=== PATIENT | female | born 1955 | race Caucasian/White ===

== ENCOUNTER → 2020-01-29 17:29 | Outpatient (CLI) | payer MEDICARE, SELFPAY ==
[2020-01-29 17:42] LABS: Basophils # 0.1 K/mm3 (0-0.2); Basophils % 0.5 % (0.1-2.0); Eosinophils # 0.3 K/mm3 (0.0-0.4); Eosinophils % 2.6 % (0.1-12.0); Hematocrit 27.3 % (37.0-47.0); Hemoglobin 8.8 g/dL (12.2-16.2); Lymphocytes # 3.3 K/mm3 (0.7-4.5); Lymphocytes % 28.3 % (10-50); Mean Corpuscular HGB Conc 32.1 g/dL (31.8-35.4); Mean Corpuscular Volume 90.4 fl (81-99); Mean Platelet Volume 8.8 fl (7.4-10.4); Monocytes # 0.8 K/mm3 (0.1-1.0); Monocytes % 6.5 % (1.7-9.3); Neutrophils # 7.2 K/mm3 (1.8-7.8); Platelet Count 359 K/mm3 (142-424); Red Blood Count 3.02 M/mm3 (4.20-5.40); White Blood Count 11.7 K/mm3 (4.8-10.8)
[2020-01-29 18:43] LABS: Iron 18 ug/dL (37-170)
== END ==
PROVIDERS: Visit Provider Family Medicine
DX: N93.9 Abnormal uterine and vaginal bleeding, unspecified (principal); R53.83 Other fatigue
CPT/HCPCS: 83540; 85025

== ENCOUNTER → 2020-03-07 19:34 | Outpatient (CLI) | payer MEDICARE, SELFPAY ==
[2020-03-07 19:45] LABS: Basophils # 0.1 K/mm3 (0-0.2); Basophils % 0.5 % (0.1-2.0); Eosinophils # 0.2 K/mm3 (0.0-0.4); Eosinophils % 1.9 % (0.1-12.0); Hematocrit 37.1 % (37.0-47.0); Hemoglobin 11.1 g/dL (12.2-16.2); Lymphocytes # 3.6 K/mm3 (0.7-4.5); Lymphocytes % 32.5 % (10-50); Mean Corpuscular HGB Conc 29.8 g/dL (31.8-35.4); Mean Corpuscular Hemoglobin 28.1 pg (27.0-31.2); Mean Platelet Volume 9.5 fl (7.4-10.4); Monocytes # 0.8 K/mm3 (0.1-1.0); Monocytes % 6.8 % (1.7-9.3); Neutrophils # 6.5 K/mm3 (1.8-7.8); Neutrophils % 58.2 % (37.0-80.0); Platelet Count 290 K/mm3 (142-424); Red Blood Count 3.94 M/mm3 (4.20-5.40); Red Cell Distribution Width 15.2 % (11.5-17.5); White Blood Count 11.2 K/mm3 (4.8-10.8)
[2020-03-07 19:49] LABS: Alanine Aminotransferase 12 U/L (12-78); Albumin Level 3.7 g/dl (3.5-5.0); Albumin/Globulin Ratio 1.2 (1.1-1.8); Alkaline Phosphatase 125 U/L (38-126); Anion Gap 10.8 mEq/L (5-15); Aspartate Amino Transferase 21 U/L (14-36); Bilirubin,Total 0.4 mg/dl (0.2-1.3); Blood Urea Nitrogen 10 mg/dl (7-17); Calcium 9.1 mg/dl (8.4-10.2); Carbon Dioxide 28 mmol/L (22.0-30.0); Chloride 105 mmol/L (98-107); Estimated Glomerular Filt Rate 72 ml/min (>60); GFR (African American) 87 ML/MIN (>60); Globulin 3.2 g/dL (1.3-3.2); Glucose 97 mg/dl (74-100); Potassium 3.8 mmoL/L (3.5-5.1); Sodium 140 mmol/L (136-145); Total Protein,Serum 6.9 g/dl (6.3-8.2)
[2020-03-07 20:07] LABS: 25-OH Vitamin D, Total 30.1 ng/mL (30-100); T4 (Thyroxine) 9.9 ug/dl (5.53-11.0)
[2020-03-07 20:20] LABS: Thyroid Stimulating Hormone 2.41 uIU/mL (0.465-4.68)
[2020-03-07 20:38] LABS: Vitamin B12 230 pg/mL (239-931)
[2020-03-07 21:56] LABS: Iron 44 ug/dL (37-170)
== END ==
PROVIDERS: Visit Provider Family Medicine
DX: R79.9 Abnormal finding of blood chemistry, unspecified (principal); E55.9 Vitamin D deficiency, unspecified; D64.9 Anemia, unspecified
CPT/HCPCS: 80053; 82306; 82607; 83540; 84436; 84443; 85025

== ENCOUNTER → 2020-03-22 11:08 | Outpatient (CLI) | payer MEDICARE, SELFPAY ==
[2020-03-23 17:31] LABS: Basophils # 0.1 K/mm3 (0-0.2); Basophils % 0.8 % (0.1-2.0); Eosinophils # 0.3 K/mm3 (0.0-0.4); Hematocrit 41.4 % (37.0-47.0); Lymphocytes # 3.6 K/mm3 (0.7-4.5); Lymphocytes % 26.2 % (10-50); Mean Corpuscular Hemoglobin 28.2 pg (27.0-31.2); Mean Platelet Volume 10.6 fl (7.4-10.4); Monocytes % 7.1 % (1.7-9.3); Neutrophils # 8.8 K/mm3 (1.8-7.8); Neutrophils % 63.9 % (37.0-80.0); Platelet Count 447 K/mm3 (142-424); Red Blood Count 4.27 M/mm3 (4.20-5.40); Red Cell Distribution Width 15.2 % (11.5-17.5); White Blood Count 13.8 K/mm3 (4.8-10.8)
== END ==
PROVIDERS: Visit Provider Family Medicine
DX: A41.9 Sepsis, unspecified organism (principal)
CPT/HCPCS: 85025; 87086

== ENCOUNTER → 2020-04-26 11:56 | Outpatient (CLI) | payer MEDICARE, SELFPAY ==
[2020-04-27 12:09] LABS: Basophils # 0.1 K/mm3 (0-0.2); Basophils % 0.6 % (0.1-2.0); Eosinophils # 0.2 K/mm3 (0.0-0.4); Eosinophils % 1.6 % (0.1-12.0); Hematocrit 34.8 % (37.0-47.0); Lymphocytes % 27.3 % (10-50); Mean Corpuscular HGB Conc 28.9 g/dL (31.8-35.4); Mean Corpuscular Hemoglobin 27.7 pg (27.0-31.2); Mean Corpuscular Volume 95.8 fl (81-99); Monocytes # 0.6 K/mm3 (0.1-1.0); Monocytes % 5.6 % (1.7-9.3); Neutrophils # 7.1 K/mm3 (1.8-7.8); Neutrophils % 64.8 % (37.0-80.0); Platelet Count 406 K/mm3 (142-424); Red Blood Count 3.63 M/mm3 (4.20-5.40); Red Cell Distribution Width 16.4 % (11.5-17.5)
== END ==
PROVIDERS: Visit Provider Family Medicine
DX: C54.1 Malignant neoplasm of endometrium (principal)
CPT/HCPCS: 85025

== ENCOUNTER → 2020-08-25 17:21 | Outpatient (CLI) | payer MEDICARE, SELFPAY ==
[2020-08-25 17:53] LABS: Basophils % 0.3 % (0.1-2.0); Eosinophils # 0.1 K/mm3 (0.0-0.4); Hematocrit 32.2 % (37.0-47.0); Hemoglobin 9.3 g/dL (12.2-16.2); Lymphocytes # 2.9 K/mm3 (0.7-4.5); Lymphocytes % 22.9 % (10-50); Mean Corpuscular Volume 79.3 fl (81-99); Mean Platelet Volume 9.9 fl (7.4-10.4); Monocytes # 0.9 K/mm3 (0.1-1.0); Monocytes % 7.1 % (1.7-9.3); Neutrophils # 8.8 K/mm3 (1.8-7.8); Neutrophils % 68.6 % (37.0-80.0); Platelet Count 256 K/mm3 (142-424); Red Blood Count 4.06 M/mm3 (4.20-5.40); Red Cell Distribution Width 17.2 % (11.5-17.5); White Blood Count 12.8 K/mm3 (4.8-10.8)
[2020-08-25 19:35] LABS: Total Iron Binding Capacity 475 ug/dL (265-497)
[2020-08-25 19:40] LABS: Alanine Aminotransferase 18 U/L (12-78); Albumin Level 3.9 g/dl (3.5-5.0); Albumin/Globulin Ratio 1.2 (1.1-1.8); Alkaline Phosphatase 127 U/L (38-126); Anion Gap 14.5 mEq/L (5-15); Aspartate Amino Transferase 21 U/L (14-36); Bilirubin,Total 0.3 mg/dl (0.2-1.3); Blood Urea Nitrogen 12 mg/dl (7-17); Carbon Dioxide 27 mmol/L (22.0-30.0); Chloride 102 mmol/L (98-107); Chol/HDL Ratio 3.2 (1-3.5); Cholesterol 186 mg/dl (140-200); Estimated Glomerular Filt Rate 100 ml/min (>60); GFR (African American) 121 ML/MIN (>60); Globulin 3.2 g/dL (1.3-3.2); Glucose 71 mg/dl (74-100); HDL Cholesterol 59 mg/dl (40-60); Potassium 4.5 mmoL/L (3.5-5.1); Sodium 139 mmol/L (136-145); Total Protein,Serum 7.1 g/dl (6.3-8.2); Triglycerides 128 mg/dl (30-150); VLDL Cholesterol 26 mg/dL (0-40)
[2020-08-25 19:51] LABS: Direct LDL Cholesterol 96.72 mg/dL (100-129)
[2020-08-25 19:58] LABS: 25-OH Vitamin D, Total 32.3 ng/mL (30-100); T4 (Thyroxine) 9.6 ug/dl (5.53-11.0)
[2020-08-25 20:11] LABS: Thyroid Stimulating Hormone 1.95 uIU/mL (0.465-4.68)
[2020-08-25 20:29] LABS: Vitamin B12 226 pg/mL (239-931)
[2020-08-25 21:23] LABS: Iron 27 ug/dL (37-170)
== END ==
PROVIDERS: Visit Provider Family Medicine
DX: D64.9 Anemia, unspecified (principal); E03.9 Hypothyroidism, unspecified; I10 Essential (primary) hypertension; C54.1 Malignant neoplasm of endometrium; E55.9 Vitamin D deficiency, unspecified; N39.0 Urinary tract infection, site not specified
CPT/HCPCS: 80053; 80061; 82306; 82607; 83540; 83550; 84436; 84443; 85025; 87086; 87088; 87186

== ENCOUNTER → 2020-11-29 17:05 | Outpatient (CLI) | payer MEDICARE, SELFPAY ==
--- NOTE | 2020-11-29 17:30 | XR_ITS ---
PROCEDURE INFORMATION: Exam: XR Chest Exam date and time: 11/29/2020 5:30 PM Age: 65 years old Clinical indication: Shortness of breath; Additional info: Pneumonitis, recalled cpap, black flecks TECHNIQUE: Imaging protocol: XR of the chest. Views: 2 views. COMPARISON: No relevant prior studies available. FINDINGS: Lungs: Mild atelectatic changes within the right lung base without focal pneumonia. Pleural spaces: There is no evidence of pneumothorax. There are no pleural effusions present. Heart/Mediastinum: The heart is not enlarged. Diaphragm: There is nonspecific elevation of the right hemidiaphragm. Bones/joints: The thoracic spine demonstrates mild degenerative changes at multiple levels. Soft tissues: There are no soft tissue masses or fluid collections. Other findings: The patient's chin overlies the lung apices. IMPRESSION: Mild atelectatic changes within the right lung base without focal pneumonia.
[2020-11-29 18:12] LABS: Basophils # 0.1 K/mm3 (0-0.2); Basophils % 0.5 % (0.1-2.0); Eosinophils # 0.2 K/mm3 (0.0-0.4); Eosinophils % 1.6 % (0.1-12.0); Hematocrit 36.4 % (37.0-47.0); Hemoglobin 11.5 g/dL (12.2-16.2); Lymphocytes # 3.6 K/mm3 (0.7-4.5); Mean Corpuscular HGB Conc 31.7 g/dL (31.8-35.4); Mean Corpuscular Hemoglobin 25.8 pg (27.0-31.2); Mean Corpuscular Volume 81.4 fl (81-99); Mean Platelet Volume 8.9 fl (7.4-10.4); Monocytes # 0.8 K/mm3 (0.1-1.0); Monocytes % 6.5 % (1.7-9.3); Neutrophils # 8.2 K/mm3 (1.8-7.8); Neutrophils % 63.4 % (37.0-80.0); Platelet Count 299 K/mm3 (142-424); Red Blood Count 4.47 M/mm3 (4.20-5.40); Red Cell Distribution Width 17.3 % (11.5-17.5)
[2020-11-29 19:19] LABS: Alanine Aminotransferase 20 U/L (12-78); Albumin Level 3.7 g/dl (3.5-5.0); Albumin/Globulin Ratio 1.2 (1.1-1.8); Alkaline Phosphatase 135 U/L (38-126); Anion Gap 13.2 mEq/L (5-15); Aspartate Amino Transferase 23 U/L (14-36); Bilirubin,Total 0.4 mg/dl (0.2-1.3); Blood Urea Nitrogen 10 mg/dl (7-17); Calcium 8.8 mg/dl (8.4-10.2); Carbon Dioxide 26 mmol/L (22.0-30.0); Chloride 104 mmol/L (98-107); Estimated Glomerular Filt Rate 100 ml/min (>60); GFR (African American) 121 ML/MIN (>60); Glucose 92 mg/dl (74-100); Potassium 4.2 mmoL/L (3.5-5.1); Sodium 139 mmol/L (136-145); Total Protein,Serum 6.7 g/dl (6.3-8.2)
[2020-11-29 20:58] LABS: Iron 43 ug/dL (37-170)
[2020-11-29 21:08] LABS: Total Iron Binding Capacity 436 ug/dL (265-497)
[2020-11-29 21:32] LABS: Thyroid Stimulating Hormone 1.67 uIU/mL (0.465-4.68)
== END ==
PROVIDERS: PCP Family Medicine; Visit Provider Family Medicine
DX: Z09 Encounter for follow-up examination after completed treatment for conditions other than malignant neoplasm (principal); C54.1 Malignant neoplasm of endometrium
CPT/HCPCS: 36415; 71046; 80053; 83540; 83550; 84443; 85025

== ENCOUNTER → 2021-02-02 18:28 | Outpatient (CLI) | payer MEDICARE, SELFPAY | PROVIDERS: Visit Provider Family Medicine | DX: R39.9 Unspecified symptoms and signs involving the genitourinary system (principal) | CPT/HCPCS: 87086; 87088; 87186 ==

== ENCOUNTER → 2021-08-01 11:44 | Outpatient (CLI) | payer MEDICARE, SELFPAY | PROVIDERS: Visit Provider Family Medicine | DX: R35.0 Frequency of micturition (principal); B96.1 Klebsiella pneumoniae [K. pneumoniae] as the cause of diseases classified elsewhere | CPT/HCPCS: 87086; 87088; 87186 ==

== ENCOUNTER → 2021-10-27 14:39 | Outpatient (CLI) | payer MEDICARE, SELFPAY ==
[2021-10-27 14:46] LABS: Alanine Aminotransferase 28 U/L (12-78); Albumin Level 3.5 g/dl (3.5-5.0); Albumin/Globulin Ratio 1.1 (1.1-1.8); Alkaline Phosphatase 131 U/L (38-126); Aspartate Amino Transferase 32 U/L (14-36); Blood Urea Nitrogen 10 mg/dl (7-17); Calcium 8.7 mg/dl (8.4-10.2); Carbon Dioxide 29 mmol/L (22.0-30.0); Chloride 104 mmol/L (98-107); Estimated Glomerular Filt Rate 100 ml/min (>60); GFR (African American) 121 ML/MIN (>60); Globulin 3.1 g/dL (1.3-3.2); Glucose 111 mg/dl (74-100); Sodium 140 mmol/L (136-145); Total Protein,Serum 6.6 g/dl (6.3-8.2)
[2021-10-27 15:01] LABS: Bilirubin,Total 0.1 mg/dl (0.2-1.3)
[2021-10-27 15:35] LABS: Vitamin B12 290 pg/mL (239-931)
== END ==
PROVIDERS: PCP Family Medicine; Visit Provider Family Medicine
DX: R39.9 Unspecified symptoms and signs involving the genitourinary system (principal); E53.8 Deficiency of other specified B group vitamins
CPT/HCPCS: 80053; 82607; 87086

== ENCOUNTER → 2022-02-21 11:02 | Outpatient (CLI) | payer MEDICARE, SELFPAY | PROVIDERS: PCP Family Medicine; Visit Provider Family Medicine | DX: R30.9 Painful micturition, unspecified (principal); B96.1 Klebsiella pneumoniae [K. pneumoniae] as the cause of diseases classified elsewhere | CPT/HCPCS: 87086; 87088; 87186 ==

== ENCOUNTER → 2022-08-06 23:31 | Outpatient (CLI) | payer MEDICARE, SELFPAY ==
[2022-08-06 18:48] LABS: Basophils # 0.1 K/mm3 (0-0.2); Basophils % 0.6 % (0.1-2.0); Eosinophils # 0.2 K/mm3 (0.0-0.4); Eosinophils % 1.9 % (0.1-12.0); Hematocrit 42.2 % (37.0-47.0); Hemoglobin 13.5 g/dL (12.2-16.2); Lymphocytes # 3.3 K/mm3 (0.7-4.5); Lymphocytes % 30.8 % (10-50); Mean Corpuscular HGB Conc 32.1 g/dL (31.8-35.4); Mean Corpuscular Hemoglobin 29.8 pg (27.0-31.2); Mean Corpuscular Volume 92.8 fl (81-99); Mean Platelet Volume 10.1 fl (7.4-10.4); Monocytes # 0.7 K/mm3 (0.1-1.0); Monocytes % 6.6 % (1.7-9.3); Neutrophils # 6.4 K/mm3 (1.8-7.8); Neutrophils % 60.1 % (37.0-80.0); Platelet Count 303 K/mm3 (142-424); Red Blood Count 4.55 M/mm3 (4.20-5.40); Red Cell Distribution Width 14.2 % (11.5-17.5); White Blood Count 10.6 K/mm3 (4.8-10.8)
[2022-08-06 19:02] LABS: Alanine Aminotransferase 24 U/L (12-78); Albumin Level 3.9 g/dl (3.5-5.0); Albumin/Globulin Ratio 1.3 (1.1-1.8); Alkaline Phosphatase 132 U/L (38-126); Anion Gap 11.4 mEq/L (5-15); Aspartate Amino Transferase 30 U/L (14-36); Bilirubin,Total 0.6 mg/dl (0.2-1.3); Blood Urea Nitrogen 11 mg/dl (7-17); Calcium 8.6 mg/dl (8.4-10.2); Carbon Dioxide 28 mmol/L (22.0-30.0); Chloride 101 mmol/L (98-107); Chol/HDL Ratio 4.4 (1-3.5); Cholesterol 209 mg/dl (140-200); Estimated Glomerular Filt Rate 123 ml/min (>60); GFR (African American) 149 ML/MIN (>60); Glucose 97 mg/dl (74-100); HDL Cholesterol 48 mg/dl (40-60); Potassium 4.4 mmoL/L (3.5-5.1); Sodium 136 mmol/L (136-145); Total Protein,Serum 6.9 g/dl (6.3-8.2); Triglycerides 221 mg/dl (30-150); VLDL Cholesterol 44 mg/dL (0-40)
[2022-08-06 19:14] LABS: Direct LDL Cholesterol 120.81 mg/dL (100-129)
[2022-08-06 19:22] LABS: 25-OH Vitamin D, Total 25.2 ng/mL (30-100)
[2022-08-06 19:35] LABS: Thyroid Stimulating Hormone 1.86 uIU/mL (0.465-4.68)
[2022-08-06 20:12] LABS: Folate 8.46 ng/mL
== END ==
PROVIDERS: PCP Family Medicine; Visit Provider Family Medicine
DX: E66.01 Morbid (severe) obesity due to excess calories (principal); E55.9 Vitamin D deficiency, unspecified; D50.0 Iron deficiency anemia secondary to blood loss (chronic); I10 Essential (primary) hypertension; F39 Unspecified mood [affective] disorder; R53.83 Other fatigue; Z68.43 Body mass index [BMI] 50.0-59.9, adult
CPT/HCPCS: 80053; 80061; 82306; 82746; 84443; 85025

== ENCOUNTER → 2022-12-06 23:11 | Outpatient (CLI) | payer MEDICARE, SELFPAY ==
[2022-12-06 18:16] LABS: Alanine Aminotransferase 24 U/L (12-78); Albumin/Globulin Ratio 1.3 (1.1-1.8); Alkaline Phosphatase 130 U/L (38-126); Anion Gap 9.9 mEq/L (5-15); Aspartate Amino Transferase 37 U/L (14-36); Bilirubin,Total 0.6 mg/dl (0.2-1.3); Blood Urea Nitrogen 8 mg/dl (7-17); Calcium 8.8 mg/dl (8.4-10.2); Carbon Dioxide 28 mmol/L (22.0-30.0); Chloride 105 mmol/L (98-107); Estimated Glomerular Filt Rate 83 ml/min (>60); GFR (African American) 101 ML/MIN (>60); Globulin 3.1 g/dL (1.3-3.2); Glucose 95 mg/dl (74-100); Potassium 3.9 mmoL/L (3.5-5.1); Sodium 139 mmol/L (136-145); Total Protein,Serum 7.1 g/dl (6.3-8.2)
== END ==
PROVIDERS: PCP Family Medicine; Visit Provider Family Medicine
DX: I10 Essential (primary) hypertension (principal)
CPT/HCPCS: 80053

== ENCOUNTER 2023-07-15 19:47 | Outpatient (CLI) | payer MEDICARE, SELFPAY ==
[2023-07-15 18:55] LABS: Basophils % 0.4 % (0.1-2.0); Eosinophils # 0.1 K/mm3 (0.0-0.4); Eosinophils % 1.6 % (0.1-12.0); Hematocrit 41.6 % (37.0-47.0); Hemoglobin 14.2 g/dL (12.2-16.2); Lymphocytes % 35.1 % (10-50); Mean Corpuscular Hemoglobin 31.8 pg (27.0-31.2); Mean Corpuscular Volume 93.4 fl (81-99); Mean Platelet Volume 10.5 fl (7.4-10.4); Monocytes # 0.5 K/mm3 (0.1-1.0); Monocytes % 6.4 % (1.7-9.3); Neutrophils # 4.8 K/mm3 (1.8-7.8); Neutrophils % 56.4 % (37.0-80.0); Platelet Count 249 K/mm3 (142-424); Red Blood Count 4.46 M/mm3 (4.20-5.40); White Blood Count 8.5 K/mm3 (4.8-10.8)
[2023-07-15 18:56] LABS: Alanine Aminotransferase 21 U/L (12-78); Albumin Level 3.7 g/dl (3.5-5.0); Albumin/Globulin Ratio 1.2 (1.1-1.8); Alkaline Phosphatase 111 U/L (38-126); Anion Gap 7.8 mEq/L (5-15); Aspartate Amino Transferase 26 U/L (14-36); Bilirubin,Total 0.5 mg/dl (0.2-1.3); Blood Urea Nitrogen 11 mg/dl (7-17); Calcium 8.9 mg/dl (8.4-10.2); Carbon Dioxide 32 mmol/L (22.0-30.0); Chloride 103 mmol/L (98-107); Cholesterol 218 mg/dl (140-200); Estimated Glomerular Filt Rate 83 ml/min (>60); GFR (African American) 101 ML/MIN (>60); Globulin 3.2 g/dL (1.3-3.2); Glucose 100 mg/dl (74-100); HDL Cholesterol 44 mg/dl (40-60); Potassium 3.8 mmoL/L (3.5-5.1); Sodium 139 mmol/L (136-145); Total Protein,Serum 6.9 g/dl (6.3-8.2); Triglycerides 184 mg/dl (30-150); VLDL Cholesterol 37 mg/dL (0-40)
[2023-07-15 19:07] LABS: Direct LDL Cholesterol 123.51 mg/dL (100-129)
[2023-07-15 19:16] LABS: 25-OH Vitamin D, Total 33.6 ng/mL (30-100)
[2023-07-15 19:25] LABS: Thyroid Stimulating Hormone 1.33 uIU/mL (0.465-4.68)
[2023-07-15 19:44] LABS: Vitamin B12 331 pg/mL (239-931)
== END 2023-07-15 23:59 ==
LOC: LAB.DROPOF 19:47
PROVIDERS: PCP Family Medicine; Visit Provider Family Medicine
DX: K76.0 Fatty (change of) liver, not elsewhere classified (principal); I10 Essential (primary) hypertension; D64.9 Anemia, unspecified; E55.9 Vitamin D deficiency, unspecified; N39.0 Urinary tract infection, site not specified; E03.8 Other specified hypothyroidism; B96.1 Klebsiella pneumoniae [K. pneumoniae] as the cause of diseases classified elsewhere
CPT/HCPCS: 80053; 80061; 82306; 82607; 84443; 85025; 87086

== ENCOUNTER 2023-12-09 10:31 | Outpatient (CLI) | payer MEDICARE, SELFPAY | END 2023-12-09 23:59 | disposition home or self-care (01) | LOC: LAB.DROPOF 12-10 10:31 | PROVIDERS: PCP Family Medicine; Visit Provider Family Medicine | DX: R30.0 Dysuria (principal) | CPT/HCPCS: 87086; 87088; 87186 ==

== ENCOUNTER 2024-01-26 09:23 | Outpatient (CLI) | payer MEDICARE, SELFPAY | END 2024-01-26 23:59 | disposition home or self-care (01) | LOC: LAB.DROPOF 01-27 09:24 | PROVIDERS: PCP Family Medicine; Visit Provider Family Medicine | DX: N39.0 Urinary tract infection, site not specified (principal); R30.0 Dysuria | CPT/HCPCS: 87086; 87088; 87186 ==

== ENCOUNTER 2024-02-20 11:30 | Outpatient (CLI) | payer MEDICARE, SELFPAY | END 2024-02-20 23:59 | disposition home or self-care (01) | LOC: LAB.DROPOF 02-21 14:56 | PROVIDERS: PCP Family Medicine; Visit Provider Family Medicine | DX: N39.0 Urinary tract infection, site not specified (principal); R30.0 Dysuria | CPT/HCPCS: 87086; 87088; 87186 ==

== ENCOUNTER 2024-03-16 10:17 | Outpatient (CLI) | payer MEDICARE, SELFPAY ==
[2024-03-16 19:30] LABS: Basophils # 0.1 K/mm3 (0-0.2); Basophils % 0.5 % (0.1-2.0); Eosinophils # 0.2 K/mm3 (0.0-0.4); Eosinophils % 1.3 % (0.1-12.0); Hematocrit 46.1 % (37.0-47.0); Hemoglobin 14.9 g/dL (12.2-16.2); Lymphocytes # 3.5 K/mm3 (0.7-4.5); Lymphocytes % 26.1 % (10-50); Mean Corpuscular HGB Conc 32.3 g/dL (31.8-35.4); Mean Corpuscular Hemoglobin 30.8 pg (27.0-31.2); Mean Corpuscular Volume 95.4 fl (81-99); Mean Platelet Volume 9.7 fl (7.4-10.4); Monocytes # 0.9 K/mm3 (0.1-1.0); Monocytes % 6.7 % (1.7-9.3); Neutrophils # 8.6 K/mm3 (1.8-7.8); Neutrophils % 65.4 % (37.0-80.0); Platelet Count 257 K/mm3 (142-424); Red Blood Count 4.83 M/mm3 (4.20-5.40); Red Cell Distribution Width 13.3 % (11.5-17.5); White Blood Count 13.2 K/mm3 (4.8-10.8)
[2024-03-16 20:05] LABS: Alanine Aminotransferase 32 U/L (12-78); Albumin/Globulin Ratio 1.2 (1.1-1.8); Alkaline Phosphatase 113 U/L (38-126); Aspartate Amino Transferase 31 U/L (14-36); Bilirubin,Total 0.7 mg/dl (0.2-1.3); Blood Urea Nitrogen 12 mg/dl (7-17); Calcium 9.2 mg/dl (8.4-10.2); Carbon Dioxide 30 mmol/L (22.0-30.0); Chloride 104 mmol/L (98-107); Chol/HDL Ratio 3.7 (1-3.5); Cholesterol 220 mg/dl (140-200); Estimated Glomerular Filt Rate 83 ml/min (>60); GFR (African American) 100 ML/MIN (>60); Globulin 3.4 g/dL (1.3-3.2); Glucose 99 mg/dl (74-100); HDL Cholesterol 60 mg/dl (40-60); Sodium 140 mmol/L (136-145); Total Protein,Serum 7.4 g/dl (6.3-8.2); Triglycerides 144 mg/dl (30-150); Uric Acid 5.7 mg/dl (2.5-6.2); VLDL Cholesterol 29 mg/dL (0-40)
[2024-03-16 20:14] LABS: Erythrocyte Sedimentation Rate 16 mm/hr (0-30)
[2024-03-16 20:21] LABS: 25-OH Vitamin D, Total 42.4 ng/mL (30-100)
[2024-03-16 20:50] LABS: Anion Gap 9.7 mEq/L (5-15); Potassium 3.7 mmoL/L (3.5-5.1)
[2024-03-16 20:58] LABS: Direct LDL Cholesterol 127.52 mg/dL (100-129); Thyroid Stimulating Hormone 0.95 uIU/mL (0.465-4.68)
[2024-03-18 15:27] LABS: RA Latex Turbid. <10.0 IU/mL (<14.0)
[2024-03-19 17:13] LABS: Antinuclear Antibodies, IFA Negative (.)
== END 2024-03-16 23:59 | disposition home or self-care (01) ==
LOC: LAB.DROPOF 03-17 10:17
PROVIDERS: PCP Family Medicine; Visit Provider Family Medicine
DX: E55.9 Vitamin D deficiency, unspecified (principal); I10 Essential (primary) hypertension; E03.9 Hypothyroidism, unspecified; D50.0 Iron deficiency anemia secondary to blood loss (chronic)
CPT/HCPCS: 80053; 80061; 82306; 84443; 84550; 85025; 85651; 86038; 86431

== ENCOUNTER 2024-11-02 16:59 | Outpatient (CLI) | payer MEDICARE, SELFPAY ==
--- OUTSIDE RECORDS SUMMARY | 2024-10-27 12:30 | XMS_ITS | Encounter Summary ---
Author Organization [place] [address] Care Team Providers Care Bicycle Technician Name Role Phone Noah Gonzales MD Primary Care Provider [phone] Desean Vickers DPM Unavailable [phone] Roel Posadas MD Unavailable [phone] Noah Calero MD Unavailable Unavailable Reason for Visit * Reason Comments Follow-up Encounter Details Date Type Department Care Team (Late st Contact Info) Description 10/27/2024 12:30 PM EDT Office Visit [facility] [address] [address] Singh Varner MD [address] [address] KARO (obstructive sleep apnea) (Primary Dx); BMI 50.0-59.9, adult ([facility]); Class 3 severe obesity with serious comorbidity and body mass index (BMI) of 50.0 to 59.9 in adult; Mild persistent asthma without complication; Gastroesophageal reflux disease, unspecified whether esophagitis present; Fatty liver Social History Tobacco Use Types Packs/Day Years Used Date Smoking Tobacco: Never Smokeless Tobacco: Never Tobacco Cessation:Counseling Given: Not Answered Alcohol Use Standard Drinks/Week Comments No 0 (1 standard drink = 0.6 oz pur e alcohol) PHQ-2 Answer Date Recorded PHQ-2 Total Score 0 02/06/2023 Sexually Active Control Partners Comments Not Currently Comments No Sex and Gender Information Value Date Recorded Sex Assigned at Not on file Legal Sex Female 8:44 PM EDT Gender Identity Not on file Sexual Orientation Not on file documented as of this encounter Last Filed Vital Signs Vital Sign Reading Time Taken Comments Blood Pressure 100/60 10/27/2024 12:37 PM EDT Pulse 74 10/27/2024 12:37 PM EDT Temperature - - Respiratory Rate - - Oxygen Saturation 97% 10/27/2024 12:37 PM EDT [email or web address]@rest Inhaled Oxygen Concentration - - Weight 149.2 kg (329 lb) 10/27/2024 12:37 PM EDT Height 164.5 cm (5' 4.75 ) 10/27/2024 12:37 PM E DT Body Mass Index 55.17 10/27/2024 12:37 PM EDT documented in this encounter Functional Status * Is the person deaf or does he/she have serious difficulty hearing? Answer Date of Assessment Author No 05/04/2020 10:40 AM Donald Pagan RN * Is the person blind or does he/she have serious difficulty seeing even when wearing glasses? Answer Date of Assessment Author No 05/04/2020 10:40 AM Donald Pagan RN * Does this person have serious difficulty walking or climbing stairs? Answer Date of Assessment Author No 05/04/2020 10:40 AM Donald Pagan RN * Does this person have difficulty dressing or bathing? Answer Date of Assessment Author No 05/04/2020 10:40 AM Donald Pagan RN * Because of a physical, mental or emotional condition, does this person have difficulty doing errands alone such as visiting a doctor's office or shopping? Answer Date of Assessment Author No 05/04/2020 10:40 AM Donald Pagan RN documented as of this encounter Mental Status * Because of a physical, mental or emotional condition, does this person have serious difficulty concentrating, remembering or making decisions? Answer Entry Date Author No 05/04/2020 10:40 AM Donald Pagan RN documented in this encounter Ordered Prescriptions Prescription Sig Dispense Quantity Refills Last Filled Start Date End Date albuterol-budesonid e (AIRSUPRA) 90-80 mcg/actuation Inhl HFA Aerosol Inhaler Inhale 2 Puffs into the lungs 4 times daily as needed. 17 g 3 10/27/2024 documented in this encounter Progress Notes * Singh Varner MD - 10/27/2024 12:30 PM EDT Images from the original note were not included. [facility] Care Group Followup Visit PATIENT: PAVITHRA NEGRETE CSN: [id number] AGE TODAY: 68 y.o. DATE: [address]: Noah Gonzales MD SERVICE DATE: 10/27/2024 [facility] [place] PULM SERVICE BY: Singh Varner MD Subjective: Patient ID: Pavithra Power returns today for follow up of . 1. KARO (obstructive sleep apnea) 2. BMI 50.0-59.9, adult (HCC) 3. Class 3 severe obesity with serious comorbidity and body mass index (BMI) of 50.0 to 59.9 in adult 4. Mild persistent asthma without complication 5. Gastroesophageal reflux disease, unspecified whether esophagitis present 6. Fatty liver Referred from: No referring provider defined for this encounter. CHIEF COMPLAINT Chief Complaint Patient presents with Follow-up HPI Pavithra Power is a 68 y.o. female who presents July was rough Antbx sterioids x 3 Thinks it was c malfunction c cpap Current symptoms include: dhaliwal Recent oral steroid use 3 Recent Hospital admission 0 ED visit 0 Recent abx use 0 Constitutional: Denies fever or chills Eyes: Denies change in visual acuity HENT: Denies nasal congestion or sore throat Respiratory: dhaliwal Cardiovascular: Denies chest pain or edema GI: Denies abdominal pain, nausea, vomiting, bloody stools or diarrhea : Denies dysuria Musculoskeletal: Denies back pain or joint pain Integument: Denies rash Neurologic: Denies headache, focal weakness or sensory changes Endocrine: Denies polyuria or polydipsia Lymphatic: Denies swollen glands Psychiatric: Denies depression or anxiety Peripheral vascular: Denies claudication Past Medical History: Diagnosis Date Anemia related to HARBOR MASTER bleeding Arthritis all over Asthma Cancer (HCC) skin ( squamous cell ), endometrial cancer now Chronic back pain 01/28/2013 ripped s1 nerve during D&C Chronic kidney disease stones DHALIWAL (dyspnea on exertion) Fibromyalgia 01/28/2013 Heartburn Hiatal hernia Hypertension Irritable bowel syndrome Liver disease fatty Motion sickness Neuromuscular disorder (HCC) Fibromyalgia Postmenopausal 01/28/2013 states postmenopausal for at least 4 years. Postoperative nausea and vomiting Sleep apnea c pap Ulcer 2005 Urinary incontinence Urinary tract infection 10/2015 frequent. Cuirrently on Doxycycline, treated by Dr. Buitrago Social History Socioeconomic History Marital status: Spouse name: None Number of children: None Years of education: None Highest education level: None Tobacco Use Smoking status: Never Smokeless tobacco: Never Vaping Use Vaping status: Never Used Substance and Sexual Activity Alcohol use: No Drug use: No Sexual activity: Not Currently Current Outpatient Medications Medication Sig Dispense Refill acetaminophen (TYLENOL) 500 mg Oral Tablet Take 1,000 mg by mouth every 6 hours as needed (arthiritis pain). albuterol (PROVENTIL HFA;VENTOLIN HFA) 90 mcg/actuation Inhl HFA Aerosol Inhaler Inhale 2 Puffs into the lungs every 6 hours as needed for Wheezing. 1 Inhaler 0 albuterol (PROVENTIL) 2.5 mg /3 mL (0.083 %) Inhl Solution for Nebulization Take 3 mL by nebulization daily as needed for Wheezing or Shortness of Breath. 1 box 0 benazepriL (LOTENSIN) 5 mg Oral Tablet Take 5 mg by mouth daily. cetirizine (ZYRTEC) 5 mg Oral Tablet Take 5 mg by mouth daily. chlordiazePOXIDE (LIBRIUM) 10 mg Oral Capsule Take by mouth 2 times daily as needed. for anxiety chlordiazePOXIDE (LIBRIUM) 5 mg capsule Take 5 mg by mouth 3 times daily as needed (for anxiety attacks). Cholecalciferol, Vitamin D3, 125 mcg (5,000 unit) Oral Capsule 125 mcg. ergocalciferol (DRISDOL) 1,250 mcg (50,000 unit) Oral Capsule Take 50,000 Units by mouth once a week. Takes on Saturday fluconazole (DIFLUCAN) 100 mg Oral Tablet Take 100 mg by mouth daily. fUROsemide (LASIX) 40 mg tablet Take 40 mg by mouth daily. HYDROmorphone (DILAUDID) 2 mg Oral Tablet take 1 tablet by mouth once daily as needed for pain LEVOthyroxine (SYNTHROID) 75 mcg Oral Tablet Take 1 Tab by mouth daily. meclizine (ANTIVERT) 25 mg Oral Tablet, Chewable CHEW 1 TABLET BY MOUTH THREE (3) TIMES DAILY NEEDED FOR DIZZINESS MICONAZORB AF 2 % Top Powder APPLY ONE (1) APPLICATION TOPICALLY TWICE DAILY nitrofurantoin, macrocrystal-monohydrate, (MACROBID) 100 mg Oral Capsule TAKE 1 CAPSULE BY MOUTH TWICE DAILY FOR 12 DAYS omeprazole (PRILOSEC) 20 mg Take 20 mg by mouth every morning (before breakfast). Patient states the only omeprazole that works are white capsules. Patient has switched pharmacies to obtain this reduction furnace operator helper ([facility]) ondansetron (ZOFRAN) 4 mg/2 mL Inj Solution Inject 2 mL into the vein every 6 hours as needed for Nausea. 28 Each 0 No current facility-administered medications for this visit. Allergies Allergen Reactions Codeine Other (See Comments) Severe nausea,sweats and cause lethargy. Opioids - Morphine Analogues Anaphylaxis, Shortness Of Breath, Nausea And Vomiting, Swelling and Other (See Comments) Patient states the only pain medication she tolerates is: Tylenol and Demerol. Prior allergies and intolerances documented in 2013 listed below: Morphine- Severe Nausea and vomiting Post-OP in 2013 Codeine- Severe Nausea /Flu-like symptoms ( felt ill ) Percocet- SOB and tongue swelling Tylox- Hallucinations Tramadol-Lethargy and high blood pressure ( felt ill ) Nucynta-Chest tightness and pressure Quinolones Other (See Comments) Ciprofloxacin PO- Patient ambulated after first dose due to experiencing severe chest pain ( felt like I was having a heart attack ). Levofloxacin PO- Unsure of reaction Tramadol Other (See Comments) Caused hypertension and lethargy. Amlodipine Swelling Peripheral edema in legs. Patient was on Lotrel (amlodipine/ benazepril) when this occurred. Benadryl [Diphenhydramine Hcl] Palpitations Patient experiences this with Tylenol PM as well. (tolerates tylenol.) Erythromycin Hives and Rash Latex Other (See Comments) and Hives Latex tape only- causes blisters and rash. Morphine Other (See Comments) Post-op severe nausea and vomiting in 2013 Mylanta Ii Other (See Comments) Tongue and lip swelling from PO liquid formulation Nsaids (Non-Steroidal Anti-Inflammatory Drug) Other (See Comments) Patient has several listed allergies to oral NSAIDS. Patient stated all over the counters give her problems or make her feel sick. Ibuprofen-unsure of reaction Naproxen-unsure of reaction Ketorolac-eye pain with movement Polyethylene Glycol 3350 Hives and Itching Prozac [Fluoxetine] Other (See Comments) Redness of face and burning of face. Sulfa (Sulfonamide Antibiotics) Other (See Comments) Patient stated sulfa makes her ill and flu-like. Patient has tolerated Bactrim PO. Patient experienced nausea on Bactrim IV. Acetaminophen Other (See Comments) can take generic but not brand Adhesive Rash Chocolate Itching Grapefruit Other (See Comments) Hydrocodone Other (See Comments) Levaquin [Levofloxacin] Other (See Comments) Unsure of reaction. Macrobid [Nitrofurantoin Monohyd/M-Cryst] Nausea And Vomiting Very lethargic Macrolide Antibiotics Hives Meclizine Other (See Comments) Methylprednisolone Other (See Comments) Mold Other (See Comments) Mylanta-Ii Other (See Comments) Niacin Rash Oxycodone Hives and Swelling Pork/Porcine Containing Products Nausea And Vomiting Propoxyphene Other (See Comments) Enterprise Nausea And Vomiting Trimethoprim Other (See Comments) Amoxil [Amoxicillin] Other (See Comments) Unsure of reaction. Tolerates Augmentin Ampicillin Other (See Comments) Unsure of reaction. Tolerates Augmentin Bran Swelling Ciprofloxacin Other (See Comments) Dietary Supplement Swelling Elavil Other (See Comments) Mood swings. Keflex [Cephalexin] Other (See Comments) Unsure of reaction. Lyrica [Pregabalin] Other (See Comments) Unsure of reaction. Neurontin [Gabapentin] Other (See Comments) Unsure of reaction. Nexium [Esomeprazole Magnesium] Other (See Comments) Unsure of reaction. On omeprazole 20 mg Wheat Bran Hives Patient's medications, allergies, past medical, surgical, social and family histories were reviewedand updated as appropriate. Objective: PHYSICAL EXAM VITAL SIGNS: Vitals: 10/27/24 1237 BP: 100/60 BP Location: Right arm Patient Position: Sitting Pulse: 74 SpO2: 97% Weight: (!) 329 lb (149.2 kg) Height: 5' 4.75 (1.645 m) Wt Readings from Last 3 Encounters: 10/27/24 (!) 329 lb (149.2 kg) 05/26/24 (!) 329 lb (149.2 kg) 05/12/24 (!) 329 lb (149.2 kg) BP 100/60 (BP Location: Right arm, Patient Position: Sitting) Pulse 74 Ht 5' 4.75 (1.645 m) Wt (!) 329 lb (149.2 kg) LMP 03/15/2020 SpO2 97% Comment: [email or web address] No BMI 55.17kg/m?? General appearance: alert, appears stated age, and cooperative Head: Normocephalic, without obvious abnormality, atraumatic Nose: Nares normal. Septum midline. Mucosa normal. No drainage or sinus tenderness. Throat: lips, mucosa, and tongue normal; teeth and gums normal Lungs: clear to auscultation bilaterally Chest wall: no tenderness Heart: regular rate and rhythm, S1, S2 normal, no murmur, click, rub or gallop Abdomen: soft, non-tender; bowel sounds normal; no masses, no organomegaly Extremities: extremities normal, atraumatic, no cyanosis or edema Pulses: 2+ and symmetric Skin: Skin color, texture, turgor normal. No rashes or lesions Neurologic: Grossly normal Lab Results Component Value Date WBC 8.6 04/02/2021 HGB 11.9 04/02/2021 HCT 38.9 04/02/2021 PLT 276 04/02/2021 CHOLESTEROL 167 04/01/2021 TRIG 134 04/01/2021 HDL 51 04/01/2021 LDLCALC 92 04/01/2021 ALT 12 03/15/2020 AST 16 03/15/2020 NA 137 04/02/2021 K 3.8 04/02/2021 CL 102 04/02/2021 CREATININE 0.8 02/20/2023 BUN 7 (L) 04/02/2021 CO2 25 04/02/2021 INR 1.16 (H) 03/15/2020 GLU 124 (H) 04/02/2021 HGBA1C 6.0 (H) 04/01/2021 No results found. Pulmonary Functions Testing Results: No results found for: FEV1 , FVC , HDF1NYN , TLC , DLCO (FEV1 < 60% predicted = moderate or severe pulmonary disease) Results for orders placed or performed during the hospital encounter of 08/28/24 PULMONARY FUNCTION TEST Result Value FVC_PRE 2.17 FEV1_PRE 1.65 FEV1/FVC_PRE 76.21 Hb_PRE 13.60 ERV_PRE 0.33 RV_PRE 1.62 RV%TLC_PRE 42.71 TLC_PRE 3.80 (L) FVC_Pre%REF 76 FEV1_Pre%REF 74 RV_Pre%REF 81 TLC_Pre%REF 74 ERV_Pre%REF 43 Impression Mild restrictive lung defect due to Obesity No results found for: ALPHA1 ABG Lab Results Component Value Date/Time PCO2 57 (H) 07/03/2016 09:10 AM HCO3 28.7 (H) 07/03/2016 09:10 AM (pCO2 > 45 or HCO3 > 29 indicates hypoventilation) Echocardiogram Results for orders placed during the hospital encounter of 04/14/20 EC ECHOCARDIOGRAM COMPLETE W DOPPLER AND COLOR FLOW MAPPING Impression CONCLUSIONS Left Ventricular ejection fraction is estimated at 65-70%. No major valve abnormalities. Latest Reference Range & Units 07/03/16 09:10 pH 7.35 - 7.45 7.32 (L) pCO2 35 - 45 mmHg 57 (H) pO2 80 - 100 mmHg 65 (L) HCO3 22.0 - 26.0 mmol/L 28.7 (H) TCO2 23 - 27 mmol/L 26 Base Excess -2.0 - 3.0 2.0 O2 Sat 95.0 - 98.0 % 91.4 (L) Inspired O2 2L Specimen Type Arterial (L): Data is abnormally low (H): Data is abnormally high CT CHEST HIGH-RESOLUTION WITHOUT CONTRAST, 08/28/2024 10:51 AM CLINICAL HISTORY: J96.11-Chronic respiratory failure with hypoxia (HCC)-ICD-10-CM. COMPARISON: 04/19/2021 PROCEDURE COMMENTS: High-resolution CT chest per protocol. Multiplanar reconstructions. Dose 1 : CT DLP Total : 717.18 mGycm DLP Spiral Max : 663.28 mGycm Maximum CTDI Vol : 23.5 mGy FINDINGS: No mediastinal or hilar mass lesion. Lung volumes within normal limits. No significant reticulation. No traction bronchiectasis or honeycombing. Mild chronic mucus plugging lingula. No generalized nodularity or pulmonary cyst formation. No groundglass opacities away from areas of fibrosis. Mild air-trapping. Mediastinal and visceral pleura unremarkable. Tracheobronchial tree patent. Coronary artery calcification: Mild. Incidental: Visible abdominal viscera are unremarkable. IMPRESSION: No pattern of significant interstitial fibrosis or acute cardiopulmonary process. Mild air trapping. Assessment and Plan: Diagnostic tests were reviewed and questions answered. Diagnosis, care plan and treatment options were discussed. The patient understand instructions and will follow up as directed. 1. KARO (obstructive sleep apnea) 2. BMI 50.0-59.9, adult (HCC) 3. Class 3 severe obesity with serious comorbidity and body mass index (BMI) of 50.0 to 59.9 in adult 4. Mild persistent asthma without complication 5. Gastroesophageal reflux disease, unspecified whether esophagitis present 6. Fatty liver Consider glp1 rx zepbound Fu at the sleep center Has a mobility device Prior eval dr gloria is on albuterol only prn hhn Pft primarily restriction assoc c body habitus Airsupra Follow c pulse ox > 88% Probably pickwickian last echo 2019 was normal documented in this encounter Plan of Treatment Upcoming Encounters Date Type Department Care Team (Late st Contact Info) Description 02/03/2025 1:30 PM EDT Appointment [facility] [place] [address] Greg Swanson, FRED [address] [place], [place] [id number] 05/03/2026 2:10 PM EST Office Visit [facility] [address] Young [address] [place] [phone] Mina Mac MD [address] [facility] [address] [place] [address] documented as of this encounter Goals Goal Patient Goal Type Associated Problems Recent Progress Patient-Stated? Author Blood Pressure < 140/90 Blood Pressure 100/60(2024 12:37 PM EDT) Anabela Salazar, Clerical Staff Maintain a healthy diet, exercise regularly and maintain an ideal body weight General No Anabela Rodriguez, Clerical Staff documented as of this encounter Visit Diagnoses Diagnosis KARO (obstructive sleep apnea)- Primary Obstructive sleep apnea (adult) (pediatric) BMI 50.0-59.9, adult (HCC) Body Mass Index 50.0-59.9, adult Class 3 severe obesity with serious comorbidity and body mass index (BMI) of 50.0 to 59.9 in adult Mild persistent asthma without complication Unspecified asthma Gastroesophageal reflux disease, unspecified whether esophagitis present Fatty liver Other chronic nonalcoholic liver disease documented in this encounter Care Teams Bicycle Technician Relationship Specialty Start Date End Date Noah Gonzales MD PCP - General 10/27/09 Desean Vickers DPM [address] [place] [phone] Crew Supervisor-Surgery, Foot & Ankle 08/13/16 Roel Posadas MD [address] [place] [address] Consulting Physician Obstetrics & Gynecology-Gynecologic Oncology 03/29/20 Noah Calero MD [address] [place] [phone] Obstetrics & Gynecology 05/10/20 documented as of this encounter
[2024-11-02 17:59] LABS: Basophils % 0.3 % (0.1-2.0); Eosinophils # 0.2 Kmm3 (0.0-0.4); Eosinophils % 1.6 % (0.1-12.0); Hematocrit 42.4 % (37.0-47.0); Hemoglobin 13.4 g/dL (12.2-16.2); Immature Granulocytes # 0.05 10^3uL; Immature Granulocytes % 0.4 %; Lymphocytes # 3.5 K/mm3 (0.7-4.5); Lymphocytes % 29.5 % (10-50); Mean Corpuscular HGB Conc 31.6 g/dL (31.8-35.4); Mean Corpuscular Volume 94.9 fl (81-99); Mean Platelet Volume 11.5 fl (7.4-10.4); Monocytes # 0.9 K/mm3 (0.1-1.0); Monocytes % 7.9 % (1.7-9.3); Neutrophils # 7.1 K/mm3 (1.8-7.8); Neutrophils % 60.3 % (37.0-80.0); Nucleated Red Blood Cells # 0 10^3/uL; Nucleated Red Blood Cells % 0 %; Platelet Count 260 K/mm3 (142-424); Red Blood Count 4.47 M/mm3 (4.20-5.40); Red Cell Distribution Width 13.2 % (11.5-17.5); Red Cell Distribution Width-SD 45.9 fL; White Blood Count 11.8 K/mm3 (4.8-10.8)
[2024-11-02 20:15] LABS: Albumin Level 3.6 g/dl (3.5-5.0); Chloride 107 mmol/L (98-107); Sodium 140 mmol/L (136-145)
[2024-11-02 20:16] LABS: Potassium 3.9 mmoL/L (3.5-5.1)
[2024-11-02 20:18] LABS: Alanine Aminotransferase 20 U/L (12-78); Albumin/Globulin Ratio 1.1 (1.1-1.8); Anion Gap 5.9 mEq/L (5-15); Aspartate Amino Transferase 23 U/L (14-36); Blood Urea Nitrogen 8 mg/dl (7-17); Carbon Dioxide 31 mmol/L (22.0-30.0); Estimated Glomerular Filt Rate 99 ml/min (>60); GFR (African American) 120 ML/MIN (>60); Globulin 3.3 g/dL (1.3-3.2); Total Protein,Serum 6.9 g/dl (6.3-8.2)
[2024-11-02 20:19] LABS: Alkaline Phosphatase 114 U/L (38-126); Bilirubin,Total 0.5 mg/dl (0.2-1.3); Calcium 8.7 mg/dl (8.4-10.2); Chol/HDL Ratio 4.4 (1-3.5); Cholesterol 205 mg/dl (140-200); Glucose 98 mg/dl (74-100); HDL Cholesterol 47 mg/dl (40-60); Triglycerides 162 mg/dl (30-150); VLDL Cholesterol 32 mg/dL (0-40)
[2024-11-02 20:30] LABS: T4 (Thyroxine) 11.2 ug/dl (5.53-11.0)
[2024-11-02 22:42] LABS: Vitamin B12 297 pg/mL (239-931)
--- OUTSIDE RECORDS SUMMARY | 2024-11-04 10:46 | XMS_ITS | Encounter Summary ---
Author Organization [place] [address] Care Team Providers Care Club Licensee Name Role Phone Noah Gonzales MD Primary Care Provider [phone] Desean Vickers DPM Unavailable [phone] Roel Posadas MD Unavailable [phone] Noah Calero MD Unavailable Unavailable Encounter Details Date Type Department Care Team (Late Contact Info) Description 04/15/2020 Lab Requisition [facility] [place] [address] Crescencio Buitrago MD [address] [place] [address] [address] [place] [address] Calculus of ureter Social History Tobacco Use Types Packs/Day Years Used Date Smoking Tobacco: Never Cigarettes Smokeless Tobacco: Never Alcohol Use Standard Drinks/Week Comments No 0 (1 standard drink = 0.6 oz pur e alcohol) Comments No Sex and Gender Information Value Date Recorded Sex Assigned at Not on file Legal Sex Female 8:44 PM EDT Gender Identity Not on file Sexual Orientation Not on file COVID-19 Exposure Response Date Recorded In the last month, have you been in contact with someone who was confirmed or suspected to have Coronavirus / COVID-19? No / Unsure 04/13/2020 9:34 AM EST documented as of this encounter Plan of Treatment Upcoming Encounters Date Type Department Care Team (Late Contact Info) Description 02/03/2025 1:30 PM EDT Appointment [facility]ING MACHINE [facility]PER[place] [address] Greg Swanson, SELLING SPECIALIST [address] [place] [address] 05/03/2026 2:10 PM EST Office Visit [facility] [address] [place] [address] Mian Mac MD [address] [facility] [address] [place] [address] documented as of this encounter Procedures Procedure Name Priority Date/Time Associated Diagnosis Comments CALCULI (STONE) ANALYSIS - REF LAB Routine 04/15/2020 3:50 PM EST Calculus of ureter documented in this encounter Results * CALCULI (STONE) ANALYSIS - REF LAB (04/15/2020 3:50 PM EST) Calculi Comp See Note 04/18/2020 7:17 PM EST [employer] Comment: Calculi components identified: calcium oxalate monohydrate, and calcium oxalate dihydrate. The presence of protein and debris make quantitation unreliable. No quantitation of analytes provided. INTERPRETIVE INFORMATION: Calculi (Stone) analysis Calculi are the products of physiological processes that yield crystalline compounds in a matrix of biological compounds and blood. Matrix components are not reported. The clinically significant crystalline components identified in calculi specimens are reported. Gross description may not be consistent with composition determined by FTIR analysis. Performed By: [employer] [address] [place] [id number] Cath Lab Technologist: Chantale Vivar MD Calculi Mass 2 mg 04/18/2020 7:17 PM EST [employer] Calculi Number 1 04/18/2020 7:17 PM EST [employer] Calculi Size 1 to 4 mm 04/18/2020 7:17 PM EST [employer] Calculi Desc See Note 04/18/2020 7:17 PM EST [employer] Comment: Specimen consists of a single, small, douglas/white, irregular calculus. Calculus 04/15/2020 3:5 0 PM EST 04/15/2020 6:31 PM EST us Crescencio Buitrago MD MICROBIOLOGY - GENERAL ORDER LUCAS Final Result [employer] [address] [place] [address] documented in this encounter Visit Diagnoses Diagnosis Calculus of ureter documented in this encounter Care Teams Club Licensee Relationship Specialty Start Date End Date Noah Gonzales MD PCP - General 10/27/09 Desean Vickers DPM [address] [address] Sterilizer Operator-Surgery, Foot & Ankle 08/13/16 Roel Posadas MD 1 [place] [address] Consulting Physician Obstetrics & Gynecology-Gynecologic Oncology 03/29/20 Noah Calero MD [address] [place] [address] Obstetrics & Gynecology 05/10/20 documented as of this encounter
--- OUTSIDE RECORDS SUMMARY | 2024-11-04 10:46 | XMS_ITS | Encounter Summary ---
Author Organization [place] [address] Care Team Providers Care Agility Instructor Name Role Phone Noah Gonzales MD Primary Care Provider [phone] Desean Vickers DPM Unavailable [phone] Roel Posadas MD Unavailable [phone] Noah Calero MD Unavailable Unavailable Encounter Details Date Type Department Care Team (Late st Contact Info) Description 09/08/2024 Results Follow-Up SEP Pulmonology CV [address] [facility] Building [address] [place] [address] Yuko Toro, ROLLING DOWN MACHINE OPERATOR [address] [place], [place] [id number] CT CHEST HIGH RESOLUTION WO CONTRAST Social History Tobacco Use Types Packs/Day Years Used Date Smoking Tobacco: Never Smokeless Tobacco: Never Alcohol Use Standard Drinks/Week [...] on file documented as of this encounter Functional Status * Is the person deaf or does he/she have serious difficulty hearing? Answer Date of Assessment Author No 05/04/2020 10:40 AM Donald Pagan, RN * Is the person blind or [...] Donald Pagan RN documented in this encounter Plan of Treatment Upcoming Encounters Date Type Department Care Team (Late st Contact Info) Description 02/03/2025 1:30 PM EDT Appointment [facility] [address] Greg Swanson, ROLLING DOWN MACHINE OPERATOR [address] [place] [id number] 05/03/2026 2:10 PM EST Office Visit [facility] [address] [phone] Mina Mac MD [address] [facility] [address] [place] [address] documented as of this encounter Goals Goal Patient Goal Type Associated Problems Recent Progress Patient-Stated? Author Blood Pressure < 140/90 Blood Pressure 100/60(2024 12:37 PM EDT) Anabela Salazar, Clerical Staff Maintain a healthy diet, exercise regularly and maintain an ideal body weight General No Anabela Rodriguez, Clerical Staff documented as of this encounter Visit Diagnoses Not on filedocumented in this encounter Care Teams Agility Instructor Relationship Specialty Start Date End Date Noah Gonzales MD PCP - General 10/27/09 Desean Vickers DPM [address] [address] Bankruptcy Law Specialist-Surgery, Foot & Ankle 08/13/16 Roel Posadas MD 1 [place] [address] Consulting Physician Obstetrics & Gynecology-Gynecologic Oncology 03/29/20 Noah Calero MD 1 [place] [address] Obstetrics & Gynecology 05/10/20 documented as of this encounter
--- OUTSIDE RECORDS SUMMARY | 2024-11-04 10:46 | XMS_ITS | Encounter Summary ---
Author Organization [place] [address] Care Team Providers Care Ic Engineer Name Role Phone Noah Gonzales MD Primary Care Provider [phone] Desean Vickers DPM Unavailable [phone] Roel Posadas MD Unavailable [phone] Noah Calero MD Unavailable Unavailable Encounter Details Date Type Department Care Team (Late st Contact Info) Description 05/02/2020 Orders Only [facility] [address] [place] [id number] Marilyn Shoemaker MD [address] [place] [address] [address] [place] [address] Social History Tobacco Use Types Packs/Day Years [...] have Coronavirus / COVID-19? No / Unsure 05/02/2020 6:17 AM EST documented as of this encounter Functional Status * Cognitive and Functional Status Question Answer Date of Assessment Author Is the person deaf or does h e/she have serious difficulty hearing? No 05/04/2020 10:40 AM EST Stephanie Peña RN Is the person blind or does he/she have serious difficulty seeing even when wearing glasses? No 05/04/2020 10:40 AM Yohannes Pagan RN Does this person have seriou s difficulty walking or climbing stairs? No 05/04/2020 10:40 AM Stephanie Pagan RN Does this person have diffic ulty dressing or bathing? No 05/04/2020 10:40 AM Stephanie Pagan RN documented as of this encounter Mental Status * Cognitive and Functional Status Question Answer Entry Date Author Because of a physical, menta l or emotional condition, does this person have difficulty doing errands alone such as visiting a doctor's office or shopping? No 05/04/2020 10:40 AM Stephanie Pagan RN Because of a physical, menta l or emotional condition, does this person have serious difficulty concentrating, remembering or making decisions? No 05/04/2020 10:40 AM Stephanie Pagan RN documented in this encounter Plan of Treatment Upcoming Encounters Date Type Department Care Team (Late st Contact Info) Description 02/03/2025 1:30 PM EDT Appointment [facility] STEEL TESTER [facility]C [place], [place] [id number] Greg Swanson, TEAM FOREMAN 1 [place], [place] [id number] 05/03/2026 2:10 PM EST Office Visit [facility] [address] Young [address] [place] [phone] Mina Mac MD [address] [facility] [address] [place] [phone] documented as of this encounter Procedures Procedure Name Priority Date/Time Associated Diagnosis Comments NEOGENOMICS MISMATCH REPAIR (MMR) IHC PANEL Routine 05/02/2020 10:41 AM EST documented in this encounter Results * NEOGENOMICS MISMATCH REPAIR (MMR) IHC PANEL (05/02/2020 10:41 AM EST) [employer] Result H&E (Comments) = Endometrioid adenocarcinoma, FIGO grade 2 MLH1 (Result) = NO LOSS OF EXPRESSION MLH1 (Tumor Stained) = 100% MLH1 (Intensity) = 3+ MSH2 (Result) = NO LOSS OF EXPRESSION MSH2 (Tumor Stained) = 100% MSH2 (Intensity) = 3+ MSH6 (Result) = NO LOSS OF EXPRESSION MSH6 (Tumor Stained) = 100% MSH6 (Intensity) = 3+ PMS2 (Result) = NO LOSS OF EXPRESSION PMS2 (Tumor Stained) = 97% PMS2 (Intensity) = 2+ MLH1 (Reference Ranges) = Loss of Expression: </=5% Equivocal: =6-50% No Loss of Expression: >50% MSH2 (Reference Ranges) = Loss of Expression: </=5% Equivocal: =6-50% No Loss of Expression: >50% MSH6 (Reference Ranges) = Loss of Expression: </=5% Equivocal: =6-50% No Loss of Expression: >50% PMS2 (Reference Ranges) = Loss of Expression: </=5% Equivocal: =6-50% No Loss of Expression: >50% MLH1 (Intended Use) = Mismatch repair genes perform an essential cellular function by repairing DNA mismatches that may occur during cellular replication. A number of these genes have been identified in the human genome, including MLH1, MSH2, MSH3, MSH6, PMS1, PMS2 and EPCAM. MLH1, MSH2, MSH6 and PMS2 proteins are normally expressed in the nucleus of cells. The absence of nuclear expression of one or more of these proteins has been found to correlate with the presence of a mismatch repair gene defect in the respective gene. However, loss of MLH1 expression is also common in sporadic cancers due to MLH1 promoter methylation rather than germline mutation. Studies have found that 50%-70% of patients with Richter Syndrome [hereditary non-polyposis colorectal cancer (HNPCC)] have a mutation in one of the DNA mismatch repair genes. Patients with Richter Syndrome have an 80-90% lifetime risk of colorectal carcinoma and increased risk of endometrial cancer and other cancers, and typically have an earlier onset (mean age of onset 42, vs 65 years for sporadic colon cancer). MLH1 (Methodology) = Dako clone [id number] was used to detect MLH1 in formalin-fixed paraffin-embedded tissue sections. A polymerTweetworks based system was used for detection. MLH1 (Disclaimer) = MMR references ranges are based on [employer]` internal validation, and we recommend cases with equivocal staining be confirmed with microsatellite instability (MSI) testing. MLH1 (Control Statement) = The digitized slide(s) was/were adequate for quantitative image analysis. All controls were reviewed and showed appropriate positive and negative immunoreactivity. MLH1 (Image Analysis Statement) = Whole slide image capture was performed with the [employer] ScanScope and quantitative computer-assisted image analysis using Piehole software. MSH2 (Intended Use) = Mismatch repair genes perform an essential cellular function by repairing DNA mismatches that may occur during cellular replication. A number of these genes have been identified in the human genome, including MLH1, MSH2, MSH3, MSH6, PMS1, PMS2 and EPCAM. MLH1, MSH2, MSH6 and PMS2 proteins are normally expressed in the nucleus of cells. The absence of nuclear expression of one or more of these proteins has been found to correlate with the presence of a mismatch repair gene defect in the respective gene. However, loss of MLH1 expression is also common in sporadic cancers due to MLH1 promoter methylation rather than germline mutation. Studies have found that 50%-70% of patients with Richter Syndrome [hereditary non-polyposis colorectal cancer (HNPCC)] have a mutation in one of the DNA mismatch repair genes. Patients with Richter Syndrome have an 80-90% lifetime risk of colorectal carcinoma and increased risk of endometrial cancer and other cancers, and typically have an earlier onset (mean age of onset 42, vs 65 years for sporadic colon cancer). MSH2 (Methodology) = Dako clone [id number] was used to detect MSH2 in formalin-fixed paraffin-embedded tissue sections. A polymerTweetworks based system was used for detection. MSH6 (Intended Use) = Mismatch repair genes perform an essential cellular function by repairing DNA mismatches that may occur during cellular replication. A number of these genes have been identified in the human genome, including MLH1, MSH2, MSH3, MSH6, PMS1, PMS2 and EPCAM. MLH1, MSH2, MSH6 and PMS2 proteins are normally expressed in the nucleus of cells. The absence of nuclear expression of one or more of these proteins has been found to correlate with the presence of a mismatch repair gene defect in the respective gene. However, loss of MLH1 expression is also common in sporadic cancers due to MLH1 promoter methylation rather than germline mutation. Studies have found that 50%-70% of patients with Richter Syndrome [hereditary non-polyposis colorectal cancer (HNPCC)] have a mutation in one of the DNA mismatch repair genes. Patients with Richter Syndrome have an 80-90% lifetime risk of colorectal carcinoma and increased risk of endometrial cancer and other cancers, and typically have an earlier onset (mean age of onset 42, vs 65 years for sporadic colon cancer). MSH6 (Methodology) = Dako clone EP49 was used to detect MSH6 in formalin-fixed paraffin-embedded tissue sections. A polymerTweetworks based system was used for detection. PMS2 (Intended Use) = Mismatch repair genes perform an essential cellular function by repairing DNA mismatches that may occur during cellular replication. A number of these genes have been identified in the human genome, including MLH1, MSH2, MSH3, MSH6, PMS1, PMS2 and EPCAM. MLH1, MSH2, MSH6 and PMS2 proteins are normally expressed in the nucleus of cells. The absence of nuclear expression of one or more of these proteins has been found to correlate with the presence of a mismatch repair gene defect in the respective gene. However, loss of MLH1 expression is also common in sporadic cancers due to MLH1 promoter methylation rather than germline mutation. Studies have found that 50%-70% of patients with Richter Syndrome [hereditary non-polyposis colorectal cancer (HNPCC)] have a mutation in one of the DNA mismatch repair genes. Patients with Richter Syndrome have an 80-90% lifetime risk of colorectal carcinoma and increased risk of endometrial cancer and other cancers, and typically have an earlier onset (mean age of onset 42, vs 65 years for sporadic colon cancer). PMS2 (Methodology) = Dako clone [id number] was used to detect PMS2 in formalin-fixed paraffin-embedded tissue sections. A [employer] based system was used for detection. [facility] 05/02/2020 10:4 1 AM EST Narrative [facility] - 05/10/2020 10:23 AM EST Requesting Provider: Roel Grimes Specimen = [id number] us Marilyn Shoemaker MD PATHOLOGY ORDERABLES Final Res ult [facility] [address] [place] [phone] documented in this encounter Visit Diagnoses Not on filedocumented in this encounter Care Teams Ic Engineer Relationship Specialty Start Date End Date Noah Gonzales MD PCP - General 10/27/09 Desean Vickers DPM [address] [place] [phone] Utilities Ground Worker-Surgery, Foot & Ankle 08/13/16 Roel Posadas MD 1 [place] [address] Consulting Physician Obstetrics & Gynecology-Gynecologic Oncology 03/29/20 Noah Calero MD 1 [place] [address] Obstetrics & Gynecology 05/10/20 documented as of this encounter
--- OUTSIDE RECORDS SUMMARY | 2024-11-04 10:46 | XMS_ITS | Encounter Summary ---
Author Organization [place] [address] Care Team Providers Care Ad Clerk Name Role Phone Noah Gonzales MD Primary Care Provider [phone] Desean Vickers DPM Unavailable [phone] Roel Posadas MD Unavailable [phone] Noah Calero MD Unavailable Unavailable Encounter Details Date Type Department Care Team (Late st Contact Info) Description 10/07/2020 Lab Requisition [facility] [place] [address] Tessie Hinton, INTERIOR ASSEMBLIES DEVELOPER [place] [address] [address] Urinary tract infection, site not specified Social History Tobacco Use Types Packs/Day Years [...] 1:30 PM EDT Appointment [facility] [place] [address] Greg Swanson, INTERIOR ASSEMBLIES DEVELOPER [place] [address] [place], [place] [phone] 05/03/2026 2:10 PM EST Office Visit [facility] [address] [address] Mina Mac MD [address] [facility] [address] [place] [address] documented as of this encounter Procedures Procedure Name Priority Date/Time Associated Diagnosis Comments URINE CULTURE (NO STAIN) Routine 10/07/2020 4:18 PM EDT Urinary tract infection, site not specified documented in this encounter Results * (ABNORMAL) URINE CULTURE (NO STAIN) (10/07/2020 4:18 PM EDT) Culture Positive Growth(A) 10/10/2020 1:01 PM EDT [facility] Culture >[id number] CFU/mL Escherichia coli SUSCEPTIBI LITY RESULT 10/10/2020 1:01 PM EDT [facility] Undergarments, [facility] Urine 10/07/2020 4:18 PM EDT 10/07/2020 7:34 PM EDT Narrative Organism Antibiotic Method Susceptibility Escherichia coli Amikacin SUSCEPTIBILITY RESULT <=16 ug/mL: Susceptible Escherichia coli Amoxicillin/Clavulanate SUSCEPTIBILIT Y RESULT >16/8 ug/mL: Resistant Escherichia coli Ampicillin SUSCEPTIBILITY RESULT >16 ug/mL: Resistant Escherichia coli Ampicillin/Sulbactam SUSCEPTIBILITY R ESULT >16/8 ug/mL: Resistant Escherichia coli Aztreonam SUSCEPTIBILITY RESULT <=4 ug/mL: Susceptible Escherichia coli Cefazolin SUSCEPTIBILITY RESULT <=2 ug/mL: Susceptible Escherichia coli Cefepime SUSCEPTIBILITY RESULT Escherichia coli Cefotaxime SUSCEPTIBILITY RESULT Escherichia coli Cefoxitin SUSCEPTIBILITY RESULT <=8 ug/mL: Susceptible Escherichia coli Ceftazidime SUSCEPTIBILITY RESULT Escherichia coli Ceftazidime/Avibactam SUSCEPTIBILITY RESULT Escherichia coli Ceftolozane/Tazobactam SUSCEPTIBILITY RESULT Escherichia coli Ceftriaxone SUSCEPTIBILITY RESULT Escherichia coli Cefuroxime SUSCEPTIBILITY RESULT Escherichia coli Ciprofloxacin SUSCEPTIBILITY RESULT <=0.25 ug/mL: Susceptible Escherichia coli Ertapenem SUSCEPTIBILITY RESULT <=0.5 ug/mL: Susceptible Escherichia coli Gentamicin SUSCEPTIBILITY RESULT <=2 ug/mL: Susceptible Escherichia coli Imipenem SUSCEPTIBILITY RESULT <=1 ug/mL: Susceptible Escherichia coli Levofloxacin SUSCEPTIBILITY RESULT <=0.5 ug/mL: Susceptible Escherichia coli Meropenem SUSCEPTIBILITY RESULT <=1 ug/mL: Susceptible Escherichia coli Meropenem/Vaborbactam SUSCEPTIBILITY RESULT Escherichia coli Minocycline SUSCEPTIBILITY RESULT <=4 ug/mL: Susceptible Escherichia coli Moxifloxacin SUSCEPTIBILITY RESULT Escherichia coli Nitrofurantoin SUSCEPTIBILITY RESULT <=32 ug/mL: Susceptible Escherichia coli Piperacillin/Tazobactam SUSCEPTIBILIT Y RESULT <=8 ug/mL: Susceptible Escherichia coli Tetracycline SUSCEPTIBILITY RESULT <=4 ug/mL: Susceptible Escherichia coli Tigecycline SUSCEPTIBILITY RESULT Escherichia coli Tobramycin SUSCEPTIBILITY RESULT <=2 ug/mL: Susceptible Escherichia coli Trimethoprim/Sulfame tho xazole SUSCEPTIBILITY RESULT <=0.5/9.5 ug/mL: Susceptible us Tessie Hinton INTERIOR ASSEMBLIES DEVELOPER [place] MICROBIOLOGY - GENERAL ORDE RABLES Final Result [facility] [employer] [address] [facility] , [address] [place] [id number] documented in this encounter Visit Diagnoses Diagnosis Urinary tract infection, site not specified documented in this encounter Care Teams Ad Clerk Relationship Specialty Start Date End Date Noah Gonzales MD PCP - General 10/27/09 Desean Vickers DPM [address] [address] Professor Of Sociology-Surgery, Foot & Ankle 08/13/16 Roel Posadas MD 1 [facility] [place] [address] Consulting Physician Obstetrics & Gynecology-Gynecologic Oncology 03/29/20 Noah Calero MD 1 [facility] [place] [address] Obstetrics & Gynecology 05/10/20 documented as of this encounter
--- OUTSIDE RECORDS SUMMARY | 2024-11-04 10:46 | XMS_ITS | Clinical Summary ---
Author Organization [facility] Address [address] [place] [address] Care Team Providers Care Chief Meteorologist Name Role Phone Unavailable Primary Care Provider Unavailabl e Source Comments This information has been disclosed to you from confidential records protectedfrom disclosure by state law. You shall make no further disclosure of thisinformation without the specific, written, and informed release of theindividual to whom it pertains, or as otherwise permitted by law. A generalauthorization for the release of medical or other information is not sufficientfor the purposes of therelease of HIV test results or diagnoses. [id number] Social History Tobacco Use Types Packs/Day Years Used Date Smoking Tobacco: Never Assessed Comments Unknown Sex and Gender Information Value Date Recorded Sex Assigned at Not on file Legal Sex Female 9:29 PM EST Gender Identity Not on file Sexual Orientation Not on file Plan of Treatment Not on file
--- OUTSIDE RECORDS SUMMARY | 2024-11-04 10:46 | XMS_ITS | Continuity of Care Document ---
Author Organization [facility] Address [address] [place] [address] Phone Care Team Providers Care Certified Addiction Counselor Name Role Phone Noah Gonzales MD Primary Care Provider [phone] Desean Vickers DPDonald Unavailable [phone] Roel Posadas MD Unavailable [phone] Noah Calero MD Unavailable Unavailable Encounters Date Type Department Care Team Description 5 12:30 PM EDT Office Visit SEP Pulmonology [facility] [address] [phone] Singh Varner MD KARO (obstructive sleep apnea) (Primary Dx); BMI 50.0-59.9, adult (HCC); Class 3 severe obesity with serious comorbidity and body mass index (BMI) of 50.0 to 59.9 in adult; Mild persistent asthma without complication; Gastroesophageal reflux disease, unspecified whether esophagitis present; Fatty liver 5 Results Follow-Up SEP Pulmonology [address] [phone] CHEST HIGH RESOLUTION WO CONTRAST 5 10:54 AM EDT - 5 11:59 PM EDT Hospital Encounter EDG PFT LAB [facility] [place] [address] Yuko Toro APRN Chronic respiratory failure with hypoxia (HCC) Discharge Disposition: Home or Self Care 5 10:21 AM EDT - 5 10:53 AM EDT Hospital Encounter [facility] [place] [address] Yuko Toro APRN Chronic respiratory failure with hypoxia (HCC) Discharge Disposition: Home or Self Care 5 Telephone [facility]P Pulmonology [facility] [address] [phone] Yuko Toro APRN Other 4 11:00 AM EST Office Visit SEP Pulmonology [facility] [address] [phone] Yuko Toro APRN Chronic respiratory failure with hypoxia (HCC) (Primary Dx); Morbid obesity (HCC) 4 1:30 PM EST Office Visit [facility] [address] [place] [phone] Mina Mac MD Sensory hearing loss, bilateral (Primary Dx); Abnormal auditory perception of both ears 4 Telephone [facility] [address] [place] [address] Gia Baker Results ([facility] genetic test results) 4 2:30 PM EST - 4 11:59 PM EST Hospital Encounter [facility] [address] [place] [address] Courtney Hinds MA Genetic testing (Primary Dx) Discharge Disposition: Home or Self Care 4 1:34 PM EST - 4 2:29 PM EST Hospital Encounter [facility] [address] [place] [address] Gia Baker Encounter for nonprocreative genetic counseling and testing (Primary Dx) Discharge Disposition: Home or Self Care 4 Telephone [facility] [address] [place] [address] Renay Trimble, Clerical Staff Other (Familial Results) 4 1:54 PM EDT - 4 11:59 PM EDT Hospital Encounter [facility] [place] [phone] Greg Swanson APRN Endometrial cancer (HCC) (Primary Dx) Discharge Disposition: Home or Self Care 4 3:38 PM EDT - 4 11:59 PM EDT Hospital Encounter [facility] [address] [place] [phone] Noah Gonzales MD Annular tear Discharge Disposition: Home or Self Care 4 Telephone [facility] [place] [address] Greg Swanson APRN Information Only (02/05/24) 4 2:45 PM EDT Office Visit [facility] Pulmonology [address] [phone] Singh Varner MD Mild persistent asthma without complication (Primary Dx); Endometrial cancer (HCC); KARO (obstructive sleep apnea) 3 Telephone SEP [facility] [address] [place] [phone] Sara Schulte RN Appointment Needed 3 2:00 PM EDT - 3 11:59 PM EDT Hospital Encounter [facility] [place] [address] Greg Swanson APRN Endometrial cancer (HCC) (Primary Dx) Discharge Disposition: Home or Self Care 3 11:45 AM EDT - 3 11:59 PM EDT Hospital Encounter [address] [place] [address] Greg Swanson APRN Endometrial cancer (HCC) Discharge Disposition: Home or Self Care 3 Telephone SEP [facility] [address] [place] [phone] Sara Schulte RN Results 3 1:50 PM EDT - 3 11:59 PM EDT Hospital Encounter [facility] [place] [address] Greg Swanson APRN Endometrial cancer (HCC) (Primary Dx); Abnormal uterine bleeding (AUB) Discharge Disposition: Home or Self Care 3 1:46 PM EDT - 3 11:59 PM EDT Hospital Encounter [facility] Mammography [address] [place] [address] Noah Calero MD Encounter for screening mammogram for breast cancer Discharge Disposition: Home or Self Care 3 Telephone [facility] [place] [address] Fatou Trimble APRN Information Only ([facility]NONC Schedulers) 3 Telephone [facility] [place] [address] Elly Steve CPhT 3 Telephone [facility] [place] [address] Roel Posadas MD Reschedule (reschedule today's appt. to 01/09 if possible) 3 Telephone [place] 900698 [address] [place] [phone] Noah Calero MD No Show 3 Travel 3 1:52 PM EDT - 3 11:59 PM EDT [facility] [place] [address] Lalo Inman APRN Nocturia; Urinary tract infection without hematuria, site unspecified; Urge incontinence Discharge Disposition: Home or Self Care 3 Telephone [place] 900692 [address] [place] [phone] Diana Smith MA Other (RX not sent in ? ) 3 2:00 PM EDT Office Visit [facility] NPTFTT [address] [place] [phone] Noah Calero MD Skin tag of vulva (Primary Dx); Vulvar lesion; Benign neoplasm of vulva; Pain, unspecified 3 Travel 3 2:00 PM EDT - 3 11:59 PM EDT Hospital Encounter [facility] [address] [place] [address] Noah Gonzales MD Liver disease Discharge Disposition: Home or Self Care 3 1:00 PM EST Office Visit SEP Pulmonology [facility] [address] [place] [phone] Yuko Toro APRN Mild persistent asthma without complication (Primary Dx) 2 Travel 2 3:00 PM EDT - 2 11:59 PM EDT Hospital Encounter [facility] [place] [address] Roel Posadas MD Endometrial cancer (HCC) (Primary Dx); BMI 50.0-59.9, adult (HCC) Discharge Disposition: Home or Self Care 2 1:00 PM EDT Office Visit [facility] Pulmonology [address] [phone] Yuko Toro APRN Exacerbation of persistent asthma, unspecified asthma severity (Primary Dx) 2 Travel 2 1:45 PM EDT - 2 11:59 PM EDT Hospital Encounter [facility] [place] [address] Exacerbation of asthma, unspecified asthma severity, unspecified whether persistent Discharge Disposition: Home or Self Care 2 Telephone [facility] Pulmonology [facility] [address] [phone] Yuko Toro APRN Other 2 1:00 PM EDT Office Visit [facility] Pulmonology [address] [place] [address] Yuko Toro APRN Exacerbation of asthma, unspecified asthma severity, unspecified whether persistent (Primary Dx); Mild persistent asthma without complication 2 Travel 2 2:30 PM EST - 2 11:59 PM EST Hospital Encounter [facility] [place] [phone] Ariadna Piper, FRED Endometrial cancer (HCC) (Primary Dx); Class 3 severe obesity with serious comorbidity and body mass index (BMI) of 50.0 to 59.9 in adult, unspecified obesity type (HCC); Frequent UTI; Urinary incontinence, unspecified type Discharge Disposition: Home or Self Care 1 Travel 1 1:20 PM EST Office Visit [facility] Pulmonology [address] [phone] Yuko Toro APRN Mild persistent asthma without complication (Primary Dx) 1 [facility] [address] [place] [phone] Angle Mart MD Medication Refill 1 Plan of Care Documentation [facility] Physical Therapy [place] [address] 1 Travel 1 3:00 PM EST - 1 11:59 PM EST Hospital Encounter [facility] Physical Therapy [place] [address] Blaine Rivera, PT Vertigo Discharge Disposition: Home or Self Care 1 Travel 1 10:16 AM EST - 1 11:02 AM EST Hospital Encounter [facility]G LAB[facility] [place] [address] Mild persistent asthma witho ut complication; Chronic respiratory failure with hypoxia (HCC); Reactive airway disease without complication, unspecified asthma severity, unspecified whether persistent; SCOTT (dyspnea on exertion); SOB (shortness of breath) Discharge Disposition: Home or Self Care 1 11:03 AM EST - 1 11:59 PM EST Hospital Encounter EDG PFT LAB [facility] [place] [address] Singh Varner MD Mild persistent asthma without complication; Chronic respiratory failure with hypoxia (HCC); Reactive airway disease without complication, unspecified asthma severity, unspecified whether persistent; SCOTT (dyspnea on exertion); SOB (shortness of breath) Discharge Disposition: Home or Self Care 1 10:13 AM EST - 1 10:15 AM EST Hospital Encounter [facility] [place] [address] Singh Varner MD Mild persistent asthma without complication; Chronic respiratory failure with hypoxia (HCC); Reactive airway disease without complication, unspecified asthma severity, unspecified whether persistent; SCOTT (dyspnea on exertion); SOB (shortness of breath) Discharge Disposition: Home or Self Care 1 Travel 1 11:00 AM EST Office Visit [facility] Pulmonology [address] [phone] Singh Varner MD SCOTT (dyspnea on exertion) (Primary Dx); Mild persistent asthma without complication; Chronic respiratory failure with hypoxia (HCC); KARO (obstructive sleep apnea); Reactive airway disease without complication, unspecified asthma severity, unspecified whether persistent; SOB (shortness of breath) 1 [facility] [address] [place] [phone] Angle Mart MD Medication Problem 1 6:44 AM EDT - 1 6:21 PM EST Hospital Encounter EDG [address]C NE[address] [facility] [place] [address] Charo Vásquez MD Bentley, Shannon, MD Vertigo (Primary Dx) Discharge Disposition: Home or Self Care 1 Travel 1 3:09 PM EDT - 1 11:59 PM EDT Hospital [facility] [place] [address] Noah Gonzales MD Right upper quadrant abdominal swelling, mass and lump; Right upper quadrant pain; Personal history of malignant neoplasm of other parts of uterus Discharge Disposition: Home or Self Care 1 Travel 1 2:29 PM EDT - 1 11:59 PM EDT Hospital Encounter [facility] [place] [address] Fatou Trimble, RADIO EQUIPMENT INSTALLER Endometrial cancer (HCC) (Primary Dx) Discharge Disposition: Home or Self Care 1 Travel 1 2:30 PM EDT - 1 11:59 PM EDT Hospital Encounter EDG D-WING XRAY [facility] [place] [address] Calculus of kidney; Urinary tract infection without hematuria, site unspecified Discharge Disposition: Home or Self Care 1 Travel 1 2:00 PM EDT - 1 2:45 PM EDT Surgery EDG ENDOSCOPY [facility] [place] [address] Tin Pryor MD ESOPHAGOGASTRODUODENOSCOPY (ANESTHESIA) 1 2:15 PM EDT Anesthesia Event EDG ENDOSCOPY [facility] [place] [address] Lacy Jimenez MD Collins, Angela, APRN 1 12:43 PM EDT - 1 4:48 PM EDT Hospital Encounter EDG ENDOS[facility] [place] [address] Tin Pryor MD Personal history of colonic polyps; Gastroesophageal reflux disease, unspecified whether esophagitis present; Personal history of colonic polyps Discharge Disposition: Home or Self Care 1 Travel 1 1:44 PM EDT - 1 11:59 PM EDT Hospital Encounter EDG LAB [address] [place] [address] Covid19, Edg Lab [facility] Pre-op testing; Encounter for laboratory testing for COVID-19 virus Discharge Disposition: Home or Self Care 1 Travel 1 Orders Only MD Adult Med [address] [place] [address] [place] [address] Tin Pryor MD Gastroesophageal reflux disease, unspecified whether esophagitis present (Primary Dx); Personal history of colonic polyps 1 4:15 PM EDT - 1 11:59 PM EDT Hospital Encounter EDG LAB [facility] [address] [place] [phone] Click, Edg Lab [facility] Iron deficiency anemia, unspecified iron deficiency anemia type (Primary Dx) Discharge Disposition: Home or Self Care 1 Travel 1 Lab Requisition EDG LAB[facility] [place] [address] Tessie Hinton APRN Urinary tract infection, site not specified 1 Travel 1 2:22 PM EST - 1 11:59 PM EST Hospital Encounter [facility] [place] [address] Roel Posadas MD Chronic blood loss anemia (Primary Dx); Endometrial cancer (HCC) Discharge Disposition: Home or Self Care 0 Travel 0 2:23 PM EST - 0 11:59 PM EST Hospital Encounter [facility] [place] [address] Roel Posadas MD Endometrial cancer (HCC) (Primary Dx); BMI 50.0-59.9, adult (HCC); Chronic blood loss anemia; Thickened endometrium; Uterine enlargement; Postmenopausal bleeding Discharge Disposition: Home or Self Care 0 Telephone [facility] [place] [address] Roel Posadas MD Medication Management (Dilaudid, ordered by FRED [place] not available via [facility] will need to be ordered from another provider. ) 0 5:16 AM EST - 0 2:28 PM EST Hospital Encounter EDG 2AO ONCOLOGY [facility] [place] [address] Roel Posadas MD Endometrial cancer (HCC); Endometrial cancer (HCC) Discharge Disposition: Home or Self Care 0 Orders Only EDG LABORATORY [facility] [place] [address] Marilyn Shoemaker MD 0 Travel 0 7:30 AM EST - 0 12:00 PM EST Surgery EDG PERIOP [facility] [place] [address] Roel Posadas MD DAVINCI ROBOTIC TOTAL HYSTERECTOMY BILATERAL SALPINGO-OOPHORECTOMY 0 7:28 AM EST Anesthesia Event EDG [facility] [place] [address] Maynor Viramontes MD Zehnder, Wende, APRN 0 2:06 PM EST - 0 11:59 PM EST Hospital Encounter EDG D-WING XRAY [facility] [place] [address] Roel Posadas MD Discharge Disposition: Home or Self Care 0 Travel 0 1:50 PM EST - 0 2:05 PM EST Hospital Encounter EDG LAB [address] [place] [address] Roel Posadas MD Covid19, Edg Lab [facility] Pre-op testing; Encounter for laboratory testing for COVID-19 virus Discharge Disposition: Home or Self Care 0 12:05 PM EST - 0 12:17 PM EST Hospital Encounter EDG PRE-ADMIT TESTING [facility] [address] [place] [address] 1, Edg Pat Nurse Discharge Disposition: Home or Self Care 0 Travel 0 2:12 PM EST - 0 11:59 PM EST Hospital Encounter [facility] [place] [address] [place] [address] Crescencio Buitrago MD Essential hypertension, malignant Discharge Disposition: Home or Self Care 0 Travel 0 Lab Requisition [facility] [place] [address] Crescencio Buitrago MD Calculus of ureter 0 8:08 AM EST - 0 11:59 PM EST Hospital Encounter [facility] [address] [place] [address] Saumya Rodriguez, DO Morbid obesity due to excess calories (HCC); Preop cardiovascular exam Discharge Disposition: Home or Self Care 0 Travel 0 Travel 0 Travel 0 8:30 AM EST Office Visit [facility]P [facility] [place] [facility] [address] [place] [phone] Saumya Rodriguez, Morbid obesity due to excess calories (HCC) (Primary Dx); Preop cardiovascular exam; Preoperative clearance; SOB (shortness of breath) 0 Travel 0 Social Work [facility] [place] [address] Lulu Pablo LCSW 0 Orders Only [facility] [place] [address] Roel Posadas MD Endometrial cancer (HCC) (Primary Dx) 0 2:30 PM EST - 0 11:59 PM EST Hospital Encounter [facility] Mammography [address] [place] [address] Noah Calero MD Screening mammogram, encounter for Discharge Disposition: Home or Self Care 0 Travel 0 1:36 PM EST - 0 11:59 PM EST Hospital Encounter [facility] [place] [address] Roel Posadas MD Endometrial cancer (HCC) (Primary Dx); BMI 50.0-59.9, adult (HCC); Chronic respiratory failure with hypoxia (HCC); Essential hypertension; Uterine enlargement; Thickened endometrium; KARO (obstructive sleep apnea) Discharge Disposition: Home or Self Care 0 Telephone [facility]P [facility] [address] [place] [phone] Noah Calero MD Results; Appointment Needed (Needs appointment w/ GynOnc) 0 Telephone SEP [facility] [address] [place] [address] Noah Gonzales MD Appointment Needed 0 Travel 0 Travel 0 2:40 PM EDT Office Visit SEP [facility] [address] [place] [phone] Noah Calero MD Screening mammogram, encounter for (Primary Dx); Well woman exam; Abnormal uterine bleeding (AUB) 0 7:48 AM EDT - 0 11:44 AM EDT Hospital Encounter [place] [address] Cj Hernandez MD Buchanan, Jamie L, Roel Pennington MD Urinary tract infection symptoms (Primary Dx); Severe sepsis (HCC) Discharge Disposition: Home or Self Care 0 Travel 0 Travel 0 Travel 0 11:48 AM EDT - 0 3:25 PM EDT Emergency [facility] [place] [address] Rigo Maldonado MD Dysuria (Primary Dx); Renal colic on left side Discharge Disposition: Home or Self Care 9 4:08 PM EST - 9 11:59 PM EST Hospital Encounter [facility] [place] [address] Noah Gonzales MD Endometrial hyperplasia; Acute pancreatitis, unspecified complication status, unspecified pancreatitis type Discharge Disposition: Home or Self Care 9 Travel 9 5:25 AM EDT - 9 9:21 AM EDT Emergency [facility] [place] [phone] Mirela [place] MD Richardson, Eric T, MD Epigastric abdominal pain (Primary Dx) Discharge Disposition: Home or Self Care 9 Telephone [place] [phone] Noah Calero MD Procedure 9 12:19 PM EDT - 9 11:59 PM EDT Hospital Encounter [facility] [address] [place] [place] [address] Noah Calero MD Abnormal uterine bleeding (AUB) Discharge Disposition: Home or Self Care 9 12:45 PM EDT - 9 2:42 PM EDT Hospital Encounter [facility] DRAW SITE [address] [place] [phone] Well woman exam; Abnormal uterine bleeding (AUB) Discharge Disposition: Home or Self Care [address] [phone] Naoh Calero MD Vaginal Bleeding 9 2:43 PM EDT - 9 11:59 PM EDT Hospital Encounter [facility] [address] [place] [address] Noah Calero MD Encounter for screening mammogram for malignant neoplasm of breast Discharge Disposition: Home or Self Care 9 11:40 AM EDT Office Visit [facility] NPTFTT [address] [place] [address] Noah Calero MD Well woman exam (Primary Dx); Abnormal uterine bleeding (AUB) 8 1:00 PM EDT Office Visit [facility] Sleep Medicine [address] [phone] Omar Robert MD Excessive sleepiness; Primary snoring; Obstructive sleep apnea; Morbid obesity (HCC) 8 2:46 PM EDT - 8 11:59 PM EDT Hospital Encounter [facility] [place] [address] Noah Gonzales MD Liver disease Discharge Disposition: Home or Self Care 8 2:30 PM EDT - 8 2:45 PM EDT Hospital Encounter [facility] [place] [address] Noah Gonzales MD Cyst of kidney, acquired Discharge Disposition: Home or Self Care 7 1:50 PM EDT Office Visit [facility] Pulmonology [address] [address] Purvi Cordero MD Chronic respiratory failure with hypoxia and hypercapnia (HCC) (Primary Dx); KARO (obstructive sleep apnea); Morbid obesity due to excess calories (HCC); Essential hypertension 7 4:33 PM EDT - 7 11:59 PM EDT Hospital Encounter [facility] [place] [address] Noah Gonzales MD Abnormal findings on diagnostic imaging of liver Discharge Disposition: Home or Self Care 7 12:30 PM EDT Office Visit [facility] Pulmonology [address] [phone] Purvi Cordero MD Chronic respiratory failure with hypoxia and hypercapnia (HCC) (Primary Dx); Obesity hypoventilation syndrome (HCC); Mild intermittent asthma without complication; KARO on CPAP; Morbid obesity with body mass index (BMI) of 50.0 to 59.9 in adult (HCC); SCOTT (dyspnea on exertion); Chest pressure 7 Abstract EDG PFT LAB [facility] [place] [address] Caroline Hammond, AUDIO VISUAL DESIGN ENGINEER 7 11:30 AM EDT - 7 11:59 PM EDT Hospital Encounter EDG PFT LAB [facility] [place] [address] SOB (shortness of breath) Discharge Disposition: Home or Self Care 7 3:00 PM EDT Office Visit [facility] Dermatology [facility] [address] [place] [address] Diana Camp, FRED Lichenoid keratosis (Primary Dx); Venous stasis dermatitis of both lower extremities 7 12:30 PM EDT Office Visit SEP Podiatry [place] [address] [place] [address] Desean Vickers, BROOKE Ingrown nail (Primary Dx) 7 Orders Only [facility] Pulmonology [address] [place] [address] Purvi Cordero MD SOB (shortness of breath) (Primary Dx) 7 11:43 PM EST - 7 4:29 PM EST Hospital Encounter EDG 3C PULMONARY [facility] [place] [phone] Ritesh Josue MD Swikert, Donald J, MD Vomiting and diarrhea (Primary Dx); Hypoxia; Morbid obesity, unspecified obesity type (HCC); Mild persistent asthma without complication; KARO (obstructive sleep apnea); Morbid obesity due to excess calories (HCC); Chronic respiratory failure with hypoxia (HCC); Fatty liver Discharge Disposition: Home or Self Care 6 Telephone [facility] [address] [place] [address] Noah Calero MD Procedure 6 Telephone [facility] [address] [place] [address] Noah Calero MD Other (surgery) 6 Telephone [facility] [address] [place] [address] Noah Calero MD Procedure 6 5:00 PM EDT Office Visit [facility] W[facility]ens [facility] NPTFTT [address] [place] [address] Noah Calero MD Post-operative state (Primary Dx) 6 10:30 AM EDT - 6 11:45 AM EDT Surgery EDG PERIOP [facility] [place] [address] Noah Calero MD DILATION AND CURETTAGE HYSTEROSCOPY 6 10:48 AM EDT Anesthesia Event EDG PERIOP [facility] [place] [address] Fidencio Moreno MD Whisman, Kaylae B, APRN 6 9:07 AM EDT - 6 11:59 PM EDT Hospital Encounter EDG POST ANESTHESIA [facility] [place] [address] Noah Calero MD Discharge Disposition: Home or Self Care 6 12:04 PM EDT - 6 11:59 PM EDT Hospital Encounter EDG PRE-ADMIT TESTING [facility] [place] [address] 2, Edg Pat Nurse Discharge Disposition: Home or Self Care 6 Telephone SEP [facility] DILEEP [address] [place], [place] [phone] Noah Calero MD Procedure 6 Telephone SEP [facility] [address] [place] [phone] Noah Calero MD Procedure 6 Telephone SEP WOMENS TH DILEEP [address] [place] [phone] Noah Calero MD Other 6 12:25 PM EDT - 6 11:59 PM EDT Hospital Encounter [facility] EKG [address] [place] [place] [phone] Griselda Miguel, Noah Bhandari MD Discharge Disposition: Home or Self Care 6 10:48 AM EDT Anesthesia Event [facility] PERIOP [address] [place] [address] Griselda Miguel APRN 6 10:30 AM EDT - 6 12:24 PM EDT Hospital Encounter [facility] PRE-ADMIT TESTING [address] [place] [address] Noah Calero MD Pat, Ftt Preop testing (Primary Dx); Postmenopausal bleeding Discharge Disposition: Home or Self Care 6 Telephone SEP [address] [phone] Noah Calero MD Other 6 Telephone SEP [address] [phone] Noah Calero MD Results 6 1:28 PM EDT - 6 11:59 PM EDT Hospital Encounter [facility] [address] [place], [place] [id number] Noah Calero MD Abnormal uterine bleeding (AUB) Discharge Disposition: Home or Self Care 6 9:47 PM EDT - 6 11:59 PM EDT Hospital Encounter [facility] PROCESSING [facility] [place] [address] Well woman exam with routine gynecological exam Discharge Disposition: Home or Self Care 6 1:58 PM EDT - 6 9:46 PM EDT Hospital Encounter [facility]TT MOB DRAW SITE [address] [place] [address] Abnormal uterine bleeding (AUB) Discharge Disposition: Home or Self Care 6 1:00 PM EDT [facility] [address] [place] [address] Noah Calero MD Well woman exam with routine gynecological exam (Primary Dx); Abnormal uterine bleeding (AUB) 6 10:15 AM EST - 6 11:59 PM EST Hospital Encounter [facility] [place] [facility] [address] [place] [id number] Noah Gonzales MD Visit for screening mammogram Discharge Disposition: Home or Self Care 5 1:49 PM EDT - 5 4:27 PM EDT Emergency [facility] [place] [address] [place] [address] Forrest Sims MD Acute sphenoidal sinusitis, recurrence not specified (Primary Dx) Discharge Disposition: Home or Self Care 3 1:20 PM EDT Office Visit [facility] NPTFTT [address] [place] [address] Noah Calero MD Follow-up examination, following unspecified surgery (Primary Dx) 3 9:00 AM EDT - 3 9:59 AM EDT Surgery FTT PERIOP [address] [place] [address] Noah Calero MD DILATION AND CURETTAGE HYSTEROSCOPY 3 7:29 AM EDT - 3 1:30 PM EDT Hospital Encounter FTT SAME DAY SURGERY [address] [place] [address] Noah Calero MD Postmenopausal bleeding (Primary Dx) Discharge Disposition: Home or Self Care 3 9:58 AM EDT - 3 11:59 PM EDT Hospital Encounter FTT PRE-ADMIT TESTING [address] [place] [address] Pat, Ftt Discharge Disposition: Home or Self Care 3 Telephone [facility] [address] [place] [address] Noah Calero MD Procedure 3 Telephone [facility] [address] [place] [address] Lashell Pearl Results 3 Telephone [facility] [address] [place] [phone] Noah Calero MD Results (pelvic us results ) 3 4:28 AM EDT - 3 11:59 PM EDT Hospital Encounter [facility] ROBERT PROC[facility] [place] [place] [id number] Routine gynecological examination Discharge Disposition: Home or Self Care 3 10:20 AM EDT [facility] [address] [place] [phone] Noah Calero MD Routine gynecological examination (Primary Dx); Post-menopause bleeding; Postmenopausal bleeding 1 10:05 AM EDT - 1 11:59 PM EDT Hospital Encounter [facility] LAB[facility] [place] [id number] Encounter for long-term (current) use of other medications; Unspecified vitamin D deficiency Discharge Disposition: Home or Self Care 0 10:45 AM EST - 0 11:59 PM EST Hospital Encounter [facility] [place] [id number] Unspecified myalgia and myositis Discharge Disposition: Home or Self Care 0 4:58 PM EDT - 0 11:59 PM EDT Hospital Encounter [facility] EDG Kel Corona For 0 12:15 PM EDT - 0 11:59 PM EDT Hospital Encounter [facility] [address] [place] [address] Garett Mccoy MD Other screening mammogram Discharge Disposition: Home or Self Care 0 11:37 AM EST - 0 11:59 PM EST Hospital Encounter [facility] EPIC CON UNK EDG Noah Gonzales MD 8 Hospital Encounter [facility] GYNECOLOGY FTT Generic, Historical Provider 7 Hospital Encounter [facility] GYNECOLOGY [facility] Generic, Historical Provider 7 Hospital Encounter [facility] GYNECOLOGY [facility] Generic, Historical Provider 6 Hospital Encounter [facility] MEDICINE [facility]TT Generic, Historical Provider 5 Hospital Encounter [facility]ICINE [facility] Generic, Historical Provider 5 6:20 PM EDT - 5 10:20 PM EDT Emergency [facility] EMERGENCY [facility] Generic, Historical Provider 5 Hospital Encounter [facility]IC[facility] Generic, Historical Provider Allergies Active Allergy Reactions Criticality Noted Date Comments Sulfa (Sulfonamide Antibiotics) Other (See Comments) Medium 01/28/2013 Patient stated sulfa makes her ill and flu-like. Patient has tolerated Bactrim PO. Patient experienced nausea on Bactrim IV. Erythromycin Hives,Rash Medium 01/28/2013 Mylanta Ii Other (See Comments) Medium 01/28/2013 Tongue and lip swelling from PO liquid formulation Tramadol Other (See Comments) High 11/21/2010 Caused hypertension and lethargy. Levofloxacin Other (See Comments) 01/28/2013 Unsure of reaction. Elavil Other (See Comments) Low 01/28/2013 Mood swings. Diphenhydramine Hcl Palpitations Medium 01/28/2013 Patient experiences this with Tylenol PM as well. (tolerates tylenol.) Codeine Other (See Comments) High 11/21/2010 Severe nausea,sweats and cause lethargy. Ampicillin Other (See Comments) Low 01/28/2013 Unsure of reaction. Tolerates Augmentin Amoxicillin Other (See Comments) Low 01/28/2013 Unsure of reaction. Tolerates Augmentin Fluoxetine Other (See Comments) Medium 01/28/2013 Redness of face and burning of face. Cephalexin Other (See Comments) Low 01/28/2013 Unsure of reaction. Gabapentin Other (See Comments) Low 01/28/2013 Unsure of reaction. Esomeprazole Magnesium Other (See Comments) Low 01/28/2013 Unsure of reaction. On omeprazole 20 mg Pregabalin Other (See Comments) Low 01/28/2013 Unsure of reaction. Latex Other (See Comments),Hives Medium 01/28/2013 Latex tape only- causes blisters and rash. Morphine Other (See Comments) Medium 11/21/2010 Post-op severe nausea and vomiting in 2012 Polyethylene Glycol 3350 Hives,Itching Medium 01/29/20 13 Amlodipine Swelling Medium 08/22/2016 Peripheral edema in legs. Patient was on Lotrel (amlodipine/ benazepril) when this occurred. Nsaids (Non-Steroidal Anti-Inflammatory Drug) Other (See Comments) Medium 03/15/2020 Patient has several listed allergies to oral NSAIDS. Patient stated all over the counters give her problems or make her feel sick. Ibuprofen-unsure of reaction Naproxen-unsure of reaction Ketorolac-eye pain with movement Quinolones Other (See Comments) High 03/15/2020 Ciprofloxacin PO- Patient ambulated after first dose due to experiencing severe chest pain ( felt like I was having a heart attack ). Levofloxacin PO- Unsure of reaction Opioids - Morphine Analogues Anaphylaxis,Shortne ss Of Breath,Nausea And Vomiting,Swelling,O ther (See Comments) High 03/15/2020 Patient states the only pain medication she tolerates is: Tylenol and Demerol. Prior allergies and intolerances documented in 2012 listed below: Morphine- Severe Nausea and vomiting Post-OP in 2013 Codeine- Severe Nausea /Flu-like symptoms ( felt ill ) Percocet- SOB and tongue swelling Tylox- Hallucinations Tramadol-Lethargy and high blood pressure ( felt ill ) Nucynta-Chest tightness and pressure Nitrofurantoin Monohyd/M-Cryst Nausea And Vomiting 11/24/2020 Very lethargic Acetaminophen Other (See Comments) 01/24/2024 can take generic but not brand Adhesive Rash 05/11/2024 Chocolate Itching 11/21/2010 Grapefruit Other (See Comments) 11/21/2010 Hydrocodone Other (See Comments) 01/24/2024 Macrolide Antibiotics Hives 01/24/2024 Meclizine Other (See Comments) 01/24/2024 Methylprednisolone Other (See Comments) 01/24/2024 Mold Other (See Comments) 11/21/2010 Mylanta-Ii Other (See Comments) 05/11/2024 Niacin Rash 11/21/2010 Oxycodone Hives,Swelling 11/21/2010 Pork/Porcine Containing Products Nausea And Vomiting 11/21/2010 Propoxyphene Other (See Comments) 11/21/2010 [place] Nausea And Vomiting 11/21/2010 Trimethoprim Other (See Comments) 01/24/2024 Bran Swelling Low 11/21/2010 Ciprofloxacin Other (See Comments) Low 11/21/2010 Dietary Supplement Swelling Low 11/21/2010 Wheat Bran Hives Low 11/21/2010 Medications chlordiazePOXIDE (LIBRIUM) 5 mg capsule Take 5 mg by mouth 3 times daily as needed (for anxiety attacks). Active fUROsemide (LASIX) 40 mg tablet Take 40 mg by mouth daily. Active omeprazole (PRILOSEC) 20 mg Take 20 mg by mouth every morning (before breakfast). Patient states the only omeprazole that works are white capsules. 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 Takes on Saturday Active cetirizine (ZYRTEC) 5 mg Oral Tablet Take 5 mg by mouth daily. Active acetaminophen (TYLENOL) 500 mg Oral Tablet Take 1,000 mg by mouth every 6 hours as needed (arthiritis pain). Active benazepriL (LOTENSIN) 5 mg Oral Tablet Take 5 mg by mouth daily. Active LEVOthyroxine (SYNTHROID) 75 mcg Oral Tablet Take 1 Tab by mouth daily. 0 Active albuterol (PROVENTIL) 2.5 mg /3 mL (0.083 %) Inhl Solution for Nebulization Take 3 mL by nebulization daily as needed for Wheezing or Shortness of Breath. 1 box 0 Active albuterol (PROVENTIL HFA;VENTOLIN HFA) 90 mcg/actuation Inhl HFA Aerosol Inhaler Inhale 2 Puffs into the lungs every 6 hours as needed for Wheezing. 1 Inhaler 0 Active ondansetron (ZOFRAN) 4 mg/2 mL Inj Solution Inject 2 mL into the vein every 6 hours as needed for Nausea. 28 Each 1 Active nitrofurantoin, macrocrystal-mon ohydrate, (MACROBID) 100 mg Oral Capsule TAKE 1 CAPSULE BY MOUTH TWICE DAILY FOR 12 DAYS 4 Active HYDROmorphone (DILAUDID) 2 mg Oral Tablet take 1 tablet by mouth once daily as needed for pain 4 Active Cholecalciferol, Vitamin D3, 125 mcg (5,000 unit) Oral Capsule 125 mcg. 4 Active fluconazole (DIFLUCAN) 100 mg Oral Tablet Take 100 mg by mouth daily. 4 Active meclizine (ANTIVERT) 25 mg Oral Tablet, Chewable CHEW 1 TABLET BY MOUTH THREE (3) TIMES DAILY NEEDED FOR DIZZINESS 4 Active MICONAZORB AF 2 % Top Powder APPLY ONE (1) APPLICATION TOPICALLY TWICE DAILY 4 Active chlordiazePOXIDE (LIBRIUM) 10 mg Oral Capsule Take by mouth 2 times daily as needed. for anxiety 4 Active albuterol-budeso nide (AIRSUPRA) 90-80 mcg/actuation Inhl HFA Aerosol Inhaler Inhale 2 Puffs into the lungs 4 times daily as needed. 17 g 3 5 Active Active Problems Problem Noted Date Diagnosed Date Class 3 severe obesity with serious comorbidity and body mass index (BMI) of 50.0 to 59.9 in adult 06/20/2021 Urinary incontinence 06/20/2021 Vertigo 04/24/2021 Vertigo 04/01/2021 Hypothyroidism 04/01/2021 Gastroesophageal reflux disease 10/27/2020 Overview (10/27/2020): Added automatically from request for surgery [id number] Personal history of colonic polyps 10/27/2020 Overview (10/27/2020): Added automatically from request for surgery [id number] Endometrial cancer 03/31/2020 Overview (03/31/2020): Added automatically from request for surgery [id number] Frequent UTI 03/15/2020 Essential hypertension 07/03/2016 Mild persistent asthma without complication 11/2016 KARO (obstructive sleep apnea) 07/03/2016 BMI 50.0-59.9, adult 07/03/2016 Seasonal allergic rhinitis 07/03/2016 Reactive airway disease without complication 11/2016 Fatty liver 07/03/2016 Overview (07/03/2016): As seen on CTA incidentally 07/03/16 Resolved Problems Problem Noted Date Diagnosed Date Resolved Date Chronic blood loss anemia 05/02/2020 Uterine enlargement 03/29/2020 05/10/20 20 Thickened endometrium 03/29/20202019 Sepsis 03/15/2020 03/29/2020 Anemia 03/15/2020 04/01/2021 Postmenopausal vaginal bleeding 12/28/2015 03/29/2020 Postmenopausal bleeding 12/11/201204/26 Family History Medical History Relation Name Comments Substance Abuse Father Cancer Mother skin cancer Diabetes Mother Heart Disease Mother High Blood Pressure Mother Anesth Problems Neg Hx Relation Name Status Comments Father Mother Social History Smoking Status as of 11/04/2024 Tobacco Use Types Packs/Day Years Used Date Smoking Tobacco: Never Assessed PHQ-2 Answer Date Recorded PHQ-2 Total Score 0 02/06/2023 Sex and Gender Information Value Date Recorded Sex Assigned at Not on file Legal Sex Female 8:44 PM EDT Gender Identity Not on file Sexual Orientation Not on file Last Filed Vital Signs Vital Sign Reading Time Taken Comments Blood Pressure 100/60 10/27/2024 12:37 PM EDT Pulse 74 10/27/2024 12:37 PM EDT Temperature 36.6 C (97.8 F) 05/12/2024 1:42 PM EST Respiratory Rate 18 01/02/2022 3:11 PM EDT Oxygen Saturation 97% 10/27/2024 12:37 PM EDT ra@rest Inhaled Oxygen Concentration - - Weight 149.2 kg (329 lb) 10/27/2024 12:37 PM EDT Height 164.5 cm (5' 4.75 ) 10/27/2024 12:37 PM E DT Body Mass Index 55.17 10/27/2024 12:37 PM EDT Plan of Treatment Upcoming Encounters Date Type Department Care Team (Late st Contact Info) Description 02/03/2025 1:30 PM EDT Appointment [facility] [place] [address] Greg Swanson, RADIO EQUIPMENT INSTALLER [address] [place] [address] 05/03/2026 2:10 PM EST Office Visit [facility] [address] [place] [id number] Mina Mac MD [address] [facility] [address] [place] [address] Procedures Procedure Name Priority Date/Time Associated Diagnosis Comments CT CHEST HIGH RESOLUTION WO CONTRAST Routine 08/28/2024 10:51 AM EDT Chronic respiratory failure with hypoxia (HCC) PULMONARY FUNCTION TEST Routine 08/29/19 10:41 AM EDT Chronic respiratory failure with hypoxia (HCC) MRI LUMBAR SPINE WO CONTRAST Routine 4:47 [address]T [address]ular tear [address] ABDOMEN PELVIS W CONTRAST Routine 2:06 PM EDT Endometrial cancer (HCC) CREATININE ISTAT Routine 02/20/2023 1:46 PM EDT PATHOLOGY TISSUE REQUEST JOSE ALFREDO 023 2:54 PM EDT Abnormal uterine bleeding (AUB) MM MAMMO DIGITAL [place] SCREEN BILAT Routine 02/05/2023 2:15 PM EDT Encounter for screening mammogram for breast cancer US RENAL AND BLADDER Routine 11/20/2022 2:50 PM EDT Nocturia Urinary tract infection without hematuria, site unspecified Urge incontinence PATHOLOGY TISSUE REQUEST Routine 023 3:55 PM EDT Skin tag of vulva CT THREE PHASE LIVER PROTOCOL Routine 2:52 PM EDT Liver disease CREATININE ISTAT Routine 09/15/2022 2:46 PM EDT XR CHEST PA AND LATERAL Routine 08/10/19 2:02 PM EDT Exacerbation of asthma, unspecified asthma severity, unspecified whether persistent PULMONARY FUNCTION TEST Routine 04/19/20 11:24 AM EST Mild persistent asthma without complication Chronic respiratory failure with hypoxia (HCC) Reactive airway disease without complication, unspecified asthma severity, unspecified whether persistent SCOTT (dyspnea on exertion) SOB (shortness of breath) CT CHEST WO CONTRAST Routine 04/19/2021 10:56 AM EST Mild persistent asthma without complication Chronic respiratory failure with hypoxia (HCC) Reactive airway disease without complication, unspecified asthma severity, unspecified whether persistent SCOTT (dyspnea on exertion) SOB (shortness of breath) RAST - REF LAB Routine 04/19/2021 10:23 AM EST Mild persistent asthma without complication Chronic respiratory failure with hypoxia (HCC) Reactive airway disease without complication, unspecified asthma severity, unspecified whether persistent SCOTT (dyspnea on exertion) SOB (shortness of breath) ALLERGEN, REGION 5 RESPIRATO RY PANEL-REF LAB Routine 04/19/2021 10:23 AM EST Mild persistent asthma without complication Chronic respiratory failure with hypoxia (HCC) Reactive airway disease without complication, unspecified asthma severity, unspecified whether persistent SCOTT (dyspnea on exertion) SOB (shortness of breath) SCANNED EKG 04/03/2021 11:05 AM EST BASIC METABOLIC PANEL Early AM 04/02/2021 8:39 AM EST CBC WITH DIFF Early AM 04/02/2021 8:39 AM EST ECG AND WAVEFORMS - TELEMETRY Routine 7:00 AM EST ECG AND WAVEFORMS - TELEMETRY Routine 8:02 PM EDT LIPID SCREEN Routine 04/01/2021 5:47 PM EDT ECG AND WAVEFORMS - TELEMETRY Routine 5:33 PM EDT MRI BRAIN WO CONTRAST STAT 04/01/2021 1:31 PM EDT CORONAVIRUS 2019 Routine 04/01/2021 10:25 AM EDT ADMIT STAT 04/01/2021 10:13 AM EDT URINALYSIS STAT 04/01/2021 10:08 AM EDT URINE CULTURE (NO STAIN) STAT 021 10:08 AM EDT EXTRA QUINTANILLA URINE CX STAT 04/01/2021 10:08 AM EDT TROPONIN-T HIGH SENSITIVITY 2HR Timed 04/01/2021 9:15 AM EDT XR CHEST AP PORTABLE JOSE ALFREDO 04/01/2021 8:[address] ANGIOGRAM HEAD AND NECK W CONTRAST STAT 04/01/2021 7:[address] HEAD WO CONTRAST STAT 04/01/2021 7:39 AM EDT HEMOGLOBIN A1C Routine 04/01/2021 7:23 AM EDT TROPONIN-T HIGH SENSITIVITY BASELINE W/ REFLEX STAT 04/01/2021 7:23 AM EDT BASIC METABOLIC PANEL STAT 04/01/2021 7:23 AM EDT CBC STAT 04/01/2021 7:23 AM EDT TSH REFLEX TO FT4 STAT 04/01/2021 7:23 AM EDT EK EKG 12 LEAD STAT 04/01/2021 6:[address] ABDOMEN PELVIS WO ORAL OR IV CONTRAST Routine 02/24/2021 3:29 PM EDT Right upper quadrant abdominal swelling, mass and lump Right upper quadrant pain Personal history of malignant neoplasm of other parts of uterus XR ABDOMEN AP Routine 12/15/2020 3:02 PM EDT Calculus of kidney Urinary tract infection without hematuria, site unspecified PATHOLOGY TISSUE REQUEST Routine 021 2:27 PM EDT Gastroesophageal reflux disease, unspecified whether esophagitis present Personal history of colonic polyps INTRAOP AIRWAY PLACEMENT Routine 021 2:20 PM EDT COLONOSCOPY-ENDO DEPT ONLY (ANESTHESIA) 12/02/2020 2:15 PM EDT Gastroesophageal reflux disease, unspecified whether esophagitis present Personal history of colonic polyps ESOPHAGOGASTRODUODENOSCOPY (ANESTHESIA) 12/02/2020 2:15 PM EDT Gastroesophageal reflux disease, unspecified whether esophagitis present Personal history of colonic polyps GMED EGD-COLONOSCOPY Routine 12/02/2020 2:00 PM EDT CORONAVIRUS 2019 Routine 11/28/2020 1:42 PM EDT Pre-op testing Encounter for laboratory testing for COVID-19 virus CBC WITH DIFF Routine 10/26/2020 4:12 PM EDT Iron deficiency anemia, unspecified iron deficiency anemia type URINE CULTURE (NO STAIN) Routine 021 4:18 PM EDT Urinary tract infection, site not specified CBC WITH DIFF Routine 06/21/2020 3:39 PM EST Chronic blood loss anemia SCANNED RHYTHM STRIPS 05/05/2020 1:06 PM EST URINALYSIS STAT 05/04/2020 8:24 AM EST UA W/REFLEX TO CULTURE STAT 0 8:24 AM EST EXTRA QUINTANILLA URINE CX STAT 05/04/2020 8:24 AM EST BASIC METABOLIC PANEL STAT 05/04/2020 7:17 AM EST CBC STAT 05/04/2020 7:17 AM EST BASIC METABOLIC PANEL Routine 05/03/2020 8:03 AM EST CBC Routine 05/03/2020 8:03 AM EST ADMIT Routine 05/02/2020 12:20 PM EST NEOGENOMICS MISMATCH REPAIR (MMR) IHC PANEL Routine 05/02/2020 10:41 AM EST ADMIT Routine 05/02/2020 10:39 AM EST PATHOLOGY TISSUE REQUEST Routine 8:55 AM EST Endometrial cancer (HCC) INTRAOP AIRWAY PLACEMENT Routine 8:13 AM EST PERIPHERAL BLOCK Routine 05/02/2020 7:50 AM EST DAVINCI ROBOTIC TOTAL HYSTERECTOMY BILATERAL SALPINGO-OOPHORECTOMY 05/02/2020 7:26 AM EST Endometrial cancer (HCC) Special Needs POSS JUAN CARLOS; TR, LATEX ALLERGY BB HISTORY CHECK STAT 05/02/2020 6:13 AM EST ABORH STAT 05/02/2020 6:13 AM EST CORONAVIRUS 2019 Routine 04/28/2020 2:27 PM EST Pre-op testing Encounter for laboratory testing for COVID-19 virus XR CHEST PA AND LATERAL Routine 04/28/20 20 2:16 PM EST BB HISTORY CHECK Routine 04/28/2020 1:35 PM EST SURGERY DATE Routine 04/28/2020 1:35 PM EST ANTIBODY SCREEN IGG Routine 04/28/2020 1:35 PM EST ABORH Routine 04/28/2020 1:35 PM EST PREADMISSION TYPE AND SCREEN Routine 07/2019 1:35 PM EST CBC Routine 04/28/2020 1:35 PM EST CA 125 Routine 04/28/2020 1:35 PM EST BASIC METABOLIC PANEL Routine 04/28/2020 1:[address] ABDOMEN PELVIS WO ORAL OR IV CONTRAST Routine 04/25/2020 2:22 PM EST Essential hypertension, malignant CALCULI (STONE) ANALYSIS - R EF LAB Routine 04/15/2020 3:50 PM EST Calculus of ureter EC ECHOCARDIOGRAM COMPLETE W DOPPLER AND COLOR FLOW MAPPING Routine 04/14/2020 9:20 AM EST Morbid obesity due to excess calories (HCC) Preop cardiovascular exam POCT EKG Routine 04/06/2020 8:32 AM EST Morbid obesity due to excess calories (HCC) Preop cardiovascular exam MM MAMMO DIGITAL SCREENING W CAD BILAT Routine 03/31/2020 3:04 PM EST Screening mammogram, encounter for [facility] REQUEST (PAP ONLY) Routine 03/21/2020 3:47 PM EDT Abnormal uterine bleeding (AUB) PATHOLOGY TISSUE REQUEST Routine 020 3:47 PM EDT Abnormal uterine bleeding (AUB) [facility] ORDER Routine 0 3:47 PM EDT Abnormal uterine bleeding (AUB) BASIC METABOLIC PANEL Early AM 03/18/2020 6:17 AM EDT CBC WITH DIFF Early AM 03/18/2020 6:17 AM EDT US PELVIS AND TRANSVAGINAL N ON OB COMPLETE JOSE ALFREDO 03/17/2020 1:45 PM EDT BASIC METABOLIC PANEL Early AM 03/17/2020 7:28 AM EDT CBC WITH DIFF Early AM 03/17/2020 7:28 AM EDT BASIC METABOLIC PANEL Early AM 03/16/2020 12:00 PM EDT CBC WITH DIFF Early AM 03/16/2020 12:00 PM EDT ECG AND WAVEFORMS - TELEMETRY Routine 7:15 AM EDT ECG AND WAVEFORMS - TELEMETRY Routine 7:01 PM EDT ECG AND WAVEFORMS - TELEMETRY Routine 3:37 PM EDT LACTIC ACID Timed 03/15/2020 11:19 AM EDT PT / INR Routine 03/15/2020 11:19 AM EDT TROPONIN-T HIGH SENSITIVITY 2HR Timed 03/15/2020 11:19 AM EDT ADMIT STAT 03/15/2020 9:29 AM EDT TROPONIN-T HIGH SENSITIVITY BASELINE W/ REFLEX STAT 03/15/2020 9:25 AM EDT BLOOD GAS, VENOUS STAT 03/15/2020 9:25 AM EDT COMPREHENSIVE METABOLIC PANEL STAT 9:25 AM EDT CORONAVIRUS 2019 Routine 03/15/2020 9:03 AM EDT XR CHEST AP PORTABLE JOSE ALFREDO 03/15/2020 8:59 AM EDT URINALYSIS STAT 03/15/2020 8:41 AM EDT RSV-FLU A/B STAT 03/15/2020 8:41 AM EDT URINE CULTURE (NO STAIN) STAT 020 8:41 AM EDT BLOOD CULTURE (NO STAIN) STAT 020 8:40 AM EDT NT PROBNP STAT 03/15/2020 8:36 AM EDT PROCALCITONIN STAT 03/15/2020 8:36 AM EDT LACTIC ACID STAT 03/15/2020 8:36 AM EDT CBC WITH DIFF STAT 03/15/2020 8:36 AM EDT BLOOD CULTURE (NO STAIN) STAT 020 8:36 AM EDT EK EKG 12 LEAD STAT 03/15/2020 8:10 AM EDT SALINE LOCK IV STAT 03/15/2020 8:[address] ABD PEL ED FAST W CONTRAST STAT 2:17 PM EDT BASIC METABOLIC PANEL STAT 01/07/2020 1:17 PM EDT CBC WITH DIFF STAT 01/07/2020 1:17 PM EDT URINALYSIS STAT 01/07/2020 12:53 PM EDT URINE CULTURE (NO STAIN) STAT 020 12:[address] ABDOMEN PELVIS W CONTRAST Routine 01/2019 6:04 PM EST Endometrial hyperplasia Acute pancreatitis, unspecified complication status, unspecified pancreatitis type CREATININE ISTAT Routine 05/04/2019 5:53 PM EST TROPONIN-T HIGH SENSITIVITY BASELINE W/ REFLEX Timed 02/21/2019 7:[address] ABD PEL ED FAST W CONTRAST STAT 7:00 AM EDT XR CHEST AP PORTABLE JOSE ALFREDO 02/21/2019 5:48 AM EDT TROPONIN-T HIGH SENSITIVITY BASELINE W/ REFLEX STAT 02/21/2019 5:45 AM EDT LIPASE LEVEL STAT 02/21/2019 5:45 AM EDT HEPATIC FUNCTION PANEL STAT 9 5:45 AM EDT BASIC METABOLIC PANEL STAT 02/21/2019 5:45 AM EDT CBC STAT 02/21/2019 5:45 AM EDT EK EKG 12 LEAD STAT 02/21/2019 5:20 AM EDT US PELVIS AND TRANSVAGINAL N ON OB COMPLETE Routine 10/24/2018 12:48 PM EDT Abnormal uterine bleeding (AUB) MM MAMMO DIGITAL SCREENING W CAD BILAT Routine 10/16/2018 3:15 PM EDT Encounter for screening mammogram for malignant neoplasm of breast [facility] REQUEST (PAP ONLY) Routine 10/16/2018 1:22 PM EDT Well woman exam [facility] CYT[facility] ORDER Routine 9 1:22 PM EDT Well woman exam FOLLICLE STIMULATING HORMONE LEVEL Routine 10/16/2018 12:51 PM EDT Well woman exam Abnormal uterine bleeding (AUB) US RIGHT UPPER QUADRANT Routine 09/13/19 18 3:34 PM EDT Liver disease US RENAL AND BLADDER Routine 09/12/2017 3:34 PM EDT Cyst of kidney, acquired CT ABDOMEN PELVIS W CONTRAST Routine 09/2016 6:41 PM EDT Abnormal findings on diagnostic imaging of liver CREATININE ISTAT Routine 02/28/2017 6:20 PM EDT PULMONARY FUNCTION TEST Routine 08/16/19 17 11:37 AM EDT SOB (shortness of breath) CT ABDOMEN W WO CONTRAST Routine 017 11:17 AM EST Fatty liver Abnormal CT scan SCANNED RHYTHM STRIPS 07/08/2016 10:30 PM EST DME ORDERS Routine 07/04/2016 11:48 AM EST CBC Early AM 07/04/2016 6:45 AM EST BASIC METABOLIC PANEL Early AM 07/04/2016 6:45 AM EST IP CONSULT TO CARE COORDINATION Routine 07/04/2016 6:04 AM EST SCANNED RHYTHM STRIPS 07/04/2016 12:29 AM EST SCANNED RHYTHM STRIPS 07/03/2016 6:41 PM EST HOME HEALTH ORDERS (FACE TO FACE ENCOUNTER) Routine 07/03/2016 12:17 PM EST BLOOD GAS ARTERIAL Routine 07/03/2016 9:[address] ANGIOGRAM CHEST W CONTRAST STAT 4:32 AM EST D-DIMER STAT 07/03/2016 2:43 AM EST BLOOD GAS, VENOUS STAT 07/03/2016 2:43 AM EST XR CHEST PA AND LATERAL JOSE ALFREDO 07/03/19 17 12:51 AM EST DIFFERENTIAL STAT 07/02/2016 9:03 PM EST CBC WITH DIFF STAT 07/02/2016 9:03 PM EST COMPREHENSIVE METABOLIC PANEL STAT 9:03 PM EST LIPASE LEVEL STAT 07/02/2016 9:03 PM EST SCANNED RHYTHM STRIPS 12/30/2015 7:13 PM EDT PATHOLOGY TISSUE REPORT Routine 12/28/19 16 11:28 AM EDT DILATION AND CURETTAGE HYSTEROSCOPY 12/28/2015 10:48 AM EDT Abnormal uterine bleeding Special Needs [id number]; TIME CHANGE FROM 11 TO 10:30 PER [facility] 11/21HOME NOT AVAILABLE/NO VM 12/11 12/20 DTLM 12/18 12/20 DT NUMBER DIFFERENTIAL STAT 12/28/2015 9:40 AM EDT CBC WITH DIFF STAT 12/28/2015 9:40 AM EDT EK EKG 12 LEAD Routine 09/12/2015 12:27 PM EDT Preop testing Postmenopausal bleeding DIFFERENTIAL Routine 09/12/2015 11:30 AM EDT BASIC METABOLIC PANEL Routine 09/12/2015 11:30 AM EDT Preop testing Postmenopausal bleeding CBC WITH DIFF Routine 09/12/2015 11:30 AM EDT Preop testing Postmenopausal bleeding US PELVIS AND TRANSVAGINAL N ON OB COMPLETE Routine 08/30/2015 2:17 PM EDT Abnormal uterine bleeding (AUB) FOLLICLE STIMULATING HORMONE LEVEL Routine 08/23/2015 2:03 PM EDT Abnormal uterine bleeding (AUB) [facility] REPORT Routine 08/23/2015 1:00 PM EDT MM MAMMO DIGITAL SCREENING W CAD BILAT Routine 08/01/2015 10:57 AM EST Visit for screening mammogram CT HEAD WO CONTRAST STAT 11/18/2014 3:12 PM EDT SCANNED RADIOLOGY REPORT 013 11:08 AM EDT SCANNED RADIOLOGY REPORT 013 4:08 PM EDT SCANNED ANESTHESIA FORMS 013 12:53 PM EDT SCANNED PRE/POST PROCEDURES 10/2012 12:53 PM EDT PATHOLOGY TISSUE REPORT Routine 01/29/20 13 10:00 AM EDT TYPE AND SCREEN Routine 01/28/2013 9:28 AM EDT DILATION AND CURETTAGE HYSTEROSCOPY 01/28/2013 9:13 AM EDT Postmenopausal bleeding Special Needs KIRKSEY CPT;96612 ANTIBODY SCREEN IGG Routine 01/28/2013 7:51 AM EDT ABORH Routine 01/28/2013 7:51 AM EDT RAST - REF LAB Routine 01/27/2013 11:15 AM EDT DIFFERENTIAL Routine 01/27/2013 11:15 AM EDT ALLERGEN, LATEX - REF LAB Routine 2012 11:15 AM EDT BASIC METABOLIC PANEL Routine 01/27/2013 11:15 AM EDT CBC WITH DIFF Routine 01/27/2013 11:15 AM EDT EK EKG 12 LEAD Routine 01/27/2013 10:22 AM EDT SCANNED RADIOLOGY REPORT 013 9:35 AM EDT [facility] REPORT Routine 12/11/2012 12:00 AM EDT VITAMIN D, 68-LPUCRGL-RCDS Routine 08/28 10:15 AM EDT Encounter for long-term (current) use of other medications Unspecified vitamin D deficiency CREATINE KINASE Routine 04/28/2010 11:05 AM EST Unspecified myalgia and myositis SEDIMENTATION RATE AUTOMATED Routine 07/2009 11:05 AM EST Unspecified myalgia and myositis RHEUMATOID FACTOR QUALITATIVE Routine 11:05 AM EST Unspecified myalgia and myositis ANTINUCLEAR ANTIBODIES (JASON) SCREEN BY ANIKET W/ REFLEX TO IFA Routine 04/28/2010 11:05 AM EST Unspecified myalgia and myositis VITAMIN D, 64-LACYFUU-JATZ Routine 04/28 11:05 AM EST Unspecified myalgia and myositis VITAMIN B12/ FOLIC ACID Routine 04/28/20 10 11:05 AM EST Unspecified myalgia and myositis TSH REFLEX TO FT4 Routine 04/28/2010 11:05 AM EST Unspecified myalgia and myositis SCANNED LABS 03/01/2010 12:00 AM EDT SCANNED PATHOLOGY REPORT 010 12:00 AM EDT VAGINAL PANEL Routine 11/25/2009 5:03 PM EDT MM MAMMO DIGITAL SCREENING W CAD BILAT Routine 11/25/2009 1:12 PM EDT Other screening mammogram [facility] REPORT Routine 11/25/2009 4:34 AM EDT KE MRI LUMBAR SPINE W/O Routine 06/15/19 10 11:42 AM EST LLOYD SCREENING BILATERAL Routine 08/11/19 08 12:00 AM EDT US TRANSVAGINAL Routine 07/23/2006 12:00 AM EST US PELVIS NON-OB COMPLETE Routine 2006 12:00 AM EST LLOYD SCREENING BILATERAL Routine 06/17/19 07 12:00 AM EST LLOYD SCREENING Routine 06/11/2005 12:00 AM EST US PELVIS NON-OB COMPLETE Routine 2004 12:00 AM EST US PELVIS NON-OB COMPLETE Routine 2004 12:00 AM EDT Results * CT CHEST HIGH RESOLUTION WO CONTRAST (08/28/2024 10:51 AM EDT) Anatomical Region Laterality Modality Chest Computed Tomogra phy 08/28/2024 10:5 1 AM EDT Impressions 08/28/2024 12:56 PM EDT No pattern of significant interstitial fibrosis or acute cardiopulmonary process. Mild air trapping. - Note: Radiology results need to be interpreted within a comprehensive clinical context. If you have questions about the radiology report, please contact the office of the ordering clinician. Narrative 08/28/2024 12:[address] CHEST HIGH-RESOLUTION WITHOUT CONTRAST, 08/28/2024 10:51 [...] Mild. Incidental: Visible abdominal viscera are unremarkable. Procedure Note Shazia Sevilla MD - 08/28/2024 CT CHEST HIGH-RESOLUTION WITHOUT CONTRAST, 08/28/2024 10:51 AM CLINICAL HISTORY: J96.11-Chronic respiratory failure with hypoxia (HCC)-ICD-10-CM. COMPARISON: 04/19/2021 PROCEDURE COMMENTS: High-resolution CT chest per protocol. Multiplanar reconstructions. Dose 1 : CT DLP Total : 717.18 mGycm DLP Spiral Max : 663.28 mGycm Maximum CTDI Vol : 23.5 mGy FINDINGS: No mediastinal or hilar mass lesion. Lung volumes within normal limits. No significant reticulation. Notraction bronchiectasis or honeycombing. Mild chronic mucus plugging lingula. No generalized nodularity or pulmonary cyst formation. No groundglassopacities away from areas of fibrosis. Mild air-trapping. Mediastinal and visceral pleura unremarkable. Tracheobronchial treepatent. Coronary artery calcification: Mild. Incidental: Visible abdominal viscera are unremarkable. IMPRESSION: No pattern of significant interstitial fibrosis or acute cardiopulmonary process. Mild air trapping. - Note: Radiology results need to be interpreted within a comprehensiveclinical context. If you have questions about the radiology report, please contactthe office of the ordering clinician. Yuko Toro RADIO EQUIPMENT INSTALLER IMG CT ORDERABLES Final Re sult * (ABNORMAL) PULMONARY FUNCTION TEST (08/28/2024 10:41 AM EDT) [facility] FVC_PRE 2.17 2.03 - 3.73 L 08/29/2024 8:49 AM EDT [facility] FEV1_PRE 1.65 1.56 - 2.86 L 08/29/2024 8:49 AM EDT [facility] FEV1/FVC_PRE 76.21 65.78 - 88.97 % 08/29/2024 8:49 AM EDT [facility] Hb_PRE 13.60 g(Hb)/dL 08/29/2024 8:49 AM EDT [facility] ERV_PRE 0.33 0.21 - 1.62 L 08/29/2024 8:49 AM EDT [facility] RV_PRE 1.62 1.21 - 3.06 L 08/29/2024 8:49 AM EDT [facility] RV%TLC_PRE 42.71 26.61 - 51.84 % 08/29/2024 8:49 AM EDT [facility] TLC_PRE 3.80(L) 4.10 - 6.36 L 08/29/2024 8:49 AM EDT [facility] FVC_Pre%REF 76 % 08/29/2024 8:49 AM EDT [facility] FEV1_Pre%REF 74 % 08/29/2024 8:49 AM EDT [facility] RV_Pre%REF 81 % 08/29/2024 8:49 AM EDT [facility] TLC_Pre%REF 74 % 08/29/2024 8:49 AM EDT [facility] ERV_Pre%REF 43 % 08/29/2024 8:49 AM EDT [facility] 08/28/2024 10:4 1 AM EDT Impressions [facility] - 08/29/2024 8:49 AM EDT Mild restrictive lung defect due to Obesity us Yuko M Toro RADIO EQUIPMENT INSTALLER PFT ORDERABLES Final Resu lt [facility] [address] [place] [address] * MRI LUMBAR SPINE WO CONTRAST (01/22/2024 4:47 PM EDT) Anatomical Region Laterality Modality Spine, L-spine Magnetic Resonan ce 01/22/2024 4:47 PM EDT Impressions 01/22/2024 7:47 PM EDT Multilevel degenerative changes without evidence of neural impingement. Narrative 01/22/2024 7:47 PM EDT MRI LUMBAR SPINE WITHOUT CONTRAST, 01/22/2024 4:47 PM CLINICAL HISTORY: M51.9-Unspecified thoracic, thoracolumbar and lumbosacral intervertebral disc yxyldnzg-KUI-05-CM COMPARISON: None. PROCEDURE COMMENTS: Multiplanar, multisequence MR imaging of the lumbar spine without contrast. FINDINGS: No fracture or concerning marrow abnormality. Trace anterolisthesis at L4-5. Normal conus position terminating at L2. Bpvcz-zw-bjuad analysis: T12-L1: Mild facet arthropathy. L1-2: Mild facet arthropathy. L2-3: Shallow noncompressive disc bulge and mild facet arthropathy. L3-4: Shallow noncompressive disc bulge with moderate right and severe left facet arthropathy. L4-5: Disc bulge with a shallow central protrusion, endplate spurring, and mild facet arthropathy without spinal canal or foraminal stenosis. L5-S1: Endplate spurring and mild facet arthropathy without spinal canal or foraminal stenosis. Procedure Note Cj Floyd MD - 01/22/2024 MRI LUMBAR SPINE WITHOUT CONTRAST, 01/22/2024 4:47 PM CLINICAL HISTORY: M51.9-Unspecified thoracic, thoracolumbar andlumbosacral intervertebral disc roaettys-PLI-60-CM COMPARISON: None. PROCEDURE COMMENTS: Multiplanar, multisequence MR imaging of the lumbarspine without contrast. FINDINGS: No fracture or concerning marrow abnormality. Trace anterolisthesis atL4-5. Normal conus position terminating at L2. Ablej-pz-ohxuz analysis: T12-L1: Mild facet arthropathy. L1-2: Mild facet arthropathy. L2-3: Shallow noncompressive disc bulge and mild facet arthropathy. L3-4: Shallow noncompressive disc bulge with moderate right and severeleft facet arthropathy. L4-5: Disc bulge with a shallow central protrusion, endplate spurring, andmild facet arthropathy without spinal canal or foraminal stenosis. L5-S1: Endplate spurring and mild facet arthropathy without spinal canalor foraminal stenosis. IMPRESSION: Multilevel degenerative changes without evidence of neural impingement. us Noah Gonzales MD IMG MRI ORDERABLES Final Result * CT ABDOMEN PELVIS W CONTRAST (02/20/2023 2:06 PM EDT) Only the most recent of3 resultswithin the time period is included. Anatomical Region Laterality Modality Abdomen, Chest, Pelvis, Hip Comp uted Tomography 02/20/2023 2:06 PM EDT Impressions 02/20/2023 3:50 PM EDT 1. No evidence of recurrent disease. Incidental findings as above. Narrative 02/20/2023 3:[address] ABDOMEN PELVIS W CONTRAST 02/20/2023 2:06 PM HISTORY: C54.1-Malignant neoplasm of endometrium (HCC)-ICD-10-CM PROCEDURE: CT abdomen pelvis with contrast. Comparison 09/15/2022. FINDINGS: Lung bases are unremarkable. Liver spleen pancreas adrenals bowel and mesentery are unremarkable. No retroperitoneal or abdominal lymph node enlargement. 1 cm cyst LEFT kidney. 2 mm intraparenchymal calcification mid RIGHT kidney. 1 mm calculus upper pole LEFT kidney. No evidence of obstruction. No lytic or sclerotic bone lesion. Procedure Note Jorge Rondon MD - 02/20/2023 CT ABDOMEN PELVIS W CONTRAST 02/20/2023 2:06 PM HISTORY: C54.1-Malignant neoplasm of endometrium (HCC)-ICD-10-CM PROCEDURE: CT abdomen pelvis with contrast. Comparison 09/15/2022. FINDINGS: Lung bases are unremarkable. Liver spleen pancreas adrenals bowel and mesentery are unremarkable. No retroperitoneal or abdominal lymph node enlargement. 1 cm cyst LEFTkidney. 2 mm intraparenchymal calcification mid RIGHT kidney. 1 mm calculus upperpole LEFT kidney. No evidence of obstruction. No lytic or sclerotic bone lesion. IMPRESSION: 1. No evidence of recurrent disease. Incidental findings as above. Greg Swanson APRN IMG CT ORDERABLES Final Re sult * CREATININE ISTAT (02/20/2023 1:46 PM EDT) Only the most recent of4 resultswithin the time period is included. Creatinine-iST AT 0.8 0.6 - 1.3 mg/dL 02/20/2023 1:53 PM EDT [facility] Blood BLOOD SPECIMEN / Unknown 02/20/2023 1:46 PM EDT 02/20/2023 1:53 PM EDT Greg Swanson APRN POINT OF CARE TEST ORDERAB [place] [id number] * PATHOLOGY TISSUE REQUEST (02/06/2023 2:54 PM EDT) Only the most recent of5 resultswithin the time period is included. CASE REPORT Surgical Pathology Case: [id number] Authorizing Provider: Greg Sawnson APRN Collected: 02/06/2023 1454 Ordering Location: [facility] Received: 02/06/2023 1624 Pathologist: Rafiq Collazo MD Specimen: Vaginal Cuff 02/07/2023 2:54 PM EDT [facility] FINAL DIAGNOSIS Vagina, biopsy: - Vaginal squamous mucosa with mild chronic inflammation. - Negative for malignancy. 02/07/2023 2:54 PM EDT [facility] at 1454 EDT GROSS DESCRIPTION Received in formalin in a container labeled the patient's name, MRN, and Vaginal cuff, is a 0.5 x 0.2 x 0.2 cm pink-red tissue fragment. The specimen is inked blue, bisected, and entirely submitted in cassette A1. SONALI Weaver,JONI (ASCP) 02/06/2023 4:51 PM 02/07/2023 2:54 PM EDT [facility] MICROSCOPIC DESCRIPTION Microscopic examination is performed and the findings corroborate the diagnosis. 02/07/2023 2:54 PM EDT [facility] EMBEDDED IMAGES 02/07/2023 2:54 PM EDT [facility] Tissue VAGINAL CUFF / Unknown 02/06/2023 2:54 PM EDT 02/06/2023 4:24 PM EDT us Greg Swanson RADIO EQUIPMENT INSTALLER PATHOLOGY ORDERABLES Final Result [facility] [address] [place] [address] * MM MAMMO DIGITAL [place] SCREEN BILAT (02/05/2023 2:15 PM EDT) Anatomical Region Laterality Modality Breast Bilateral Mammography 02/05/2023 2:49 PM EDT Impressions 02/05/2023 2:49 PM EDT Negative ([id number]-8) ~ RECOMMENDATION: Routine screening mammogram in 1 year. ~ DISCLAIMER * Any patient with a palpable abnormality, unexplained by breast imaging, should be managed on clinical basis by the attending physician. * Breast imaging has a false negative rate of 15%. * The patient was notified by mail of the results of this examination. *The patient's information was entered into a reminder system with a target due date for the next mammogram, in accordance with the [employer] and the Society of Breast Imaging recommendations. Narrative 02/05/2023 2:49 PM EDT Procedure:MM MAMMO DIGITAL [place] SCREEN BILAT ~ Reason for exam: screening, asymptomatic. Z12.31-Encounter for screening mammogram for malignant neoplasm of rrzbcr-QFQ-89-CM ~ MM MAMMO DIGITAL [place] SCREEN BILAT Bilateral CC and MLO view(s) were taken. There are scattered fibroglandular densities. Prior study comparison: Compared with prior studies the most recent being 03/31/20, 10/16/18 No mammographic evidence of malignancy. ~ Procedure Note Radha Wright MD - 02/05/2023 Procedure:MM MAMMO DIGITAL [place] SCREEN BILAT ~ Reason for exam: screening, asymptomatic. Z12.31-Encounter for screening mammogram for malignant neoplasm of sysmtw-VFW-95-CM ~ MM MAMMO DIGITAL [place] SCREEN BILAT Bilateral CC and MLO view(s) were taken. There are scattered fibroglandular densities. Prior study comparison: Compared with prior studies the most recentbeing 03/31/20, 10/16/18 No mammographic evidence of malignancy. ~ IMPRESSION: Negative (JPV-Qlwunezp-4) ~ RECOMMENDATION: Routine screening mammogram in 1 year. ~ DISCLAIMER * Any patient with a palpable abnormality, unexplained by breast imaging, should be managed on clinical basis by the attending physician. * Breast imaging has a false negative rate of 15%. * The patient was notified by mail of the results of this examination. *The patient's information was entered into a reminder system with atarget due date for the next mammogram, in accordance with the [employer] and the Society of Breast Imaging recommendations. us Noah Calero MD IMG MAMMOGRAPHY ORDERABLES F inal Result * US RENAL AND BLADDER (11/20/2022 2:50 PM EDT) Only the most recent of2 resultswithin the time period is included. Anatomical Region Laterality Modality Abdomen, Pelvis Ultrasound 11/20/2022 2:50 PM EDT Impressions 11/20/2022 3:30 PM EDT Mild bladder debris. - Note: Radiology results need to be interpreted within a comprehensive clinical context. If you have questions about the radiology report, please contact the office of the ordering clinician. Narrative 11/20/2022 3:30 PM EDT US KIDNEYS AND BLADDER, 11/20/2022 2:50 PM CLINICAL HISTORY: R35.0-Obzhhzij-RQE-10-CM N39.0-Urinary tract infection, site not fgdbyptqj-XBA-37-CM N39.41-Urge wmyhswsqzxax-FVB-39-CM. COMPARISON: 09/15/2022 PROCEDURE COMMENTS: Routine sonographic evaluation of the kidneys and bladder with insurance sales representative images and environmental professional notes sent to PACS for radiologist review. FINDINGS: RIGHT: 11.0 x 6.0 x 4.9 cm. No hydronephrosis, solid-appearing mass, or shadowing stone. LEFT: 13.0 x 6.3 x 5.7 cm. No hydronephrosis, solid-appearing mass, or shadowing stone. PELVIS: Mild bladder debris. Procedure Note Sam Franklin MD - 11/20/2022 US KIDNEYS AND BLADDER, 11/20/2022 2:50 PM CLINICAL HISTORY: R35.7-Nblnwxqn-KDC-10-CM N39.0-Urinary tract infection, site not voljupcdc-XIF-92-CM N39.41-Urge thifkfxjlmsc-TPS-33-CM. COMPARISON: 09/15/2022 PROCEDURE COMMENTS: Routine sonographic evaluation of the kidneys andbladder with insurance sales representative images and environmental professional notes sent to PACS forradiologist review. FINDINGS: RIGHT: 11.0 x 6.0 x 4.9 cm. No hydronephrosis, solid-appearing mass,or shadowing stone. LEFT: 13.0 x 6.3 x 5.7 cm. No hydronephrosis, solid-appearing mass, or shadowing stone. PELVIS: Mild bladder debris. IMPRESSION: Mild bladder debris. - Note: Radiology results need to be interpreted within a comprehensiveclinical context. If you have questions about the radiology report, please contactthe office of the ordering clinician. us Lalo Inman RADIO EQUIPMENT INSTALLER IMG US ORDERABLES Final R esult * CT THREE PHASE LIVER PROTOCOL (09/15/2022 2:52 PM EDT) Anatomical Region Laterality Modality Abdomen Computed Tomogra phy 09/15/2022 2:52 PM EDT Impressions 09/15/2022 4:25 PM EDT 1. Hepatomegaly with hepatic steatosis. 2. 16 mm focal high attenuation lesion likely dystrophic calcification due to remote inflammatory process or possibly phlebolith calcification involving hemangioma. - Note: Radiology results need to be interpreted within a comprehensive clinical context. If you have questions about the radiology report, please contact the office of the ordering clinician. Narrative 09/15/2022 4:[address] THREE PHASE LIVER PROTOCOL, 09/15/2022 2:52 PM CLINICAL HISTORY: K76.9-Liver disease, wiunnuymnbv-ADS-83-CM. COMPARISON: Noncontrast CT abdomen pelvis 02/24/2021 and 04/25/2020. CT abdomen pelvis with contrast 05/04/2019 and 01/07/2020. PROCEDURE COMMENTS: Multidetector CT abdomen and pelvis, per 3 phase liver protocol. 100 mL he 370 intravenous contrast utilized. Dose 1 : CT DLP Total : 5513.93 mGycm DLP Spiral Max : 1770.07 mGycm Maximum CTDI Vol : 35.46 mGy FINDINGS: Diffuse low-attenuation fatty infiltration liver redemonstrated. Proximally 16 mm ovoid faint calcific focus anterior segment 4 of liver stable since noncontrast CT 02/24/2021, and without significant enhancement postcontrast. Lesion was predominantly low-attenuation with very minimal calcification on more remote studies. No additional focal liver lesion noted. Mild hepatomegaly redemonstrated with craniocaudal length liver 21 cm. No biliary ductal dilatation. 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 Solid viscera otherwise unremarkable. Prior cholecystectomy again noted. Visualized gastrointestinal tract unremarkable without oral contrast. Urinary bladder unremarkable. Prior hysterectomy noted. Procedure Note Lefty Thomas MD - 09/15/2022 CT THREE PHASE LIVER PROTOCOL, 09/15/2022 2:52 PM CLINICAL HISTORY: K76.9-Liver disease, tihtkusskit-RJQ-82-CM. COMPARISON: Noncontrast CT abdomen pelvis 02/24/2021 and 04/25/2020. CTabdomen pelvis with contrast 05/04/2019 and 01/07/2020. PROCEDURE COMMENTS: Multidetector CT abdomen and pelvis, per 3 phaseliver protocol. 100 mL he 370 intravenous contrast utilized. Dose 1 : CT DLP Total : 5513.93 mGycm DLP Spiral Max : 1770.07 mGycm Maximum CTDI Vol : 35.46 mGy FINDINGS: Diffuse low-attenuation fatty infiltration liver redemonstrated. Proximally 16 mm ovoid faint calcific focus anterior segment 4 of liverstable since noncontrast CT 02/24/2021, and without significant enhancement postcontrast. Lesion was predominantly low-attenuation with very minimal calcification on more remote studies. No additional focal liver lesion noted. Mild hepatomegaly redemonstratedwith craniocaudal length liver 21 cm. No biliary ductal dilatation. Variant malrotation right kidney towards axial plane and punctatedystrophic calcification lateral right kidney stable. Solid viscera otherwiseunremarkable. Prior cholecystectomy again noted. Visualized gastrointestinal tract unremarkable without oral contrast. Urinary bladder unremarkable. Prior hysterectomy noted. IMPRESSION: 1. Hepatomegaly with hepatic steatosis. 2. 16 mm focal high attenuation lesion likely dystrophic calcification dueto remote inflammatory process or possibly phlebolith calcificationinvolving hemangioma. - Note: Radiology results need to be interpreted within a comprehensiveclinical context. If you have questions about the radiology report, please contactthe office of the ordering clinician. us Noah Gonzales MD IMG CT ORDERABLES Final Result * XR CHEST PA AND LATERAL (08/09/2021 2:02 PM EDT) Only the most recent of3 resultswithin the time period is included. Anatomical Region Laterality Modality Chest Radiographic Michelle ging 08/09/2021 2:02 PM EDT Impressions 08/09/2021 2:13 PM EDT No acute finding. - Note: Radiology results need to be interpreted within a comprehensive clinical context. If you have questions about the radiology report, please contact the office of the ordering clinician. Narrative 08/09/2021 2:13 PM EDT PA AND LATERAL CHEST X-RAY, 08/09/2021 2:02 PM CLINICAL HISTORY: J45.901-Unspecified asthma with (acute) rjfenscyhduh-WCL-84-CM COMPARISON: 04/01/2021 PROCEDURE COMMENTS: Frontal and lateral views of the chest. FINDINGS: Cardiovascular structures within normal limits. No pneumonia or effusion. No pneumothorax. Procedure Note William Saavedra MD - 08/09/2021 PA AND LATERAL CHEST X-RAY, 08/09/2021 2:02 PM CLINICAL HISTORY: J45.901-Unspecified asthma with (acute) xsbthoquhele-FPO-91-CM COMPARISON: 04/01/2021 PROCEDURE COMMENTS: Frontal and lateral views of the chest. FINDINGS: Cardiovascular structures within normal limits. No pneumoniaor effusion. No pneumothorax. IMPRESSION: No acute finding. - Note: Radiology results need to be interpreted within a comprehensiveclinical context. If you have questions about the radiology report, please contactthe office of the ordering clinician. Yuko Toro APRN IM DIAGNOSTIC IMAGING ORD ERABLES Final Result * (ABNORMAL) PULMONARY FUNCTION TEST (04/19/2021 11:24 AM EST) FVC_PRE 2.28 2.23 - 3.84 L 04/22/2021 10:03 PM EST [facility] FVC_REF 3.02 04/22/2021 10:03 PM EST [facility] FVC_LLN 2.23 04/22/2021 10:03 PM EST [facility] FVC_Pre%REF 76 % 04/22/2021 10:03 PM EST [facility] FEV1_PRE 1.73(L) 1.74 - 2.94 L 04/22/2021 10:03 PM EST [facility] FEV1_REF 2.35 04/22/2021 10:03 PM EST [facility] FEV1_LLN 1.74 04/22/2021 10:03 PM EST [facility] FEV1_Pre%REF 74 % 04/22/2021 10:03 PM EST [facility] FEV1/FVC_PRE 75.85 65.72 - 89.47 % 04/22/2021 10:03 PM EST [facility] FEV1/FVC_REF 79 04/22/2021 10:03 PM EST [facility] FEV1/FVC_LLN 66 04/22/2021 10:03 PM EST [facility] FEV1/FVC_Pre%R EF 97 % 04/22/2021 10:03 PM EST [facility] FOT45-59%_PRE 1.33 0.97 - 3.49 L/s 04/22/2021 10:03 PM EST [facility] TFY16-54%_REF 2.03 04/22/2021 10:03 PM EST [facility] DIM77-86%_LLN 0.97 04/22/2021 10:03 PM EST [facility] AKP88-05%_Pre% REF 66 % 04/22/2021 10:03 PM EST [facility] PEF_PRE 6.79 4.27 - 7.75 L/s 04/22/2021 10:03 PM EST [facility] PEF_REF 6.01 04/22/2021 10:03 PM EST [facility] PEF_LLN 4.27 04/22/2021 10:03 PM EST [facility] PEF_Pre%REF 113 % 04/22/2021 10:03 PM EST [facility] DLCO_SB_PRE 21.04 15.17 - 27.16 ml/(min*mm Hg) 04/22/2021 10:03 PM EST [facility] DLCOSingleBrea th_REF 20.1 04/22/2021 10:03 PM EST [facility] DLCOSingleBrea th_LLN 15.2 04/22/2021 10:03 PM EST [facility] DLCOSingleBrea th_Pre%REF 105 % 04/22/2021 10:03 PM EST [facility] VA_SB_PRE 3.34(L) 3.87 - 6.01 L 04/22/2021 10:03 PM EST [facility] VASingleBreath _REF 4.84 04/22/2021 10:03 PM EST [facility] VASingleBreath _LLN 3.87 04/22/2021 10:03 PM EST [facility] VASingleBreath _Pre%REF 69 % 04/22/2021 10:03 PM EST [facility] DL/VA_PRE 6.31(H) 3.21 - 5.33 ml/(min*mm Hg*L) 04/22/2021 10:03 PM EST [facility] DLCO/VA_REF 4.19 04/22/2021 10:03 PM EST [facility] DLCO/VA_LLN 3.21 04/22/2021 10:03 PM EST [facility] DLCO/VA_Pre%RE F 150 % 04/22/2021 10:03 PM EST [facility] IVC_SB_PRE 2.31 2.23 - 3.84 L 04/22/2021 10:03 PM EST [facility] Hb_PRE 11.90 g(Hb)/dL 04/22/2021 10:03 PM EST [facility] IC_PRE 1.97(L) 2.06 - 2.06 L 04/22/2021 10:03 PM EST [facility] IC_REF 2.06 04/22/2021 10:03 PM EST [facility] IC_LLN 2.06 04/22/2021 10:03 PM EST [facility] IC_Pre%REF 96 % 04/22/2021 10:03 PM EST [facility] ERV_PRE 0.31(L) 0.71 - 0.71 L 04/22/2021 10:03 PM EST [facility] ERV_REF 0.71 04/22/2021 10:03 PM EST [facility] ERV_LLN 0.71 04/22/2021 10:03 PM EST [facility] ERV_Pre%REF 43 % 04/22/2021 10:03 PM EST [facility] RV_PRE 1.46 1.45 - 2.60 L 04/22/2021 10:03 PM EST [facility] RV_REF 2.02 04/22/2021 10:03 PM EST [facility] RV_LLN 1.45 04/22/2021 10:03 PM EST [facility] RV_Pre%REF 72 % 04/22/2021 10:03 PM EST [facility] RV%TLC_PRE 39.11 31.81 - 50.99 % 04/22/2021 10:03 PM EST [facility] RV%TLC_REF 41 04/22/2021 10:03 PM EST [facility] RV%TLC_LLN 32 04/22/2021 10:03 PM EST [facility] RV%TLC_Pre%REF 94 % 04/22/2021 10:03 PM EST [facility] FRCpl_PRE 1.77(L) 1.91 - 3.56 L 04/22/2021 10:03 PM EST [facility] FRCpleth_REF 2.74 04/22/2021 10:03 PM EST [facility] FRCpleth_LLN 1.91 04/22/2021 10:03 PM EST [facility] FRCpleth_Pre%R EF 65 % 04/22/2021 10:03 PM EST [facility] TLC_PRE 3.74(L) 4.04 - 6.01 L 04/22/2021 10:03 PM EST [facility] TLC_REF 5.02 04/22/2021 10:03 PM EST [facility] TLC_LLN 4.04 04/22/2021 10:03 PM EST [facility] TLC_Pre%REF 75 % 04/22/2021 10:03 PM EST [facility] 04/19/2021 11:2 4 AM EST Impressions [facility] - 04/22/2021 10:03 PM EST Mild restrictive ventilatory defect with normal diffusing capacity. This data was interpreted based upon the 2005 ATS/ERS Task Force Position Statement: Interpretative Strategies for Lung Function Tests. Cristi Ospina MD Pulmonary and Critical Care Medicine us Singh Varner MD PFT ORDERABLES Final Result Performing Organization Address City/State/[facility] Co de Phone Number [facility] [address] [place] [address] * CT CHEST WO CONTRAST (04/19/2021 10:56 AM EST) Anatomical Region Laterality Modality Chest Computed Tomogra phy 04/19/2021 10:5 6 AM EST Impressions 04/19/2021 1:38 PM EST 1. Scattered minimal air-trapping bilaterally. Otherwise, no acute cardiopulmonary process. 2. No suspicious pulmonary nodule. No lymphadenopathy within the chest. 3. Additional chronic and incidental findings as discussed within the body of this report. - Note: Radiology results need to be interpreted within a comprehensive clinical context. If you have questions about the radiology report, please contact the office of the ordering clinician. Narrative 04/19/2021 1:[address] CHEST WITHOUT CONTRAST, 04/19/2021 10:56 AM CLINICAL HISTORY: J45.30-Mild persistent asthma, qzrvmronhbizc-LIP-14-CM J96.11-Chronic respiratory failure with hypoxia (HCC)-ICD-10-CM J45.909-Unspecified asthma, wrrtebknjngzp-UGP-76-CM R06.00-Dyspnea, rfbobrcczac-ILV-20-CM R06.02-Shortness of jczjmn-LPV-06-CM. COMPARISON: Prior CT imaging of the chest, most recently with IV contrast 07/03/2016; portable chest x-ray 04/01/2021; CT abdomen and pelvis without IV contrast 04/25/2020 PROCEDURE COMMENTS: Multi-detector CT of the chest with multiplanar reconstructions per protocol. No contrast given. Dose 1 : CT DLP Total : 820.17 mGycm DLP Spiral Max : 817.51 mGycm Maximum CTDI Vol : 25.14 mGy FINDINGS: SUPPORT DEVICES: None. LOWER CERVICAL REGION: There is a stable subcentimeter peripherally calcified nodule within the left thyroid lobe (axial image 22). LYMPH NODES: There is no axillary, mediastinal, or hilar lymphadenopathy. Small calcified mediastinal and hilar lymph nodes remain compatible with the sequela of remote granulomatous disease. PLEURAL SPACES/DIAPHRAGM: No pleural effusion or pneumothorax. HEART AND GREAT VESSELS: Cardiac size is normal. No pericardial effusion. Thoracic aorta is normal in caliber. Unenhanced central pulmonary arteries are within normal limits. Mild coronary arterial calcifications. LUNGS: Trachea and proximal bronchi are patent. No acute pulmonary process. Minimal lingular scarring. No suspicious pulmonary nodule. There is some scattered minimal air-trapping compatible with provided clinical history of small airways disease. UPPER GI TRACT: The esophagus is grossly unremarkable. BODY WALL: No aggressive osseous lesion. UPPER ABDOMEN: Images through the included portions of the unenhanced upper abdomen demonstrate no acute findings. Patient status post cholecystectomy with tiny left renal calculi. Diffuse hepatic steatosis with peripherally calcified focus adjacent to or involving the liver. This is smaller in appearance since 07/03/2016, benign. Procedure Note Abhijeet Yepez MD - 04/19/2021 CT CHEST WITHOUT CONTRAST, 04/19/2021 10:56 AM CLINICAL HISTORY: J45.30-Mild persistent asthma,oddsgznlhnrwp-TXP-08-CM J96.11-Chronic respiratory failure with hypoxia (HCC)-ICD-10-CM J45.909-Unspecified asthma, yjwzxkcbkbrgv-BYE-20-CM R06.00-Dyspnea, jesxzigmujp-GGE-56-CM R06.02-Shortness of ylsceq-TTT-60-CM. COMPARISON: Prior CT imaging of the chest, most recently with IVcontrast 07/03/2016; portable chest x-ray 04/01/2021; CT abdomen and pelvis withoutIV contrast 04/25/2020 PROCEDURE COMMENTS: Multi-detector CT of the chest with multiplanar reconstructions per protocol. No contrast given. Dose 1 : CT DLP Total : 820.17 mGycm DLP Spiral Max : 817.51 mGycm Maximum CTDI Vol : 25.14 mGy FINDINGS: SUPPORT DEVICES: None. LOWER CERVICAL REGION: There is a stable subcentimeter peripherallycalcified nodule within the left thyroid lobe (axial image 22). LYMPH NODES: There is no axillary, mediastinal, or hilar lymphadenopathy.Small calcified mediastinal and hilar lymph nodes remain compatible with thesequela of remote granulomatous disease. PLEURAL SPACES/DIAPHRAGM: No pleural effusion or pneumothorax. HEART AND GREAT VESSELS: Cardiac size is normal. No pericardialeffusion. Thoracic aorta is normal in caliber. Unenhanced central pulmonary arteriesare within normal limits. Mild coronary arterial calcifications. LUNGS: Trachea and proximal bronchi are patent. No acute pulmonaryprocess. Minimal lingular scarring. No suspicious pulmonary nodule. There is some scattered minimal air-trapping compatible with provided clinical historyof small airways disease. UPPER GI TRACT: The esophagus is grossly unremarkable. BODY WALL: No aggressive osseous lesion. UPPER ABDOMEN: Images through the included portions of the unenhancedupper abdomen demonstrate no acute findings. Patient status post cholecystectomywith tiny left renal calculi. Diffuse hepatic steatosis with peripherallycalcified focus adjacent to or involving the liver. This is smaller in appearancesince 07/03/2016, benign. IMPRESSION: 1. Scattered minimal air-trapping bilaterally. Otherwise, no acute cardiopulmonary process. 2. No suspicious pulmonary nodule. No lymphadenopathy within the chest. 3. Additional chronic and incidental findings as discussed within thebody of this report. - Note: Radiology results need to be interpreted within a comprehensiveclinical context. If you have questions about the radiology report, please contactthe office of the ordering clinician. Singh Varner MD IM CT ORDERABLES Final Result * RAST - REF LAB (04/19/2021 10:23 AM EST) Only the most recent of2 resultswithin the time period is included. Immcap Score See Note 04/25/2021 9:15 AM EST [facility] Comment: REFERENCE INTERVAL: Allergen, Interpretation Less than 0.10 kU/L......Class 0.....No significant level detected 0.10-0.34 kU/L...........Class 0/1...Clinical relevance undetermined 0.35-0.70 kU/L...........Class 1.....Low 0.71-3.50 kU/L...........Class 2.....Moderate 3.51-17.50 kU/L..........Class 3.....High 17.51-50.00 kU/L.........Class 4.....Very High 50.01-100.00 kU/L........Class 5.....Very High Greater than 100.00kU/L..Class 6.....Very High Allergen results of 0.10-0.34 kU/L are intended for specialist use as the clinical relevance is undetermined. Even though increasing ranges are reflective of increasing concentrations of allergen-specific IgE, these concentrations may not correlate with the degree of clinical response or skin testing results when challenged with a specific allergen. The correlation of allergy laboratory results with clinical history and in vivo reactivity to specific allergens is essential. A negative test may not rule out clinical allergy or even anaphylaxis. Performed By: [facility] [address] [place] [address] Coat Joiner: Chantale Vivar MD Blood VENOUS BLOOD / Unknown Venipuncture / Unknown 04/19/2021 10:23 AM EST 04/19/2021 10:23 AM EST us Singh Varner MD IMMUNOLOGY ORDERABLES Final Resu lt [facility] [address], [place] [id number] * ALLERGEN, REGION 5 RESPIRATORY PANEL-REF LAB (04/19/2021 10:23 AM EST) [facility] Common Ragweed <0.10 <=0.34 kU/L 04/25/2021 7:47 AM EST [facility] CockroachGerman <0.10 <=0.34 kU/L 04/25/2021 7:47 AM EST [facility] Mathews Tree <0.10 <=0.34 kU/L 04/25/2021 7:47 AM EST [facility] Sanborn Tree <0.10 <=0.34 kU/L 04/25/2021 7:47 AM EST [facility] Pecan Tree <0.10 <=0.34 kU/L 04/25/2021 7:47 AM EST [facility] Mouse Epi <0.10 <=0.34 kU/L 04/25/2021 7:47 AM EST [facility] M. racemosus <0.10 <=0.34 kU/L 04/25/2021 7:47 AM EST [facility] White [place] Tree <0.10 <=0.34 kU/L 04/25/2021 7:47 AM EST [facility] Dog Dander <0.10 <=0.34 kU/L 04/25/2021 7:47 AM EST [facility] Sheep [place] <0.10 <=0.34 kU/L 04/25/2021 7:47 AM EST [facility] Comment: Performed By: [facility] [address] [place] [id number] Coat Joiner: Chantale Vivar MD IgE 22 <=214 kU/L 04/25/2021 7:47 AM EST [facility] Comment: REFERENCE INTERVAL: Immunoglobulin E, Serum Access complete set of age- and/or gender-specific reference intervals for this test in the [facility] Test Directory ([facility]). Alternaria alt <0.10 <=0.34 kU/L 04/25/2021 7:47 AM EST [facility] [place]/Maple <0.10 <=0.34 kU/L 04/25/2021 7:47 AM EST [facility] Cat Epi/Dander <0.10 <=0.34 kU/L 04/25/2021 7:47 AM EST [facility] Mountain [place] Tree <0.10 <=0.34 kU/L 04/25/2021 7:47 AM EST [facility] [place] Tree <0.10 <=0.34 kU/L 04/25/2021 7:47 AM EST [facility] Pigweed <0.10 <=0.34 kU/L 04/25/2021 7:47 AM EST [facility] Guatemalan Thistle <0.10 <=0.34 kU/L 04/25/2021 7:47 AM EST [facility] Forrest Grass <0.10 <=0.34 kU/L 04/25/2021 7:47 AM EST [facility] Allergen, Fungi/Mold, Hormodendrum IgE <0.10 <=0.34 kU/L 04/25/2021 7:47 AM EST [facility] Elm Tree <0.10 <=0.34 kU/L 04/25/2021 7:47 AM EST [facility] [place] Tree <0.10 <=0.34 kU/L 04/25/2021 7:47 AM EST [facility] Genoa <0.10 <=0.34 kU/L 04/25/2021 7:47 AM EST [facility] Allergen, Fungi/Mold, A. fumigatus IgE <0.10 <=0.34 kU/L 04/25/2021 7:47 AM EST [facility] D pteronyssinus <0.10 <=0.34 kU/L 04/25/2021 7:47 AM EST [facility] D farinae <0.10 <=0.34 kU/L 04/25/2021 7:47 AM EST [facility] Bermuda Grass <0.10 <=0.34 kU/L 04/25/2021 7:47 AM EST [facility] White [place] Tree <0.10 <=0.34 kU/L 04/25/2021 7:47 AM EST [facility] P.Notatum <0.10 <=0.34 kU/L 04/25/2021 7:47 AM EST [facility] Blood Venipuncture / Unknown 04/19/2021 10:23 AM EST 04/19/2021 10:23 AM EST us Singh Varner MD IMMUNOLOGY ORDERABLES Final Resu lt [facility] [address] [place] [address] * SCANNED EKG (04/03/2021 11:05 AM EST) Anatomical Region Laterality Modality Other 04/03/2021 11:0 5 AM EST us Unknown Provider IMG ECG ORDERABLES Final Result * (ABNORMAL) CBC WITH DIFF (04/02/2021 8:39 AM EST) Only the most recent of12 resultswithin the time period is included. WBC 8.6 3.7 - 10.3 x10(3)/mcL 04/02/2021 9:10 AM EST [facility] RBC 4.49 3.90 - 5.20 x10(6)/mcL 04/02/2021 9:10 AM EST [facility] Hgb 11.9 11.2 - 15.7 g/dL 04/02/2021 9:10 AM EST [facility] Hct 38.9 34.0 - 45.0 % 04/02/2021 9:10 AM EST [facility] MCV 86.6 80.0 - 100.0 fL 04/02/2021 9:10 AM EST [facility] MCH 26.5 26.0 - 34.0 pg 04/02/2021 9:10 AM EST [facility] MCHC 30.6(L) 30.7 - 35.5 g/dL 04/02/2021 9:10 AM EST [facility] RDW 16.3(H) <=14.9 % 04/02/2021 9:10 AM EST [facility] Platelet 276 155 - 369 x10(3)/mcL 04/02/2021 9:10 AM EST [facility] MPV 11.1 8.8 - 12.5 fL 04/02/2021 9:10 AM EST [facility] Neut Percent 55.9 % 04/02/2021 9:10 AM EST [facility] Comment:Neutrophils equals s egs plus bands Imm Gran% 0.4 % 04/02/2021 9:10 AM EST [facility] Comment:Automated count of m etamyelocytes, myelocytes and promyelocytes. Lymph Percent 33.7 % 04/02/2021 9:10 AM EST [facility] [place] Percent 7.4 % 04/02/2021 9:10 AM EST [facility] Eos Percent 2.1 % 04/02/2021 9:10 AM EST [facility] Baso Percent 0.5 % 04/02/2021 9:10 AM EST [facility] Neut # 4.8 1.6 - 6.1 x10(3)/[facility] 04/02/2021 9:10 AM EST [facility] Comment:Neutrophils equals s egs plus bands IMMGRAN# 0.0 0.0 - 0.1 x10(3)/mcL 04/02/2021 9:10 AM EST [facility] Comment:Automated count of m etamyelocytes, myelocytes and promyelocytes. An absolute IG <0.1 is reported as 0.0. Lymph # 2.9 1.2 - 3.9 x10(3)/mcL 04/02/2021 9:10 AM EST [facility] [place] # 0.6 0.3 - 0.9 x10(3)/mcL 04/02/2021 9:10 AM EST [facility] Eos# 0.2 0.0 - 0.5 x10(3)/mcL 04/02/2021 9:10 AM EST [facility] Baso # 0.0 0.0 - 0.1 x10(3)/mcL 04/02/2021 9:10 AM EST [facility] Blood VENOUS BLOOD / Unknown Venipuncture / Unknown 04/02/2021 8:39 AM EST 04/02/2021 8:56 AM EST us Isabella Perez DO HEMATOLOGY ORDERABLES Final Result [facility] [address] , [address] [place] [id number] * (ABNORMAL) BASIC METABOLIC PANEL (04/02/2021 8:39 AM EST) Only the most recent of13 resultswithin the time period is included. Sodium 137 136 - 145 mmol/L 04/02/2021 9:30 AM EST [facility] Potassium 3.8 3.5 - 5.0 mmol/L 04/02/2021 9:30 AM EST [facility] Chloride 102 98 - 107 mmol/L 04/02/2021 9:30 AM EST [facility] Total CO2 25 22 - 29 mmol/L 04/02/2021 9:30 AM EST [facility] Anion Gap 10 7 - 16 mmol/L 04/02/2021 9:30 AM EST [facility] Calcium 8.9 8.8 - 10.4 mg/dL 04/02/2021 9:30 AM EST [facility] Glucose Lvl 124(H) 82 - 100 mg/dL 04/02/2021 9:30 AM EST [facility] BUN 7(L) 8 - 23 mg/dL 04/02/2021 9:30 AM EST [facility] Creatinine 0.68 0.51 - 1.30 mg/dL 04/02/2021 9:30 AM EST [facility] GFR Afr Am 105 >=60 mL/min/1.7 3 m2 04/02/2021 9:30 AM EST [facility] GFR Non Afr Am 91 >=60 mL/min/1.7 3 m2 04/02/2021 9:30 AM EST [facility] Comment: This estimated GFR was calculated using CKD-EPI equation which is modified based on ethnicity for Non Americans and Americans. Both results are reported since it is not always possible to determine the patient's ethnicity. This equation should only be used for individuals 18 and older. It has not been validated for use with the elderly (>70 years), women, or in some racial or ethnic subgroups, such as Hispanics. The equation will be less accurate in people with differences in nutritional status or muscle mass. Blood VENOUS BLOOD / Unknown Venipuncture / Unknown 04/02/2021 8:39 AM EST 04/02/2021 8:57 AM EST us Isabella Perez DO CHEMISTRY ORDERABLES Final Result Performing Organization Address City/[facility] Co de Phone Number [facility] [address] [facility], [address] [place] [phone] [facility] [address] [place] [address] * ECG AND WAVEFORMS - TELEMETRY (04/02/2021 7:00 AM EST) Only the most recent of6 resultswithin the time period is included. Pathologist [facility] ECG INTERPRET Sinus Bradycardia [facility] 04/02/2021 7:00 AM EST Narrative [facility] - 04/02/2021 7:53 AM EST TP/HICUITY ROUTINE NE 0.18 QRS 0.07 RR 1.24 QT 0.45 QTc 0.40 See Clinical Report link for waveform capture us Unknown Provider POINT OF CARE CARDIOLOGY Final Result Performing Organization Address [facility] de Phone Number [facility] [address] [place] [address] * LIPID SCREEN (04/01/2021 5:47 PM EDT) Pathologist [facility] Cholesterol 167 <200 mg/dL 04/01/2021 6:18 PM EDT [facility] Comment: < 200 Desirable 200 - 239 Borderline High >= 240 High Triglyceride 134 <150 mg/dL 04/01/2021 6:18 PM EDT [facility] Comment: < 150 Normal 150 - 199 Borderline High 200 - 499 High >= 500 Very High HDL 51 >=40 mg/dL 04/01/2021 6:18 PM EDT [facility] Comment: > 60 Optimal 40 - 60 Acceptable < 40 Low LDL Calculated 92 <100 mg/dL 04/01/2021 6:18 PM EDT [facility] Comment: < 100 Optimal 100 - 129 Near or above optimal 130 - 159 Borderline High 160 - 189 High >= 190 Very High Non-HDL-C Calculated 116 <=129 mg/dL 04/01/2021 6:18 PM EDT [facility] Comment: <130 Desirable 130-159 Above Desirable 160-189 Borderline High 190-219 High >= 220 Very High Fasting Specimen? No None 021 6:18 PM EDT [facility] Blood VENOUS BLOOD / Unknown Butterfly / Unknown 04/01/2021 5:47 PM EDT 04/01/2021 5:57 PM EDT Isabella Perez DO CHEMISTRY ORDERABLES Final Result [facility] [address], [address] [place] [id number] [facility] [address] [facility] [address] [place] [address] * MRI BRAIN WO CONTRAST (04/01/2021 1:31 PM EDT) Anatomical Region Laterality Modality Head Magnetic Resonan ce 04/01/2021 1:31 PM EDT Impressions 04/01/2021 1:55 PM EDT No acute abnormality. - Note: Radiology results need to be interpreted within a comprehensive clinical context. If you have questions about the radiology report, please contact the office of the ordering clinician. Narrative 04/01/2021 1:55 PM EDT MRI BRAIN WITHOUT CONTRAST, 04/01/2021 1:31 PM CLINICAL HISTORY: -Dizziness, persistent/recurrent, cardiac or vascular cause suspected. COMPARISON: Head CT today PROCEDURE COMMENTS: Multiplanar multiecho MR imaging of the brain including standard spin echo and diffusion sequences. FINDINGS: Midline structures normally formed. Ventricles normal. No evidence of acute stroke, mass, or hemorrhage. Normal diffusion imaging. Major vascular flow voids preserved, suggesting patency. Included portions of the paranasal sinuses, mastoids, and orbits unremarkable. Procedure Note Mina Cheng MD - 04/01/2021 MRI BRAIN WITHOUT CONTRAST, 04/01/2021 1:31 PM CLINICAL HISTORY: -Dizziness, persistent/recurrent, cardiac or vascularcause suspected. COMPARISON: Head CT today PROCEDURE COMMENTS: Multiplanar multiecho MR imaging of the brainincluding standard spin echo and diffusion sequences. FINDINGS: Midline structures normally formed. Ventricles normal. No evidence ofacute stroke, mass, or hemorrhage. Normal diffusion imaging. Major vascular flowvoids preserved, suggesting patency. Included portions of the paranasal sinuses, mastoids, and orbitsunremarkable. IMPRESSION: No acute abnormality. - Note: Radiology results need to be interpreted within a comprehensiveclinical context. If you have questions about the radiology report, please contactthe office of the ordering clinician. Charo Vásquez MD IMG MRI ORDERABLES Final Resul t * CORONAVIRUS 2019 (04/01/2021 10:25 AM EDT) Only the most recent of4 resultswithin the time period is included. CORONAVIRUS [id number] Not Detected Not Detected 04/01/2021 3:33 PM EDT [facility] Comment: Caution should be exercised when interpreting a result of 'Not Detected'. A result of 'Not Detected' does not rule out COVID-19 and cannot be used as sole basis for treatment or patient management decisions. If COVID-19 is still suspected following a 'Not Detected' result, re-testing should be considered. This test is a nucleic acid amplification test intended for the qualitative detection of nucleic acid from the SARS-CoV-2 in upper respiratory samples collected from individuals suspected of COVID-19. Test is performed on the [employer] platform under the FDA's Emergency Use Authorization (EUA). [employer] Provider Fact Sheet: https://www.fda.gov/media/666182/download [employer] Patient Fact Sheet: https://www.fda.gov/media/931997/download Performed at [facility] [address] [place] [address] CLIA [id number] Swab BOTH ANTERIOR NARES / Unknown 04/01/2021 10:25 AM EDT 04/01/2021 10:32 AM EDT Result [facility] Charo Vásquez MD MICROBIOLOGY - GENERAL ORDERAB LES Final Result [facility] [address] [place] [address] * EXTRA [place]ILLA URINE CX (04/01/2021 10:08 AM EDT) Only the most recent of2 resultswithin the time period is included. Urine URINE SPECIMEN COLLECTION, CLEAN CATCH / Unknown 04/01/2021 10:08 AM EDT 04/01/2021 10:15 AM EDT us Charo Vásquez MD MICROBIOLOGY - GENERAL ORDERAB LES Final Result [place] [id number] * URINALYSIS (04/01/2021 10:08 AM EDT) Only the most recent of4 resultswithin the time period is included. UA Color Yellow 04/01/2021 10:33 AM EDT [facility] UA Appear Clear Clear 04/01/2021 10:33 AM EDT [facility] UA Glucose Negative Negative mg/dL 04/01/2021 10:33 AM EDT [facility] UA Ketones Negative Negative mg/dL 04/01/2021 10:33 AM EDT [facility] UA Blood Negative Negative 04/01/2021 10:33 AM EDT [facility] UA pH 6.5 5.0 - 8.0 pH 04/01/2021 10:33 AM EDT [facility] UA Protein Negative Negative mg/dL 04/01/2021 10:33 AM EDT [facility] UA Urobilinogen 0.2 <=1 mg/dL 10:33 AM EDT [facility] UA Bili Negative Negative 04/01/2021 10:33 AM EDT [facility] UA Nitrite Negative Negative 04/01/2021 10:33 AM EDT [facility] UA Leuk Est Negative Negative 04/01/2021 10:33 AM EDT [facility] UA Spec Grav 1.015 1.001 - 1.035 no units 04/01/2021 10:33 AM EDT [facility] Comment:Reference range veronica d for random specimens only. UA WBC <1 0 - 4 /HPF 04/01/2021 10:33 AM EDT [facility] UA RBC 1 0 - 3 /HPF 04/01/2021 10:33 AM EDT [facility] UA Squam Epi 4+ /LPF 04/01/2021 10:33 AM EDT [facility] UA Mucus Trace /LPF 04/01/2021 10:33 AM EDT [facility] UA Amorph Trace /LPF 04/01/2021 10:33 AM EDT [facility] Urine URINE SPECIMEN COLLECTION, CLEAN CATCH / Unknown 04/01/2021 10:08 AM EDT 04/01/2021 10:16 AM EDT Charo Vásquez MD URINE ORDERABLES Final Result [facility] [address], [place] [address] * (ABNORMAL) URINE CULTURE (NO STAIN) (04/01/2021 10:08 AM EDT) Only the most recent of4 resultswithin the time period is included. Culture Positive Growth(A) 04/03/2021 2:40 PM EST [facility] Culture >[id number] CFU/mL Pseudomonas aeruginosa SUSCEPTIB ILITY RESULT 04/03/2021 2:40 PM EST [facility] Culture [id number] CFU/mL Streptococcus agalactiae (Group B) SUSCEPTIB ILITY RESULT 04/03/2021 2:40 PM EST [facility] Comment: Penicillin and Ampicillin are antibiotics of choice for treatment of beta- hemolytic streptococcal infections. No further workup. Urine URINE SPECIMEN COLLECTION, CLEAN CATCH / Unknown 04/01/2021 10:08 AM EDT 04/01/2021 10:15 AM EDT Narrative Organism Antibiotic Method Susceptibility Pseudomonas aeruginosa Amikacin SUSCEPTIBILITY RESULT <=16 ug/mL: Susceptible Pseudomonas aeruginosa Amoxicillin/Clavulanat e SUSCEPTIBILITY RESULT Pseudomonas aeruginosa Ampicillin SUSCEPTIBILITY RESULT Pseudomonas aeruginosa Ampicillin/Sulbactam SUSCEPTIBILITY RESULT Pseudomonas aeruginosa Aztreonam SUSCEPTIBILITY RESULT <=4 ug/mL: Susceptible Pseudomonas aeruginosa Cefazolin SUSCEPTIBILITY RESULT Pseudomonas aeruginosa Cefepime SUSCEPTIBILITY RESULT Pseudomonas aeruginosa Cefotaxime SUSCEPTIBILITY RESULT Pseudomonas aeruginosa Cefoxitin SUSCEPTIBILITY RESULT Pseudomonas aeruginosa Ceftazidime SUSCEPTIBILITY RESULT <=1 ug/mL: Susceptible Pseudomonas aeruginosa Ceftazidime/Avibactam SUSCEPTIBILITY RESULT Pseudomonas aeruginosa Ceftolozane/Tazobactam SUSCEPTIBILITY RESULT Pseudomonas aeruginosa Ceftriaxone SUSCEPTIBILITY RESULT Pseudomonas aeruginosa Cefuroxime SUSCEPTIBILITY RESULT Pseudomonas aeruginosa Ciprofloxacin SUSCEPTIBILITY RESULT <=0.25 ug/mL: Susceptible Pseudomonas aeruginosa Ertapenem SUSCEPTIBILITY RESULT Pseudomonas aeruginosa Gentamicin SUSCEPTIBILITY RESULT <=2 ug/mL: Susceptible Pseudomonas aeruginosa Imipenem SUSCEPTIBILITY RESULT <=1 ug/mL: Susceptible Pseudomonas aeruginosa Levofloxacin SUSCEPTIBILITY RESULT <=0.5 ug/mL: Susceptible Pseudomonas aeruginosa Meropenem SUSCEPTIBILITY RESULT <=1 ug/mL: Susceptible Pseudomonas aeruginosa Meropenem/Vaborbactam SUSCEPTIBILITY RESULT Pseudomonas aeruginosa Minocycline SUSCEPTIBILITY RESULT Pseudomonas aeruginosa Moxifloxacin SUSCEPTIBILITY RESULT Pseudomonas aeruginosa Nitrofurantoin SUSCEPTIBILITY RESULT Pseudomonas aeruginosa Piperacillin/Tazobacta m SUSCEPTIBILITY RESULT <=8 ug/mL: Susceptible Pseudomonas aeruginosa Tetracycline SUSCEPTIBILITY RESULT Pseudomonas aeruginosa Tigecycline SUSCEPTIBILITY RESULT Pseudomonas aeruginosa Tobramycin SUSCEPTIBILITY RESULT <=2 ug/mL: Susceptible Pseudomonas aeruginosa Trimethoprim/Sulfameth oxazole SUSCEPTIBILITY RESULT us Charo Vásquez MD MICROBIOLOGY - GENERAL ORDERAB LES Final Result [facility] [address] , [place] [address] * TROPONIN-T HIGH SENSITIVITY 2HR (04/01/2021 9:15 AM EDT) Only the most recent of2 resultswithin the time period is included. zl-jSalutfaf-S 2HR 7 <14 ng/L 04/01/2021 9:43 AM EDT [facility] Comment:See the website belo w for rule out [place] care pathway, conditions other than AMI that can cause elevated hs cTnT, and comparison of values from the 4th and 5th generation Radha tests. https://[email or web address]/topic/clinical-answers/gnt-81938095/cpm-203 11122 hs-cTnT 2Hr Delta from Baseline 0 <4 ng/L 04/01/2021 9:43 AM EDT [facility] Blood VENOUS BLOOD / Unknown Venipuncture / Unknown 04/01/2021 9:15 AM EDT 04/01/2021 9:23 AM EDT Narrative [facility] - 04/01/2021 9:43 AM EDT Ingestion of shirley doses of biotin (>5 mg/day) taken within 8 hours of drawing blood sample can interfere with this immunoassay test. Charo Vásquez MD CHEMISTRY ORDERABLES Final Res ult [facility] [address] [place] [address] * XR CHEST AP PORTABLE (04/01/2021 8:14 AM EDT) Only the most recent of3 resultswithin the time period is included. Anatomical Region Laterality Modality Chest Radiographic Michelle ging 04/01/2021 8:14 AM EDT Impressions 04/01/2021 8:18 AM EDT No acute disease. Narrative 04/01/2021 8:18 AM EDT XR CHEST AP PORTABLE, 04/01/2021 8:14 AM CLINICAL HISTORY: -DIZZINESS COMPARISON: 04/28/2020. The lungs are clear. Heart size is normal. Procedure Note Rigo Silva MD - 04/01/2021 XR CHEST AP PORTABLE, 04/01/2021 8:14 AM CLINICAL HISTORY: -DIZZINESS COMPARISON: 04/28/2020. The lungs are clear. Heart size is normal. IMPRESSION: No acute disease. Charo Vásquez MD IMG DIAGNOSTIC IMAGING ORDERAB LES Final Result * CT ANGIOGRAM HEAD AND NECK W CONTRAST (04/01/2021 7:39 AM EDT) Anatomical Region Laterality Modality Head Computed Tomogra phy 04/01/2021 7:39 AM EDT Impressions 04/01/2021 7:59 AM EDT No large vessel occlusion, dissection, or aneurysm identified. - Note: Radiology results need to be interpreted within a comprehensive clinical context. If you have questions about the radiology report, please contact the office of the ordering clinician. NASCET criteria used for estimates of stenosis. Narrative 04/01/2021 7:59 AM EDT CTA HEAD AND NECK WITH CONTRAST, 04/01/2021 7:39 AM CLINICAL HISTORY: -Dizziness, persistent/recurrent, cardiac or vascular cause suspected. COMPARISON: None. PROCEDURE COMMENTS: Isovue 370 IV contrast given as recorded in EPIC. Subsequently, multi-detector helical scanning was performed and multiplanar reconstructions generated per protocol. Review included 3D MIP reconstructions. FINDINGS: CTA NECK: ARCH: Visible aortic arch patent shows no gross aneurysm or dissection. RIGHT CAROTID SYSTEM: Common carotid artery and cervical segments of the internal carotid artery are patent without evidence of flow-limiting stenosis or dissection. LEFT CAROTID SYSTEM: Common carotid artery and cervical segments of the internal carotid artery are patent without evidence of flow-limiting stenosis or dissection. VERTEBRAL ARTERIES: Vertebral arteries are grossly patent without flow-limiting stenosis or dissection. CTA HEAD: No occlusion or flow limiting stenosis of the central intracranial circulation. No aneurysm. OTHER: Visualized lung apices are clear. No neck mass or suspicious lymph nodes. Visible skeleton intact. Procedure Note Mina Cheng MD - 04/01/2021 CTA HEAD AND NECK WITH CONTRAST, 04/01/2021 7:39 AM CLINICAL HISTORY: -Dizziness, persistent/recurrent, cardiac or vascularcause suspected. COMPARISON: None. PROCEDURE COMMENTS: Isovue 370 IV contrast given as recorded in EPIC. Subsequently, multi-detector helical scanning was performed andmultiplanar reconstructions generated per protocol. Review included 3D MIPreconstructions. FINDINGS: CTA NECK: ARCH: Visible aortic arch patent shows no gross aneurysm or dissection. RIGHT CAROTID SYSTEM: Common carotid artery and cervical segments of the internal carotid artery are patent without evidence of flow-limitingstenosis or dissection. LEFT CAROTID SYSTEM: Common carotid artery and cervical segments of theinternal carotid artery are patent without evidence of flow-limiting stenosis or dissection. VERTEBRAL ARTERIES: Vertebral arteries are grossly patent withoutflow-limiting stenosis or dissection. CTA HEAD: No occlusion or flow limiting stenosis of the centralintracranial circulation. No aneurysm. OTHER: Visualized lung apices are clear. No neck mass or suspicious lymphnodes. Visible skeleton intact. IMPRESSION: No large vessel occlusion, dissection, or aneurysm identified. - Note: Radiology results need to be interpreted within a comprehensiveclinical context. If you have questions about the radiology report, please contactthe office of the ordering clinician. NASCET criteria used for estimates of stenosis. Charo Vásquez MD [facility] CT ORDERABLES Final Result * CT HEAD WO CONTRAST (04/01/2021 7:39 AM EDT) Only the most recent of2 resultswithin the time period is included. Anatomical Region Laterality Modality Head Computed Tomogra phy 04/01/2021 7:39 AM EDT Impressions 04/01/2021 7:52 AM EDT No acute intracranial abnormality. - Note: Radiology results need to be interpreted within a comprehensive clinical context. If you have questions about the radiology report, please contact the office of the ordering clinician. Narrative 04/01/2021 7:[address] HEAD WO CONTRAST 04/01/2021 7:39 AM CLINICAL HISTORY: -vertigo, stroke suspected. COMPARISON: 11/18/2014 PROCEDURE COMMENTS: Routine noncontrast head CT with multiplanar reconstructions. FINDINGS: No evidence of acute stroke, mass, or hemorrhage. No fracture or extra-axial collection. Mild white matter density alteration is nonspecific, but compatible with chronic small vessel ischemia. Included portions of the paranasal sinuses, mastoids, and orbits unremarkable. Procedure Note Mina Cheng MD - 04/01/2021 CT HEAD WO CONTRAST 04/01/2021 7:39 AM CLINICAL HISTORY: -vertigo, stroke suspected. COMPARISON: 11/18/2014 PROCEDURE COMMENTS: Routine noncontrast head CT with multiplanar reconstructions. FINDINGS: No evidence of acute stroke, mass, or hemorrhage. No fracture orextra-axial collection. Mild white matter density alteration is nonspecific, butcompatible with chronic small vessel ischemia. Included portions of the paranasal sinuses, mastoids, and orbitsunremarkable. IMPRESSION: No acute intracranial abnormality. - Note: Radiology results need to be interpreted within a comprehensiveclinical context. If you have questions about the radiology report, please contactthe office of the ordering clinician. Charo Vásquez MD [facility] CT ORDERABLES Final Result * TROPONIN-T HIGH SENSITIVITY BASELINE W/ REFLEX (04/01/2021 7:23 AM EDT) Only the most recent of4 resultswithin the time period is included. lq-uVsypumjb-T 7 <14 ng/L 04/01/2021 7:48 AM EDT [facility] Comment:See the website zoe caruso for rule out [place] care pathway, conditions other than AMI that can cause elevated hs cTnT, and comparison of values from the 4th and 5th generation Radha tests. https://[email or web address]/topic/clinical-answers/gnt-76762674/cpm-203 59311 Blood VENOUS BLOOD / Unknown Venipuncture / Unknown 04/01/2021 7:23 AM EDT 04/01/2021 7:31 AM EDT Narrative [facility] - 04/01/2021 7:48 AM EDT Ingestion of shirley doses of biotin (>5 mg/day) taken within 8 hours of drawing blood sample can interfere with this immunoassay test. us Charo Vásquez MD CHEMISTRY ORDERABLES Final Res ult Performing Organization Address [facility] [place] [address] * TSH REFLEX (04/01/2021 7:23 AM EDT) Only the most recent of2 resultswithin the time period is included. TSH Reflex 2.500 0.270 - 4.200 mcIU/mL 04/01/2021 1:50 PM EDT [facility] Blood VENOUS BLOOD / Unknown Venipuncture / Unknown 04/01/2021 7:23 AM EDT 04/01/2021 1:28 PM EDT Narrative [facility] - 04/01/2021 1:50 PM EDT Ingestion of shirley doses of biotin (>5 mg/day) taken within 8 hours of drawing blood sample can interfere with this immunoassay test. Charo Vásquez MD CHEMISTRY ORDERABLES Final Res ult Performing Organization Address [facility]/ZIP Co de Phone Number [facility] [address], [place] [address] * (ABNORMAL) CBC (04/01/2021 7:23 AM EDT) Only the most recent of6 resultswithin the time period is included. WBC 10.4(H) 3.7 - 10.3 x10(3)/mcL 04/01/2021 7:34 AM EDT [facility] RBC 4.56 3.90 - 5.20 x10(6)/mcL 04/01/2021 7:34 AM EDT [facility] Hgb 12.2 11.2 - 15.7 g/dL 04/01/2021 7:34 AM EDT [facility] Hct 39.8 34.0 - 45.0 % 04/01/2021 7:34 AM EDT [facility] MCV 87.3 80.0 - 100.0 fL 04/01/2021 7:34 AM EDT [facility] MCH 26.8 26.0 - 34.0 pg 04/01/2021 7:34 AM EDT [facility] MCHC 30.7 30.7 - 35.5 g/dL 04/01/2021 7:34 AM EDT [facility] RDW 16.1(H) <=14.9 % 04/01/2021 7:34 AM EDT [facility] Platelet 314 155 - 369 x10(3)/mcL 04/01/2021 7:34 AM EDT [facility] MPV 11.0 8.8 - 12.5 fL 04/01/2021 7:34 AM EDT [facility] Blood VENOUS BLOOD / Unknown Venipuncture / Unknown 04/01/2021 7:23 AM EDT 04/01/2021 7:31 AM EDT us Charo Vásquez MD HEMATOLOGY ORDERABLES Final Re sult [facility] [address] [place] [address] * (ABNORMAL) HEMOGLOBIN A1C (04/01/2021 7:23 AM EDT) Hgb A1C 6.0(H) 4.2 - 5.6 % 04/01/2021 6:23 PM EDT [facility] Est. Avg Glucose 126 mg/dL 04/01/2021 6:23 PM EDT [facility] Blood VENOUS BLOOD / Unknown Venipuncture / Unknown 04/01/2021 7:23 AM EDT 04/01/2021 7:31 AM EDT Narrative [facility] [employer] [facility] - 04/01/2021 6:23 PM EDT REFERENCE RANGE: Normal: 4.0-5.6% Pre-diabetes: 5.7-6.4% Provisional diagnosis of diabetes: >6.4% Hgb F>10% and anything which shortens red cell survival, such as hemolytic anemia, or unstable hemoglobin variants such as HbSS, HbSC, or HbCC, will lower the HbA1c value associated with a given level of glycemic control. Isabella Perez DO CHEMISTRY ORDERABLES Final Result [facility] [employer] [address], [place] [address] * EK EKG 12 LEAD (04/01/2021 6:32 AM EDT) Only the most recent of5 resultswithin the time period is included. Anatomical Region Laterality Modality Electrocardiogra phy 04/01/2021 6:36 AM EDT Impressions 04/02/2021 10:[address] 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 Test Date: 2021-04-01 Pat Name: LALO SEGURA Department: DEPID Room: [facility] Gender: Female Customer Development Representative: Lt : 1955 Requested By: [facility] Order Number: [id number] Reading MD: Lorena Law MD Measurements Intervals [place] Rate: 66 P: 34 NE: 167 QRS: -6 QRSD: 112 T: 24 QT: 427 QTc: 448 Interpretive Statements SINUS RHYTHM WITH SINUS ARRHYTHMIA LOW QRS VOLTAGE IN PRECORDIAL LEADS Electronically Signed On 04-02-2021 22:32:47 EST by Lorena Law MD us Charo Vásquez MD IMG ECG ORDERABLES Final Resul t * CT ABDOMEN PELVIS WO ORAL OR IV CONTRAST (02/24/2021 3:29 PM EDT) Only the most recent of2 resultswithin the time period is included. Anatomical Region Laterality Modality Abdomen, Pelvis Computed Tomogra phy 02/24/2021 3:29 PM EDT Impressions 02/24/2021 3:48 PM EDT No acute findings in the abdomen/pelvis. Right rectus muscle is atrophic. Small hernias partially containing small bowel in the right abdomen. - Note: Radiology results need to be interpreted within a comprehensive clinical context. If you have questions about the radiology report, please contact the office of the ordering clinician. Narrative 02/24/2021 3:[address] ABDOMEN AND PELVIS WITHOUT IV OR ORAL CONTRAST, 02/24/2021 3:29 PM CLINICAL HISTORY: R19.01-Right upper quadrant abdominal swelling, mass and hjvp-SND-19-CM R10.11-Right upper quadrant yiqy-TYE-04-CM Z85.42-Personal history of malignant neoplasm of other parts of cfkaak-OYQ-16-CM. COMPARISON: 2019 PROCEDURE COMMENTS: Multidetector CT examination of the abdomen and pelvis without IV or oral contrast per protocol. Multiplanar reconstructions. FINDINGS: Lung bases are clear. Liver is steatotic. No definite focal lesion. Gallbladder is absent. The pancreas, spleen and adrenals are unremarkable. Renal parenchyma is grossly normal noncontrast appearance. Suspect couple punctate nonobstructive left renal stones. No definite ureteral stone or obstruction. Bladder is mildly distended, grossly normal. The small and large bowel are normal in caliber without obstruction or wall thickening. Right upper rectus muscle is atrophied. Suspect hernia with loops of small bowel. No free fluid or suspicious lymphadenopathy. No suspicious osseous lesion. Procedure Note Braxton Franklin MD - 02/24/2021 CT ABDOMEN AND PELVIS WITHOUT IV OR ORAL CONTRAST, 02/24/2021 3:29 PM CLINICAL HISTORY: R19.01-Right upper quadrant abdominal swelling, massand tafc-FJA-37-CM R10.11-Right upper quadrant dcua-DWD-87-CM Z85.42-Personal history of malignant neoplasm of other parts of mzfnpq-XUL-04-CM. COMPARISON: 2019 PROCEDURE COMMENTS: Multidetector CT examination of the abdomen andpelvis without IV or oral contrast per protocol. Multiplanar reconstructions. FINDINGS: Lung bases are clear. Liver is steatotic. No definite focal lesion. Gallbladder is absent. The pancreas, spleen and adrenals are unremarkable. Renal parenchyma is grossly normal noncontrast appearance. Suspectcouple punctate nonobstructive left renal stones. No definite ureteral stone or obstruction. Bladder is mildly distended, grossly normal. The small and large bowel are normal in caliber without obstruction orwall thickening. Right upper rectus muscle is atrophied. Suspect hernia with loops ofsmall bowel. No free fluid or suspicious lymphadenopathy. No suspicious osseous lesion. IMPRESSION: No acute findings in the abdomen/pelvis. Right rectus muscle is atrophic. Small hernias partially containing smallbowel in the right abdomen. - Note: Radiology results need to be interpreted within a comprehensiveclinical context. If you have questions about the radiology report, please contactthe office of the ordering clinician. us Noah Gonzales MD IMG CT ORDERABLES Final Result * XR ABDOMEN AP (12/15/2020 3:02 PM EDT) Anatomical Region Laterality Modality Abdomen Radiographic Michelle ging 12/15/2020 3:02 PM EDT Impressions 12/15/2020 3:47 PM EDT No definite identifiable urinary stone. - Note: Radiology results need to be interpreted within a comprehensive clinical context. If you have questions about the radiology report, please contact the office of the ordering clinician. Narrative 12/15/2020 3:47 PM EDT CR, ABDOMEN AP, 12/15/2020 3:02 PM CLINICAL HISTORY: N20.0-Calculus of dvfwbw-YJK-51-CM N39.0-Urinary tract infection, site not vdmxaxedz-JHJ-99-CM COMPARISON: None. PROCEDURE COMMENTS: AP view(s) of the abdomen per protocol. FINDINGS: Nonspecific, nonobstructive bowel gas pattern. No pathologic calcification. No definite stone identified. Phleboliths in the pelvis. Procedure Note Richie Hawthorne MD - 12/15/2020 CR, ABDOMEN AP, 12/15/2020 3:02 PM CLINICAL HISTORY: N20.0-Calculus of zeunfs-GCJ-23-CM N39.0-Urinary tract infection, site not memmourys-JNS-76-CM COMPARISON: None. PROCEDURE COMMENTS: AP view(s) of the abdomen per protocol. FINDINGS: Nonspecific, nonobstructive bowel gas pattern. No pathologiccalcification. No definite stone identified. Phleboliths in the pelvis. IMPRESSION: No definite identifiable urinary stone. - Note: Radiology results need to be interpreted within a comprehensiveclinical context. If you have questions about the radiology report, please contactthe office of the ordering clinician. us Tessie Hoskins PA-C [facility] DIAG[facility]ST[facility] O RDERABLES Final Result * INTRAOP AIRWAY PLACEMENT (12/02/2020 2:20 PM EDT) Narrative [facility] - 12/02/2020 2:20 PM EDT Zaid Bond CRNA 12/02/2020 2:20 PM Intraop Airway Placement: Airway type: Nasal cannula salter Lacy Jimenez MD NE ANESTHESIA Edited Re sult - Final [facility] [address] [place] [address] * GMED EGD-COLONOSCOPY (12/02/2020 2:00 PM EDT) 12/02/2020 2:00 PM EDT Impressions [facility] - 12/02/2020 3:18 PM EDT Plan: Follow up pathology results. Continue current medication for acid suppression 30 minutes before a meal. Continue current GI medications Resume all usual medications Educational Handout: GERD High Fiber Diet Begin a daily fiber supplement as directed Educational Handout: Diverticulosis Educational Handout: Hemorrhoids Colonoscopy in 5 years This section is an excerpt of the full report. us Tin Pryor MD GI PROCEDURE ORDERABLES Final Result [facility] [address] [place] [id number] * SCANNED RHYTHM STRIPS (05/05/2020 1:06 PM EST) Only the most recent of5 resultswithin the time period is included. 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 A [employer] based system was used for detection. MLH1 (Disclaimer) = MMR references ranges are based on [employer]` internal validation, and we recommend cases with equivocal staining be confirmed with microsatellite instability (MSI) testing. MLH1 (Control Statement) = The digitized slide(s) was/were adequate for quantitative image analysis. All controls were reviewed and showed appropriate positive and negative immunoreactivity. MLH1 (Image Analysis Statement) = Whole slide image capture was performed with the [employer] ScanScope and quantitative computer-assisted image analysis using Posse software. MSH2 (Intended Use) = Mismatch repair [...] MSH2 in formalin-fixed paraffin-embedded tissue sections. A [employer] based system was used for detection. MSH6 [...] MSH6 in formalin-fixed paraffin-embedded tissue sections. A [employer] based system was used for detection. PMS2 [...] PMS2 in formalin-fixed paraffin-embedded tissue sections. A [employer] based system was used for detection. [facility] 05/02/2020 10:4 1 AM EST Narrative [facility] - 05/10/2020 10:23 AM EST Requesting Provider: Roel Grimes Specimen = [id number] us Marilyn Shoemaker MD PATHOLOGY ORDERABLES Final Res ult [facility] [address] [place] [address] * INTRAOP AIRWAY PLACEMENT (05/02/2020 8:13 AM EST) Narrative [facility] - 05/02/2020 8:13 AM EST Yuko Benjamin CRNA 05/02/2020 8:54 AM Intraop Airway Placement: Date/Time: 05/02/2020 7:38 AM Induction type: IV and Rapid sequence Mask size: Standard adult Pre-Oxygenation: Standard Mask ventilation: Not attempted Technique: Video laryngoscope Laryngoscope blade: Kearns Blade size: 3 Grade view: I Airway type: ETT- cuffed Topical Anesthetic/Lubricant: None Intubation assist devices: Stylet 14fr Airway location: Oral Device size: 7.5mm Secured at: 21 cm Measured from: Lips Placement verified: Auscultation, End tidal CO2 and Symmetric chest wall motion Condition: Atraumatic and Unchanged (patient noted to be missing multiple teeth with preop airway exam) Insertion attempts: 1 Title: DOLL WIG MAKER ROOTED HAIR us Maynor Viramontes MD NE ANESTHESIA Edited Resul t - Final Performing Organization Address [facility] Co de Phone Number [facility] [address] [place] [address] * Peripheral Block by Anesthesia (05/02/2020 7:50 AM EST) Narrative [facility] - 05/02/2020 7:50 AM EST Maynor Viramontes MD 05/02/2020 7:52 AM Peripheral Block by Anesthesia Procedure Date/Time: 05/02/2020 7:47 AM Patient location during procedure: OR Reason for block: at surgeon's request and post-op pain management Staff and Pre-procedure checks Anesthesiologist: Maynor Viramontes MD Other anesthesia staff: Yuko Benjamin CRNA Performed: anesthesiologist Preanesthetic Checklist: Allergies confirmed, Block plan confirmed, Necessary block equipment present, Supplemental O2 applied, if needed, Anticoagulant confirmed, Block site marked, Patient identified- 2 criteria, Surgical procedure consent verified, Aseptic technique used, Drug/solution labeled, Resuscitaion equipment available, MONICA recommended monitors applied, IV access functioning and Sedation given, if needed Immediate perianesthetic assessment completed: Yes Patient position: Prep: Chloraprep and Patient Draped Monitoring: O2 Sat, EKG and BP Peripheral Block Block type: TAP Block Laterality: Bilateral Injection technique: single-shot Pain pump: no pain pump placed Medication: 50ml, Bupivacaine 0.25% and Exparel 1.33% Needle Needle type: Echo Bright Needle gauge: 21 G Needle length: 4 in (100mm) Nerve localization: ultrasound guidance (TAP Block: External Oblique muscle, Internal Oblique muscle and Transversus Abdominis muscle are identified; the tip of the needle and the spread of the local anesthetic between Internal Oblique muscle and Transversus Abdominus muscle is visualized.) Ultrasound probe: linear Ultrasound needle approach: in-plane Test dose: negative Assessment Block success: a full evaluation pending Events: Uneventful Heart rate change: no Blood aspirated: no Paresthesia pain: absent Resistance on injection: normal Intermittent incremental injection LA at 5ml LA surrounding nerve by ultrasonographc visualization Additional Notes Each side injected with 15cc 0.25 BPV and 10cc Exparel 25cc each side 50cc total us Maynor Viramontes MD ANESTHESIA ORDERABLES Final Result Performing Organization Address [facility] Co de Phone Number [facility] [address] [place] [address] * BB HISTORY CHECK (05/02/2020 6:13 AM EST) Only the most recent of2 resultswithin the time period is included. BB HISTORY CHECK (1) Previous History OK 05/02/2020 6:22 AM EST [facility] BLOOD BANK Blood VENOUS BLOOD / Unknown Venipuncture / Unknown 05/02/2020 6:13 AM EST 05/02/2020 6:20 AM EST us Roel Posadas MD BLOOD BANK ORDERABLES Final R esult Performing Organization Address City/[facility]/ZIP Co de Phone Number [facility] BLOOD [facility] [address] [place] [id number] * ABORH (05/02/2020 6:13 AM EST) Only the most recent of3 resultswithin the time period is included. ABORH Int O POS 05/02/2020 6:5 3 AM EST [facility] BLOOD BANK Blood VENOUS BLOOD / Unknown Venipuncture / Unknown 05/02/2020 6:13 AM EST 05/02/2020 6:20 AM EST us Roel Posadas MD BLOOD BANK ORDERABLES Final R esult Performing Organization Address City/[facility]/ZIP Co de Phone Number [facility] BLOOD [facility] [address] [place] [address] * SURGERY DATE (04/28/2020 1:35 PM EST) Surgery Date (1) Complete 04/28/2020 1:55 PM EST [facility] BLOOD BANK Blood VENOUS BLOOD / Unknown Venipuncture / Unknown 04/28/2020 1:35 PM EST 04/28/2020 1:46 PM EST us Roel Posadas MD BLOOD BANK ORDERABLES Final R esult Performing Organization Address City/[facility]/ZIP Co de Phone Number [facility] BLOOD [address] [address] * ANTIBODY SCREEN IGG (04/28/2020 1:35 PM EST) Only the most recent of2 resultswithin the time period is included. Pathologist [facility] ABSC IgG Int Negative 04/28/2020 2:52 PM EST [facility] BLOOD [facility] Blood VENOUS BLOOD / Unknown Venipuncture / Unknown 04/28/2020 1:35 PM EST 04/28/2020 1:46 PM EST us Roel Posadas MD BLOOD BANK ORDERABLES Final R esult Performing Organization Address City/[facility] Co de Phone Number [facility] BLOOD [facility] [address] [place] [address] * CA 125 (04/28/2020 1:35 PM EST) [facility] Ca 125 19.7 0.0 - 35.0 unit/mL 04/28/2020 3:00 PM EST [facility] Comment:[facility] uses the [employer] CA125 II assay, which is intended to be used as an aid in monitoring response to therapy for patients with epithelial ovarian cancer. This assay should not be used as a cancer screening test. Values obtained with different assay methods should not be used interchangeably. Blood VENOUS BLOOD / Unknown Venipuncture / Unknown 04/28/2020 1:35 PM EST 04/28/2020 1:46 PM EST us Roel Posadas MD CHEMISTRY ORDERABLES Final Re sult Performing Organization Address City/[facility]/ZIP Co de Phone Number [facility] [address] [facility], [place] [address] * CALCULI (STONE) ANALYSIS - REF LAB (04/15/2020 3:50 PM EST) [facility] Calculi Comp See Note 04/18/2020 7:17 PM EST [employer] Comment: Calculi components identified: calcium oxalate [...] composition determined by FTIR analysis. Performed By: [facility] [address] [place] [address] Coat Joiner: Chantale Vivar MD Calculi Mass 2 mg 04/18/2020 7:17 PM EST [facility] [employer] Calculi Number 1 04/18/2020 7:17 PM EST [facility] [employer] Calculi Size 1 to 4 mm 04/18/2020 7:17 PM EST [facility] [employer] Calculi Desc See Note 04/18/2020 7:17 PM EST [facility] Comment: Specimen consists of a single, small, douglas/white, irregular calculus. Calculus 04/15/2020 3:50 PM EST 04/15/2020 6:31 PM EST Crescencio Buitrago MD MICROBIOLOGY - GENERAL ORDER LUCAS Final Result [facility] [address] [place] [address] * EC ECHOCARDIOGRAM COMPLETE W DOPPLER AND COLOR FLOW MAPPING (04/14/2020 9:20 AM EST) Ejection Fraction 65-70 % PYRAMIS Anatomical Region Laterality Modality Electrocardiogra phy 04/14/2020 8:29 AM EST Impressions 04/15/2020 8:47 AM EST CONCLUSIONS Left Ventricular ejection fraction is estimated at 65-70%. No major valve abnormalities. Narrative Procedure Note Saumya Rodriguez DO - 04/15/2020 IMPRESSION CONCLUSIONS Left Ventricular ejection fraction is estimated at 65-70%. No major valve abnormalities. Saumya Rodriguez DO IMG ECHO ORDERABLES Final Result * POCT EKG (04/06/2020 8:32 AM EST) 04/06/2020 8:32 AM EST Impressions SEP OFFICE - 04/06/2020 8:32 AM EST SR Sinus Arrhythmia Saumya Rodriguez DO POINT OF CARE CARDIOLOGY Final R esult SEP OFFICE * MM MAMMO DIGITAL SCREENING W CAD BILAT (03/31/2020 3:04 PM EST) Only the most recent of4 resultswithin the time period is included. Anatomical Region Laterality Modality Breast Bilateral Mammography 03/31/2020 3:09 PM EST Impressions 03/31/2020 3:09 PM EST Negative ([id number]) ~ RECOMMENDATION: Routine screening mammogram in 1 year. ~ DISCLAIMER * Any patient with a palpable abnormality, unexplained by breast imaging, should be managed on clinical basis by the attending physician. * Breast imaging has a false negative rate of 15%. * The patient was notified by mail of the results of this examination. *The patient's information was entered into a reminder system with a target due date for the next mammogram, in accordance with the [employer] and the Society of Breast Imaging recommendations. The mammogram was reviewed by a Radiologist and CAD. Narrative 03/31/2020 3:09 PM EST Procedure:MM MAMMO DIGITAL SCREENING W CAD BILAT ~ Reason for exam: screening, asymptomatic. Z12.31-Encounter for screening mammogram for malignant neoplasm of [id number] Performed by: RT Radha ~ MM MAMMO DIG SCREEN CAD BILAT Bilateral CC and MLO view(s) were taken. Technologist: RT Radha The breast tissue is almost entirely fat. Prior study comparison: Compared with prior studies the most recent being 10/16/18, 08/01/15. No mammographic evidence of malignancy. No suspicious calcifications. ~ Procedure Note Alvarado Rick DO - 03/31/2020 Procedure:MM MAMMO DIGITAL SCREENING W CAD BILAT ~ Reason for exam: screening, asymptomatic. Z12.31-Encounter for screening mammogram for malignant neoplasm of [id number] Performed by: RT Radha ~ MM MAMMO DIG SCREEN CAD BILAT Bilateral CC and MLO view(s) were taken. Technologist: Griselda Rust, RT The breast tissue is almost entirely fat. Prior study comparison: Compared with prior studies the most recentbeing 10/16/18, 08/01/15. No mammographic evidence of malignancy. No suspicious calcifications. ~ IMPRESSION: Negative ([id number]) ~ RECOMMENDATION: Routine screening mammogram in 1 year. ~ DISCLAIMER * Any patient with a palpable abnormality, unexplained by breast imaging, should be managed on clinical basis by the attending physician. * Breast imaging has a false negative rate of 15%. * The patient was notified by mail of the results of this examination. *The patient's information was entered into a reminder system with atarget due date for the next mammogram, in accordance with the [employer] and the Society of Breast Imaging recommendations. The mammogram was reviewed by a Radiologist and CAD. Noah Calero MD IMG MAMMOGRAPHY ORDERABLES F inal Result * [facility] CYTOLOGY REQUEST (PAP ONLY) (03/21/2020 3:47 PM EDT) Only the most recent of2 resultswithin the time period is included. CASE REPORT Gynecologic Cytology Report Case: [id number] Authorizing Provider: Noah Calero MD Collected: 03/21/2020 1547 Ordering Location: [facility] Received: 03/21/2020 1547 First Screen: Felipe Vincent CT Specimen: LIQUID-BASED PAP - CERVICAL/ENDOCERV ICAL, Cervix, Endocervical 03/23/2020 1:47 PM EDT [facility] PAP FINAL DIAGNOSIS Negative for intraepithelial lesion or malignancy 03/23/2020 1:47 PM EDT [facility] at 1347 EDT MICROSCOPIC DESCRIPTION Microscopic examination is performed and the findings corroborate the diagnosis 03/23/2020 1:47 PM EDT [facility] PAP SMEAR ADEQUACY Satisfactory for evaluation 03/23/2020 1:47 PM EDT [facility] ENDOCERVICAL T-ZONE Transformation zone present 03/23/2020 1:47 PM EDT [facility] EMBEDDED IMAGES 0 1:47 PM EDT [facility] PAP DISCLAIMER The Pap Smear is a screening test that aids in the detection of cervical cancer and cancer precursors. Both false positive and false negative results can occur. The test should be used at regular intervals, and positive results should be confirmed before definitive therapy. Processed using the ThinPrep Supervisor Partial Denture Department Automated cytology screening device (BedyCasa). 03/23/2020 1:47 PM EDT [facility] Thin Prep ENDOCERVICAL STRUCTURE / Unknown 03/21/2020 3:47 PM EDT 03/21/2020 3:47 PM EDT us Noah Calero MD CYTOLOGY ORDERABLES Final Re sult [facility] [address] [place], [place] [id number] * US PELVIS AND TRANSVAGINAL NON OB COMPLETE (03/17/2020 1:45 PM EDT) Only the most recent of3 resultswithin the time period is included. Anatomical Region Laterality Modality Pelvis Ultrasound 03/17/2020 1:45 PM EDT Impressions 03/17/2020 3:09 PM EDT 1. Diffuse endometrial thickening. This is unchanged from prior study of January 07, 2020. Endometrial neoplasm not excluded. Narrative 03/17/2020 3:09 PM EDT US PELVIS AND TRANSVAGINAL NON OB COMPLETE 03/17/2020 1:45 PM HISTORY: -AUB PROCEDURE: Transabdominal and transvaginal pelvic ultrasound. Comparison CT abdomen pelvis January 07, 2020. FINDINGS: Endometrium 2.7 cm. Uterus 11.0 x 7.1 x 10.0 cm. RIGHT ovary 3.1 x 1.9 x 2.1 cm and unremarkable. LEFT ovary 1.6 x 1.3 x 1.8 cm and unremarkable. No focal lesions. Procedure Note Jorge Rondon MD - 03/17/2020 US PELVIS AND TRANSVAGINAL NON OB COMPLETE 03/17/2020 1:45 PM HISTORY: -AUB PROCEDURE: Transabdominal and transvaginal pelvic ultrasound. Comparison CT abdomenpelvis January 07, 2020. FINDINGS: Endometrium 2.7 cm. Uterus 11.0 x 7.1 x 10.0 cm. RIGHT ovary 3.1 x 1.9 x 2.1 cm and unremarkable. LEFT ovary 1.6 x 1.3 x 1.8 cm and unremarkable. No focal lesions. IMPRESSION: 1. Diffuse endometrial thickening. This is unchanged from prior studyof January 07, 2020. Endometrial neoplasm not excluded. Noah Calero MD IMG US ORDERABLES Final Resu lt * (ABNORMAL) PT / INR (03/15/2020 11:19 AM EDT) PT 14.2(H) 10.9 - 13.9 second(s) 03/15/2020 11:51 AM EDT [facility] [employer] INR 1.16(H) 0.88 - 1.13 no units 03/15/2020 11:51 AM EDT [facility] Comment: Level of Therapy Indications Target INR Range Standard Dose Treatment and prophylaxis of venous 2.0 - 3.0 thrombosis, pulmonary embolism High Dose High risk patients with mechanical 2.5 - 3.5 heart valves Blood VENOUS BLOOD / Unknown Venipuncture / Unknown 03/15/2020 11:19 AM EDT 03/15/2020 11:26 AM EDT Shar Rashid DO HEMATOLOGY ORDERABLES Final Result Performing Organization Address [facility] Co de Phone Number [facility] [address] [place] [address] , [place] [address] * LACTIC ACID (03/15/2020 11:19 AM EDT) Only the most recent of2 resultswithin the time period is included. Lactic Acid 1.4 0.5 - 1.9 mmol/L 03/15/2020 11:57 AM EDT [facility] Blood VENOUS BLOOD / Unknown Venipuncture / Unknown 03/15/2020 11:19 AM EDT 03/15/2020 11:27 AM EDT Shar Rashid DO CHEMISTRY ORDERABLES Final R esult Performing Organization Address City/[facility] Co de Phone Number [facility] [address], [place] [address] * (ABNORMAL) BLOOD GAS, VENOUS (03/15/2020 9:25 AM EDT) Only the most recent of2 resultswithin the time period is included. pH Venous 7.39 7.32 - 7.42 pH 03/15/2020 9:47 AM EDT [facility] [employer], [facility] pCO2 Venous 40(L) 41 - 51 mmHg 03/15/2020 9:47 AM EDT [facility] [employer], [facility] pO2 Venous 45(H) 25 - 40 mmHg 03/15/2020 9:47 AM EDT [facility] [employer], [facility] Comment:The peripheral venou s blood gas oxygen level (PvO2) is not clinically useful and PvO2 levels <42 mmHg in venous blood gases are below the analytical measuring range for our blood gas instrumentation. Base Excess Ravinder -0.7 mmol/L 0 9:47 AM EDT [facility] [employer], [facility] Hco3 Venous 23.7(L) 24.0 - 28.0 mmol/L 03/15/2020 9:47 AM EDT [facility] [employer], [facility] CO2 Total Ravinder 22(L) 25 - 29 mmol/L 03/15/2020 9:47 AM EDT [facility] [employer], [facility] O2 Sat. Venous 77.4(H) 40.0 - 70.0 % 03/15/2020 9:47 AM EDT [facility] [employer], [facility] Blood VENOUS BLOOD / Unknown Venipuncture / Unknown 03/15/2020 9:25 AM EDT 03/15/2020 9:34 AM EDT Cj Hernandez MD CHEMISTRY ORDERABLES Valerie l Result [facility] [employer], [facility] [address] [facility] [address], [place] [address] * (ABNORMAL) COMPREHENSIVE METABOLIC PANEL (03/15/2020 9:25 AM EDT) Only the most recent of2 resultswithin the time period is included. Sodium 138 136 - 145 mmol/L 03/15/2020 9:52 AM EDT [facility] Potassium 3.9 3.5 - 5.0 mmol/L 03/15/2020 9:52 AM EDT [facility] Chloride 104 98 - 107 mmol/L 03/15/2020 9:52 AM EDT [facility] Total CO2 22 22 - 29 mmol/L 03/15/2020 9:[facility] Anion Gap 12 7 - 16 mmol/L 03/15/2020 9:52 AM EDT [facility] Calcium 8.9 8.8 - 10.4 mg/dL 03/15/2020 9:52 AM EDT [facility] Glucose Lvl 123(H) 82 - 100 mg/dL 03/15/2020 9:52 AM EDT [facility] BUN 8 8 - 23 mg/dL 03/15/2020 9:52 AM T [facility] Creatinine 0.70 0.51 - 1.30 mg/dL 03/15/2020 9:52 [facility] Albumin 3.6 3.2 - 4.6 gm/dL 03/15/2020 9:52 AM EDT [facility] Total Protein 6.8 6.4 - 8.3 gm/dL 03/15/2020 9:52 AM EDT [facility] Bili Total 0.8 0.1 - 1.3 mg/dL 03/15/2020 9:52 AM EDT [facility] ALT 12 <=41 U/L 03/15/2020 9:52 AM [facility] AST 16 <=40 U/L 03/15/2020 9:52 AM [facility] Alk Phos 128(H) 36 - 123 U/L 03/15/2020 9:52 AM EDT [facility] GFR Afr Am 105 >=60 mL/min/1.7 3 m2 03/15/2020 9:52 AM T [facility] GFR Non Afr Am 91 >=60 mL/min/1.7 3 m2 03/15/2020 9:52 AM [facility] Comment: This estimated GFR was calculated using CKD-EPI equation which is modified based on ethnicity for Non Americans and Americans. Both results are reported since it is not always possible to determine the patient's ethnicity. This equation should only be used for individuals 18 and older. It has not been validated for use with the elderly (>70 years), women, or in some racial or ethnic subgroups, such as Hispanics. The equation will be less accurate in people with differences in nutritional status or muscle mass. Blood VENOUS BLOOD / Unknown Venipuncture / Unknown 03/15/2020 9:25 AM EDT 03/15/2020 9:32 AM EDT us Cj Hernandez MD CHEMISTRY ORDERABLES Valerie l Result Performing Organization Address City/[facility]/ZIP Co de Phone Number [facility] [address] [place] [id number] * RESP VIRUS MINI PANEL (FLU, RSV) (03/15/2020 8:41 AM EDT) [facility] Influenza A DNA Not Detected Not Detected 03/15/2020 9:44 AM EDT [facility] [employer], [facility] Influenza B DNA Not Detected Not Detected 03/15/2020 9:44 AM EDT [facility] [employer], [facility] RSV DNA Not Detected Not Detected 03/15/2020 9:44 AM EDT [facility] [employer], [facility] Swab NASOPHARYNGEAL STRUCTURE / Unknown 03/15/2020 8:41 AM EDT 03/15/2020 8:53 AM EDT Narrative [facility] [employer], [facility] - 03/15/2020 9:44 AM EDT This assay is a qualitative multiplex real-time reverse transcriptase polymerase chain reaction (RT-PCR) test for detection of Influenza A, Influenza B and Respiratory Syncytial virus (RSV). Negative results do not preclude influenza virus or RSV infection or other respiratory viruses and should not be used as the sole basis for treatment or other patient management decisions. us Cj Hernandez MD MICROBIOLOGY - GENERAL OR DERABLES Final Result Performing Organization Address [facility] Co de Phone Number [facility] [employer] [address], [place] [address] * BLOOD CULTURE (NO STAIN) (03/15/2020 8:40 AM EDT) Only the most recent of2 resultswithin the time period is included. [facility] Culture Result No Growth at 120 hours. BLOOD CULTURE (NO STAIN) 03/20/2020 11:01 AM EDT [facility] Blood VENOUS BLOOD / Unknown Venipuncture / Unknown 03/15/2020 8:40 AM EDT 03/15/2020 9:34 AM EDT us Cj Hernandez MD MICROBIOLOGY - GENERAL OR DERABLES Final Result Performing Organization Address [facility] Co de Phone Number [facility] [address] [place] [address] , [place] [address] * (ABNORMAL) PROCALCITONIN (03/15/2020 8:36 AM EDT) Procalcitonin 0.97(H) <=0.49 ng/mL 03/15/2020 10:04 AM EDT [facility] Blood VENOUS BLOOD / Unknown Venipuncture / Unknown 03/15/2020 8:36 AM EDT 03/15/2020 9:16 AM EDT Narrative [facility] - 03/15/2020 10:04 AM EDT Procalcitonin <0.50 ng/mL: Procalcitonin levels below 0.50 ng/mL on the first day of ICU admission represent a low risk for progression to severe sepsis and/or septic shock Procalcitonin >=0.50 ng/mL and <=2.00 ng/mL: If the procalcitonin measurement is performed shortly after the systemic infection process has started (usually less than 6 hours), this value may still be low. As various non-infectious conditions are known to induce procalcitonin as well, procalcitonin levels between 0.50 ng/mL and 2.00 ng/mL should be reviewed carefully to take into account the specific clinical background and condition(s) of the patient. Procalcitonin >2.00 ng/mL: Procalcitonin levels above 2.00 ng/mL on the first day of ICU admission represent a high risk for progression to severe sepsis and/or septic shock. us Cj Hernandez MD CHEMISTRY ORDERABLES Valerie l Result Performing Organization Address [facility] Co de Phone Number [facility] [address] [facility], [address] [place], [place] [id number] * NT PROBNP (03/15/2020 8:36 AM EDT) NT Pro-BNP 100 <=353 pg/mL 03/15/2020 9:16 AM EDT [facility] Blood VENOUS BLOOD / Unknown Venipuncture / Unknown 03/15/2020 8:36 AM EDT 03/15/2020 8:47 AM EDT Narrative [facility] - 03/15/2020 9:16 AM EDT An NT pro-BNP level less than 300 pg/mL in any patient, regardless of age, effectively rules out acute CHF with a 99% negative predictive value. us Cj Hernandez MD CHEMISTRY ORDERABLES Valerie jean Result [facility] [address] [place] [address] * CT ABD PEL ED FAST W CONTRAST (01/07/2020 2:17 PM EDT) Only the most recent of2 resultswithin the time period is included. Anatomical Region Laterality Modality Abdomen, Pelvis Computed Tomogra phy 01/07/2020 2:17 PM EDT Impressions 01/07/2020 2:52 PM EDT No acute abnormality of the abdomen or pelvis. - Narrative 01/07/2020 2:[address] ABDOMEN AND PELVIS WITH CONTRAST (FAST), 01/07/2020 2:17 PM CLINICAL HISTORY: -Abdominal pain, acute, nonlocalized COMPARISON: CT abdomen and pelvis May 04, 2019 PROCEDURE COMMENTS: Multi-detector volumetric scanning of the abdomen and pelvis with multiplanar reformatting per expedited protocol. 100 mL Isovue 370 IV. Automated exposure control for dose reduction was used. CTDIvol: 26.6 mGy. DLP: 1442 mGy-cm. FINDINGS: LOWER THORAX: Lung bases unremarkable. ABDOMEN AND PELVIS: Liver, spleen, pancreas, and adrenal glands are unremarkable. Kidneys enhance and are nonhydronephrotic. Small nonobstructing calculi are again noted and are stable. Unremarkable biliary system. No bowel obstruction or acute inflammatory process. No evidence of appendicitis. There is herniation of bowel under the transversus abdominis fascia without obstruction. The appearance is stable from the comparison study. No induration in this area or mucosal edema. The endometrial cavity is enlarged, but this has been followed for a number of years. It is not appreciably changed from the May 04, 2019 comparison. No acute osseous lesion identified. Procedure Note Estiven Han MD - 01/07/2020 CT ABDOMEN AND PELVIS WITH CONTRAST (FAST), 01/07/2020 2:17 PM CLINICAL HISTORY: -Abdominal pain, acute, nonlocalized COMPARISON: CT abdomen and pelvis May 04, 2019 PROCEDURE COMMENTS: Multi-detector volumetric scanning of the abdomenand pelvis with multiplanar reformatting per expedited protocol. 100 mLIsovue 370 IV. Automated exposure control for dose reduction was used. CTDIvol: 26.6mGy. DLP: 1442 mGy-cm. FINDINGS: LOWER THORAX: Lung bases unremarkable. ABDOMEN AND PELVIS: Liver, spleen, pancreas, and adrenal glands are unremarkable. Kidneys enhance and are nonhydronephrotic. Smallnonobstructing calculi are again noted and are stable. Unremarkable biliary system. No bowel obstruction or acute inflammatory process. No evidence ofappendicitis. There is herniation of bowel under the transversus abdominis fasciawithout obstruction. The appearance is stable from the comparison study. Noinduration in this area or mucosal edema. The endometrial cavity is enlarged, but this has been followed for anumber of years. It is not appreciably changed from the May 04, 2019comparison. No acute osseous lesion identified. IMPRESSION: No acute abnormality of the abdomen or pelvis. - Jyoti Chi RADIO EQUIPMENT INSTALLER IMG CT ORDERABLES Final Res ult * LIPASE LEVEL (02/21/2019 5:45 AM EDT) Only the most recent of2 resultswithin the time period is included. Lipase Lvl 19 13 - 60 IU/L 02/21/2019 6:17 AM EDT [facility] Blood VENOUS BLOOD / Unknown Venipuncture / Unknown 02/21/2019 5:45 AM EDT 02/21/2019 5:49 AM EDT Mirela Martinez MD CHEMISTRY ORDERABLES Final Result Performing Organization Address [facility] de Phone Number PREFERRED [employer] [facility] [address] , [place] [address] * HEPATIC FUNCTION PANEL (02/21/2019 5:45 AM EDT) Total Protein 7.4 6.4 - 8.3 gm/dL 02/21/2019 6:17 AM EDT [facility] Albumin 3.8 3.2 - 4.6 gm/dL 02/21/2019 6:17 AM EDT [facility] Bili Direct <0.2 0.0 - 0.3 mg/dL 02/21/2019 6:17 AM EDT [facility] Bili Total 0.5 0.1 - 1.3 mg/dL 02/21/2019 6:17 AM EDT [facility] AST 14 <=40 IU/L 02/21/2019 6:17 AM EDT [facility] ALT 17 <=41 IU/L 02/21/2019 6:17 AM EDT [facility] Alk Phos 111 36 - 123 IU/L 02/21/2019 6:17 AM EDT [facility] Blood VENOUS BLOOD / Unknown Venipuncture / Unknown 02/21/2019 5:45 AM EDT 02/21/2019 5:49 AM EDT us Mirela Martinez MD CHEMISTRY ORDERABLES Final Result Performing Organization Address [facility] Co de Phone Number [employer], [facility] [address] , [place] [address] * FOLLICLE STIMULATING HORMONE LEVEL (10/16/2018 12:51 PM EDT) Only the most recent of2 resultswithin the time period is included. FSH 15.00 mIU/mL 10/16/2018 8:01 PM EDT [facility] Comment: Suggested Reference Range (mIU/mL) Females Follicular Phase 3.5 - 12.5 Ovulation Phase 4.7 - 21.5 Luteal Phase 1.7 - 7.7 Postmenopause 25.8 - 134.8 Males 1.5 - 12.4 Blood VENOUS BLOOD / Unknown Venipuncture / Unknown 10/16/2018 12:51 PM EDT 10/16/2018 12:51 PM EDT Narrative PREFERRED [employer] - 10/16/2018 8:01 PM EDT Ingestion of shirley doses of biotin (>5 mg/day) taken within 8 hours of drawing blood sample can interfere with this immunoassay test. Noah Calero MD CHEMISTRY ORDERABLES Final R esult [facility] [address], [place] [address] * US RIGHT UPPER QUADRANT (09/12/2017 3:34 PM EDT) Anatomical Region Laterality Modality Abdomen Ultrasound 09/12/2017 3:34 PM EDT Impressions 09/12/2017 3:59 PM EDT 1. Benign hepatic cyst. Otherwise normal study. Narrative 09/12/2017 3:59 PM EDT US RIGHT UPPER QUADRANT 09/12/2017 3:34 PM HISTORY: K76.9-Liver disease, [id number] PROCEDURE: Quadrant ultrasound. FINDINGS: Liver normal in size and echogenicity. 1.5 x 1.4 x 2.2 cm cyst medial segment left lobe. Gallbladder absent. Common bile duct 6 mm. Pancreatic head unremarkable. Procedure Note Jorge Rondon MD - 09/12/2017 US RIGHT UPPER QUADRANT 09/12/2017 3:34 PM HISTORY: K76.9-Liver disease, [id number] PROCEDURE: Quadrant ultrasound. FINDINGS: Liver normal in size and echogenicity. 1.5 x 1.4 x 2.2 cm cyst medialsegment left lobe. Gallbladder absent. Common bile duct 6 mm. Pancreatic head unremarkable. IMPRESSION: 1. Benign hepatic cyst. Otherwise normal study. Noah Gonzales MD IM US ORDERABLES Final Result * PULMONARY FUNCTION TEST (08/15/2016 11:37 AM EDT) 08/15/2016 11:3 7 AM EDT Impressions [facility] - 08/15/2016 11:37 AM EDT NORMAL AIRFLOW rules out significant obstructive disease. MODERATE RESTRICTIVE VENTILATORY DEFECT. DIFFUSING CAPACITY IS NORMAL, corrected for hemoglobin. THIS PATTERN SUGGESTS CHEST WALL or NEUROMUSCULAR DISORDERS. NO IMMEDIATE RESPONSE TO INHALED BRONCHODILATOR, in either FVC or FEV1. This should not preclude a clinical trial of bronchodilator therapy. Clinical Correlation is Required. This data was interpreted based upon the 2005 ATS/ERS Task Force Position Statement: Interpretative Strategies for Lung Function Tests. electronically reviewed and verified Singh Varner MD [facility] This section is an excerpt of the full report. us Purvi Cordero MD PFT ORDERABLES Final Res ult [facility] [address] [place] [address] * CT ABDOMEN W WO CONTRAST (07/18/2016 11:17 AM EST) Anatomical Region Laterality Modality Abdomen, Pelvis Computed Tomogra phy Impressions 07/19/2016 11:14 AM EST : 1. Ovoid circumscribed hyperdense lesion of the medial segment left hepatic lobe as detailed above. Suspect this is a benign process. Given its atypical appearance, I recommend follow up CT examination to ensure its stability with next study in six months. 2. Hepatomegaly with fatty infiltration of the liver. 3. Bilateral nonobstructive nephrolithiasis with a probable complex cystic lesion in the anterior aspect of the left kidney. Recommend attention of this probable complex cyst at follow up imaging. Maynor Ruiz MD. [address] [facility] [address] [place] [address] [place], [address] Narrative 07/19/2016 11:14 AM EST CLINICAL HISTORY: Indeterminate enhancing anterior subcapsular lesion of the liver seen on recent CTA. History of fatty infiltration of the liver. Status post cholecystectomy. COMPARISON: No comparison studies. TECHNIQUE: After the administration of intravenous contrast, 5-mm thick contiguous axial CT images were obtained through the chest. Coronal images were created from the axial data. Patient exposure is reduced by automated exposure control whenever possible on CT examinations. When that technique is not available, patient exposure is reduced by adjusting the mA and/or kV according to patient's size. FINDINGS: The lung bases are clear. There is a hyperdense ovoid circumscribed lesion in the anterior aspect of the medial segment left hepatic lobe. There appears to be some mild calcification at its inferior aspect. Precontrast, arterial phase, portal phase, and delayed phase imaging shows density measurements ranging from the upper 30's into the upper 40 Hounsfield unit range. No appreciable enhancement. The liver is fatty infiltrated. The liver is enlarged measuring 21-cm long axis. Otherwise, the liver has an unremarkable appearance. The gallbladder is absent. The spleen, stomach, pancreas, and adrenal glands have a normal appearance. The right kidney is somewhat lobulated and there is a focal cortical calcification noted. No hydronephrosis. The left kidney is notable for a low density lesion in the anterior aspect of the mid kidney measuring 2.0-cm in greatest dimension. No definite contrast enhancement associated with this lesion. There is a 3-mm nonobstructing stone in the upper pole. The remainder of the left kidney is unremarkable. The visualized bowel is unremarkable. No free fluid. Noah Gonzales MD [facility] CT ORDERABLES Final Result * (ABNORMAL) BLOOD GAS ARTERIAL (07/03/2016 9:10 AM EST) pH 7.32(L) 7.35 - 7.45 [facility] pCO2 57(H) 35 - 45 mmHg [facility] pO2 65(L) 80 - 100 mmHg [facility] HCO3 28.7(H) 22.0 - 26.0 mmol/L [facility] TCO2 26 23 - 27 mmol/L [facility] Base Excess 2.0 -2.0 - 3.0 [facility] O2 Sat 91.4(L) 95.0 - 98.0 % [facility] Inspired O2 2L [facility] Specimen Type Arterial [facility] Blood specimen (specimen) UPPER LIMB STRUCTURE / Unknown 07/03/2016 9:10 AM EST 07/03/2016 9:12 AM EST us Emiliana Mcclain MD CHEMISTRY ORDERABLES Final Result [facility] [address] [address] * CT ANGIOGRAM CHEST W CONTRAST (07/03/2016 4:32 AM EST) Anatomical Region Laterality Modality Chest Computed Tomogra phy 07/03/2016 4:32 AM EST Impressions 07/03/2016 5:09 AM EST 1. No acute intrathoracic process. 2. No CT findings characteristic of central pulmonary embolus. 3. Suspect diffuse fatty infiltration changes and liver enlargement.. Indeterminate enhancing anterior subcapsular liver lesion suspected. Consider follow-up imaging surveillance with dynamic contrast MR/CT imaging of the liver in this patient.. Narrative 07/03/2016 5:09 AM EST 07/03/[address] chest angiography with 3-D multiplanar reconstructions: HISTORY: The patient presents with recurrent shortness of breath and pleuritic chest pain. No comparison CT imaging studies. Prelim report provided to the ER department, 5:00 AM. Direct 3 mm axial imaging after IV injection, 50 mL Isovue-370. Additional MIP and 3-D postprocessing multiplanar reconstruction images reviewed separately at dedicated workstation. The study is somewhat limited secondary to morbid obesity. Moderate cardiac enlargement without evidence of pulmonary edema. No focal intrathoracic lymphadenopathy. The ascending thoracic aorta is mildly dilated with maximal AP dimension of 3.5 cm. No focal lung consolidation, atelectasis or pleural effusion. No CT findings characteristic of central pulmonary embolus. Included images of the upper abdomen demonstrates enlarged liver with suspected diffuse fatty infiltration change. Indeterminate enhancing subcapsular lesion of the anterior liver is not excluded. Procedure Note Alvarado Rick DO - 07/03/2016 07/03/[address] chest angiography with 3-D multiplanar reconstructions: HISTORY: The patient presents with recurrent shortness of breath andpleuritic chest pain. No comparison CT imaging studies. Prelim report provided tothe ER department, 5:00 AM. Direct 3 mm axial imaging after IV injection, 50 mL Isovue-370. AdditionalMIP and 3-D postprocessing multiplanar reconstruction images reviewedseparately at dedicated workstation. The study is somewhat limited secondary to morbid obesity. Moderatecardiac enlargement without evidence of pulmonary edema. No focal intrathoracic lymphadenopathy. The ascending thoracic aorta is mildly dilated withmaximal AP dimension of 3.5 cm. No focal lung consolidation, atelectasis or pleural effusion. No CT findings characteristic of central pulmonary embolus.Included images of the upper abdomen demonstrates enlarged liver with suspecteddiffuse fatty infiltration change. Indeterminate enhancing subcapsular lesion ofthe anterior liver is not excluded. IMPRESSION: 1. No acute intrathoracic process. 2. No CT findings characteristic of central pulmonary embolus. 3. Suspect diffuse fatty infiltration changes and liver enlargement.. Indeterminate enhancing anterior subcapsular liver lesion suspected.Consider follow-up imaging surveillance with dynamic contrast MR/CT imaging of theliver in this patient.. Ritesh Josue MD IMG CT ORDERABLES Final Resu lt * (ABNORMAL) D-DIMER (07/03/2016 2:43 AM EST) D-Dimer 396(H) <=230 ng/mL D-DU [facility] Comment: This test has been clinically validated by the toggle press operator and approved by the FDA for exclusion of pulmonary embolism (PE) or deep vein thrombosis (DVT) in patients with a low clinical risk assessment. The cutoff for exclusion of PE and DVT is < 230 ng/mL D-Dimer Units. Increased levels of D-dimer are associated with PE, DVT, disseminated intravascular coagulation, malignancies, inflammation, sepsis, surgery, trauma, , and advanced patient age. [MIGEL 2006 11:295(2): 199-207] Blood specimen (specimen) UPPER LIMB STRUCTURE / Unknown 07/03/2016 2:43 AM EST 07/03/2016 2:48 AM EST Ritesh Josue MD HEMATOLOGY ORDERABLES Final Result [facility] [address] [place] [address] * (ABNORMAL) DIFFERENTIAL (07/02/2016 9:03 PM EST) Only the most recent of4 resultswithin the time period is included. Neut Percent 86.5 % [facility] Lymph Percent 7.3 % [facility] [place] Percent 5.1 % [facility] Eos Percent 1.1 % [facility] Baso Percent 0.0 % [facility] Neut# 10.9(H) 1.8 - 7.7 x10(3)/mcL [facility] Lymph# 0.9 0.6 - 4.8 x10(3)/[facility] [place]# 0.6 0.0 - 1.3 x10(3)/[facility] Eos# 0.1 0.0 - 0.5 x10(3)/[facility] Baso# 0.0 0.0 - 0.2 x10(3)/[facility] Blood specimen (specimen) 07/02/2016 9:03 PM EST 07/02/2016 9:09 PM EST [facility] HEMATOLOGY ORDERABL ES Final Result Performing Organization Address City/State/[facility] [place] [address] * PATHOLOGY TISSUE REPORT (12/28/2015 11:28 AM EDT) Only the most recent of2 resultswithin the time period is included. Surgical Pathology Report PATIENT NAME:LALO SEGURA Surgical Pathology Report Accession Number Collected Date/Time Received Date/Time [id number] 12/28/15 11:28 EDT 12/28/15 14:28 EDT Diagnosis 1) Endocervix, curettage: - Benign endocervical curettings. 2) Endometrium, curettage: - Endometrial hyperplasia without atypia. - Fragments of benign endometrial polyp with proliferative phase pattern. NITA REYEZ (Electronically signed by) Verified: 01/03/2016 [facility] Comment In a few focal areas, the gland to stroma ratio exceeds 1:1, but these foci are not of sufficient size for diagnosis of endometrial intraepithelial neoplasia (atypical hyperplasia). Clinical Information Abnormal uterine bleeding [N93.9] Same as preop Routine Gross Description Part 1) Received in formalin labeled with the patients name and endocervical curettings is a 2.5 x 1 x 0.4 cm mucoid. The specimen is entirely submitted in one cassette. Part 2) Received in formalin labeled with the patients name and endometrial curettings are multiple blood clots admixed with possible endometrial tissues measuring 2.3 x 2 x 0.4 cm in aggregate. The specimen is entirely submitted in one cassette. / HP JOP/LA Microscopic Description Microscopic examination is performed and the findings corroborate the diagnosis. [facility] 12/28/2015 11:2 8 AM EDT Noah Calero MD PATHOLOGY ORDERABLES Final R esult Performing Organization Address [facility] Co de Phone Number [address] [address] * [facility] CYTOLOGY REPORT (08/23/2015 1:00 PM EDT) Only the most recent of3 resultswithin the time period is included. [place] [facility] Report PATIENT NAME:LALO SEGURA [place] [facility] Accession Number Collected Date/Time Received Date/Time [id number] 08/23/15 13:00 EDT 08/23/15 18:32 EDT GY Specimen Source Specimen Vag/Cerv/Endocx?: Cerv/Endocerv Statement of Adequacy Satisfactory for Evaluation. Transformation Zone Present. Diagnosis NEGATIVE FOR INTRAEPITHELIAL LESION OR MALIGNANCY. Comment The Pap Smear is a screening test that aids in the detection of cervical cancer and cancer precursors. Both false positive and false negative results can occur. The test should be used at regular intervals, and positive results should be confirmed before definitive therapy. Processed using the ThinPrep Supervisor Partial Denture Department automated cytology screening device ([employer]asa). Undertaker Helper: АННА 08/25/2015 Completed by: Janie Bello (Electronically signed by) 08/25/2015 [facility] 08/23/2015 1:00 PM EDT Noah Calero MD PATHOLOGY ORDERABLES Final R esult Performing Organization Address City/[facility]/ZIP Co de Phone Number [address] [address] * SCANNED RADIOLOGY REPORT (03/20/2013 11:08 AM EDT) Only the most recent of3 resultswithin the time period is included. Anatomical Region Laterality Modality Other 03/20/2013 11:0 8 AM EDT us Unknown Unknown IMG DIAGNOSTIC IMAGING ORDERABLE S Final Result * SCANNED ANESTHESIA FORMS (01/30/2013 12:53 PM EDT) 01/30/2013 12:5 3 PM EDT Narrative Procedure Note Unknown, Unknown - 01/30/2013 12:53 PM EDT us Unknown Unknown PROCEDURE/MINOR SURGICAL ORDERAB LES Final Result * SCANNED PRE/POST PROCEDURES (01/30/2013 12:53 PM EDT) 01/30/2013 12:5 3 PM EDT Narrative Procedure Note Unknown, Unknown - 01/30/2013 12:53 PM EDT us Unknown Unknown PROCEDURE/MINOR SURGICAL ORDERAB LES Final Result * ALLERGEN, OCCUPATIONAL, LATEX-ARUP (01/27/2013 11:15 AM EDT) Latex <0.10 <=0.34 kunits/L [facility] Blood specimen (specimen) UPPER LIMB STRUCTURE / Unknown 01/27/2013 11:15 AM EDT 01/27/2013 1:56 PM EDT us Sue Mensah NP IMMUNOLOGY ORDERABLES Final Result [facility] [address] [place] [address] * (ABNORMAL) VITAMIN D, [id number] (08/28/2010 10:15 AM EDT) Only the most recent of2 resultswithin the time period is included. Vit D 25 OH 28(L) 30 - 80 ng/mL [facility] Comment: REFERENCE INTERVAL: Vitamin D, 25-Hydroxy This assay accurately quantifies the sum of vitamin D3, 25-hydroxy and vitamin D2, 25-hydroxy. 0-17 years: Deficiency: less than 20 ng/mL Optimum level: greater than or equal to 20 ng/mL* *(Ingram CL et al. Pediatrics 2008; 122: 1128-38.) 18 years and older: Deficiency: Less than 20 ng/mL Insufficiency: 20-29 ng/mL Optimum Level: 30-80 ng/mL Possible Toxicity: Greater than 150 ng/mL Blood specimen (specimen) UPPER LIMB STRUCTURE / Unknown 08/28/2010 10:15 AM EDT 08/28/2010 1:12 PM EDT us Eduardo Mason MD CHEMISTRY ORDERABLES Final Resul t Performing Organization Address [facility] de Phone Number [facility] [address] [place] [address] * VITAMIN B12/ FOLIC ACID (04/28/2010 11:05 AM EST) Pathologist [facility] Vitamin B12 284 239 - 931 pg/mL [facility] Folic Acid Lvl 6.60 3.00 - 20.00 ng/mL [facility] Blood specimen (specimen) UPPER LIMB STRUCTURE / Unknown 04/28/2010 11:05 AM EST 04/28/2010 11:08 AM EST us Arjun Hicks MD CHEMISTRY ORDERABLES Final Res ult Performing Organization Address City/[facility] Co de Phone Number [facility] [address] [place] [address] * RHEUMATOID FACTOR QUALITATIVE (04/28/2010 11:05 AM EST) Pathologist [facility] Rheumatoid Factor < 10 IU < 10 IU [facility] Comment:Semi-quantitative me thod: Units IU/mL Blood specimen (specimen) UPPER LIMB STRUCTURE / Unknown 04/28/2010 11:05 AM EST 04/28/2010 11:08 AM EST us Arjun Hicks MD IMMUNOLOGY ORDERABLES Final Re sult Performing Organization Address [facility] de Phone Number [facility] [address] [place] [address] * (ABNORMAL) SEDIMENTATION RATE AUTOMATED (04/28/2010 11:05 AM EST) Sed Rate 49(H) 0 - 30 mm [facility] Blood specimen (specimen) UPPER LIMB STRUCTURE / Unknown 04/28/2010 11:05 AM EST 04/28/2010 11:08 AM EST us Arjun Hicks MD HEMATOLOGY ORDERABLES Final Re sult Performing Organization Address [facility] de Phone Number [facility] [address] [place] [address] * ANTINUCLEAR ANTIBODY SCREEN (04/28/2010 11:05 AM EST) Pathologist [facility] JASON Screen Negative [facility] Comment: JASON samples are screened using an automated EIA assay. All samples that screen positive are tittered by an IFA method and will include an JASON pattern. A titer of < 1:80 is considered clinically insignificant. In general, a titer >= 1:160 is considered significant positive. Blood specimen (specimen) UPPER LIMB STRUCTURE / Unknown 04/28/2010 11:05 AM EST 04/28/2010 11:08 AM EST us Arjun Hicks MD IMMUNOLOGY ORDERABLES Final Re sult Performing Organization Address [facility] de Phone Number [facility] [address] [place] [address] * CREATINE KINASE (04/28/2010 11:05 AM EST) Pathologist [facility] CK 76 30 - 135 IU/L [facility] Blood specimen (specimen) UPPER LIMB STRUCTURE / Unknown 04/28/2010 11:05 AM EST 04/28/2010 11:08 AM EST us Arjun Hicks MD CHEMISTRY ORDERABLES Final Res ult Performing Organization Address [facility] de Phone Number [facility] [address] [place] [address] * SCANNED LABS (03/01/2010 12:00 AM EDT) Narrative 03/01/2010 12:59 PM EDT Ordered by an unspecified provider. Transcriptions Unknown, U - 03/01/2010 4:34 AM EDT us U Unknown HEMATOLOGY ORDERABLES Final Resu lt * SCANNED PATHOLOGY REPORT (02/27/2010 12:00 AM EDT) Narrative 02/27/2010 9:06 PM EDT Ordered by an unspecified provider. Transcriptions Unknown, U - 02/27/2010 9:03 PM EDT us U Unknown PATHOLOGY ORDERABLES Final Resul t * VAGINAL PANEL (11/25/2009 5:03 PM EDT) Final Mimi species DNA Probe: Negative Gardnerella vaginalis DNA Probe: Negative Trichomonas vaginalis DNA Probe: Negative Interpretive Data: Vaginal Pathogens DNA Direct Probes All test results should be correlated with clinical history. [facility] Vaginal swab (specimen) 11/25/2009 5:03 PM EDT 11/25/2009 5:11 PM EDT us Phy For [facility] MICROBIOLOGY - GENERAL ORDERA BLES Final Result [facility] [address] [place] [address] * MR LUMBAR SPINE W/O KE MRI (06/15/2009 11:42 AM EST) Anatomical Region Laterality Modality Other 06/15/2009 11:4 2 AM EST Narrative 06/15/2009 2:59 PM EST Lumbar spine MRI. History- Low back pain and right leg pain. Findings- Bony alignment and marrow signal intensity are normal. There is disc desiccation and disc space narrowing at the lower two lumbar levels. There is marrow signal change at L5-S1. The conus is at the T12-L1 level and normal in appearance. L3-L4 level- The neural canal and neural foramen are patent. There is facet arthropathy and hypertrophy. L4-L5 level- There is mild diffuse disc bulge and endplate spurring. The neural canal and neural foramen are patent. There is facet arthropathy and hypertrophy. L5-S1 level- The neural canal and neural foramen are patent. There is joint disc and facet changes. Impression- Multilevel disc and facet changes. No compressive disc disease identified. Machine Load Clerk- WENDY ODONNELL Reading Physician- NICOLETTE MCGRAW MD Released Date Time- 06/15/09 164 Procedure Note Nicolette Mcgraw III - 08/05/2009 Lumbar spine MRI. History- Low back pain and right leg pain. Findings- Bony alignment and marrow signal intensity are normal. There is disc desiccation and disc space narrowing at the lower two lumbar levels. There is marrow signal change at L5-S1. The conus is at the T12-L1 level and normal in appearance. L3-L4 level- The neural canal and neural foramen are patent. There is facet arthropathy and hypertrophy. L4-L5 level- There is mild diffuse disc bulge and endplate spurring. The neural canal and neural foramen are patent. There is facet arthropathy and hypertrophy. L5-S1 level- The neural canal and neural foramen are patent. There is joint disc and facet changes. Impression- Multilevel disc and facet changes. No compressive disc disease identified. Machine Load Clerk- WENDY Howell Physician- NICOLETTE MCGRAW MD Released Date Time- 06/15/09 164 Noah Gonzales MD [facility] Valerie l Result * MM SCREENING BILATERAL (08/11/2007 12:00 AM EDT) Only the most recent of2 resultswithin the time period is included. Anatomical Region Laterality Modality Other 08/11/2007 08/11/2007 Narrative 08/11/2007 12:00 AM EDT Name: COLTON Jean : 1955 VERIFIED [facility] Reason: SCBI MAMMO Dict.Staff: LULU HURTADO [id number] Verified By: DELON BRAGA Ramiro: 08/14/07 8:22 am Exams: [facility]-SCREENING SCREENING MAMMOGRAMS WITH CAD ANALYSIS: FINDINGS: 1. Standard CC and MLO views were obtained. Comparison is made to prior studies, most recent 2005 and 2006. 2. Breasts are composed of scattered fibroglandular densities. 3. No significant interval change. IMPRESSION: STABLE BILATERAL MAMMOGRAM. NO MAMMOGRAPHIC EVIDENCE OF MALIGNANCY. RECOMMEND FOLLOWUP BILATERAL SCREENING MAMMOGRAM IN 12 MONTHS. GENESIS/berny/CATEGORY 1 NEGATIVE MAMMOGRAPHY HAS A 15% FALSE NEGATIVE RATE AND MANAGEMENT OF A PALPABLE ABNORMALITY MUST BE BASED ON CLINICAL GROUNDS. THIS EXAMINATION WAS REVIEWED BY A RADIOLOGIST AND BY CAD. Dictated on 08/13/2007 @ 15:56 hours. end of result Procedure Note Unknown, U - 09/09/2009 Name: COLTON Jean : 1955 VERIFIED [facility] Reason: SCBI MAMMO Dict.Staff: LULU HURTADO [id number] Verified By: DELON BRAGA Ramiro: 08/14/07 8:22 am Exams: [facility]-SCREENING SCREENING MAMMOGRAMS WITH CAD ANALYSIS: FINDINGS: 1. Standard CC and MLO views were obtained. Comparison is made to prior studies, most recent 2005 and 2006. 2. Breasts are composed of scattered fibroglandular densities. 3. No significant interval change. IMPRESSION: STABLE BILATERAL MAMMOGRAM. NO MAMMOGRAPHIC EVIDENCE OF MALIGNANCY. RECOMMEND FOLLOWUP BILATERAL SCREENING MAMMOGRAM IN 12 MONTHS. GENESIS/berny/CATEGORY 1 NEGATIVE MAMMOGRAPHY HAS A 15% FALSE NEGATIVE RATE AND MANAGEMENT OF A PALPABLE ABNORMALITY MUST BE BASED ON CLINICAL GROUNDS. THIS EXAMINATION WAS REVIEWED BY A RADIOLOGIST AND BY CAD. Dictated on 08/13/2007 @ 15:56 hours. end of result us U Unknown [facility] RAD HISTORICAL Final Result * US TRANSVAGINAL (07/23/2006 12:00 AM EST) Anatomical Region Laterality Modality Other 07/23/2006 07/23/2006 Narrative 07/23/2006 12:00 AM EST VERIFIED [facility] Reason: 626.4 Dict.Staff: DANNY CAMACHO Verified By: JAYDE MEZA Ramiro: 07/24/06 9:34 am Exams: US-TRANSVAGINAL 07-23-06 ULTRASOUND PELVIS HISTORY: OVARIAN CYSTS Transabdominal and transvaginal scans are done. I do not have a prior recent study for comparison. Transabdominal scanning is limited by patient's habitus. The uterus appears normal measuring 8.8 by 4.7 by 5.7cm. Endometrial thickness is 0.8cm. The ovaries appear normal. The right ovary measures 2.2 by 1.4 by 2.6cm. The left ovary measures 2.4 by 1.6 by 1.8cm. No fluid collection or free fluid is seen. CONCLUSION: NORMAL STUDY. DG/pp end of result Procedure Note Unknown, U - 09/09/2009 VERIFIED [facility] Reason: 626.4 Dict.Staff: DANNY CAMACHO Verified By: JAYDE MEZA Ramiro: 07/24/06 9:34 am Exams: US-TRANSVAGINAL 07-23-06 ULTRASOUND PELVIS HISTORY: OVARIAN CYSTS Transabdominal and transvaginal scans are done. I do not have a prior recent study for comparison. Transabdominal scanning is limited by patient's habitus. The uterus appears normal measuring 8.8 by 4.7 by 5.7cm. Endometrial thickness is 0.8cm. The ovaries appear normal. The right ovary measures 2.2 by 1.4 by 2.6cm. The left ovary measures 2.4 by 1.6 by 1.8cm. No fluid collection or free fluid is seen. CONCLUSION: NORMAL STUDY. DG/pp end of result us U Unknown [facility] RAD HISTORICAL Final Result * US PELVIS NON-OB COMPLETE (07/23/2006 12:00 AM EST) Only the most recent of3 resultswithin the time period is included. Anatomical Region Laterality Modality Other 07/23/2006 07/23/2006 Narrative 07/23/2006 12:00 AM EST VERIFIED [facility] Reason: 626.4 Dict.Staff: DANNY CAMACHO Verified By: DANNY CAMACHO Ramiro: 07/23/06 2:25 pm Exams: US-PELVIS NON-OB COMPLETE 07-23-06 ULTRASOUND PELVIS HISTORY: OVARIAN CYSTS Transabdominal and transvaginal scans are done. I do not have a prior recent study for comparison. Transabdominal scanning is limited by patient's habitus. The uterus appears normal measuring 8.8 by 4.7 by 5.7cm. Endometrial thickness is 0.8cm. The ovaries appear normal. The right ovary measures 2.2 by 1.4 by 2.6cm. The left ovary measures 2.4 by 1.6 by 1.8cm. No fluid collection or free fluid is seen. CONCLUSION: NORMAL STUDY. DG/pp end of result Procedure Note Unknown, U - 09/09/2009 VERIFIED [facility] Reason: 626.4 Dict.Staff: DANNY CAMACHO Verified By: DANNY CAMACHO Ramiro: 07/23/06 2:25 pm Exams: US-PELVIS NON-OB COMPLETE 07-23-06 ULTRASOUND PELVIS HISTORY: OVARIAN CYSTS Transabdominal and transvaginal scans are done. I do not have a prior recent study for comparison. Transabdominal scanning is limited by patient's habitus. The uterus appears normal measuring 8.8 by 4.7 by 5.7cm. Endometrial thickness is 0.8cm. The ovaries appear normal. The right ovary measures 2.2 by 1.4 by 2.6cm. The left ovary measures 2.4 by 1.6 by 1.8cm. No fluid collection or free fluid is seen. CONCLUSION: NORMAL STUDY. DG/pp end of result us U Unknown [facility] Final Result * MM SCREENING (06/11/2005 12:00 AM EST) Anatomical Region Laterality Modality Other 06/11/2005 06/11/2005 Narrative 06/11/2005 12:00 AM EST VERIFIED [facility] Reason: SCREENING Dict.Staff: ESTIVEN STEVENSON Verified By: MAYNOR LAZAR Ramiro: 06/13/05 9:56 pm Exams: [facility]-SCREENING SCREENING MAMMOGRAM WITH CAD ANALYSIS: 06-11-05 Compare: 10-06-03 The breasts are of scattered fibroglandular tissue. There has been no interval change. There is no dominant mass, architectural distortion, or calcifications seen. IMPRESSION: No direct or indirect evidence of malignancy. Annual screening mammography recommended. Category 1 Negative NEILS:ps SINCE MAMMOGRAPHY HAS A 15% FALSE NEGATIVE RATE, MANAGEMENT OF A PALPABLE ABNORMALITY MUST BE BASED ON CLINICAL FINDINGS. IMAGES ALSO REVIEWED BY RADIOLOGIST AND CAD. end of result Procedure Note Unknown, U - 09/08/2009 VERIFIED [facility] Reason: SCREENING Dict.Staff: ESTIVEN STEVENSON Verified By: MAYNOR LAZAR Ramiro: 06/13/05 9:56 pm Exams: [facility]-SCREENING SCREENING MAMMOGRAM WITH CAD ANALYSIS: 06-11-05 Compare: 10-06-03 The breasts are of scattered fibroglandular tissue. There has been no interval change. There is no dominant mass, architectural distortion, or calcifications seen. IMPRESSION: No direct or indirect evidence of malignancy. Annual screening mammography recommended. Category 1 Negative NEILS:ps SINCE MAMMOGRAPHY HAS A 15% FALSE NEGATIVE RATE, MANAGEMENT OF A PALPABLE ABNORMALITY MUST BE BASED ON CLINICAL FINDINGS. IMAGES ALSO REVIEWED BY RADIOLOGIST AND CAD. end of result us U Unknown [facility] Final Result Visit Diagnoses Diagnosis Start Date Other screening mammogram 11/25/2009 Myalgia and myositis, unspecified Mylagia and myositis, unspecified 04/28/2010 Encounter for long-term (current) use of other medications 08/28/2010 Unspecified vitamin D deficiency 08/28/2010 Routine gynecological examination 12/11/2012 Routine gynecological examination 12/11/2012 Post-menopause bleeding Postmenopausal bleeding 12/11/2012 Postmenopausal bleeding 12/11/2012 Postmenopausal bleeding 01/28/2013 Postmenopausal bleeding 01/28/2013 Follow-up examination, following unspecified surgery 02/04/2013 Acute sphenoidal sinusitis, recurrence not specified 11/18/2014 Visit for screening mammogram Other screening mammogram 08/01/2015 Well woman exam with routine gynecological exam Routine gynecological examination 08/23/2015 Abnormal uterine bleeding (AUB) 08/23/2015 Well woman exam with routine gynecological exam Routine gynecological examination 08/23/2015 Abnormal uterine bleeding (AUB) 08/23/2015 Abnormal uterine bleeding (AUB) 08/30/2015 Preop testing Preoperative examination, unspecified 09/12/2015 Postmenopausal bleeding 09/12/2015 Abnormal uterine bleeding Unspecified disorder of menstruation and other abnormal bleeding from female genital tract 12/28/2015 Post-operative state Other postprocedural status 01/04/2016 Vomiting and diarrhea Vomiting alone 07/02/2016 Hypoxia Hypoxemia 07/02/2016 Morbid obesity, unspecified obesity type (HCC) 07/02/2016 Mild persistent asthma without complication Unspecified asthma 07/02/2016 KARO (obstructive sleep apnea) Obstructive sleep apnea (adult) (pediatric) 07/02/2016 Morbid obesity due to excess calories (HCC) 07/02/2016 Chronic respiratory failure with hypoxia (HCC) Chronic respiratory failure 07/02/2016 Fatty liver Other chronic nonalcoholic liver disease 07/02/2016 SOB (shortness of breath) Shortness of breath 08/03/2016 Lichenoid keratosis Acquired keratoderma 08/13/2016 Venous stasis dermatitis of both lower extremities 08/13/2016 Ingrown nail Ingrowing nail 08/13/2016 SOB (shortness of breath) Shortness of breath 08/15/2016 Chronic respiratory failure with hypoxia and hypercapnia (HCC) 08/22/2016 Obesity hypoventilation syndrome (HCC) Obesity hypoventilation syndrome 08/22/2016 Mild intermittent asthma without complication Unspecified asthma 08/22/2016 KARO on CPAP Obstructive sleep apnea (adult) (pediatric) 08/22/2016 Morbid obesity with body mass index (BMI) of 50.0 to 59.9 in adult (HCC) 08/22/2016 SCOTT (dyspnea on exertion) Other dyspnea and respiratory abnormality 08/22/2016 Chest pressure Other chest pain 08/22/2016 Abnormal findings on diagnostic imaging of liver Nonspecific (abnormal) findings on radiological and other examination of biliary tract 02/28/2017 Chronic respiratory failure with hypoxia and hypercapnia (HCC) 03/12/2017 KARO (obstructive sleep apnea) Obstructive sleep apnea (adult) (pediatric) 03/12/2017 Morbid obesity due to excess calories (HCC) 03/12/2017 Essential hypertension Unspecified essential hypertension 03/12/2017 Liver disease Unspecified disorder of liver 09/12/2017 Cyst of kidney, acquired Acquired cyst of kidney 09/12/2017 Excessive sleepiness Hypersomnia, unspecified 02/04/2018 Primary snoring Other dyspnea and respiratory abnormality 02/04/2018 Obstructive sleep apnea Obstructive sleep apnea (adult) (pediatric) 02/04/2018 Morbid obesity (HCC) Morbid obesity 02/04/2018 Well woman exam Routine general medical examination at a health care facility 10/16/2018 Abnormal uterine bleeding (AUB) 10/16/2018 Encounter for screening mammogram for malignant neoplasm of breast Other screening mammogram 10/16/2018 Well woman exam Routine general medical examination at a health care facility 10/16/2018 Abnormal uterine bleeding (AUB) 10/16/2018 Abnormal uterine bleeding (AUB) 10/24/2018 Epigastric abdominal pain Abdominal pain, epigastric 02/21/2019 Endometrial hyperplasia Endometrial hyperplasia, unspecified 05/04/2019 Acute pancreatitis, unspecified complication status, unspecified pancreatitis type 05/04/2019 Dysuria 01/07/2020 Renal colic on left side Renal colic 01/07/2020 Urinary tract infection symptoms 03/15/2020 Severe sepsis (HCC) 03/15/2020 Screening mammogram, encounter for 03/21/2020 Well woman exam Routine general medical examination at a health care facility 03/21/2020 Abnormal uterine bleeding (AUB) 03/21/2020 Endometrial cancer (HCC) Malignant neoplasm of corpus uteri, except isthmus 03/29/2020 BMI 50.0-59.9, adult (HCC) Body Mass Index 50.0-59.9, adult 03/29/2020 Chronic respiratory failure with hypoxia (HCC) Chronic respiratory failure 03/29/2020 Essential hypertension Unspecified essential hypertension 03/29/2020 Uterine enlargement Hypertrophy of uterus 03/29/2020 Thickened endometrium Nonspecific (abnormal) findings on radiological and other examination of genitourinary organs 03/29/2020 KARO (obstructive sleep apnea) Obstructive sleep apnea (adult) (pediatric) 03/29/2020 Endometrial cancer (HCC) Malignant neoplasm of corpus uteri, except isthmus 03/31/2020 Screening mammogram, encounter for 03/31/2020 Morbid obesity due to excess calories (HCC) 04/06/2020 Preop cardiovascular exam Pre-operative cardiovascular examination 04/06/2020 Preoperative clearance Preoperative examination, unspecified 04/06/2020 SOB (shortness of breath) Shortness of breath 04/06/2020 Morbid obesity due to excess calories (HCC) 04/14/2020 Preop cardiovascular exam Pre-operative cardiovascular examination 04/14/2020 Calculus of ureter 04/15/2020 Essential hypertension, malignant 04/25/2020 Pre-op testing Preoperative examination, unspecified 04/28/2020 Encounter for laboratory testing for COVID-19 virus 04/28/2020 Endometrial cancer (HCC) Malignant neoplasm of corpus uteri, except isthmus 05/02/2020 Endometrial cancer (HCC) Malignant neoplasm of corpus uteri, except isthmus 05/02/2020 Endometrial cancer (HCC) Malignant neoplasm of corpus uteri, except isthmus 05/10/2020 BMI 50.0-59.9, adult (HCC) Body Mass Index 50.0-59.9, adult 05/10/2020 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) 05/10/2020 Thickened endometrium Nonspecific (abnormal) findings on radiological and other examination of genitourinary organs 05/10/2020 Uterine enlargement Hypertrophy of uterus 05/10/2020 Postmenopausal bleeding 05/10/2020 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) 06/21/2020 Endometrial cancer (HCC) Malignant neoplasm of corpus uteri, except isthmus 06/21/2020 Urinary tract infection, site not specified 10/07/2020 Iron deficiency anemia, unspecified iron deficiency anemia type 10/26/2020 Gastroesophageal reflux disease, unspecified whether esophagitis present 10/27/2020 Personal history of colonic polyps 10/27/2020 Pre-op testing Preoperative examination, unspecified 11/28/2020 Encounter for laboratory testing for COVID-19 virus 11/28/2020 Gastroesophageal reflux disease, unspecified whether esophagitis present 12/02/2020 Personal history of colonic polyps 12/02/2020 Personal history of colonic polyps 12/02/2020 Gastroesophageal reflux disease, unspecified whether esophagitis present 12/02/2020 Calculus of kidney 12/15/2020 Urinary tract infection without hematuria, site unspecified 12/15/2020 Endometrial cancer (HCC) Malignant neoplasm of corpus uteri, except isthmus 12/20/2020 Right upper quadrant abdominal swelling, mass and lump 02/24/2021 Right upper quadrant pain Abdominal pain, right upper quadrant 02/24/2021 Personal history of malignant neoplasm of other parts of uterus 02/24/2021 Vertigo Dizziness and giddiness 04/01/2021 Mild persistent asthma without complication Unspecified asthma 04/04/2021 Chronic respiratory failure with hypoxia (HCC) Chronic respiratory failure 04/04/2021 KARO (obstructive sleep apnea) Obstructive sleep apnea (adult) (pediatric) 04/04/2021 Reactive airway disease without complication, unspecified asthma severity, unspecified whether persistent 04/04/2021 SCOTT (dyspnea on exertion) Other dyspnea and respiratory abnormality 04/04/2021 SOB (shortness of breath) Shortness of breath 04/04/2021 Mild persistent asthma without complication Unspecified asthma 04/19/2021 Chronic respiratory failure with hypoxia (HCC) Chronic respiratory failure 04/19/2021 Reactive airway disease without complication, unspecified asthma severity, unspecified whether persistent 04/19/2021 SCOTT (dyspnea on exertion) Other dyspnea and respiratory abnormality 04/19/2021 SOB (shortness of breath) Shortness of breath 04/19/2021 Mild persistent asthma without complication Unspecified asthma 04/19/2021 Chronic respiratory failure with hypoxia (HCC) Chronic respiratory failure 04/19/2021 Reactive airway disease without complication, unspecified asthma severity, unspecified whether persistent 04/19/2021 SCOTT (dyspnea on exertion) Other dyspnea and respiratory abnormality 04/19/2021 SOB (shortness of breath) Shortness of breath 04/19/2021 Mild persistent asthma without complication Unspecified asthma 04/19/2021 Chronic respiratory failure with hypoxia (HCC) Chronic respiratory failure 04/19/2021 Reactive airway disease without complication, unspecified asthma severity, unspecified whether persistent 04/19/2021 SCOTT (dyspnea on exertion) Other dyspnea and respiratory abnormality 04/19/2021 SOB (shortness of breath) Shortness of breath 04/19/2021 Vertigo Dizziness and giddiness 04/24/2021 Mild persistent asthma without complication Unspecified asthma 05/10/2021 Endometrial cancer (HCC) Malignant neoplasm of corpus uteri, except isthmus 06/20/2021 Class 3 severe obesity with serious comorbidity and body mass index (BMI) of 50.0 to 59.9 in adult, unspecified obesity type 06/20/2021 Frequent UTI Urinary tract infection, site not specified 06/20/2021 Urinary incontinence, unspecified type 06/20/2021 Exacerbation of asthma, unspecified asthma severity, unspecified whether persistent 08/09/2021 Exacerbation of asthma, unspecified asthma severity, unspecified whether persistent 08/09/2021 Mild persistent asthma without complication Unspecified asthma 08/09/2021 Exacerbation of persistent asthma, unspecified asthma severity 11/07/2021 Endometrial cancer (HCC) Malignant neoplasm of corpus uteri, except isthmus 01/02/2022 BMI 50.0-59.9, adult (HCC) Body Mass Index 50.0-59.9, adult 01/02/2022 Mild persistent asthma without complication Unspecified asthma 05/30/2022 Liver disease Unspecified disorder of liver 09/15/2022 Skin tag of vulva Other specified noninflammatory disorder of vulva and perineum 10/30/2022 Vulvar lesion Other specified noninflammatory disorder of vulva and perineum 10/30/2022 Benign neoplasm of vulva 10/30/2022 Pain, unspecified 10/30/2022 Nocturia 11/20/2022 Urinary tract infection without hematuria, site unspecified 11/20/2022 Urge incontinence 11/20/2022 Encounter for screening mammogram for breast cancer 02/05/2023 Endometrial cancer (HCC) Malignant neoplasm of corpus uteri, except isthmus 02/06/2023 Abnormal uterine bleeding (AUB) 02/06/2023 Endometrial cancer (HCC) Malignant neoplasm of corpus uteri, except isthmus 02/20/2023 Endometrial cancer (HCC) Malignant neoplasm of corpus uteri, except isthmus 02/22/2023 Endometrial cancer (HCC) Malignant neoplasm of corpus uteri, except isthmus 08/07/2023 KARO (obstructive sleep apnea) Obstructive sleep apnea (adult) (pediatric) 08/07/2023 Mild persistent asthma without complication Unspecified asthma 08/07/2023 Annular tear Other and unspecified disc disorder of unspecified region 01/22/2024 Endometrial cancer (HCC) Malignant neoplasm of corpus uteri, except isthmus 02/05/2024 Genetic testing Other investigation and testing for procreative management 04/14/2024 Encounter for nonprocreative genetic counseling and testing 04/14/2024 Sensory hearing loss, bilateral 05/12/2024 Abnormal auditory perception of both ears 05/12/2024 Chronic respiratory failure with hypoxia (HCC) Chronic respiratory failure 05/26/2024 Morbid obesity (HCC) Morbid obesity 05/26/2024 Chronic respiratory failure with hypoxia (HCC) Chronic respiratory failure 08/28/2024 Chronic respiratory failure with hypoxia (HCC) Chronic respiratory failure 08/28/2024 BMI 50.0-59.9, adult (HCC) Body Mass Index 50.0-59.9, adult 10/27/2024 Class 3 severe obesity with serious comorbidity and body mass index (BMI) of 50.0 to 59.9 in adult 10/27/2024 KARO (obstructive sleep apnea) Obstructive sleep apnea (adult) (pediatric) 10/27/2024 Mild persistent asthma without complication Unspecified asthma 10/27/2024 Gastroesophageal reflux disease, unspecified whether esophagitis present 10/27/2024 Fatty liver Other chronic nonalcoholic liver disease 10/27/2024 Postmenopausal bleeding 01/28/2013 Abnormal uterine bleeding (AUB) 12/28/2015 Essential hypertension Unspecified essential hypertension 07/02/2016 Mild persistent asthma without complication Unspecified asthma 07/02/2016 KARO (obstructive sleep apnea) Obstructive sleep apnea (adult) (pediatric) 07/02/2016 Morbid obesity due to excess calories (HCC) 07/02/2016 Seasonal allergic rhinitis Allergic rhinitis, cause unspecified 07/02/2016 Reactive airway disease without complication 07/02/2016 Chronic respiratory failure with hypoxia (HCC) Chronic respiratory failure 07/02/2016 Fatty liver Other chronic nonalcoholic liver disease 07/02/2016 UTI (urinary tract infection) Urinary tract infection, site not specified 03/15/2020 Sepsis (HCC) 03/15/2020 Abnormal uterine bleeding (AUB) 03/15/2020 Essential hypertension Unspecified essential hypertension 03/15/2020 KARO (obstructive sleep apnea) Obstructive sleep apnea (adult) (pediatric) 03/15/2020 Anemia Anemia, unspecified 03/15/2020 Endometrial cancer (HCC) Malignant neoplasm of corpus uteri, except isthmus 05/02/2020 Uterine enlargement Hypertrophy of uterus 05/02/2020 Thickened endometrium Nonspecific (abnormal) findings on radiological and other examination of genitourinary organs 05/02/2020 BMI 50.0-59.9, adult (HCC) Body Mass Index 50.0-59.9, adult 05/02/2020 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) 05/02/2020 Postmenopausal bleeding 05/02/2020 KARO (obstructive sleep apnea) Obstructive sleep apnea (adult) (pediatric) 05/02/2020 Essential hypertension Unspecified essential hypertension 05/02/2020 Chronic respiratory failure with hypoxia (HCC) Chronic respiratory failure 05/02/2020 Vertigo Dizziness and giddiness 04/01/2021 BMI 50.0-59.9, adult (HCC) Body Mass Index 50.0-59.9, adult 04/01/2021 Essential hypertension Unspecified essential hypertension 04/01/2021 KARO (obstructive sleep apnea) Obstructive sleep apnea (adult) (pediatric) 04/01/2021 Hypothyroidism Unspecified hypothyroidism 04/01/2021 Goals Goal Patient Goal Type Associated Problems Recent Progress Patient-Stated? Author Blood Pressure < 140/90 Blood Pressure 100/60(2024 12:37 PM EDT) No Anabela Rodriguez, Clerical Staff Maintain a healthy diet, exercise regularly and maintain an ideal body weight General No Anabela Rodriguez, Clerical Staff Care Teams Certified Addiction Counselor Relationship Specialty Start Date End Date Noah Gonzales MD PCP - General 10/27/09 Desean Vickers DPM [address] [place] [phone] Casserole Preparer-Surgery, Foot & Ankle 08/13/16 Roel Posadas MD [address] [place] [phone] Consulting Physician Obstetrics & Gynecology-Gynecologic Oncology 03/29/20 Noah Calero MD [address] [place] [phone] Obstetrics & Gynecology 05/10/20
--- OUTSIDE RECORDS SUMMARY | 2024-11-04 10:46 | XMS_ITS | Clinical Summary ---
Author Organization [facility] Address [address] [place], [place] [address] Care Team Providers Care Professional Organizer Name Role Phone Noah Gonzales MD Primary Care Provider [phone] Social History Tobacco Use Types Packs/Day Years Used Date Smoking Tobacco: Never Assessed Comments Unknown Sex and Gender Information Value Date Recorded Sex Assigned at Not on file Legal Sex Female 7:07 PM EST Gender Identity Not on file Sexual Orientation Not on file Plan of Treatment Health Maintenance Due Date Last Done Comments Cologuard 1955 Colonoscopy 1955 Colorectal Cancer Screening 1955 FIT 1955 Lipid Screening 1972 Tetanus Vaccination (Every 10 Years) 1972 Hepatitis C Virus (HCV) Screening 11/13/1975 Pneumococcal Vaccine: 50+ Ye ars (1 of 1 - PCV) 2004 Zoster-RZV(Shingrix) (1 of 2) 2004 Fall Risk Assessment 11/13/2019 Osteoporosis Screening 11/13/2019 Breast Cancer Screening 03/31/2022 03/31/2020, 05/14 COVID-19 Vaccine ( season) 2024 Advance Care Planning 05/27/2024 Depression Screening 05/27/2024 Influenza Vaccination (Season Ended) 2025 RSV Vaccines (1 - 1-dose 75+ series) 2029 Procedures Procedure Name Priority Date/Time Associated Diagnosis Comments MAMM-SCREENING DIRECT DIGITAL Routine 05/14/2011 3:55 PM EST Other screening mammogram from Last 3 Months or Most Recently Relevant to Health Maintenance Results * MAMM-SCREENING DIRECT DIGITAL (05/14/2011 3:55 PM EST) Anatomical Region Laterality Modality Bilateral Mammography 05/18/2011 2:36 PM EST Impressions 05/18/2011 4:01 PM EST NEGATIVE MAMMOGRAPHY. /pac Narrative 05/18/2011 4:01 PM EST 05/14/11 FULL-FIELD DIGITAL SCREENING MAMMOGRAM: FINDINGS: Comparison with studies dating back to 10/06/03. There are scattered fibroglandular densities. I see no suspicious mass or architectural distortion. There are no suspicious calcifications. The study was reviewed with the R2 Imagechecker. Procedure Note Fidencio Reddy Jr., MD - 05/18/2011 05/14/11 FULL-FIELD DIGITAL SCREENING MAMMOGRAM: FINDINGS: Comparison with studies dating back to 10/06/03. There are scattered fibroglandular densities. I see no suspicious mass orarchitectural distortion. There are no suspicious calcifications. The study was reviewed with the R2 Imagechecker. IMPRESSION: NEGATIVE MAMMOGRAPHY. /pac us Rosalind Schwartz MD IMG MAMMO ORDERABLES Final R esult from Last 3 Months or Most Recently Relevant to Health Maintenance Insurance HUMANA MEDICARE HUMANA MEDICARE Care Teams Professional Organizer Relationship Specialty Start Date End Date Noah Gonzales MD PCP - General Family Medicine 05/10/11
== END 2024-11-02 23:59 | disposition home or self-care (01) ==
LOC: LAB.DROPOF 11-04 10:39
PROVIDERS: PCP Family Medicine; Visit Provider Family Medicine
DX: K76.0 Fatty (change of) liver, not elsewhere classified (principal); E03.9 Hypothyroidism, unspecified
CPT/HCPCS: 80053; 80061; 82607; 84436; 84443; 85025

== ENCOUNTER 2025-04-05 16:57 | Outpatient (CLI) | payer MEDICARE, SELFPAY ==
--- OUTSIDE RECORDS SUMMARY | 2025-02-24 12:30 | XMS_ITS | Encounter Summary ---
Author Organization [place] [address] Care Team Providers Care Medical Insurance Claims Specialist Name Role Phone Noah Gonzales MD Primary Care Provider Desean Vickers DPM Unavailable [phone] Roel Posadas MD Unavailable [phone] Noah Calero MD Unavailable Unavailable Reason for Visit * Reason Comments Follow-up Hx EMCA Encounter Details Date Type Department Care Team (Latest Contact Info) Description 02/24/2025 1:30 PM EDT - 02/24/2025 11:59 PM EDT Hospital Encounter [facility] [place] [address] Greg Swanson, NEWSPAPER DELIVERY COUNSELOR [address] [place] [address] Endometrial cancer (HCC) (Primary Dx); Essential hypertension; Mild persistent asthma without complication; Seasonal allergic rhinitis, unspecified trigger Discharge Disposition: Home or Self Care Social History Tobacco Use Types Packs/Day Years Used Date Smoking Tobacco: Never Smokeless Tobacco: Never Tobacco Cessation:Counseling Given: Not Answered Alcohol Use Standard Drinks/Week Comments No 0 (1 standard drink = 0.6 oz pur e alcohol) PHQ-2 Answer Date Recorded PHQ-2 Total Score 1 02/24/2025 Sexually Active Control Partners Comments Not Currently Comments No Sex and Gender Information Value Date Recorded Sex Assigned at Not on file Legal Sex Female 8:44 PM EDT Gender Identity Not on file Sexual Orientation Not on file documented as of this encounter Last Filed Vital Signs Vital Sign Reading Time Taken Comments Blood Pressure 142/80 02/24/2025 2:06 PM EDT Pulse 71 02/24/2025 2:06 PM EDT Temperature 36.5 C (97.7 F) 02/24/2025 2:06 PM EDT Respiratory Rate 16 02/24/2025 2:06 PM EDT Oxygen Saturation 96% 02/24/2025 2:06 PM EDT Inhaled Oxygen Concentration - - Weight 149.6 kg (329 lb 14.4 oz) 02/24/2025 2:06 PM EDT Height - - Body Mass Index 55.32 10/27/2024 12:37 PM EDT documented in this [...] 05/04/2020 10:40 AM Donald Pagan RN * PHQ-9 Total Score Answer Date of Assessment Author 1 02/24/2025 2:03 PM EDT Pavithra Kang RN * Question Answer Date of Assessment Author Little interest or pleasure in doing things 0 02/24/2025 2:03 PM Smooth Escalona RN Feeling down, depressed, or hopeless 1 02/24/2025 2:03 PM EDT Smooth Kang RN PHQ-2 Total Score 1 02/24/2025 2:03 PM EDT Pavithra Kang RN * PHQ-2 Total Score Answer Date of Assessment Author 1 02/24/2025 2:03 PM Pavithra Escalona RN * Suicide Severity Rating Answer Date of Assessment Author No Risk 02/24/2025 1:00 PM Pavithra Escalona RN * [place] Suicide Severity Rating Scale (Q shift for moderate and high) Question Answer Date of Assessment Author 1. In the past month, have you wished you were or wished you could go to sleep and not wake up? 0 02/24/2025 1:00 PM Smooth Escalona RN 2. In the past month, have you actually had any thoughts of killing yourself? (If no, skip to question 6) 0 02/24/2025 1:00 PM Smooth Escalona RN 6. Have you ever done anything, started to do anything, or prepared to do anything to end your life? 0 02/24/2025 1:00 PM Pavithra Escalona RN documented as of this encounter Mental Status * Because of a physical, mental or emotional condition, does this person have serious difficulty concentrating, remembering or making decisions? Answer Entry Date Author No 05/04/2020 10:40 AM Donald Pagan RN documented in this encounter Medications at Time of Discharge acetaminophen (TYLENOL) 500 mg Oral Tablet Take 1,000 mg by mouth every 6 hours as needed (arthiritis pain). albuterol (PROVENTIL HFA;VENTOLIN HFA) 90 mcg/actuation Inhl HFA Aerosol Inhaler Inhale 2 Puffs into the lungs every 6 hours as needed for Wheezing. 1 Inhaler 03/18/2020 albuterol (PROVENTIL) 2.5 mg /3 mL (0.083 %) Inhl Solution for Nebulization Take 3 mL by nebulization daily as needed for Wheezing or Shortness of Breath. 1 box 03/18/2020 albuterol-budeson maritza (AIRSUPRA) 90-80 mcg/actuation Inhl HFA Aerosol Inhaler Inhale 2 Puffs into the lungs 4 times daily as needed. 17 g 3 10/27/2024 benazepriL (LOTENSIN) 5 mg Oral Tablet Take 5 mg by mouth daily. cetirizine (ZYRTEC) 5 mg Oral Tablet Take 5 mg by mouth daily. chlordiazePOXIDE (LIBRIUM) 10 mg Oral Capsule Take by mouth 2 times daily as needed. for anxiety 03/04/2024 chlordiazePOXIDE (LIBRIUM) 5 mg capsule Take 5 mg by mouth 3 times daily as needed (for anxiety attacks). ergocalciferol (DRISDOL) 1,250 mcg (50,000 unit) Oral Capsule Take 50,000 Units by mouth once a week. Takes on Saturday fluconazole (DIFLUCAN) 100 mg Oral Tablet Take 100 mg by mouth daily. 03/17/2024 fUROsemide (LASIX) 40 mg tablet Take 40 mg by mouth daily. HYDROmorphone (DILAUDID) 2 mg Oral Tablet take 1 tablet by mouth once daily as needed for pain 07/17/2023 LEVOthyroxine (SYNTHROID) 75 mcg Oral Tablet Take 1 Tab by mouth daily. 11/03/2019 meclizine (ANTIVERT) 25 mg Oral Tablet, Chewable CHEW 1 TABLET BY MOUTH THREE (3) TIMES DAILY NEEDED FOR DIZZINESS 04/20/2024 MICONAZORB AF 2 % Top Powder APPLY ONE (1) APPLICATION TOPICALLY TWICE DAILY 03/17/2024 omeprazole (PRILOSEC) 20 mg Take 20 mg by mouth every morning (before breakfast). Patient states the only omeprazole that works are white capsules. Patient has switched pharmacies to obtain this medical claims specialist ([place]) ondansetron (ZOFRAN) 4 mg/2 mL Inj Solution Inject 2 mL into the vein every 6 hours as needed for Nausea. 28 Each 04/02/2021 documented as of this encounter Discharge Disposition Disposition Code Departure Means Destination Home or Self Care documented in this encounter Progress Notes * Greg Swanson, NEWSPAPER DELIVERY COUNSELOR - 02/24/2025 1:30 PM EDT Images from the original note were not included. [facility] [place] [id number] GYNECOLOGIC ONCOLOGY SURVEILLANCE NOTE Patient: Pavithra Power CSN: [id number] Date of : 1955 Age: 69 y.o. Date of Service: 02/24/2025 Chief complaint: Follow-up Visit Assessment/Plan: Endometrial cancer (HCC) S/P Robotic TLH/BSO/SLNDB with mini-laparotomy 05/02/2020 ([place]); Endometrial cancer, endometrioid, Stage 1AG2. Jannet presents today for annual surveillance visit. She denies abdominal pain/bloating, vaginal drainage/bleeding, pelvic pressure/pain, change in bowel/bladder, early satiety. Pelvic exam today WAQAS. Reviewed si/sy recurrence to report to provider. CT 01/2023 with no evidence of recurrent disease. High resolution chest CT with no interstitial fibrosis or acute cardiopulmonary process. Jannet is officially five years post surgery 03/2025. She would like this visit to be her final f/u with [facility]. She is aware she can contact our office at any time should she experience concerning si/sy. Offered an additional annual f/u but she refuses. Will schedule f/u if she feels this is warranted. Persistent UTI Last UTI over one year ago. Fosfamcyin used at that time x2 consecutive doses. Dr. Buitrago ordering physician. Continues to follow with urology. Essential hypertension BP in office today 142/80. Continues to follow with PCP. Benazepril at home daily. Mild persistent asthma without complication/Seasonal allergic rhinitis, unspecified trigger Follows with Dr. Varner. Does have some scattered wheezing on exam today. Has home rescue inhaler aswell as nebulizer treatments. O2 sat 96% on room air. Breathing is much improved over the last few days. History of present illness: Oncology History Endometrial cancer (HCC) 03/31/2020 Initial Diagnosis Endometrial cancer, endometrioid, Stage IAG2 05/02/2020 Surgery Robotic TLH/BSO/SLNDB with mini-laparotomy for specimen delivery (Dr Posadas). - 05/02/2020 Pathology Endometrial adenocarcinoma, endometrioid, grade 2. Tumor size cannot be determined: changes span 5.3cm anterior and 2.5cm posterior wall. No RI, cervical involvement or LVSI. Nodes negative (PV: 0/2). - 06/03/2020 Tumor Board Recommendation NFT Subjective: She reports shortness of breath, chronic back pain, BLE swelling.Long-standing h/o asthma. SOB and dyspnea is much improved. Continues to utilize rescue inhaler as well as nebulizer at home as needed. Has not had a UTI in over one year. Dr. Buitrago prescribed two consecutive doses of fosfamycin. Continues to follow with urology. Wears compression hose daily to control BLE edema. Recently lost her grand daughter and has struggled mentally. She has found great comfort from her sabianist and her otherfamily members. She denies nausea, vomiting, diarrhea, dysuria, fever, abdominal/pelvic pain, vaginal bleeding, skin rash, chest pain. Past Medical History[1] Surgical History[2] OB History Para Term AB Living 3 2 2 1 SAB IAB Ectopic Multiple Live Births 1 # Outcome Date GA Lbr [place]/2nd Weight Sex Type Anes PTL Lv 3 SAB 2 Term Vag-Spont 1 Term Vag-Spont Social History[3] Family History[4] Medications ordered prior to the current encounter[5] Allergies[6] Review of Systems Constitutional: Positive for malaise/fatigue (lost grand daughter 2 months ago and this has alteredher sleep pattern). Negative for chills, fever and weight loss. Respiratory: Positive for cough (occasional; baseline) and shortness of breath (with over exertion). Cardiovascular: Positive for leg swelling. Negative for chest pain and palpitations. Gastrointestinal: Negative for abdominal pain, diarrhea, heartburn, nausea and vomiting. Genitourinary: Negative for dysuria, frequency, hematuria and urgency. Excited to report she has not had a UTI in over one year. Follows with Dr. Buitrago. Musculoskeletal: Positive for back pain and joint pain. Negative for falls. Utilizes scooter for ambulation d/t joint, back pain. Skin: Negative for itching and rash. Psychiatric/Behavioral: Negative. Allergies Reviewed - 02/24/25 Greg Retana APRN Medications Reviewed - 02/24/25 Greg Retana APRN Problem List Reviewed - 02/24/25 Greg Retana APRN Medical History Reviewed - 02/24/25 Greg Retana, FRED Objective: Vitals: 02/24/25 1406 BP: 142/80 BP Location: Right arm Patient Position: Sitting Pulse: 71 Resp: 16 Temp: 97.7 ??F (36.5 ??C) TempSrc: Forehead SpO2: 96% Weight: (!) 329 lb 14.4 oz (149.6 kg) Estimated body mass index is 55.32 kg/m?? as calculated from the following: Height as of 10/27/24: 5' 4.75 (1.645 m). Weight as of this encounter: 329 lb 14.4 oz (149.6 kg). ECO Physical Exam Vitals and nursing note reviewed. Exam conducted with a breakdown mill operator present. Constitutional: General: She is not in acute distress. Appearance: Normal appearance. She is not ill-appearing or toxic-appearing. HENT: Head: Normocephalic. Mouth/Throat: Mouth: Mucous membranes are moist. Eyes: General: No scleral icterus. Conjunctiva/sclera: Conjunctivae normal. Cardiovascular: Rate and Rhythm: Normal rate and regular rhythm. Pulmonary: Effort: Pulmonary effort is normal. Breath sounds: Wheezing (scattered wheezing (asthma; has inhaler)) present. Abdominal: General: There is no distension. Tenderness: There is no abdominal tenderness. Hernia: No hernia is present. Comments: Abdomen with firmness noted to epigastric region and then along suprapubic bone. This is NOT unusual for her. Genitourinary: Vagina: No vaginal discharge. Comments: Pelvic examination performed with female breakdown mill operator present, Akilah Kang RN. EGBUS, anus, and perineum are unremarkable. On SE, the vagina is grossly normal. The cervix is surgically absent. No vaginal bleeding, discharge, no lesions. Exam Body habitus does make exam VERY difficult. OnBME, the vaginal tissue is smooth and without fullness or masses. No pelvic mass appreciated. RV exam is deferred at patient request. Musculoskeletal: Cervical back: Normal range of motion and neck supple. No rigidity or tenderness. Right lower leg: Edema present. Left lower leg: Edema present. Skin: General: Skin is warm and dry. Comments: Has multiple small, darkened areas over skin, even into labia. These are not unusual for her. States her PCP did biopsy these and they are benign. Neurological: General: No focal deficit present. Mental Status: She is alert and oriented to person, place, and time. Psychiatric: Mood and Affect: Mood normal. Behavior: Behavior normal. Results: Labs: Ca 125 (unit/mL) Date Value 04/28/2020 19.7 Imaging: No results found. Exam was performed by NEWSPAPER DELIVERY COUNSELOR. Case was discussed in detail with Dr. Reece who is in agreement with plan and assessment of care. Greg Swanson, NEWSPAPER DELIVERY COUNSELOR Gynecologic Oncology 02/24/2025 [1] Past Medical History: Diagnosis Date Anemia related to UTILITY AGENT bleeding Arthritis all over Asthma Cancer (HCC) skin ( squamous cell ), endometrial cancer now Chronic back pain 01/28/2013 ripped s1 nerve during D&C Chronic kidney disease stones SCOTT (dyspnea on exertion) Fibromyalgia 01/28/2013 Heartburn Hiatal hernia Hypertension Irritable bowel syndrome Liver disease fatty Motion sickness Neuromuscular disorder (HCC) Fibromyalgia Postmenopausal 01/28/2013 states postmenopausal for at least 4 years. Postoperative nausea and vomiting Sleep apnea c pap Ulcer 2005 Urinary incontinence Urinary tract infection 10/2015 frequent. Cuirrently on Doxycycline, treated by Dr. Buitrago [2] Past Surgical History: Procedure Laterality Date BLADDER SURGERY cysto x2 CHOLECYSTECTOMY 1990 COLONOSCOPY COLONOSCOPY N/A 12/02/2020 Colonoscopy with polypectomies via hot snare; Surgeon: Tin Pryor MD; Location: [facility]; Service: Endoscopy DILATION AND CURETTAGE OF UTERUS DILATION AND CURETTAGE OF UTERUS N/A 01/28/2013 FRACTIONAL DILATION & CURETTAGE HYSTEROSCOPY ; Surgeon: Noah Calero MD; Location: [facility]; Service: Gynecology EYE SURGERY Right 01/28/13 laser 2004 for histoplamosis. HAND SURGERY Right 01/28/13 carpal tunnel release right hand. HYSTERECTOMY Bilateral 05/02/2020 total robotic hysterectomy, bilateral salpingo-oophorectomy for uterus > 250gm, sentinel bilateral pelvic lymph node dissection; Surgeon: Roel Posadas MD; Location: [facility]; Service: Robotics HYSTEROSCOPY N/A 12/28/2015 FRACTIONAL DILATION AND CURETTAGE,HYSTEROSCOPY; Surgeon: Noah Calero MD; Location: [facility]; Service: Gynecology UPPER GASTROINTESTINAL ENDOSCOPY UPPER GASTROINTESTINAL ENDOSCOPY N/A 12/02/2020 Esophagogastroduodenoscopy with biopsies; Surgeon: Tin Pryor MD; Location: [facility]; Service: Endoscopy [3] Social History Socioeconomic History Marital status: Spouse name: None Number of children: None Years of education: None Highest education level: None Tobacco Use Smoking status: Never Smokeless tobacco: Never Vaping Use Vaping status: Never Used Substance and Sexual Activity Alcohol use: No Drug use: No Sexual activity: Not Currently [4] Family History Problem Relation Age of Onset High Blood Pressure Mother Diabetes Mother Heart Disease Mother Cancer Mother skin cancer Substance Abuse Father Anesth Problems Neg Hx [5] Current Outpatient Medications on File Prior to Encounter Medication Sig Dispense Refill acetaminophen (TYLENOL) 500 mg Oral Tablet Take 1,000 mg by mouth every 6 hours as needed (arthiritis pain). albuterol (PROVENTIL HFA;VENTOLIN HFA) 90 mcg/actuation Inhl HFA Aerosol Inhaler Inhale 2 Puffs into the lungs every 6 hours as needed for Wheezing. 1 Inhaler 0 benazepriL (LOTENSIN) 5 mg Oral Tablet Take 5 mg by mouth daily. cetirizine (ZYRTEC) 5 mg Oral Tablet Take 5 mg by mouth daily. chlordiazePOXIDE (LIBRIUM) 10 mg Oral Capsule Take by mouth 2 times daily as needed. for anxiety chlordiazePOXIDE (LIBRIUM) 5 mg capsule Take 5 mg by mouth 3 times daily as needed (for anxiety attacks). ergocalciferol (DRISDOL) 1,250 mcg (50,000 unit) Oral [...] APPLY ONE (1) APPLICATION TOPICALLY TWICE DAILY omeprazole (PRILOSEC) 20 mg Take 20 mg by mouth every morning (before breakfast). Patient states the only omeprazole that works are white capsules. Patient has switched pharmacies to obtain this medical claims specialist ([place]) albuterol (PROVENTIL) 2.5 mg /3 mL (0.083 %) Inhl Solution for Nebulization Take 3 mL by nebulization daily as needed for Wheezing or Shortness of Breath. 1 box 0 albuterol-budesonide (AIRSUPRA) 90-80 mcg/actuation Inhl HFA Aerosol Inhaler Inhale 2 Puffs into the lungs 4 times daily as needed. (Patient not taking: Reported on 02/24/2025) 17 g 3 ondansetron (ZOFRAN) 4 mg/2 mL Inj Solution Inject 2 mL into the vein every 6 hours as needed for Nausea. (Patient not taking: Reported on 02/24/2025) 28 Each 0 No current facility-administered medications on file prior to encounter. [6] Allergies Allergen Reactions Codeine Other (See Comments) [...] Other (See Comments) Hydrocodone Other (See Comments) Invanz [Ertapenem] Other (See Comments) hallucinations Levaquin [Levofloxacin] Other (See Comments) Unsure of reaction. Macrobid [Nitrofurantoin Monohyd/M-Cryst] Nausea And Vomiting Very lethargic Macrolide Antibiotics Hives Meclizine Other (See Comments) Methylprednisolone Other (See Comments) Mold Other (See Comments) Mylanta-Ii Other (See Comments) Niacin Rash Oxycodone Hives and Swelling Pork/Porcine Containing Products Nausea And Vomiting Propoxyphene Other (See Comments) [place] Nausea And Vomiting Trimethoprim Other (See Comments) [...] On omeprazole 20 mg Wheat Bran Hives documented in this encounter Plan of Treatment Upcoming Encounters Date Type Department Care Team (Late st Contact Info) Description 05/03/2026 2:10 PM EST Office Visit [facility] [address] [place] [address] Mina Mac MD [address] [facility] [address] [place] [address] documented as of this encounter Goals Goal Patient Goal Type Associated Problems Recent Progress Patient-Stated? Author Blood Pressure < 140/90 Blood Pressure 142/80(2024 2:06 PM EDT) Anabela Salazar, Clerical Staff Maintain a healthy diet, exercise regularly and maintain an ideal body weight General Anabela Salazar, Clerical Staff documented as of this encounter Visit Diagnoses Diagnosis Endometrial cancer (HCC)- Primary Malignant neoplasm of corpus uteri, except isthmus Essential hypertension Unspecified essential hypertension Mild persistent asthma without complication Unspecified asthma Seasonal allergic rhinitis, unspecified trigger documented in this encounter Discontinued Medications Medication Sig Discontinue Reason Start Date End Da te Cholecalciferol, Vitamin D3, 125 mcg (5,000 unit) Oral Capsule 125 mcg. DELETE-Therapy completed 11/25/2023 02/24/2025 nitrofurantoin, macrocrystal-monohydra te, (MACROBID) 100 mg Oral Capsule TAKE 1 CAPSULE BY MOUTH TWICE DAILY FOR 12 DAYS DELETE-Therapy completed 07/19/2023 02/24/2025 documented as of this encounter Additional Health Concerns Assessment Noted Time PHQ-9 Depression Total Score: 1 02/25/20 25 2:03 PM EDT PHQ-2 Depression Total Score: 1 02/25/20 25 2:03 PM EDT documented as of this encounter Care Teams Medical Insurance Claims Specialist Relationship Specialty Start Date End Date Noah Gonzales MD PCP - General 10/27/09 Desean Vickers DPM [address] [place] [phone] Baby Formula Worker-Surgery, Foot & Ankle 08/13/16 Roel Posadas MD [address] [place] [phone] Consulting Physician Obstetrics & Gynecology-Gynecologic Oncology 03/29/20 Noah Calero MD [address] [place] [address] Obstetrics & Gynecology 05/10/20 documented as of this encounter
--- OUTSIDE RECORDS SUMMARY | 2025-04-06 17:00 | XMS_ITS | Clinical Summary ---
Author Organization [facility] Address [address] [place], [place] [address] Care Team Providers Care Studio Manager Name Role Phone Noah Gonzales MD Primary Care Provider [phone] Social History Tobacco Use Types Packs/Day Years [...] 11/13/2019 Breast Cancer Screening 03/31/2022 03/31/2020, 05/14 Advance Care Planning 05/27/2024 Depression Screening 05/27/2024 COVID-19 Vaccine (2024- season) 2025 Influenza Vaccination (#1) 2025 RSV Vaccines (1 - 1-dose 75+ [...] Insurance HUMANA MEDICARE HUMANA MEDICARE Care Teams Studio Manager Relationship Specialty Start Date End Date Noah Gonzales MD PCP - General Family Medicine 05/10/11
--- OUTSIDE RECORDS SUMMARY | 2025-04-06 17:00 | XMS_ITS | Clinical Summary ---
Author Organization [facility] Address [address] [place] [id number] Care Team Providers Care Program Manager Slp Name Role Phone Unavailable Primary Care Provider [...] therelease of HIV test results or diagnoses. [id number] Social History Tobacco Use Types Packs/Day Years Used Date Smoking Tobacco: Never Assessed Comments Unknown Sex and Gender Information Value Date Recorded Sex Assigned at Not on file Legal Sex Female 9:29 PM EST Gender Identity Not on file Sexual Orientation Not on file Plan of Treatment Not on file
--- OUTSIDE RECORDS SUMMARY | 2025-04-06 17:00 | XMS_ITS | Encounter Summary ---
Author Organization [place] [address] Care Team Providers Care [employer] Name Role Phone Noah Gonzales MD Primary Care Provider [phone] Desean Vickers DPM Unavailable [phone] Roel Posadas MD Unavailable [phone] Noah Calreo MD Unavailable Unavailable Encounter Details Date Type Department Care Team (Late st Contact Info) Description 05/02/2020 Orders Only [facility] [place] [address] Marilyn Shoemaker MD Social History Tobacco Use Types Packs/Day Years [...] serious difficulty hearing? No 05/04/2020 10:40 AM Stephanie Klein RN Is the person blind or does [...] Description 05/03/2026 2:10 PM EST Office Visit [facility] [address] [address] Mina Mac MD [address] [facility] [address] [place] [address] documented as of this encounter [...] MLH1 in formalin-fixed paraffin-embedded tissue sections. A polymerTrackerSphere based system was used for detection. MLH1 (Disclaimer) = MMR references ranges are based on [employer]` internal validation, and we recommend cases with equivocal staining be confirmed with microsatellite instability (MSI) testing. MLH1 (Control Statement) = The digitized slide(s) was/were adequate for quantitative image analysis. All controls were reviewed and showed appropriate positive and negative immunoreactivity. MLH1 (Image Analysis Statement) = Whole slide image capture was performed with the [employer] ScanScope and quantitative computer-assisted image analysis using [employer] software. MSH2 (Intended Use) = Mismatch repair [...] MSH2 in formalin-fixed paraffin-embedded tissue sections. A polymerTrackerSphere based system was used for detection. MSH6 [...] MSH6 in formalin-fixed paraffin-embedded tissue sections. A polymerTrackerSphere based system was used for detection. PMS2 [...] PMS2 in formalin-fixed paraffin-embedded tissue sections. A [employer] based system was used for detection. [facility] 05/02/2020 10:4 1 AM EST Narrative [facility] - 05/10/2020 10:23 AM EST Requesting Provider: Roel Grimes Specimen = [id number] us Marilyn Shoemaker MD PATHOLOGY ORDERABLES Final Res ult [facility] [address] [place] [address] documented in this encounter Visit Diagnoses Not on filedocumented in this encounter Care Teams Oil [employer] Relationship Specialty Start Date End Date Noah Gonzales MD PCP - General 10/27/09 Desean Vickers DPM [id number] [address] Regional Facilities Specialist-Surgery, Foot & Ankle 08/13/16 Roel Posadas MD [address] [place] [address] Consulting Physician Obstetrics & Gynecology-Gynecologic Oncology 03/29/20 Noah Calero MD [address] [place] [address] Obstetrics & Gynecology 05/10/20 documented as of this encounter
--- OUTSIDE RECORDS SUMMARY | 2025-04-06 17:00 | XMS_ITS | Continuity of Care Document ---
Author Organization [facility] Address [address] [place] [address] Phone Care Team Providers Care Irrigation District Manager Name Role Phone Noah Gonzales MD Primary Care Provider [phone] Desean Vickers DPM Unavailable [phone] Roel Posadas MD Unavailable [phone] Noah Calero MD Unavailable Unavailable Encounters Date Type Department Care Team Description 5 1:30 PM EDT - 5 11:59 PM EDT Hospital Encounter [facility] [place] [phone] Greg Swanson, LIBRARY CIRCULATION ASSISTANT Endometrial cancer (HCC) (Primary Dx); Essential hypertension; Mild persistent asthma without complication; Seasonal allergic rhinitis, unspecified trigger Discharge Disposition: Home or Self Care 5 [facility]phone [facility] [place] [address] Greg Swanson, LIBRARY CIRCULATION ASSISTANT Information Only (Reschedule appointment with Greg Swanson) 5 12:30 PM EDT Office Visit [facility] [address] [phone] Singh Varner MD KARO (obstructive sleep apnea) (Primary Dx); BMI 50.0-59.9, adult (HCC); Class 3 severe obesity with serious comorbidity and body mass index (BMI) of 50.0 to 59.9 in adult; Mild persistent asthma without complication; Gastroesophageal reflux disease, unspecified whether esophagitis present; Fatty liver 5 Results Follow-Up [facility] Pulmonology [address] [phone] CHEST HIGH RESOLUTION WO CONTRAST 5 10:54 AM EDT - 5 11:59 PM EDT Hospital Encounter [facility] [address] [place] [phone] Yuko Toro APRN Chronic respiratory failure with hypoxia (HCC) Discharge Disposition: Home or Self Care 5 10:21 AM EDT - 5 10:53 AM EDT Hospital Encounter [facility] [place] [address] Yuko Toro APRN Chronic respiratory failure with hypoxia (HCC) Discharge Disposition: Home or Self Care 5 Telephone [facility] Pulmonology [address] [phone] Yuko Toro APRN Other 4 11:00 AM EST Office Visit [facility] Pulmonology [address] [phone] Yuko Toro APRN Chronic respiratory failure with hypoxia (HCC) (Primary Dx); Morbid obesity (HCC) 4 1:30 PM EST Office Visit [facility] [address] [place] [address] Mina Mac MD Sensory hearing loss, bilateral (Primary Dx); Abnormal auditory perception of both ears 4 Telephone [facility] [address] [place] [address] Gia Baker CGC Results ([facility]ae genetic test results) 4 2:30 PM EST - 4 11:59 PM EST Hospital Encounter [facility] [address] [place] [address] Courtney Hinds MA Genetic testing (Primary Dx) Discharge Disposition: Home or Self Care 4 1:34 PM EST - 4 2:29 PM EST Hospital Encounter [facility] [address] [place] [address] Gia Baker, [facility] Encounter for nonprocreative genetic counseling and testing (Primary Dx) Discharge Disposition: Home or Self Care 4 Telephone [facility] [address] [place] [address] Renay Trimble, Clerical Staff Other (Familial Results) 4 1:54 PM EDT - 4 11:59 PM EDT Hospital Encounter [facility] [place] [address] Greg Swanson, LIBRARY CIRCULATION ASSISTANT Endometrial cancer (HCC) (Primary Dx) Discharge Disposition: Home or Self Care 4 3:38 PM EDT - 4 11:59 [place] [address] Noah Gonzales MD Annular tear Discharge Disposition: Home or Self Care 4 Telephone [facility] [place] [address] Greg Swanson, LIBRARY CIRCULATION ASSISTANT Information Only (02/05/24) 4 2:45 PM EDT Office Visit [facility] Pulmonology [facility] [address] [phone] Singh Varner MD Mild persistent asthma without complication (Primary Dx); Endometrial cancer (HCC); KARO (obstructive sleep apnea) 3 Telephone [place] [address] [place] [phone] Sara Schulte RN Appointment Needed 3 2:00 PM EDT - 3 11:59 PM EDT Hospital Encounter [facility] [place] [phone] Greg Swanson, FRED Endometrial cancer (HCC) (Primary Dx) Discharge Disposition: Home or Self Care 3 11:45 AM EDT - 3 11:59 PM EDT Hospital Encounter [address] [place] [phone] Greg Swanson, FERD Endometrial cancer (HCC) Discharge Disposition: Home or Self Care 3 Telephone [facility] [address] [place] [phone] Sara Schulte RN Results 3 1:50 PM EDT - 3 11:59 PM EDT Hospital Encounter [facility] [place] [address] Greg Swanson, FRED Endometrial cancer (HCC) (Primary Dx); Abnormal uterine bleeding (AUB) Discharge Disposition: Home or Self Care 3 1:46 PM EDT - 3 11:59 PM EDT Hospital Encounter [facility] Mammography [address] [place] [address] Noah Calero MD Encounter for screening mammogram for breast cancer Discharge Disposition: Home or Self Care 3 Telephone [facility] [place] [address] Fatou Trimble APRN Information Only (GYNONC Schedulers) 3 Telephone [facility] [place] [address] Elly Steve CPhT 3 Telephone [facility] [place] [address] Roel Posadas MD Reschedule (reschedule today's appt. to 01/09 if possible) 3 Telephone [facility] [address] [place] [phone] Noah Calero MD No Show 3 Travel 3 1:52 PM EDT - 3 11:59 PM EDT Hospital Encounter [facility] [place], [place] [phone] Lalo Inman APRN Nocturia; Urinary tract infection without hematuria, site unspecified; Urge incontinence Discharge Disposition: Home or Self Care 3 Telephone [facility] [address] [place] [phone] Diana Smith MA Other (RX not sent in ? ) 3 2:00 PM EDT Office Visit [facility] NPTFTT [address] [place] [phone] Noah Calero MD Skin tag of vulva (Primary Dx); Vulvar lesion; Benign neoplasm of vulva; Pain, unspecified 3 Travel 3 2:00 PM EDT - 3 11:59 PM EDT Hospital Encounter [facility] [place] [facility] [address] [place] [address] Noah Gonzales MD Liver disease Discharge Disposition: Home or Self Care 3 1:00 PM EST Office Visit [facility] [address] [phone] Yuko Toro APRN Mild persistent asthma without complication (Primary Dx) 2 Travel 2 3:00 PM EDT - 2 11:59 PM EDT Hospital Encounter [facility] [place], [place] [phone] Roel Posadas MD Endometrial cancer (HCC) (Primary Dx); BMI 50.0-59.9, adult (HCC) Discharge Disposition: Home or Self Care 2 1:00 PM EDT Office Visit [facility] [address] [phone] Yuko Toro APRN Exacerbation of persistent asthma, unspecified asthma severity (Primary Dx) 2 Travel 2 1:45 PM EDT - 2 11:59 PM EDT Hospital Encounter [facility] D-WING X[facility] [place] [phone] Exacerbation of asthma, unspecified asthma severity, unspecified whether persistent Discharge Disposition: Home or Self Care 2 Telephone [facility] [address] [place] [phone] Yuko Toro APRN Other 2 1:00 PM EDT Office Visit [facility] [address] [phone] Yuko Toro APRN Exacerbation of asthma, unspecified asthma severity, unspecified whether persistent (Primary Dx); Mild persistent asthma without complication 2 Travel 2 2:30 PM EST - 2 11:59 PM EST Hospital Encounter [facility] [place] [address] Ariadna Piper, LIBRARY CIRCULATION ASSISTANT Endometrial cancer (HCC) (Primary Dx); Class 3 severe obesity with serious comorbidity and body mass index (BMI) of 50.0 to 59.9 in adult, unspecified obesity type (HCC); Frequent UTI; Urinary incontinence, unspecified type Discharge Disposition: Home or Self Care 1 Travel 1 1:20 PM EST Office Visit [facility] [address] [place] [phone] Yuko Toro APRN Mild persistent asthma without complication (Primary Dx) 1 [facility] [address] [place] [phone] Angle Mart MD Medication Refill 1 Plan of Care Documentation [facility] Physical Therapy [address] [place] [address] 1 Travel 1 3:00 PM EST - 1 11:59 PM EST Hospital Encounter [facility] Physical Therapy [place] [address] [address] Blaine Rivera PT Vertigo Discharge Disposition: Home or Self Care 1 Travel 1 10:16 AM EST - 1 11:02 AM EST Hospital Encounter [facility] [place] [address] Mild persistent asthma witho ut complication; Chronic respiratory failure with hypoxia (HCC); Reactive airway disease without complication, unspecified asthma severity, unspecified whether persistent; SCOTT (dyspnea on exertion); SOB (shortness of breath) Discharge Disposition: Home or Self Care 1 11:03 AM EST - 1 11:59 PM EST Hospital Encounter [facility] [place] [address] Singh Varner MD Mild persistent asthma without complication; Chronic respiratory failure with hypoxia (HCC); Reactive airway disease without complication, unspecified asthma severity, unspecified whether persistent; SCOTT (dyspnea on exertion); SOB (shortness of breath) Discharge Disposition: Home or Self Care 1 10:13 AM EST - 1 10:15 AM EST Hospital Encounter [facility] [place] [address] Singh Varner MD Mild persistent asthma without complication; Chronic respiratory failure with hypoxia (HCC); Reactive airway disease without complication, unspecified asthma severity, unspecified whether persistent; SCOTT (dyspnea on exertion); SOB (shortness of breath) Discharge Disposition: Home or Self Care 1 Travel 1 11:00 AM EST Office Visit [facility] Pulmonology [facility] [address] [place] [phone] Singh Varner MD SCOTT (dyspnea on exertion) (Primary Dx); Mild persistent asthma without complication; Chronic respiratory failure with hypoxia (HCC); KARO (obstructive sleep apnea); Reactive airway disease without complication, unspecified asthma severity, unspecified whether persistent; SOB (shortness of breath) [address] [phone] Angle Mart MD Medication Problem 1 6:44 AM EDT - 1 6:21 PM EST Hospital Encounter [facility] 6C NEURO [facility] [phone] Charo Vásquez MD Bentley, Shannon, MD Vertigo (Primary Dx) Discharge Disposition: Home or Self Care 1 Travel 1 3:09 PM EDT - 1 11:59 PM EDT Hospital Encounter [facility] [place] [address] Noah Gonzales MD Right upper quadrant abdominal swelling, mass and lump; Right upper quadrant pain; Personal history of malignant neoplasm of other parts of uterus Discharge Disposition: Home or Self Care 1 Travel 1 2:29 PM EDT - 1 11:59 PM EDT Hospital Encounter [facility] [place] [address] Fatou Trimble, FRED Endometrial cancer (HCC) (Primary Dx) Discharge Disposition: Home or Self Care 1 Travel 1 2:30 PM EDT - 1 11:59 PM EDT Hospital Encounter [facility] D-WING XRAY [facility] [place] [address] Calculus of kidney; Urinary tract infection without hematuria, site unspecified Discharge Disposition: Home or Self Care 1 Travel 1 2:00 PM EDT - 1 2:45 PM EDT Surgery [facility] ENDOSCOPY [facility] [place] [address] Tin Pryor MD ESOPHAGOGASTRODUODENOSCOPY (ANESTHESIA) 1 2:15 PM EDT Anesthesia Event [facility] ENDOSCOPY [facility] [place] [address] Lacy Jimenez MD Collins, Angela, APRN 1 12:43 PM EDT - 1 4:48 PM EDT Hospital Encounter [facility] ENDOSCOPY [facility] [address] [place] [address] Tin Pryor MD Personal history of colonic polyps; Gastroesophageal reflux disease, unspecified whether esophagitis present; Personal history of colonic polyps Discharge Disposition: Home or Self Care 1 Travel 1 1:44 PM EDT - 1 11:59 PM EDT Hospital Encounter [facility] [address] [place] [address] Covid19, [facility] Pre-op testing; Encounter for laboratory testing for COVID-19 virus Discharge Disposition: Home or Self Care 1 Travel 1 Orders Only MD Adult Med [address] [place] [address] Dr [place] [address] Tin Pryor MD Gastroesophageal reflux disease, unspecified whether esophagitis present (Primary Dx); Personal history of colonic polyps 1 4:15 PM EDT - 1 11:59 PM EDT Hospital Encounter [facility] [address] [place] [address] Click, [facility] Iron deficiency anemia, unspecified iron deficiency anemia type (Primary Dx) Discharge Disposition: Home or Self Care 1 Travel 1 Lab Requisition [facility] [place] [address] Tessie Hinton APRN Urinary tract infection, site not specified 1 Travel 1 2:22 PM EST - 1 11:59 PM EST Hospital Encounter [facility] [place] [phone] Roel Posadas MD Chronic blood loss anemia (Primary Dx); Endometrial cancer (HCC) Discharge Disposition: Home or Self Care 0 Travel 0 2:23 PM EST - 0 11:59 PM EST Hospital Encounter [facility] [place] [phone] Roel Posadas MD Endometrial cancer (HCC) (Primary Dx); BMI 50.0-59.9, adult (HCC); Chronic blood loss anemia; Thickened endometrium; Uterine enlargement; Postmenopausal bleeding Discharge Disposition: Home or Self Care 0 Telephone [facility] [place] [address] Roel Posadas MD Medication Management (Dilaudid, ordered by FRED Haddad not available via [facility] will need to be ordered from another provider. ) 0 5:16 AM EST - 0 2:28 PM EST Hospital Encounter [facility] 2AO ONCOLOGY [facility] [place] [address] Roel Posadas MD Endometrial cancer (HCC); Endometrial cancer (HCC) Discharge Disposition: Home or Self Care 0 Orders Only [facility] [address] [place] [address] Marilyn Shoemaker MD 0 Travel 0 7:30 AM EST - 0 12:00 PM EST [facility] [place] [address] Roel Posadas MD DAVINCI ROBOTIC TOTAL HYSTERECTOMY BILATERAL SALPINGO-OOPHORECTOMY 0 7:28 AM EST Anesthesia Event [facility] Dr[address] [place] [address] Maynor Viramontes MD Zehnder, Wende, APRN 0 2:06 PM EST - 0 11:59 PM EST Hospital Encounter [facility] D-WING XRAY [facility] [address] [place] [address] Roel Posadas MD Discharge Disposition: Home or Self Care 0 Travel 0 1:50 PM EST - 0 2:05 PM EST Hospital Encounter [facility] [address] [place] [address] Roel Posadas MD Covid19, [facility] Pre-op testing; Encounter for laboratory testing for COVID-19 virus Discharge Disposition: Home or Self Care 0 12:05 PM EST - 0 12:17 PM EST Hospital Encounter [facility] PRE-ADMIT TESTING [facility] Tammie Sarah [facility] Discharge Disposition: Home or Self Care 0 Travel 0 2:12 PM EST - 0 11:59 PM EST Hospital Encounter [facility] [place] [facility] [address] [place] [address] Crescencio Buitrago MD Essential hypertension, malignant Discharge Disposition: Home or Self Care 0 Travel 0 Lab Requisition [facility] [place] [phone] Crescencio Buitrago MD Calculus of ureter 0 8:08 AM EST - 0 11:59 PM EST Hospital Encounter [facility] [address] [place] [address] Saumya Rodriguez, Morbid obesity due to excess calories (HCC); Preop cardiovascular exam Discharge Disposition: Home or Self Care 0 Travel 0 Travel 0 Travel 0 8:30 AM EST Office Visit [facility] [place] [address] [place] [address] Saumya Rodriguez, Morbid obesity due to excess calories (HCC) (Primary Dx); Preop cardiovascular exam; Preoperative clearance; SOB (shortness of breath) 0 Travel 0 Social Work [facility] [place] [address] Lulu Pablo LCSW 0 Orders Only [facility] [place] [address] Roel Posadas MD Endometrial cancer (HCC) (Primary Dx) 0 2:30 PM EST - 0 11:59 PM EST Hospital Encounter [facility] Mammography [address] [place] [phone] Noah Calero MD Screening mammogram, encounter for Discharge Disposition: Home or Self Care 0 Travel 0 1:36 PM EST - 0 11:59 PM EST Hospital Encounter [facility] [place] [address] Roel Posadas MD Endometrial cancer (HCC) (Primary Dx); BMI 50.0-59.9, adult (HCC); Chronic respiratory failure with hypoxia (HCC); Essential hypertension; Uterine enlargement; Thickened endometrium; KARO (obstructive sleep apnea) Discharge Disposition: Home or Self Care 0 Telephone [facility] [address] [phone] Noah Calero MD Results; Appointment Needed (Needs appointment w/ GynOnc) 0 Telephone [facility] [address] [place] [address] Noah Gonzales MD Appointment Needed 0 Travel 0 Travel 0 2:40 PM EDT Office Visit [facility] SUDHEER LAUREN [address] [phone] Noah Calero MD Screening mammogram, encounter for (Primary Dx); Well woman exam; Abnormal uterine bleeding (AUB) 0 7:48 AM EDT - 0 11:44 AM EDT Hospital Encounter [facility] 7C UROLOGY [place] [phone] Cj Hernandez MD Buchanan, Jamie L, Roel Pennington MD Urinary tract infection symptoms (Primary Dx); Severe sepsis (HCC) Discharge Disposition: Home or Self Care 0 Travel 0 Travel 0 Travel 0 11:48 AM EDT - 0 3:25 PM EDT Emergency [place] [address] Rigo Maldonado MD Dysuria (Primary Dx); Renal colic on left side Discharge Disposition: Home or Self Care 9 4:08 PM EST - 9 11:59 PM EST Hospital Encounter [facility] [place] [address] Noah Gonzales MD Endometrial hyperplasia; Acute pancreatitis, unspecified complication status, unspecified pancreatitis type Discharge Disposition: Home or Self Care 9 Travel 9 5:25 AM EDT - 9 9:21 AM EDT Emergency [facility] Dr[address] [place] [phone] Mirela Martinez MD Richardson, Eric T, MD Epigastric abdominal pain (Primary Dx) Discharge Disposition: Home or Self Care 9 Telephone [facility] [address] [phone] Noah Calero MD Procedure 9 12:19 PM EDT - 9 11:59 PM EDT Hospital Encounter [facility] [address] [place] [address] Noah Calero MD Abnormal uterine bleeding (AUB) Discharge Disposition: Home or Self Care 9 12:45 PM EDT - 9 2:42 PM EDT Hospital Encounter [facility] [address] [place] [phone] Well woman exam; Abnormal uterine bleeding (AUB) Discharge Disposition: Home or Self Care 9 Telephone [facility] [address] [place] [phone] Noah Calero MD Vaginal Bleeding 9 2:43 PM EDT - 9 11:59 PM EDT Hospital Encounter [facility] [place] Mamm[facility] [address] [place] [address] Noah Calero MD Encounter for screening mammogram for malignant neoplasm of breast Discharge Disposition: Home or Self Care 9 11:40 AM EDT Office Visit [facility] Women's th NPTFTT [address] [place] [address] Noah Calero MD Well woman exam (Primary Dx); Abnormal uterine bleeding (AUB) 8 1:00 PM EDT Office Visit [facility] Sleep Medicine [address] [phone] Omar Robert MD Excessive sleepiness; Primary snoring; Obstructive sleep apnea; Morbid obesity (HCC) 8 2:46 PM EDT - 8 11:59 PM EDT Hospital Encounter [facility] [place] [address] Noah Gonzales MD Liver disease Discharge Disposition: Home or Self Care 8 2:30 PM EDT - 8 2:45 PM EDT Hospital Encounter [facility] [place] [address] Noah Gonzales MD Cyst of kidney, acquired Discharge Disposition: Home or Self Care 7 1:50 PM EDT Office Visit [facility] Pulmonology [address] [phone] Purvi Cordero MD Chronic respiratory failure with hypoxia and hypercapnia (HCC) (Primary Dx); KARO (obstructive sleep apnea); Morbid obesity due to excess calories (HCC); Essential hypertension 7 4:33 PM EDT - 7 11:59 PM EDT Hospital Encounter [facility] [place] [address] Noah Gonzales MD Abnormal findings on diagnostic imaging of liver Discharge Disposition: Home or Self Care 7 12:30 PM EDT Office Visit [facility] Pulmonology [address] [phone] Purvi Cordero MD Chronic respiratory failure with hypoxia and hypercapnia (HCC) (Primary Dx); Obesity hypoventilation syndrome (HCC); Mild intermittent asthma without complication; KARO on CPAP; Morbid obesity with body mass index (BMI) of 50.0 to 59.9 in adult (HCC); SCOTT (dyspnea on exertion); Chest pressure 7 Abstract [facility] PFT LAB [facility] [place] [address] Caroline Hammond, HORSERADISH GRINDER 7 11:30 AM EDT - 7 11:59 PM EDT Hospital Encounter [facility] PFT LAB [facility] [place] [address] SOB (shortness of breath) Discharge Disposition: Home or Self Care 7 3:00 PM EDT Office Visit [facility] Dermatology [facility] [address] [facility] [address] [place] [address] Diana Camp APRN Lichenoid keratosis (Primary Dx); Venous stasis dermatitis of both lower extremities 7 12:30 PM EDT Office Visit [facility] Podiatry [address] [place] [address] Desean Vickers DPM Ingrown nail (Primary Dx) 7 Orders Only [facility] Pulmonology [facility] [address] [phone] Purvi Cordero MD SOB (shortness of breath) (Primary Dx) 7 11:43 PM EST - 7 4:29 PM EST Hospital Encounter [facility] 3C PULMONARY [facility] [place] [address] Ritesh Josue MD Swikert, Donald J, MD Vomiting and diarrhea (Primary Dx); Hypoxia; Morbid obesity, unspecified obesity type (HCC); Mild persistent asthma without complication; KARO (obstructive sleep apnea); Morbid obesity due to excess calories (HCC); Chronic respiratory failure with hypoxia (HCC); Fatty liver Discharge Disposition: Home or Self Care 6 Telephone [facility] [address] [place], [place] [phone] Noah Calero MD Procedure 6 Telephone [facility] [address] [place], [place] [phone] Noah Calero MD Other (surgery) 6 Telephone [facility] DILEEP [address] [place], [place] [phone] Noah Calero MD Procedure 6 5:00 PM EDT Office Visit [facility] NPTT [address] [place] [phone] Noah Caleor MD Post-operative state (Primary Dx) 6 10:30 AM EDT - 6 11:45 AM EDT Surgery [facility] PERIOP [facility] [address] [place] [phone] Noah Calero MD DILATION AND CURETTAGE HYSTEROSCOPY 6 10:48 AM EDT Anesthesia Event [facility] PERIOP [facility] [place] [address] Fidencio Moreno MD Whisman, Kaylae B, LIBRARY CIRCULATION ASSISTANT 6 9:07 AM EDT - 6 11:59 PM EDT Hospital Encounter [facility] POST ANESTHESIA [facility] [address] Noah Calero MD Discharge Disposition: Home or Self Care 6 12:04 PM EDT - 6 11:59 PM EDT Hospital Encounter [facility] PRE-ADMIT TESTING [facility] [place] [address] Discharge Disposition: Home or Self Care 6 Telephone [facility]Linda [facility] GUPTAL [address] [place], [place] [phone] Noah Calero MD Procedure 6 Telephone [facility] W[facility]ENLinda [facility] DILEEP [address] [place], [place] [phone] Noah Calero MD Procedure [address] [facility] [place] [phone] [place] [phone] Noah Calero MD Other 6 12:25 PM EDT - 6 11:59 PM EDT Hospital Encounter [facility] [address] [place] [phone] Griselda Miguel APRN Willett, Steven L, MD Discharge Disposition: Home or Self Care 6 10:48 AM EDT Anesthesia Event [facility] PERIOP [address] [place] [address] Griselda Miguel APRN 6 10:30 AM EDT - 6 12:24 PM EDT Hospital Encounter [facility] PRE-ADMIT TESTING [address] [place] [address] Noah Calero MD Pat, Ftt Preop testing (Primary Dx); Postmenopausal bleeding Discharge Disposition: Home or [facility] 6 Telephone [place] [place] [phone] Noah Calero MD Other 6 Telephone [place] [place] [phone] Noah Calero MD Results 6 1:28 PM EDT - 6 11:59 PM EDT Hospital Encounter [place] [facility] [address] [place] [address] Noah Calero MD Abnormal uterine bleeding (AUB) Discharge Disposition: Home or Self Care 6 9:47 PM EDT - 6 11:59 PM EDT Hospital Encounter EDG LAB ROBERT PROCESSING [facility] [place] [address] Well woman exam with routine gynecological exam Discharge Disposition: Home or Self Care 6 1:58 PM EDT - 6 9:46 PM EDT Hospital Encounter [facility] MOB DRAW [address] [place] [address] Abnormal uterine bleeding (AUB) Discharge Disposition: Home or Self Care 6 1:00 PM EDT Office Visit [facility] [address] [place] [address] Noah Calero MD Well woman exam with routine gynecological exam (Primary Dx); Abnormal uterine bleeding (AUB) 6 10:15 AM EST - 6 11:59 PM EST Hospital Encounter [place] [facility] [address] [place] [address] Noah Gonzales MD Visit for screening mammogram Discharge Disposition: Home or Self Care 5 1:49 PM EDT - 5 4:27 PM EDT Emergency [place] [facility] [address] [place] [address] Forrest Sims MD Acute sphenoidal sinusitis, recurrence not specified (Primary Dx) Discharge Disposition: Home or Self Care 3 1:20 PM EDT Office Visit [address] [phone] Noah Calero MD Follow-up examination, following unspecified surgery (Primary Dx) 3 9:00 AM EDT - 3 9:59 AM EDT Surgery [facility] PERIOP [address] [place] [address] Noah Calero MD DILATION AND CURETTAGE HYSTEROSCOPY 3 7:29 AM EDT - 3 1:30 PM EDT Hospital Encounter [facility] SAME DAY SURGERY [address] [place] [address] Noah Calero MD Postmenopausal bleeding (Primary Dx) Discharge Disposition: Home or Self Care 3 9:58 AM EDT - 3 11:59 PM EDT Hospital Encounter [facility] PRE-ADMIT TESTING [address] [place] [address] Pat, Ftt Discharge Disposition: Home or Self Care 3 Telephone [facility] [address] [place] [phone] Noah Calero MD Procedure 3 Telephone [facility] [address] [place] [phone] Lashell Pearl Results 3 Telephone [facility] [address] [place] [phone] Noah Calero MD Results (pelvic us results ) 3 4:28 AM EDT - 3 11:59 PM EDT Hospital Encounter EDG LAB ROBERT PROCESSING [facility] [place] [address] Routine gynecological examination Discharge Disposition: Home or Self Care 3 10:20 AM EDT Office Visit [facility] NPTFTT [address] [place] [address] Noah Calero MD Routine gynecological examination (Primary Dx); Post-menopause bleeding; Postmenopausal bleeding 1 10:05 AM EDT - 1 11:59 PM EDT Hospital Encounter EDG LABORATORY [facility] [place] [address] Encounter for long-term (current) use of other medications; Unspecified vitamin D deficiency Discharge Disposition: Home or Self Care 0 10:45 AM EST - 0 11:59 PM EST Hospital Encounter EDG LABORATORY [facility] [place] [address] Unspecified myalgia and myositis Discharge Disposition: Home or Self Care 0 4:58 PM EDT - 0 11:59 PM EDT Hospital Encounter [facility]G Kel [place] For 0 12:15 PM EDT - 0 11:59 PM EDT Hospital Encounter [place] [facility] [address] [place] [address] Garett Mccoy MD Other screening mammogram Discharge [...] 11/21/2010 Post-op severe nausea and vomiting in 2013 Polyethylene Glycol 3350 Hives,Itching Medium 01/29/20 13 [...] Morphine- Severe Nausea and vomiting Post-OP in 2012 Codeine- Severe Nausea /Flu-like symptoms ( felt [...] Vomiting 11/21/2010 Propoxyphene Other (See Comments) 11/21/2010 Tresckow Nausea And Vomiting 11/21/2010 Trimethoprim Other (See Comments) 01/24/2024 Bran Swelling Low 11/21/2010 Ciprofloxacin Other (See Comments) Low 11/21/2010 Dietary Supplement Swelling Low 11/21/2010 Wheat Bran Hives Low 11/21/2010 Ertapenem Other (See Comments) 02/24/2025 hallucinations Medications chlordiazePOXIDE (LIBRIUM) 5 mg capsule Take 5 mg by mouth 3 times daily as needed (for anxiety attacks). Active fUROsemide (LASIX) 40 mg tablet Take 40 mg by mouth daily. Active omeprazole (PRILOSEC) 20 mg Take 20 mg by mouth every morning (before breakfast). Patient states the only omeprazole that works are white capsules. Patient has switched pharmacies to obtain this wheel polisher (FIGS) Active ergocalciferol (DRISDOL) 1,250 mcg (50,000 unit) [...] needed for Nausea. 28 Each 1 Active Additional Information Patient not taking.Reason: Pt electing to not take the medication, Reported on 02/24/2025 HYDROmorphone (DILAUDID) 2 mg Oral Tablet take 1 tablet by mouth once daily as needed for pain 4 Active fluconazole (DIFLUCAN) 100 mg Oral [...] as needed. 17 g 3 5 Active Additional Information Patient not taking.Reason: Pt electing to not take the medication, Reported on 02/24/2025 Active Problems Problem Noted Date Diagnosed Date Class 3 severe obesity with serious comorbidity and body mass index (BMI) of 50.0 to 59.9 in adult 06/20/2021 Urinary incontinence 06/20/2021 Vertigo 04/24/2021 Vertigo 04/01/2021 Hypothyroidism 04/01/2021 Gastroesophageal reflux disease 10/27/2020 Overview (10/27/2020): Added automatically from request for surgery [id number] Personal history of colonic polyps 10/27/2020 Overview (10/27/2020): Added automatically from request for surgery [id number] Endometrial cancer 03/31/2020 Overview (03/31/2020): Added automatically from request for surgery [id number] Frequent UTI 03/15/2020 Essential hypertension 07/03/2016 Mild [...] Mother Social History Smoking Status as of 04/06/2025 Tobacco Use Types Packs/Day Years Used Date Smoking Tobacco: Never Assessed PHQ-2 Answer Date Recorded PHQ-2 Total Score 1 02/24/2025 Sex and Gender Information Value Date Recorded [...] 14.4 oz) 02/24/2025 2:06 PM EDT Height 164.5 cm (5' 4.75 ) 10/27/2024 1 2:37 PM EDT Body Mass Index 55.32 10/27/2024 12:37 PM EDT Plan of Treatment Upcoming Encounters Date Type Department Care Team (Late st Contact Info) Description 05/03/2026 2:10 PM EST Office Visit [facility] [address] [place] [phone] Mina Mac MD [address] [facility] [address] [place] [phone] Procedures Procedure Name Priority Date/Time Associated Diagnosis [...] 3:04 PM EST Screening mammogram, encounter for [facility] REQUEST (PAP ONLY) Routine 03/21/2020 3:47 PM EDT Abnormal uterine bleeding (AUB) PATHOLOGY TISSUE REQUEST Routine 020 3:47 PM EDT Abnormal uterine bleeding (AUB) [facility] CYTOLOGY ORDER Routine 0 3:47 PM EDT [...] screening mammogram for malignant neoplasm of breast [facility]TOLOG[facility] REQUEST (PAP ONLY) Routine 10/16/2018 1:22 PM EDT Well woman exam [facility]TOLOG[facility] ORDER Routine 9 1:22 PM EDT [...] 2:03 PM EDT Abnormal uterine bleeding (AUB) [facility] REPORT Routine 08/23/2015 1:00 PM EDT MM MAMMO DIGITAL SCREENING W CAD BILAT Routine 08/01/2015 10:57 AM EST Visit for screening mammogram CT HEAD WO CONTRAST STAT 11/18/2014 3:12 PM EDT SCANNED RADIOLOGY REPORT 013 11:08 AM EDT SCANNED RADIOLOGY REPORT 4:08 PM EDT SCANNED ANESTHESIA FORMS 12:53 PM EDT SCANNED PRE/POST PROCEDURES 10/2012 12:53 PM EDT PATHOLOGY TISSUE REPORT Routine 01/29/20 13 10:00 AM EDT TYPE AND SCREEN Routine 01/28/2013 9:28 AM EDT DILATION AND CURETTAGE HYSTEROSCOPY 01/28/2013 9:13 AM EDT Postmenopausal bleeding Special Needs TIMO CPT;44325 ANTIBODY SCREEN IGG Routine 01/28/2013 7:51 AM [...] SCANNED RADIOLOGY REPORT 013 9:35 AM EDT [facility] REPORT Routine 12/11/2012 12:00 AM EDT VITAMIN D, 07-YYXEFXQ-RVZT Routine 08/28 10:15 AM EDT Encounter for [...] EST Unspecified myalgia and myositis VITAMIN D, 68-JGPTXRH-HIOF Routine 04/28 11:05 AM EST Unspecified myalgia [...] 11/25/2009 1:12 PM EDT Other screening mammogram [facility] REPORT Routine 11/25/2009 4:34 AM EDT [...] contactthe office of the ordering clinician. us Yuko Toro LIBRARY CIRCULATION ASSISTANT IMG CT ORDERABLES Final Re sult * (ABNORMAL) PULMONARY FUNCTION TEST (08/28/2024 10:41 AM EDT) [facility] FVC_PRE 2.17 2.03 - 3.73 L 08/29/2024 8:49 AM EDT [facility] FEV1_PRE 1.65 1.56 - 2.86 L 08/29/2024 8:49 AM EDT [facility] FEV1/FVC_PRE 76.21 65.78 - 88.97 % 08/29/2024 8:49 AM EDT [facility] Hb_PRE 13.60 g(Hb)/dL 08/29/2024 8:49 AM EDT [facility] ERV_PRE 0.33 0.21 - 1.62 L 08/29/2024 8:49 AM EDT [facility] RV_PRE 1.62 1.21 - 3.06 L 08/29/2024 8:49 AM EDT [facility] RV%TLC_PRE 42.71 26.61 - 51.84 % 08/29/2024 8:49 AM EDT [facility] TLC_PRE 3.80(L) 4.10 - 6.36 L 08/29/2024 8:49 AM EDT [facility] FVC_Pre%REF 76 % 08/29/2024 8:49 AM EDT [facility] FEV1_Pre%REF 74 % 08/29/2024 8:49 AM EDT [facility] RV_Pre%REF 81 % 08/29/2024 8:49 AM EDT [facility] TLC_Pre%REF 74 % 08/29/2024 8:49 AM EDT [facility] ERV_Pre%REF 43 % 08/29/2024 8:49 AM EDT [facility] 08/28/2024 10:4 1 AM EDT Impressions [facility] - 08/29/2024 8:49 AM EDT Mild restrictive lung defect due to Obesity us Yuko Toro LIBRARY CIRCULATION ASSISTANT PFT ORDERABLES Final Resu lt [facility] [address] [place] [address] * MRI LUMBAR SPINE WO CONTRAST (01/22/2024 4:47 PM EDT) Anatomical Region Laterality Modality Spine, L-spine Magnetic Resonan ce 01/22/2024 4:47 PM EDT Impressions 01/22/2024 7:47 PM EDT Multilevel degenerative changes without evidence of neural impingement. Narrative 01/22/2024 7:47 PM EDT MRI LUMBAR SPINE WITHOUT CONTRAST, 01/22/2024 4:47 PM CLINICAL HISTORY: M51.9-Unspecified thoracic, thoracolumbar and lumbosacral intervertebral disc aneeuvwk-JCQ-94-CM COMPARISON: None. PROCEDURE COMMENTS: Multiplanar, multisequence MR imaging of the lumbar spine without contrast. FINDINGS: No fracture or concerning marrow abnormality. Trace anterolisthesis at L4-5. Normal conus position terminating at L2. Wmlid-ax-sjnbg analysis: T12-L1: Mild facet arthropathy. L1-2: Mild [...] HISTORY: M51.9-Unspecified thoracic, thoracolumbar andlumbosacral intervertebral disc apfihhiz-PHP-69-CM COMPARISON: None. PROCEDURE COMMENTS: Multiplanar, multisequence MR imaging of the lumbarspine without contrast. FINDINGS: No fracture or concerning marrow abnormality. Trace anterolisthesis atL4-5. Normal conus position terminating at L2. Gejpq-ci-omcxl analysis: T12-L1: Mild facet arthropathy. L1-2: Mild [...] of recurrent disease. Incidental findings as above. us Greg Swanson LIBRARY CIRCULATION ASSISTANT IMG CT ORDERABLES Final Re sult * CREATININE ISTAT (02/20/2023 1:46 PM EDT) Only the most recent of4 resultswithin the time period is included. Creatinine-iST AT 0.8 0.6 - 1.3 mg/dL 02/20/2023 1:53 PM EDT [facility] Blood BLOOD SPECIMEN / Unknown 02/20/2023 1:46 PM EDT 02/20/2023 1:53 PM EDT Greg Swanson APRN POINT OF CARE TEST [place] [address] * PATHOLOGY TISSUE REQUEST (02/06/2023 2:54 PM EDT) Only the most recent of5 resultswithin the time period is included. CASE REPORT Surgical Pathology Case: [id number] Authorizing Provider: Greg Swanson APRN Collected: 02/06/2023 1454 Ordering Location: [facility] Received: 02/06/2023 1625 Pathologist: Rafiq Collazo MD Specimen: Vaginal Cuff 02/07/2023 2:54 PM EDT [facility] FINAL DIAGNOSIS Vagina, biopsy: - Vaginal squamous mucosa with mild chronic inflammation. - Negative for malignancy. 02/07/2023 2:54 PM EDT [facility] at 1454 EDT GROSS DESCRIPTION Received in formalin in a container labeled the patient's name, MRN, and Vaginal cuff, is a 0.5 x 0.2 x 0.2 cm pink-red tissue fragment. The specimen is inked blue, bisected, and entirely submitted in cassette A1. SONALI Weaver,JONI (ASCP) 02/06/2023 4:51 PM 02/07/2023 2:54 PM EDT [facility] MICROSCOPIC DESCRIPTION Microscopic examination is performed and the findings corroborate the diagnosis. 02/07/2023 2:54 PM EDT [facility] EMBEDDED IMAGES 02/07/2023 2:54 PM EDT [facility] Tissue VAGINAL CUFF / Unknown 02/06/2023 2:54 PM EDT 02/06/2023 4:24 PM EDT us Greg Swanson LIBRARY CIRCULATION ASSISTANT PATHOLOGY ORDERABLES Final Result [facility] [address] [place] [address] * MM MAMMO DIGITAL [place] SCREEN BILAT (02/05/2023 2:15 PM EDT) Anatomical Region Laterality Modality Breast Bilateral Mammography 02/05/2023 2:49 PM EDT Impressions 02/05/2023 2:49 PM EDT Negative (MZK-Bzfvpnhh-0) ~ RECOMMENDATION: Routine screening mammogram in 1 [...] the next mammogram, in accordance with the [employer] and the Society of Breast Imaging recommendations. Narrative 02/05/2023 2:49 PM EDT Procedure:MM MAMMO DIGITAL [place] SCREEN BILAT ~ Reason for exam: screening, asymptomatic. Z12.31-Encounter for screening mammogram for malignant neoplasm of flowvi-TGR-48-CM ~ MM MAMMO DIGITAL [place] SCREEN BILAT [...] for screening mammogram for malignant neoplasm of bpsxsb-INP-23-CM ~ MM MAMMO DIGITAL [place] SCREEN BILAT Bilateral CC and MLO view(s) were taken. There are scattered fibroglandular densities. Prior study comparison: Compared with prior studies the most recentbeing 03/31/20, 10/16/18 No mammographic evidence of malignancy. ~ IMPRESSION: Negative (NOI-Mfltnvyd-9) ~ RECOMMENDATION: Routine screening mammogram in 1 [...] the next mammogram, in accordance with the [employer] and the Society of [...] AND BLADDER, 11/20/2022 2:50 PM CLINICAL HISTORY: R35.2-Rqjtkybv-RQK-10-CM N39.0-Urinary tract infection, site not dmrqizvbj-DNC-18-CM N39.41-Urge ciavskmwmtcw-ZYF-65-CM. COMPARISON: 09/15/2022 PROCEDURE COMMENTS: Routine sonographic evaluation of the kidneys and bladder with floor representative images and residential green building designer notes sent to PACS for radiologist review. FINDINGS: RIGHT: 11.0 x 6.0 x 4.9 cm. No hydronephrosis, solid-appearing mass, or shadowing stone. LEFT: 13.0 x 6.3 x 5.7 cm. No hydronephrosis, solid-appearing mass, or shadowing stone. PELVIS: Mild bladder debris. Procedure Note Sam Franklin MD - 11/20/2022 US KIDNEYS AND BLADDER, 11/20/2022 2:50 PM CLINICAL HISTORY: R35.2-Ivtwmjln-CUW-10-CM N39.0-Urinary tract infection, site not fqgdwwfdg-HKQ-73-CM N39.41-Urge njoknrhmwbxo-SKO-42-CM. COMPARISON: 09/15/2022 PROCEDURE COMMENTS: Routine sonographic evaluation of the kidneys andbladder with floor representative images and residential green building designer notes sent to PACS forradiologist review. FINDINGS: [...] of the ordering clinician. us Lalo Inman LIBRARY CIRCULATION ASSISTANT IMG US ORDERABLES Final R esult * [...] 09/15/2022 2:52 PM CLINICAL HISTORY: K76.9-Liver disease, lgccohknqjh-BIY-24-CM. COMPARISON: Noncontrast CT abdomen pelvis 02/24/2021 and [...] 09/15/2022 2:52 PM CLINICAL HISTORY: K76.9-Liver disease, thohgsiutjc-WRC-63-CM. COMPARISON: Noncontrast CT abdomen pelvis 02/24/2021 and [...] please contactthe office of the ordering clinician. Noah Gonzales MD IMG CT ORDERABLES Final [...] PM CLINICAL HISTORY: J45.901-Unspecified asthma with (acute) abagtsjgykli-XRB-12-CM COMPARISON: 04/01/2021 PROCEDURE COMMENTS: Frontal and lateral views of the chest. FINDINGS: Cardiovascular structures within normal limits. No pneumonia or effusion. No pneumothorax. Procedure Note William Saavedra MD - 08/09/2021 PA AND LATERAL CHEST X-RAY, 08/09/2021 2:02 PM CLINICAL HISTORY: J45.901-Unspecified asthma with (acute) bwaihazyeadq-UNV-60-CM COMPARISON: 04/01/2021 PROCEDURE COMMENTS: Frontal and lateral views of the chest. FINDINGS: Cardiovascular structures within normal limits. No pneumoniaor effusion. No pneumothorax. IMPRESSION: No acute finding. - Note: Radiology results need to be interpreted within a comprehensiveclinical context. If you have questions about the radiology report, please contactthe office of the ordering clinician. Yuko Toro APRN IMG DIAGNOSTIC IMAGING ORD ERABLES Final Result * (ABNORMAL) PULMONARY FUNCTION TEST (04/19/2021 11:24 AM EST) FVC_PRE 2.28 2.23 - 3.84 L 04/22/2021 10:03 PM EST [facility] FVC_REF 3.02 04/22/2021 10:03 PM EST [facility] FVC_LLN 2.23 04/22/2021 10:03 PM EST [facility] FVC_Pre%REF 76 % 04/22/2021 10:03 PM EST [facility] FEV1_PRE 1.73(L) 1.74 - 2.94 L 04/22/2021 10:03 PM EST [facility] FEV1_REF 2.35 04/22/2021 10:03 PM EST [facility] FEV1_LLN 1.74 04/22/2021 10:03 PM EST [facility] FEV1_Pre%REF 74 % 04/22/2021 10:03 PM EST [facility] FEV1/FVC_PRE 75.85 65.72 - 89.47 % 04/22/2021 10:03 PM EST [facility] FEV1/FVC_REF 79 04/22/2021 10:03 PM EST [facility] FEV1/FVC_LLN 66 04/22/2021 10:03 PM EST [facility] FEV1/FVC_Pre%R EF 97 % 04/22/2021 10:03 PM EST [facility] MMA69-43%_PRE 1.33 0.97 - 3.49 L/s 04/22/2021 10:03 PM EST [facility] QDW56-93%_REF 2.03 04/22/2021 10:03 PM EST [facility] JVQ52-53%_LLN 0.97 04/22/2021 10:03 PM EST [facility] BXF39-51%_Pre% REF 66 % 04/22/2021 10:03 PM EST [facility] PEF_PRE 6.79 4.27 - 7.75 L/s 04/22/2021 10:03 PM EST [facility] PEF_REF 6.01 04/22/2021 10:03 PM EST [facility] PEF_LLN 4.27 04/22/2021 10:03 PM EST [facility] PEF_Pre%REF 113 % 04/22/2021 10:03 PM EST [facility] DLCO_SB_PRE 21.04 15.17 - 27.16 ml/(min*mm Hg) 04/22/2021 10:03 PM EST [facility] DLCOSingleBrea th_REF 20.1 04/22/2021 10:03 PM EST [facility] DLCOSingleBrea th_LLN 15.2 04/22/2021 10:03 PM EST [facility] DLCOSingleBrea th_Pre%REF 105 % 04/22/2021 10:03 PM EST [facility] VA_SB_PRE 3.34(L) 3.87 - 6.01 L 04/22/2021 10:03 PM EST [facility] VASingleBreath _REF 4.84 04/22/2021 10:03 PM EST [facility] VASingleBreath _LLN 3.87 04/22/2021 10:03 PM EST [facility] VASingleBreath _Pre%REF 69 % 04/22/2021 10:03 PM EST [facility] DL/VA_PRE 6.31(H) 3.21 - 5.33 ml/(min*mm Hg*L) 04/22/2021 10:03 PM EST [facility] DLCO/VA_REF 4.19 04/22/2021 10:03 PM EST [facility] DLCO/VA_LLN 3.21 04/22/2021 10:03 PM EST [facility] DLCO/VA_Pre%RE F 150 % 04/22/2021 10:03 PM EST [facility] IVC_SB_PRE 2.31 2.23 - 3.84 L 04/22/2021 10:03 PM EST [facility] Hb_PRE 11.90 g(Hb)/dL 04/22/2021 10:03 PM EST [facility] IC_PRE 1.97(L) 2.06 - 2.06 L 04/22/2021 10:03 PM EST [facility] IC_REF 2.06 04/22/2021 10:03 PM EST [facility] IC_LLN 2.06 04/22/2021 10:03 PM EST [facility] IC_Pre%REF 96 % 04/22/2021 10:03 PM EST [facility] ERV_PRE 0.31(L) 0.71 - 0.71 L 04/22/2021 10:03 PM EST [facility] ERV_REF 0.71 04/22/2021 10:03 PM EST [facility] ERV_LLN 0.71 04/22/2021 10:03 PM EST [facility] ERV_Pre%REF 43 % 04/22/2021 10:03 PM EST [facility] RV_PRE 1.46 1.45 - 2.60 L 04/22/2021 10:03 PM EST [facility] RV_REF 2.02 04/22/2021 10:03 PM EST [facility] RV_LLN 1.45 04/22/2021 10:03 PM EST [facility] RV_Pre%REF 72 % 04/22/2021 10:03 PM EST [facility] RV%TLC_PRE 39.11 31.81 - 50.99 % 04/22/2021 10:03 PM EST [facility] RV%TLC_REF 41 04/22/2021 10:03 PM EST [facility] RV%TLC_LLN 32 04/22/2021 10:03 PM EST [facility] RV%TLC_Pre%REF 94 % 04/22/2021 10:03 PM EST [facility] FRCpl_PRE 1.77(L) 1.91 - 3.56 L 04/22/2021 10:03 PM EST [facility] FRCpleth_REF 2.74 04/22/2021 10:03 PM EST [facility] FRCpleth_LLN 1.91 04/22/2021 10:03 PM EST [facility] FRCpleth_Pre%R EF 65 % 04/22/2021 10:03 PM EST [facility] TLC_PRE 3.74(L) 4.04 - 6.01 L 04/22/2021 10:03 PM EST [facility] TLC_REF 5.02 04/22/2021 10:03 PM EST [facility] TLC_LLN 4.04 04/22/2021 10:03 PM EST [facility] TLC_Pre%REF 75 % 04/22/2021 10:03 PM EST [facility] 04/19/2021 11:2 4 AM EST Impressions [facility] - 04/22/2021 10:03 PM EST Mild restrictive ventilatory defect with normal diffusing capacity. This data was interpreted based upon the 2005 ATS/ERS Task Force Position Statement: Interpretative Strategies for Lung Function Tests. Cristi Ospina MD Pulmonary and Critical Care Medicine us Singh Varner MD PFT ORDERABLES Final Result [facility] [address] [place] [address] * CT CHEST WO CONTRAST (04/19/2021 10:56 [...] 10:56 AM CLINICAL HISTORY: J45.30-Mild persistent asthma, fqurrmmomqipj-WAM-37-CM J96.11-Chronic respiratory failure with hypoxia (HCC)-ICD-10-CM J45.909-Unspecified asthma, qaopzefrjflmg-JWB-04-CM R06.00-Dyspnea, ockltwdouid-YRR-03-CM R06.02-Shortness of ishrsz-FHC-40-CM. COMPARISON: Prior CT imaging of the chest, [...] 04/19/2021 10:56 AM CLINICAL HISTORY: J45.30-Mild persistent asthma,tainbadmbauet-FGA-15-CM J96.11-Chronic respiratory failure with hypoxia (HCC)-ICD-10-CM J45.909-Unspecified asthma, fbhrelafnygiq-VSK-54-CM R06.00-Dyspnea, azfmnugwlxj-EKY-70-CM R06.02-Shortness of sbhnox-TXA-40-CM. COMPARISON: Prior CT imaging of the chest, [...] Score See Note 04/25/2021 9:15 AM EST [facility] Comment: REFERENCE INTERVAL: Allergen, Interpretation Less than [...] clinical allergy or even anaphylaxis. Performed By: [facility] ([facility]) [address] [place] [address] Crap Game Box Person: Chantale Vivar MD Blood VENOUS BLOOD / Unknown Venipuncture / Unknown 04/19/2021 10:23 AM EST 04/19/2021 10:23 AM EST us Singh Varner MD IMMUNOLOGY ORDERABLES Final Resu lt [facility] [address] [place] [address] * ALLERGEN, REGION 5 RESPIRATORY PANEL-REF LAB (04/19/2021 10:23 AM EST) [facility] Common Ragweed <0.10 <=0.34 kU/L 04/25/2021 7:47 AM EST [facility] CockroachGerman <0.10 <=0.34 kU/L 04/25/2021 7:47 AM EST [facility] [place] Tree <0.10 <=0.34 kU/L 04/25/2021 7:47 AM EST [facility] [place] Tree <0.10 <=0.34 kU/L 04/25/2021 7:47 AM EST [facility] Pecan Tree <0.10 <=0.34 kU/L 04/25/2021 7:47 AM EST [facility] Mouse Epi <0.10 <=0.34 kU/L 04/25/2021 7:47 AM EST [facility] M. racemosus <0.10 <=0.34 kU/L 04/25/2021 7:47 AM EST [facility] [place] Tree <0.10 <=0.34 kU/L 04/25/2021 7:47 AM EST [facility] Dog Dander <0.10 <=0.34 kU/L 04/25/2021 7:47 AM EST [facility] Sheep [place] <0.10 <=0.34 kU/L 04/25/2021 7:47 AM EST [facility] Comment: Performed By: [facility] ([facility]) [address] [place] [id number] Crap Game Box Person: Chantale Vivar MD IgE 22 <=214 kU/L 04/25/2021 7:47 AM EST [facility] Comment: REFERENCE INTERVAL: Immunoglobulin E, Serum Access complete set of age- and/or gender-specific reference intervals for this test in the [facility] Directory ([employer]). [place] alt <0.10 <=0.34 kU/L 04/25/2021 7:47 AM EST [facility] [place]/Maple <0.10 <=0.34 kU/L 04/25/2021 7:47 AM EST [facility] Cat Epi/Dander <0.10 <=0.34 kU/L 04/25/2021 7:47 AM EST [facility] [place] Tree <0.10 <=0.34 kU/L 04/25/2021 7:47 AM EST [facility] [place] Tree <0.10 <=0.34 kU/L 04/25/2021 7:47 AM EST [facility] Pigweed <0.10 <=0.34 kU/L 04/25/2021 7:47 AM EST [facility] Samoan Thistle <0.10 <=0.34 kU/L 04/25/2021 7:47 AM EST [facility] [place] <0.10 <=0.34 kU/L 04/25/2021 7:47 AM EST [facility] Allergen, Fungi/Mold, Hormodendrum IgE <0.10 <=0.34 kU/L 04/25/2021 7:47 AM EST [facility] [place]m Tree <0.10 <=0.34 kU/L 04/25/2021 7:47 AM EST [facility] [place] <0.10 <=0.34 kU/L 04/25/2021 7:47 AM EST [facility] [place] <0.10 <=0.34 kU/L 04/25/2021 7:47 AM EST [facility] Allergen, Fungi/Mold, A. fumigatus IgE <0.10 <=0.34 kU/L 04/25/2021 7:47 AM EST [facility] D pteronyssinus <0.10 <=0.34 kU/L 04/25/2021 7:47 AM EST [facility] D farinae <0.10 <=0.34 kU/L 04/25/2021 7:47 AM EST [facility] [place] Grass <0.10 <=0.34 kU/L 04/25/2021 7:47 AM EST [facility] [place] <0.10 <=0.34 kU/L 04/25/2021 7:47 AM EST [facility] P.Notatum <0.10 <=0.34 kU/L 04/25/2021 7:47 AM EST [facility] Blood Venipuncture / Unknown 04/19/2021 10:23 AM EST 04/19/2021 10:23 AM EST us Singh Varner MD IMMUNOLOGY ORDERABLES Final Resu lt [facility] [address] [place], [place] [id number] * SCANNED EKG (04/03/2021 11:05 AM EST) [...] 04/02/2021 9:10 AM EST [facility] MPV 11.1 8.8 - 12.5 fL 04/02/2021 9:10 AM EST [facility] Neut Percent 55.9 % 04/02/2021 9:10 AM EST [facility] Comment:Neutrophils equals s egs plus bands Imm Gran% 0.4 % 04/02/2021 9:10 AM EST [facility] Comment:Automated count of m etamyelocytes, myelocytes and promyelocytes. Lymph Percent 33.7 % 04/02/2021 9:10 AM EST [facility] [place] Percent 7.4 % 04/02/2021 9:10 AM EST [facility] Eos Percent 2.1 % 04/02/2021 9:10 AM EST [facility] Baso Percent 0.5 % 04/02/2021 9:10 AM EST [facility] Neut # 4.8 1.6 - 6.1 x10(3)/[facility] 04/02/2021 9:10 AM EST [facility] Comment:Neutrophils equals s egs plus bands IMMGRAN# 0.0 0.0 - 0.1 x10(3)/[facility] 04/02/2021 9:10 AM EST [facility] Comment:Automated count of m etamyelocytes, myelocytes and promyelocytes. An absolute IG <0.1 is reported as 0.0. Lymph # 2.9 1.2 - 3.9 x10(3)/[facility] 04/02/2021 9:10 AM EST [facility] [place] # 0.6 0.3 - 0.9 x10(3)/[facility] 04/02/2021 9:10 AM EST [facility] Eos# 0.2 0.0 - 0.5 x10(3)/[facility] 04/02/2021 9:10 AM EST [facility] Baso # 0.0 0.0 - 0.1 x10(3)/[facility] 04/02/2021 9:10 AM EST [facility] Blood VENOUS BLOOD / Unknown Venipuncture / Unknown 04/02/2021 8:39 AM EST 04/02/2021 8:56 AM EST us Isabella Elizabeth Ana DO HEMATOLOGY ORDERABLES Final Result [facility] [address] [facility] [place] [address] * (ABNORMAL) BASIC METABOLIC PANEL (04/02/2021 8:39 AM EST) Only the most recent of13 resultswithin the time period is included. Sodium 137 136 - 145 mmol/L 04/02/2021 9:30 AM EST [facility] Potassium 3.8 3.5 - 5.0 mmol/L 04/02/2021 9:30 AM EST [facility] Chloride 102 98 - 107 mmol/L 04/02/2021 9:30 AM EST [facility] Total CO2 25 22 - 29 mmol/L 04/02/2021 9:30 AM EST [facility] Anion Gap 10 7 - 16 mmol/L 04/02/2021 9:30 AM EST [facility] Calcium 8.9 8.8 - 10.4 mg/dL 04/02/2021 9:30 AM EST [facility] Glucose Lvl 124(H) 82 - 100 mg/dL 04/02/2021 9:30 AM EST [facility] BUN 7(L) 8 - 23 mg/dL 04/02/2021 9:30 AM EST [facility] Creatinine 0.68 0.51 - 1.30 mg/dL 04/02/2021 9:30 AM EST [facility] GFR Afr Am 105 >=60 mL/min/1.7 3 m2 04/02/2021 9:30 AM EST [facility] GFR Non Afr Am 91 >=60 mL/min/1.7 3 m2 04/02/2021 9:30 AM EST [facility] Comment: This estimated GFR was [...] 8:39 AM EST 04/02/2021 8:57 AM EST Isabella Perez DO CHEMISTRY ORDERABLES Final Result Performing Organization Address [facility] de Phone Number [facility] [address] [place] [address], [place] [address] [facility] [address] [place], [place] [id number] * ECG AND WAVEFORMS - TELEMETRY (04/02/2021 7:00 AM EST) Only the most recent of6 resultswithin the time period is included. ECG INTERPRET Sinus Bradycardia [facility] 04/02/2021 7:00 AM EST Narrative [facility] - 04/02/2021 7:53 AM EST TP/HICUITY ROUTINE DC 0.18 QRS 0.07 RR 1.24 QT 0.45 QTc 0.40 See Clinical Report link for waveform capture us Unknown Provider POINT OF CARE CARDIOLOGY Final Result Performing Organization Address [facility] de Phone Number [facility] [address] [place], [place] [id number] * LIPID SCREEN (04/01/2021 5:47 PM EDT) Cholesterol 167 <200 mg/dL 04/01/2021 6:18 PM EDT [facility] Comment: < 200 Desirable 200 - 239 Borderline High >= 240 High Triglyceride 134 <150 mg/dL 04/01/2021 6:18 PM EDT [facility] Comment: < 150 Normal 150 - 199 Borderline High 200 - 499 High >= 500 Very High HDL 51 >=40 mg/dL 04/01/2021 6:18 PM EDT [facility] Comment: > 60 Optimal 40 - 60 Acceptable < 40 Low LDL Calculated 92 <100 mg/dL 04/01/2021 6:18 PM EDT [facility] Comment: < 100 Optimal 100 - 129 Near or above optimal 130 - 159 Borderline High 160 - 189 High >= 190 Very High Non-HDL-C Calculated 116 <=129 mg/dL 04/01/2021 6:18 PM EDT [facility] Comment: <130 Desirable 130-159 Above Desirable 160-189 Borderline High 190-219 High >= 220 Very High Fasting Specimen? No None 021 6:18 PM EDT [facility] Blood VENOUS BLOOD / Unknown Butterfly / Unknown 04/01/2021 5:47 PM EDT 04/01/2021 5:57 PM EDT us Isabella Perez DO CHEMISTRY ORDERABLES Final Result [facility] [address] [facility], [address] [place] [id number] [facility] [address] [place], [place] [id number] * MRI BRAIN WO CONTRAST (04/01/2021 1:31 [...] contactthe office of the ordering clinician. us Charo Vásquez MD [facility] MRI ORDERABLES Final Resul t * CORONAVIRUS 2019 (04/01/2021 10:25 AM EDT) Only the most recent of4 resultswithin the time period is included. [facility] CORONAVIRUS [id number] Not Detected Not Detected 04/01/2021 3:33 PM EDT [facility] Comment: Caution should be exercised when interpreting [...] of COVID-19. Test is performed on the ChaoWIFI platform under the FDA's Emergency Use Authorization (EUA). [employer] Provider Fact Sheet: https://www.fda.gov/media/129251/download [employer] Patient Fact Sheet: https://www.fda.gov/media/378522/download Performed at [facility] [address] [place] [address]. [id number] [facility] [id number] Swab BOTH ANTERIOR NARES / Unknown 04/01/2021 10:25 AM EDT 04/01/2021 10:32 AM EDT us Charo Vásquez MD MICROBIOLOGY - GENERAL ORDERAB LES Final Result Performing Organization Address City/[facility]/ZIP Co de Phone Number [facility] 1 [facility], [place] [address] * EXTRA QUINTANILLA URINE CX (04/01/2021 10:08 AM EDT) Only the most recent of2 resultswithin the time period is included. Urine URINE SPECIMEN COLLECTION, CLEAN CATCH / Unknown 04/01/2021 10:08 AM EDT 04/01/2021 10:15 AM EDT us Charo Vásquez MD MICROBIOLOGY - GENERAL ORDERAB LES Final Result Performing Organization Address [facility]/ZIP Co de Phone Number [facility] 1 [place] [address] * URINALYSIS (04/01/2021 10:08 AM EDT) Only the most recent of4 resultswithin the time period is included. UA Color Yellow 04/01/2021 10:33 AM EDT [facility] UA Appear Clear Clear 04/01/2021 10:33 AM EDT [facility] UA Glucose Negative Negative mg/dL 04/01/2021 10:33 AM EDT [facility] UA Ketones Negative Negative mg/dL 04/01/2021 10:33 AM EDT [facility] UA Blood Negative Negative 04/01/2021 10:33 AM EDT [facility] UA pH 6.5 5.0 - 8.0 pH 04/01/2021 10:33 AM EDT [facility] UA Protein Negative Negative mg/dL 04/01/2021 10:33 AM EDT [facility] UA Urobilinogen 0.2 <=1 mg/dL 10:33 AM EDT [facility] UA Bili Negative Negative 04/01/2021 10:33 AM EDT [facility] UA Nitrite Negative Negative 04/01/2021 10:33 AM EDT [facility] UA Leuk Est Negative Negative 04/01/2021 10:33 AM EDT [facility] UA Spec Grav 1.015 1.001 - 1.035 no units 04/01/2021 10:33 AM EDT [facility] Comment:Reference range veronica d for random specimens only. UA WBC <1 0 - 4 /HPF 04/01/2021 10:33 AM EDT [facility] UA RBC 1 0 - 3 /HPF 04/01/2021 10:33 AM EDT [facility] UA Squam Epi 4+ /LPF 04/01/2021 10:33 AM EDT [facility] UA Mucus Trace /LPF 04/01/2021 10:33 AM EDT [facility] UA Amorph Trace /LPF 04/01/2021 10:33 AM EDT [facility] Urine URINE SPECIMEN COLLECTION, CLEAN CATCH / Unknown 04/01/2021 10:08 AM EDT 04/01/2021 10:16 AM EDT Charo Vásquez MD URINE ORDERABLES Final Result [facility] 1 [facility] , [place] [address] * (ABNORMAL) URINE CULTURE (NO STAIN) (04/01/2021 10:08 AM EDT) Only the most recent of4 resultswithin the time period is included. Culture Positive Growth(A) 04/03/2021 2:40 PM EST [facility] Culture >[id number] CFU/mL Pseudomonas aeruginosa SUSCEPTIB ILITY RESULT 04/03/2021 2:40 PM EST [facility] Culture [id number] CFU/mL Streptococcus agalactiae (Group B) SUSCEPTIB ILITY RESULT 04/03/2021 2:40 PM EST [facility] Comment: Penicillin and Ampicillin are antibiotics of [...] Susceptible Pseudomonas aeruginosa Trimethoprim/Sulfameth oxazole SUSCEPTIBILITY RESULT Charo Vásquez MD MICROBIOLOGY - GENERAL ORDERAB LES Final Result [facility], [address] , [place] [address] * TROPONIN-T HIGH SENSITIVITY 2HR (04/01/2021 9:15 AM EDT) Only the most recent of2 resultswithin the time period is included. er-rQtshkoxl-R 2HR 7 <14 ng/L 04/01/2021 9:43 AM EDT [facility] Comment:See the website zoe caruso for rule out [place] care pathway, conditions other than AMI that can cause elevated hs cTnT, and comparison of values from the 4th and 5th generation Radha tests. https://askmayoexpert.[facility].org/topic/clinical-answers/gnt-07189323/cpm-203 59717 hs-cTnT 2Hr Delta from Baseline 0 <4 ng/L 04/01/2021 9:43 AM EDT [facility] Blood VENOUS BLOOD / Unknown Venipuncture / Unknown 04/01/2021 9:15 AM EDT 04/01/2021 9:23 AM EDT Narrative [facility] - 04/01/2021 9:43 AM EDT Ingestion of shirley doses of biotin (>5 mg/day) taken within 8 hours of drawing blood sample can interfere with this immunoassay test. us Charo Vásquez MD CHEMISTRY ORDERABLES Final Res ult [facility] [address] [place] [id number] * XR CHEST AP PORTABLE (04/01/2021 8:14 [...] size is normal. IMPRESSION: No acute disease. us Charo Vásquez MD IMG DIAGNOSTIC IMAGING ORDERAB [...] for estimates of stenosis. Charo Vásquez MD IMG CT ORDERABLES Final Result * CT HEAD [...] contactthe office of the ordering clinician. us Charo Vásquez MD IMG CT ORDERABLES Final Result * TROPONIN-T HIGH SENSITIVITY BASELINE W/ REFLEX (04/01/2021 7:23 AM EDT) Only the most recent of4 resultswithin the time period is included. zb-hTbchsgop-M 7 <14 ng/L 04/01/2021 7:48 AM EDT [facility] Comment:See the website zoe [employer] for rule out [place] care pathway, conditions other than AMI that can cause elevated hs cTnT, and comparison of values from the 4th and 5th generation Radha tests. https://askmayoexpert.[facility].org/topic/clinical-answers/[email or web address]/cpm-203 04426 Blood VENOUS BLOOD / Unknown Venipuncture / Unknown 04/01/2021 7:23 AM EDT 04/01/2021 7:31 AM EDT Narrative [facility] - 04/01/2021 7:48 AM EDT Ingestion of shirley doses of biotin (>5 mg/day) taken within 8 hours of drawing blood sample can interfere with this immunoassay test. Charo Vásquez MD CHEMISTRY ORDERABLES Final Res ult [facility] [address] [place] [address] * TSH REFLEX (04/01/2021 7:23 AM EDT) Only the most recent of2 resultswithin the time period is included. TSH Reflex 2.500 0.270 - 4.200 mcIU/mL 04/01/2021 1:50 PM EDT [facility] Blood VENOUS BLOOD / Unknown Venipuncture / Unknown 04/01/2021 7:23 AM EDT 04/01/2021 1:28 PM EDT Narrative [facility] - 04/01/2021 1:50 PM EDT Ingestion of shirley doses of biotin (>5 mg/day) taken within 8 hours of drawing blood sample can interfere with this immunoassay test. us Charo Vásquez MD CHEMISTRY ORDERABLES Final Res ult [facility] [address] [facility] , [place] [address] * (ABNORMAL) CBC (04/01/2021 7:23 AM EDT) Only the most recent of6 resultswithin the time period is included. WBC 10.4(H) 3.7 - 10.3 x10(3)/mcL 04/01/2021 7:34 AM EDT [facility] RBC 4.56 3.90 - 5.20 x10(6)/mcL 04/01/2021 7:34 AM EDT [facility] Hgb 12.2 11.2 - 15.7 g/dL 04/01/2021 7:34 AM EDT [facility] Hct 39.8 34.0 - 45.0 % 04/01/2021 7:34 AM EDT [facility] MCV 87.3 80.0 - 100.0 fL 04/01/2021 7:34 AM EDT [facility] MCH 26.8 26.0 - 34.0 pg 04/01/2021 7:34 AM EDT [facility] MCHC 30.7 30.7 - 35.5 g/dL 04/01/2021 7:34 AM EDT [facility] RDW 16.1(H) <=14.9 % 04/01/2021 7:34 AM EDT [facility] Platelet 314 155 - 369 x10(3)/mcL 04/01/2021 7:34 AM EDT [facility] MPV 11.0 8.8 - 12.5 fL 04/01/2021 7:34 AM EDT [facility] Blood VENOUS BLOOD / Unknown Venipuncture / Unknown 04/01/2021 7:23 AM EDT 04/01/2021 7:31 AM EDT us Charo Vásquez MD HEMATOLOGY ORDERABLES Final Re sult Performing Organization Address [facility]/ZIP Co de Phone Number [facility] [address] [place] [address] * (ABNORMAL) HEMOGLOBIN A1C (04/01/2021 7:23 AM EDT) Hgb A1C 6.0(H) 4.2 - 5.6 % 04/01/2021 6:23 PM EDT [facility] Est. Avg Glucose 126 mg/dL 04/01/2021 6:23 PM EDT [facility] Blood VENOUS BLOOD / Unknown Venipuncture / Unknown 04/01/2021 7:23 AM EDT 04/01/2021 7:31 AM EDT Narrative [facility] - 04/01/2021 6:23 PM EDT REFERENCE RANGE: Normal: 4.0-5.6% Pre-diabetes: 5.7-6.4% Provisional diagnosis of diabetes: >6.4% Hgb F>10% and anything which shortens red cell survival, such as hemolytic anemia, or unstable hemoglobin variants such as HbSS, HbSC, or HbCC, will lower the HbA1c value associated with a given level of glycemic control. Isabella Perez DO CHEMISTRY ORDERABLES Final Result Performing Organization Address [facility] Co de Phone Number [facility] [address] [place] [address], [place] [address] * EK EKG 12 LEAD (04/01/2021 6:32 AM EDT) Only the most recent of5 resultswithin the time period is included. Anatomical Region Laterality Modality Electrocardiogra phy 04/01/2021 6:36 AM EDT Impressions 04/02/2021 10:[address] 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 COMPARISON: 2019 PROCEDURE COMMENTS: Multidetector CT examination [...] HISTORY: R19.01-Right upper quadrant abdominal swelling, massand spcj-TFH-14-CM R10.11-Right upper quadrant tonu-LWF-37-CM Z85.42-Personal history of malignant neoplasm of other parts of uglzsd-MCB-44-CM. COMPARISON: 2019 PROCEDURE COMMENTS: Multidetector CT examination [...] 12/15/2020 3:02 PM CLINICAL HISTORY: N20.0-Calculus of ahnbuk-NJE-26-CM N39.0-Urinary tract infection, site not anmimubpq-YOP-81-CM COMPARISON: None. PROCEDURE COMMENTS: AP view(s) of the abdomen per protocol. FINDINGS: Nonspecific, nonobstructive bowel gas pattern. No pathologic calcification. No definite stone identified. Phleboliths in the pelvis. Procedure Note Richie Hawthorne MD - 12/15/2020 CR, ABDOMEN AP, 12/15/2020 3:02 PM CLINICAL HISTORY: N20.0-Calculus of chkgeb-RTY-17-CM N39.0-Urinary tract infection, site not fycstmkos-GBV-92-CM COMPARISON: None. PROCEDURE COMMENTS: AP view(s) of the abdomen per protocol. FINDINGS: Nonspecific, nonobstructive bowel gas pattern. No pathologiccalcification. No definite stone identified. Phleboliths in the pelvis. IMPRESSION: No definite identifiable urinary stone. - Note: Radiology results need to be interpreted within a comprehensiveclinical context. If you have questions about the radiology report, please contactthe office of the ordering clinician. Tessie Hoskins PA-C IMG DIAGNOSTIC IMAGING O RDERABLES Final Result * INTRAOP AIRWAY PLACEMENT (12/02/2020 2:20 PM EDT) Narrative [facility] - 12/02/2020 2:20 PM EDT Zaid Bond, JAIRO 12/02/2020 2:20 PM Intraop Airway Placement: Airway type: Nasal cannula salter Lacy Jimenez MD DC ANESTHESIA Edited Re sult - Final Performing Organization Address [facility] Co de Phone Number [facility] [address] [place] [address] * GMED EGD-COLONOSCOPY (12/02/2020 2:00 PM EDT) 12/02/2020 2:00 PM EDT Impressions [facility] - 12/02/2020 3:18 [...] is an excerpt of the full report. Tin Pryor MD GI PROCEDURE ORDERABLES Final Result Performing Organization Address [facility] de Phone Number [facility] [address] [place] [address] * SCANNED RHYTHM STRIPS (05/05/2020 1:06 PM EST) Only the most recent of5 resultswithin the time period is included. Anatomical Region Laterality Modality Other 05/05/2020 1:06 PM EST us Unknown Unknown IMG ECG ORDERABLES Final Result * NEOGENOMICS MISMATCH REPAIR (MMR) IHC PANEL [...] MLH1 in formalin-fixed paraffin-embedded tissue sections. A polymerViedea based system was used for detection. MLH1 (Disclaimer) = MMR references ranges are based on Bridgestream` internal validation, and we recommend cases with equivocal staining be confirmed with microsatellite instability (MSI) testing. MLH1 (Control Statement) = The digitized slide(s) was/were adequate for quantitative image analysis. All controls were reviewed and showed appropriate positive and negative immunoreactivity. MLH1 (Image Analysis Statement) = Whole slide image capture was performed with the Aperio ScanScope and quantitative computer-assisted image analysis using The Echo Nest software. MSH2 (Intended Use) = Mismatch repair [...] MSH2 in formalin-fixed paraffin-embedded tissue sections. A polymerViedea based system was used for detection. MSH6 [...] MSH6 in formalin-fixed paraffin-embedded tissue sections. A polymerViedea based system was used for detection. PMS2 [...] PMS2 in formalin-fixed paraffin-embedded tissue sections. A [employer] Online based system was used for detection. 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 BB HISTORY CHECK (1) Previous History OK 05/02/2020 6:22 AM EST [facility] Blood VENOUS BLOOD / Unknown Venipuncture / Unknown 05/02/2020 6:13 AM EST 05/02/2020 6:20 AM EST us Roel Posadas MD BLOOD BANK ORDERABLES Final R esult Performing Organization Address [facility] de Phone Number [facility] [place] [address] * ABORH (05/02/2020 6:13 AM EST) Only the most recent of3 resultswithin the time period is included. ABORH Int O POS 05/02/2020 6:5 3 AM EST [facility] Blood VENOUS BLOOD / Unknown Venipuncture / Unknown 05/02/2020 6:13 AM EST 05/02/2020 6:20 AM EST us Roel Posadas MD BLOOD BANK ORDERABLES Final R esult Performing Organization Address City/[facility] Co de Phone Number [facility] [address] [place] [id number] * SURGERY DATE (04/28/2020 1:35 PM EST) Surgery Date (1) Complete 04/28/2020 1:55 PM EST [facility] Blood VENOUS BLOOD / Unknown Venipuncture / Unknown 04/28/2020 1:35 PM EST 04/28/2020 1:46 PM EST us Roel Posadas MD BLOOD BANK ORDERABLES Final R esult Performing Organization Address City/[facility]/[place] [address] * ANTIBODY SCREEN IGG (04/28/2020 1:35 PM EST) Only the most recent of2 resultswithin the time period is included. ABSC IgG Int Negative 04/28/2020 2:52 PM EST [facility] Blood VENOUS BLOOD / Unknown Venipuncture / Unknown 04/28/2020 1:35 PM EST 04/28/2020 1:46 PM EST us Roel Posadas MD BLOOD BANK ORDERABLES Final R esult Performing Organization Address [facility] [place] [address] * CA 125 (04/28/2020 1:35 PM EST) Pathologist [facility] CA 125 (Legacy) 19.7 0.0 - 35.0 unit/mL 04/28/2020 3:00 PM EST [facility] Comment:[facility] uses the [employer] Specialist CA125 II assay, which is intended to [...] Posadas MD CHEMISTRY ORDERABLES Final Re sult [facility] [address] [place] [address], [place] [address] * CALCULI (STONE) ANALYSIS - REF LAB (04/15/2020 3:50 PM EST) [facility] Calculi Comp See Note 04/18/2020 7:17 PM EST [facility] Comment: Calculi components identified: calcium oxalate monohydrate, [...] composition determined by FTIR analysis. Performed By: [facility] ([facility]) [address] [place] [address] Crap Game Box Person: Chantale Vivar MD Calculi Mass 2 mg 04/18/2020 7:17 PM EST [facility] Calculi Number 1 04/18/2020 7:17 PM EST [facility] Calculi Size 1 to 4 mm 04/18/2020 7:17 PM EST [facility] Calculi Desc See Note 04/18/2020 7:17 PM EST [facility] Comment: Specimen consists of a single, small, douglas/white, irregular calculus. Calculus 04/15/2020 3:50 PM EST 04/15/2020 6:31 PM EST Crescencio Buitrago MD MICROBIOLOGY - GENERAL ORDER LUCAS Final Result [facility] [address] [place] [id number] * EC ECHOCARDIOGRAM COMPLETE W DOPPLER AND [...] estimated at 65-70%. No major valve abnormalities. us Saumya Rodriguez DO IMG ECHO ORDERABLES Final Result * POCT EKG (04/06/2020 8:32 AM EST) 04/06/2020 8:3 2 AM EST Impressions SEP OFFICE - 04/06/2020 [...] EST Impressions 03/31/2020 3:09 PM EST Negative ([id number]) ~ RECOMMENDATION: Routine screening mammogram in 1 [...] the next mammogram, in accordance with the [employer] and the Society of Breast Imaging recommendations. The mammogram was reviewed by a Radiologist and CAD. Narrative 03/31/2020 3:09 PM EST Procedure:MM MAMMO DIGITAL SCREENING W CAD BILAT ~ Reason for exam: screening, asymptomatic. Z12.31-Encounter for screening mammogram for malignant neoplasm of [id number]-WEL-16-CM Performed by: RT Radha ~ MM MAMMO [...] for screening mammogram for malignant neoplasm of [id number]-33-CM Performed by: RT Radha ~ MM MAMMO DIG SCREEN CAD BILAT Bilateral CC and MLO view(s) were taken. Technologist: RT Radha The breast tissue is almost entirely fat. Prior study comparison: Compared with prior studies the most recentbeing 10/16/18, 08/01/15. No mammographic evidence of malignancy. No suspicious calcifications. ~ IMPRESSION: Negative ([id number]) ~ RECOMMENDATION: Routine screening mammogram in 1 [...] the next mammogram, in accordance with the [employer] and the Society of Breast Imaging recommendations. The mammogram was reviewed by a Radiologist and CAD. Noah Calero MD IMG MAMMOGRAPHY ORDERABLES F inal Result * [facility] CYTOLOGY REQUEST (PAP ONLY) (03/21/2020 3:47 PM EDT) Only the most recent of2 resultswithin the time period is included. CASE REPORT Gynecologic Cytology Report Case: [id number] Authorizing Provider: Noah Calero MD Collected: 03/21/2020 1547 Ordering Location: [facility] Received: 03/21/2020 1547 First Screen: Felipe Vincent CT Specimen: LIQUID-BASED PAP - CERVICAL/ENDOCERV ICAL, Cervix, Endocervical 03/23/2020 1:47 PM EDT [facility] PAP FINAL DIAGNOSIS Negative for intraepithelial lesion or malignancy 03/23/2020 1:47 PM EDT [facility] at 1347 EDT MICROSCOPIC DESCRIPTION Microscopic examination is performed and the findings corroborate the diagnosis 03/23/2020 1:47 PM EDT [facility] PAP SMEAR ADEQUACY Satisfactory for evaluation 03/23/2020 1:47 PM EDT [facility] ENDOCERVICAL T-ZONE Transformation zone present 03/23/2020 1:47 PM EDT [facility] EMBEDDED IMAGES 0 1:47 PM EDT [facility] PAP DISCLAIMER The Pap Smear is a screening test that aids in the detection of cervical cancer and cancer precursors. Both false positive and false negative results can occur. The test should be used at regular intervals, and positive results should be confirmed before definitive therapy. Processed using the ThinPrep Lead Developer Automated cytology screening device ([employer]). 03/23/2020 1:47 PM EDT [facility] [employer] ENDOCERVICAL STRUCTURE / Unknown 03/21/2020 3:47 PM EDT 03/21/2020 3:47 PM EDT us Noah Calero MD CYTOLOGY [place] [address] * US PELVIS AND TRANSVAGINAL NON OB [...] January 07, 2020. Endometrial neoplasm not excluded. Noha Calero MD IM US ORDERABLES Final Resu lt * (ABNORMAL) PT / INR (03/15/2020 11:19 AM EDT) PT 14.2(H) 10.9 - 13.9 second(s) 03/15/2020 11:51 AM EDT [facility] INR 1.16(H) 0.88 - 1.13 no units 03/15/2020 11:51 AM EDT [facility] Comment: Level of Therapy Indications Target INR Range Standard Dose Treatment and prophylaxis of venous 2.0 - 3.0 thrombosis, pulmonary embolism High Dose High risk patients with mechanical 2.5 - 3.5 heart valves Blood VENOUS BLOOD / Unknown Venipuncture / Unknown 03/15/2020 11:19 AM EDT 03/15/2020 11:26 AM EDT Shar Rashid DO HEMATOLOGY ORDERABLES Final Result [facility] [address] [facility] , [place] [address] * LACTIC ACID (03/15/2020 11:19 AM EDT) Only the most recent of2 resultswithin the time period is included. Lactic Acid 1.4 0.5 - 1.9 mmol/L 03/15/2020 11:57 AM EDT [facility] Blood VENOUS BLOOD / Unknown Venipuncture / Unknown 03/15/2020 11:19 AM EDT 03/15/2020 11:27 AM EDT us Shar Rashid DO CHEMISTRY ORDERABLES Final R esult [facility] [address] [facility] , [place] [address] * (ABNORMAL) BLOOD GAS, VENOUS (03/15/2020 9:25 AM EDT) Only the most recent of2 resultswithin the time period is included. pH Venous 7.39 7.32 - 7.42 pH 03/15/2020 9:47 AM EDT [facility] pCO2 Venous 40(L) 41 - 51 mmHg 03/15/2020 9:47 AM EDT [facility] pO2 Venous 45(H) 25 - 40 mmHg 03/15/2020 9:47 AM EDT [facility] Comment:The peripheral venou s blood gas oxygen level (PvO2) is not clinically useful and PvO2 levels <42 mmHg in venous blood gases are below the analytical measuring range for our blood gas instrumentation. Base Excess Ravinder -0.7 mmol/L 0 9:47 AM EDT [facility] Hco3 Venous 23.7(L) 24.0 - 28.0 mmol/L 03/15/2020 9:47 AM EDT [facility] CO2 Total Ravinder 22(L) 25 - 29 mmol/L 03/15/2020 9:47 AM EDT [facility] O2 Sat. Venous 77.4(H) 40.0 - 70.0 % 03/15/2020 9:47 AM EDT [facility] Blood VENOUS BLOOD / Unknown Venipuncture / Unknown 03/15/2020 9:25 AM EDT 03/15/2020 9:34 AM EDT us Cj Hernandez MD CHEMISTRY ORDERABLES Valerie l Result [facility] [address] [facility] , [place] [address] * (ABNORMAL) COMPREHENSIVE METABOLIC PANEL (03/15/2020 9:25 AM EDT) Only the most recent of2 resultswithin the time period is included. Sodium 138 136 - 145 mmol/L 03/15/2020 9:52 AM EDT [facility] Potassium 3.9 3.5 - 5.0 mmol/L 03/15/2020 9:52 AM EDT [facility] Chloride 104 98 - 107 mmol/L 03/15/2020 9:52 AM EDT [facility] Total CO2 22 22 - 29 mmol/L 03/15/2020 9:52 AM EDT [facility] Anion Gap 12 7 - 16 mmol/L 03/15/2020 9:52 AM EDT [facility] Calcium 8.9 8.8 - 10.4 mg/dL 03/15/2020 9:52 AM EDT [facility] Glucose Lvl 123(H) 82 - 100 mg/dL 03/15/2020 9:52 AM EDT [facility] BUN 8 8 - 23 mg/dL 03/15/2020 9:52 AM EDT [facility] Creatinine 0.70 0.51 - 1.30 mg/dL 03/15/2020 9:52 AM EDT [facility] Albumin 3.6 3.2 - 4.6 gm/dL 03/15/2020 9:52 AM EDT [facility] Total Protein 6.8 6.4 - 8.3 gm/dL 03/15/2020 9:52 AM EDT [facility] Bili Total 0.8 0.1 - 1.3 mg/dL 03/15/2020 9:52 AM EDT [facility] ALT 12 <=41 U/L 03/15/2020 9:52 AM EDT [facility] AST 16 <=40 U/L 03/15/2020 9:52 AM EDT [facility] Alk Phos 128(H) 36 - 123 U/L 03/15/2020 9:52 AM EDT [facility] GFR Afr Am 105 >=60 mL/min/1.7 3 m2 03/15/2020 9:52 AM EDT [facility] GFR Non Afr Am 91 >=60 mL/min/1.7 3 m2 03/15/2020 9:52 AM EDT [facility] Comment: This estimated GFR was [...] ORDERABLES Valerie l Result Performing Organization Address [facility] Co de Phone Number [facility] [address] [place] [address] * RESP VIRUS MINI PANEL (FLU, RSV) (03/15/2020 8:41 AM EDT) Influenza A DNA Not Detected Not Detected 03/15/2020 9:44 AM EDT [facility] Influenza B DNA Not Detected Not Detected 03/15/2020 9:44 AM EDT [facility] RSV DNA Not Detected Not Detected 03/15/2020 9:44 AM EDT [facility] Swab NASOPHARYNGEAL STRUCTURE / Unknown 03/15/2020 8:41 AM EDT 03/15/2020 8:53 AM EDT Narrative [facility] - 03/15/2020 9:44 AM EDT This assay [...] OR DERABLES Final Result Performing Organization Address [facility]/ZIP Co de Phone Number [facility], [address], [place] [address] * BLOOD CULTURE (NO STAIN) (03/15/2020 8:40 AM EDT) Only the most recent of2 resultswithin the time period is included. Culture Result No Growth at 120 hours. BLOOD CULTURE (NO STAIN) 03/20/2020 11:01 AM EDT [facility] Blood VENOUS BLOOD / Unknown Venipuncture / Unknown 03/15/2020 8:40 AM EDT 03/15/2020 9:34 AM EDT us Cj Hernandez MD MICROBIOLOGY - GENERAL OR DERABLES Final Result [facility] [address] [facility] , [place] [address] * (ABNORMAL) PROCALCITONIN (03/15/2020 8:36 AM EDT) Procalcitonin 0.97(H) <=0.49 ng/mL 03/15/2020 10:04 AM EDT [facility] Blood VENOUS BLOOD / Unknown Venipuncture / Unknown 03/15/2020 8:36 AM EDT 03/15/2020 9:16 AM EDT Narrative [facility] - 03/15/2020 10:04 AM EDT Procalcitonin <0.50 [...] ORDERABLES Valerie l Result Performing Organization Address City/[facility]/ZIP Co de Phone Number [facility] [address] [facility], [place] [address] * NT PROBNP (03/15/2020 8:36 AM EDT) NT Pro-BNP 100 <=353 pg/mL 03/15/2020 9:16 AM EDT [facility] Blood VENOUS BLOOD / Unknown Venipuncture / Unknown 03/15/2020 8:36 AM EDT 03/15/2020 8:47 AM EDT Narrative [facility] - 03/15/2020 9:16 AM EDT An NT pro-BNP level less than 300 pg/mL in any patient, regardless of age, effectively rules out acute CHF with a 99% negative predictive value. us Cj Hernandez MD CHEMISTRY ORDERABLES Valerie l Result Performing Organization Address [facility] [place] [address] * CT ABD PEL ED FAST W [...] the abdomen or pelvis. - Jyoti Chi APRN IMG CT ORDERABLES Final Res ult * LIPASE LEVEL (02/21/2019 5:45 AM EDT) Only the most recent of2 resultswithin the time period is included. Lipase Lvl 19 13 - 60 IU/L 02/21/2019 6:17 AM EDT [facility] Blood VENOUS BLOOD / Unknown Venipuncture / Unknown 02/21/2019 5:45 AM EDT 02/21/2019 5:49 AM EDT us Mirela Martinez MD CHEMISTRY ORDERABLES Final Result Performing Organization Address [facility] de Phone Number [facility], [address] , [place] [address] * HEPATIC FUNCTION PANEL (02/21/2019 5:45 AM EDT) Total Protein 7.4 6.4 - 8.3 gm/dL 02/21/2019 6:17 AM EDT [facility] Albumin 3.8 3.2 - 4.6 gm/dL 02/21/2019 6:17 AM EDT [facility] Bili Direct <0.2 0.0 - 0.3 mg/dL 02/21/2019 6:17 AM EDT [facility] Bili Total 0.5 0.1 - 1.3 mg/dL 02/21/2019 6:17 AM EDT [facility] AST 14 <=40 IU/L 02/21/2019 6:17 AM EDT [facility] ALT 17 <=41 IU/L 02/21/2019 6:17 AM EDT [facility] Alk Phos 111 36 - 123 IU/L 02/21/2019 6:17 AM EDT [facility] Blood VENOUS BLOOD / Unknown Venipuncture / Unknown 02/21/2019 5:45 AM EDT 02/21/2019 5:49 AM EDT us Mirela Martinez MD CHEMISTRY ORDERABLES Final Result Performing Organization Address [facility] Co de Phone Number [facility] [address] [facility] , [place] [address] * FOLLICLE STIMULATING HORMONE LEVEL (10/16/2018 12:51 PM EDT) Only the most recent of2 resultswithin the time period is included. FSH 15.00 mIU/mL 10/16/2018 8:01 PM EDT [facility] Comment: Suggested Reference Range (mIU/mL) Females Follicular Phase 3.5 - 12.5 Ovulation Phase 4.7 - 21.5 Luteal Phase 1.7 - 7.7 Postmenopause 25.8 - 134.8 Males 1.5 - 12.4 Blood VENOUS BLOOD / Unknown Venipuncture / Unknown 10/16/2018 12:51 PM EDT 10/16/2018 12:51 PM EDT Narrative [facility] - 10/16/2018 8:01 PM EDT Ingestion of shirley doses of biotin (>5 mg/day) taken within 8 hours of drawing blood sample can interfere with this immunoassay test. us Noah Calero MD CHEMISTRY ORDERABLES Final R esult [facility] [address] [facility] , [place] [address] * US RIGHT UPPER QUADRANT (09/12/2017 3:34 PM EDT) Anatomical Region Laterality Modality Abdomen Ultrasound 09/12/2017 3:34 PM EDT Impressions 09/12/2017 3:59 PM EDT 1. Benign hepatic cyst. Otherwise normal study. Narrative 09/12/2017 3:59 PM EDT US RIGHT UPPER QUADRANT 09/12/2017 3:34 PM HISTORY: K76.9-Liver disease, [id number]-CM PROCEDURE: Quadrant ultrasound. FINDINGS: Liver normal in size and echogenicity. 1.5 x 1.4 x 2.2 cm cyst medial segment left lobe. Gallbladder absent. Common bile duct 6 mm. Pancreatic head unremarkable. Procedure Note Jorge Rondon MD - 09/12/2017 US RIGHT UPPER QUADRANT 09/12/2017 3:34 PM HISTORY: K76.9-Liver disease, [id number]-CM PROCEDURE: Quadrant ultrasound. FINDINGS: Liver normal in size and echogenicity. 1.5 x 1.4 x 2.2 cm cyst medialsegment left lobe. Gallbladder absent. Common bile duct 6 mm. Pancreatic head unremarkable. IMPRESSION: 1. Benign hepatic cyst. Otherwise normal study. us Noah Gonzales MD IMG US ORDERABLES Final Result * PULMONARY FUNCTION TEST (08/15/2016 11:37 AM EDT) 08/15/2016 11:3 7 AM EDT Impressions [facility] - 08/15/2016 11:37 [...] electronically reviewed and verified Singh Varner MD [facility] This section is an excerpt of the full report. Purvi Cordero MD PFT ORDERABLES Final Res ult [facility] [address] [place] [address] * CT ABDOMEN W WO CONTRAST (07/18/2016 [...] follow up imaging. Maynor Ruiz MD. [address] [facility], [address] Narrative 07/19/2016 11:14 AM EST CLINICAL HISTORY: [...] unremarkable. No free fluid. Noah Gonzales MD [facility] ORDERABLES Final Result * (ABNORMAL) BLOOD GAS ARTERIAL (07/03/2016 9:10 AM EST) Pathologist [facility] pH 7.32(L) 7.35 - 7.45 [facility] pCO2 57(H) 35 - 45 mmHg [facility] pO2 65(L) 80 - 100 mmHg [facility] HCO3 28.7(H) 22.0 - 26.0 mmol/L [facility] TCO2 26 23 - 27 mmol/L [facility] Base Excess 2.0 -2.0 - 3.0 [facility] O2 Sat 91.4(L) 95.0 - 98.0 % [facility] Inspired O2 2L [facility] Specimen Type Arterial [facility] ED [facility] Blood specimen (specimen) UPPER LIMB STRUCTURE / Unknown 07/03/2016 9:10 AM EST 07/03/2016 9:12 AM EST us Emiliana Mcclain MD CHEMISTRY ORDERABLES Final Result [facility] [address] [place] [address] * CT ANGIOGRAM CHEST W CONTRAST (07/03/2016 [...] comparison CT imaging studies. Prelim report provided [facility] department, 5:00 AM. Direct 3 mm axial [...] AM EST) D-Dimer 396(H) <=230 ng/mL D-DU [facility] Comment: This test has been clinically validated by the wheel polisher and approved by the FDA for exclusion [...] Ritesh Josue MD HEMATOLOGY ORDERABLES [place] [address] * (ABNORMAL) DIFFERENTIAL (07/02/2016 9:03 PM EST) Only the most recent of4 resultswithin the time period is included. Neut Percent 86.5 % [facility] Lymph Percent 7.3 % [facility] [place] Percent 5.1 % [facility] Eos Percent 1.1 % [facility] Baso Percent 0.0 % [facility] Neut# 10.9(H) 1.8 - 7.7 x10(3)/mcL [facility] Lymph# 0.9 0.6 - 4.8 x10(3)/[facility] [place]# 0.6 0.0 - 1.3 x10(3)/[facility] Eos# 0.1 0.0 - 0.5 x10(3)/[facility] Baso# 0.0 0.0 - 0.2 x10(3)/[facility] Blood specimen (specimen) 07/02/2016 9:03 PM EST 07/02/2016 9:09 PM EST [facility] HEMATOLOGY ORDERABL ES Final Result Performing Organization Address City/State/[facility] [place] [address] * PATHOLOGY TISSUE REPORT (12/28/2015 11:28 AM EDT) Only the most recent of2 resultswithin the time period is included. Pathologist [facility] Surgical Pathology Report PATIENT NAME:LALO SEGURA Surgical Pathology Report Accession Number Collected Date/Time Received Date/Time [id number] 12/28/15 11:28 EDT 12/28/15 14:28 EDT Diagnosis [...] performed and the findings corroborate the diagnosis. [facility] 12/28/2015 11:2 8 AM EDT us Noah Calero MD PATHOLOGY ORDERABLES Final R esult [facility] [address] [place] [address] * [facility] CYTOLOGY REPORT (08/23/2015 1:00 PM EDT) Only the most recent of3 resultswithin the time period is included. Director Export Cytology Report PATIENT NAME:LALO SEGURA Director Export Cytology Report Accession Number Collected Date/Time Received Date/Time [id number] 08/23/15 13:00 EDT 08/23/15 18:32 EDT GY [...] before definitive therapy. Processed using the ThinPrep Lead Developer automated cytology screening device ([employer]). Fiction Writer: АННА 08/25/2015 Completed by: Janie Bello (Electronically signed by) 08/25/2015 [facility] 08/23/2015 1:00 PM EDT us Noah Calero MD PATHOLOGY ORDERABLES Final R esult [facility] [address] [place] [address] * SCANNED RADIOLOGY REPORT (03/20/2013 11:08 AM [...] 11:15 AM EDT) Latex <0.10 <=0.34 kunits/L [facility] Blood specimen (specimen) UPPER LIMB STRUCTURE / Unknown 01/27/2013 11:15 AM EDT 01/27/2013 1:56 PM EDT us Sue Mensah NP IMMUNOLOGY ORDERABLES Final Result [facility] [address] [place] [address] * (ABNORMAL) VITAMIN D, [id number] (08/28/2010 10:15 AM EDT) Only the most recent of2 resultswithin the time period is included. Vit D 25 OH 28(L) 30 - 80 ng/mL [facility] Comment: REFERENCE INTERVAL: [...] ORDERABLES Final Resul t Performing Organization Address City/[facility]/ZIP Co de Phone Number [facility] [address] [place] [address] * VITAMIN B12/ FOLIC ACID (04/28/2010 11:05 AM EST) Pathologist [facility] Vitamin B12 284 239 - 931 pg/mL [facility] Folic Acid Lvl 6.60 3.00 - 20.00 ng/mL [facility] Blood specimen (specimen) UPPER LIMB STRUCTURE / Unknown 04/28/2010 11:05 AM EST 04/28/2010 11:08 AM EST us Arjun Hicks MD CHEMISTRY ORDERABLES Final Res ult [facility] [address] [place] [address] * RHEUMATOID FACTOR QUALITATIVE (04/28/2010 11:05 AM EST) Rheumatoid Factor < 10 IU < 10 IU [facility] Comment:Semi-quantitative me thod: Units IU/mL Blood specimen (specimen) UPPER LIMB STRUCTURE / Unknown 04/28/2010 11:05 AM EST 04/28/2010 11:08 AM EST us Arjun Hicks MD IMMUNOLOGY ORDERABLES Final Re sult Performing Organization Address [facility] de Phone Number [facility] [address] [place] [address] * (ABNORMAL) SEDIMENTATION RATE AUTOMATED (04/28/2010 11:05 AM EST) Pathologist [facility] Sed Rate 49(H) 0 - 30 mm [facility] Blood specimen (specimen) UPPER LIMB STRUCTURE / Unknown 04/28/2010 11:05 AM EST 04/28/2010 11:08 AM EST us Arjun Hicks MD HEMATOLOGY ORDERABLES Final Re sult Performing Organization Address [facility] Phone Number [facility] [address] [place] [address] * ANTINUCLEAR ANTIBODY SCREEN (04/28/2010 11:05 AM EST) [facility] JASON Screen Negative [facility] Comment: JASON samples [...] ORDERABLES Final Re sult Performing Organization Address [facility] de Phone Number [facility] [address] [place] [address] * CREATINE KINASE (04/28/2010 11:05 AM EST) [facility] CK 76 30 - 135 IU/L [facility] Blood specimen (specimen) UPPER LIMB STRUCTURE / Unknown 04/28/2010 11:05 AM EST 04/28/2010 11:08 AM EST us Arjun Hicks MD CHEMISTRY ORDERABLES Final Res ult Performing Organization Address [facility] Co de Phone Number [facility] [address] [place] [address] * SCANNED LABS (03/01/2010 12:00 AM EDT) [...] results should be correlated with clinical history. [facility] Vaginal swab (specimen) 11/25/2009 5:03 PM EDT 11/25/2009 5:11 PM EDT us Phy For [facility] MICROBIOLOGY - GENERAL ORDERA BLES Final Result Performing Organization Address [facility]/ZIP Co de Phone Number [facility] [address] [place] [address] * MR LUMBAR SPINE W/O KE MRI [...] facet changes. No compressive disc disease identified. Supervisor [place] [place] Physician- NICOLETTE MCGRAW MD Released Date Time- 06/15/091646 Procedure Note Nicolette Mcgraw III - 08/05/2009 [...] facet changes. No compressive disc disease identified. Supervisor [facility] [place] Physician- NICOLETTE MCGRAW MD Released Date Time- 06/15/09 164 Noah Gonzales MD [facility] HISTORICAL Valerie l Result * MM SCREENING BILATERAL (08/11/2007 12:00 AM EDT) Only the most recent of2 resultswithin the time period is included. Anatomical Region Laterality Modality Other 08/11/2007 08/11/2007 Narrative 08/11/2007 12:00 AM EDT Name: COLTON Huitron : [id number] [facility] Reason: SCBI MAMMO Dict.Staff: LULU HURTADO [id number] Verified By: DELON BRAGA Ramiro: 08/14/07 8:22 [...] Note Unknown, U - 09/09/2009 Name: COLTON Huitron : [address] [facility] Reason: SCBI MAMMO Dict.Staff: LULU HURTADO [id number] Verified By: DELON BRAGA Ramiro: 08/14/07 8:22 [...] 07/23/2006 Narrative 07/23/2006 12:00 AM EST VERIFIED [facility] Reason: 626.4 Dict.Staff: DANNY CAMACHO Verified By: [...] Procedure Note Unknown, U - 09/09/[address] [facility] Reason: 626.4 Dict.Staff: DANNY CAMACHO Verified By: [...] 07/23/2006 Narrative 07/23/2006 12:00 AM EST VERIFIED [facility] Reason: 626.4 Dict.Staff: DANNY CAMACHO Verified By: [...] Procedure Note Unknown, U - 09/09/[address] [facility] Reason: 626.4 Dict.Staff: DANNY CAMACHO Verified By: [...] SE LW RAD HISTORICAL Final Result * MM SCREENING (06/11/2005 12:00 AM EST) Anatomical Region Laterality Modality Other 06/11/2005 06/11/2005 Narrative 06/11/2005 12:00 AM EST VERIFIED [facility] Reason: SCREENING Dict.Staff: ESTIVEN STEVENSON Verified By: MAYNOR LAZAR Ramiro: 06/13/05 9:56 pm Exams: [facility]-SCREENING SCREENING MAMMOGRAM WITH CAD ANALYSIS: 06-11-05 [...] Procedure Note Unknown, U - 09/08/[address] [facility] Reason: SCREENING Dict.Staff: ESTIVEN STEVENSON Verified By: MAYNOR LAZAR Ramiro: 06/13/05 9:56 pm Exams: [facility]-SCREENING SCREENING MAMMOGRAM WITH CAD ANALYSIS: 06-11-05 [...] CAD. end of result us U Unknown [facility] Final Result Visit Diagnoses Diagnosis Start Date [...] to 59.9 in adult, unspecified obesity type (HCC) 06/20/2021 Frequent UTI Urinary tract infection, site [...] of 50.0 to 59.9 in adult (HCC) 10/27/2024 KARO (obstructive sleep apnea) Obstructive sleep apnea (adult) (pediatric) 10/27/2024 Mild persistent asthma without complication Unspecified asthma 10/27/2024 Gastroesophageal reflux disease, unspecified whether esophagitis present 10/27/2024 Fatty liver Other chronic nonalcoholic liver disease 10/27/2024 Endometrial cancer (HCC) Malignant neoplasm of corpus uteri, except isthmus 02/24/2025 Essential hypertension Unspecified essential hypertension 02/24/2025 Mild persistent asthma without complication Unspecified asthma 02/24/2025 Seasonal allergic rhinitis, unspecified trigger 02/24/2025 Postmenopausal bleeding 01/28/2013 Abnormal uterine bleeding (AUB) [...] 140/90 Blood Pressure 142/80(2024 2:06 PM EDT) No Anabela Rodriguez, Clerical Staff Maintain a healthy diet, exercise regularly and maintain an ideal body weight General No Anabela Rodriguez, Clerical Staff Care Teams Irrigation District Manager Relationship Specialty Start Date End Date Noah Gonzales MD PCP - General 10/27/09 Desean Vickers DPM [address] [phone] Linen Clerk-Surgery, Foot & Ankle 08/13/16 Roel Posadas MD [address] [place] [phone] Consulting Physician Obstetrics & Gynecology-Gynecologic Oncology 03/29/20 Noah Calero MD [address] [place] [phone] Obstetrics & Gynecology 05/10/20
--- OUTSIDE RECORDS SUMMARY | 2025-04-06 17:00 | XMS_ITS | Encounter Summary ---
Author Organization [place] [address] Care Team Providers Care Regulatory Submissions Specialist Name Role Phone Noah Gonzales MD Primary Care Provider [phone] Desean Vickers DPM Unavailable [phone] Roel Posadas MD Unavailable [phone] Noah Calero MD Unavailable Unavailable Encounter Details Date Type Department Care Team (Late st Contact Info) Description 10/07/2020 Lab Requisition [facility] [place] [address] Tessie Hinton, TABLE MACHINE OPERATOR [address] [facility] [address] [place] [address] Urinary tract infection, site not specified [...] Description 05/03/2026 2:10 PM EST Office Visit [id number] [place] [address] Mina Mac MD [address] [facility] [address] [place] [phone] documented as of this encounter Procedures Procedure Name Priority Date/Time Associated Diagnosis Comments URINE CULTURE (NO STAIN) Routine 10/07/2020 4:18 PM EDT Urinary tract infection, site not specified documented in this encounter Results * (ABNORMAL) URINE CULTURE (NO STAIN) (10/07/2020 4:18 PM EDT) Culture Positive Growth(A) 10/10/2020 1:01 PM EDT [facility]REFERRED [facility] Culture >[id number] CFU/mL Escherichia coli SUSCEPTIBI LITY RESULT 10/10/2020 1:01 PM EDT [facility] Urine 10/07/2020 4:18 PM EDT 10/07/2020 7:34 [...] RESULT <=0.5/9.5 ug/mL: Susceptible us Tessie Hinton APRN MICROBIOLOGY - GENERAL SERGIOE ERICKA Final Result [facility], [facility] [address] [facility] , [place] [address] documented in this encounter Visit Diagnoses Diagnosis Urinary tract infection, site not specified documented in this encounter Care Teams Regulatory Submissions Specialist Relationship Specialty Start Date End Date Noah Gonzales MD PCP - General 10/27/09 Desean Vickers DPM [address] [place] [phone] Can Washer-Surgery, Foot & Ankle 08/13/16 Roel Posadas MD [address] [place] [address] Consulting Physician Obstetrics & Gynecology-Gynecologic Oncology 03/29/20 Noah Calero MD [address] [place] [address] Obstetrics & Gynecology 05/10/20 documented as of this encounter
== END 2025-04-05 23:59 | disposition home or self-care (01) ==
LOC: LAB.DROPOF 04-06 16:57
PROVIDERS: PCP Family Medicine; Visit Provider Family Medicine
DX: R10.9 Unspecified abdominal pain (principal)
CPT/HCPCS: 86364